=== PATIENT | female | born 1970 | race Caucasian/White ===

== ENCOUNTER 2020-04-04 11:00 | Outpatient (RCR) | payer OTHER, SELFPAY | END 2020-04-14 10:16 | disposition other institution (70) | LOC: HO.PT 11:00 | PROVIDERS: PCP Internal Medicine; Visit Provider Internal Medicine | DX: R26.81 Unsteadiness on feet (principal) | CPT/HCPCS: 97110; 97112; 97163 ==

== ENCOUNTER → 2020-07-21 08:09 | Outpatient (REF) | payer OTHER, SELFPAY ==
--- NOTE | ~2020-07-21 | NM_ITS ---
Exercise Myocardial perfusion study Indication: Chest pain to evaluate for myocardial ischemia Technique: The patient was brought in for an exercise perfusion study on 07/21/2020. Patient performed exercise as per Kishore protocol and was injected 30 mCi of sestamibi was given intravenously one target HR was achieved. Images were obtained using the SPECT gamma camera interlaced with the gating device. Images were obtained in supine position. Resting perfusion study was performed on 07/22/2020. Patient was administered 30 mCi of sestamibi intravenously at rest. Images were then obtained in supine position. Images obtained with and without CT attenuation. Total DLP 82 mGy-cm. Images were processed with the software and compared side to side in short axis, horizontal long axis and vertical long axis views. Findings: The stress perfusion study showed non attenuated images show mildly reduced uptake in the distal anterior and moderately reduced uptake in the apex of the LV myocardium. Remainder of the LV myocardium is normally perfused. Attenuation corrected images show mildly reduced uptake in the apex of the LV myocardium.. The gated study shows normal LV systolic function with calculated LVEF of 72%. LV cavity is normal in size. The gated study shows normal systolic wall thickening and contraction of all segments. There is no transient ischemic dilation. Resting study shows non attenuated images show normal uptake of radiotracer in all segments of LV myocardium is well seen on the attenuated corrected images. Gating at rest reveals normal systolic wall motion with ejection fraction at 70%. The findings are consistent with mild to moderate intensity apical ischemia. NM/NM spencer perf SPECT rest & str Impression: 1. Apical ischemia 2. Gated LVEF is 70% 3. Transient ischemic dilatation not present Stress EKG is positive for ischemia
--- NOTE | 2020-07-21 08:16 | CA_ITS ---
Acquisition Time: 2020-07-21 08:21:42 Total Exercise Time: 00:09:16 Test Indications: CP Medications: SEE CHART Protocol: WILBERT Max HR: 148 BPM 86% of Pred: 172 BPM Max BP: 144/068 mmHG Max Work Load: 10.5 METS Exercise stress test with exercise 9 min 16 sec of Wilbert protocol, without anginal symptoms, without arrythmia, with normotensive response to exercise, with EKG changes meeting criteria for ischemia: hortizontal ST depression inferiorly and V4-V6 with gradual improvement in recovery. Nuclear images pending. Test reviewed with Dr Garcia. Referred By: Stu Vargas Overread By: FELICIA ZALDIVAR
== END ==
LOC: HO.CARD 08:09
PROVIDERS: Visit Provider Internal Medicine Cardiovascular Disease
DX: R07.9 Chest pain, unspecified (principal)
CPT/HCPCS: 78452; 93016; 93017; 93018; A9500

== ENCOUNTER 2020-10-19 14:18 | Outpatient (REF) | payer OTHER, SELFPAY ==
--- NOTE | ~2020-10-19 | XR_ITS ---
EXAMINATION: XR KNEE, RIGHT CLINICAL INFORMATION: Pain right knee COMPARISON: None TECHNIQUE: Four views of the right knee. FINDINGS: The tricompartment joint space is maintained normal. No visible acute fracture, loose bodies or bony erosive changes seen. There is minimal suprapatellar joint effusion. XR/XR knee RT 4V IMPRESSION: Unremarkable right knee exam.
== END 2020-10-19 14:19 | disposition home or self-care (01) ==
LOC: HO.XRAY 14:18
PROVIDERS: Absent Provider Internal Medicine; PCP Internal Medicine; Visit Provider General Practice
DX: M25.561 Pain in right knee (principal)
CPT/HCPCS: 73564

== ENCOUNTER 2020-12-09 12:14 | Outpatient (REF) | payer OTHER, SELFPAY ==
--- NOTE | ~2020-12-09 | XR_ITS ---
EXAMINATION: XR CALCANEUS, LEFT CLINICAL INFORMATION: left heel pain radiating up into calf, no injury. COMPARISON: Left lower leg May 02, 2017 TECHNIQUE: Lateral and axial views of the left calcaneus were obtained. FINDINGS: There is a plantar calcaneal spur measuring about 6 mm. There is a small spur/exostosis of the posterior calcaneus at the insertion of the Achilles tendon. No fracture. No focal bone lesion or bone destruction. Subtalar joint and the calcaneocuboid joint are normal. No change since prior study of May 02, 2017. XR/XR calcaneus LT min 2V IMPRESSION: Plantar calcaneal spur. Spur at the insertion of Achilles tendon. There is been no change since prior study May 02, 2017.
== END 2020-12-09 12:15 | disposition home or self-care (01) ==
LOC: HO.XRAY 12:14
PROVIDERS: PCP Internal Medicine; Referring Provider Internal Medicine; Visit Provider Emergency Medicine
DX: M79.672 Pain in left foot (principal)
CPT/HCPCS: 73650

== ENCOUNTER 2021-01-20 20:36 | Emergency (ER) | payer OTHER, SELFPAY ==
[2021-01-20 20:51] VITALS: BP 129/80; PULSE 77; RESP 18; TEMP 36.1; O2SAT 98; BMI 32.3
== END 2021-01-20 22:09 | disposition left against medical advice (07) ==
PROVIDERS: Emergency Provider Emergency Medicine; PCP Internal Medicine
DX: M79.644 Pain in right finger(s) (principal)
CPT/HCPCS: 99281; 99282

== ENCOUNTER 2021-02-16 14:00 | Outpatient (RCR) | payer OTHER, SELFPAY | END 2021-03-14 13:49 | disposition home or self-care (01) | LOC: HO.PT 14:00 | PROVIDERS: PCP Internal Medicine; Visit Provider General Practice | DX: M72.2 Plantar fascial fibromatosis (principal) | CPT/HCPCS: 97110; 97112; 97140; 97161; 97530 ==

== ENCOUNTER 2021-07-29 02:23 | Emergency (ER) | payer OTHER, SELFPAY ==
[2021-07-29 02:30] VITALS: BP 115/79; BP 128/72; PULSE 105; PULSE 108; RESP 16; TEMP 38.1; O2SAT 96; BMI 30.9
[2021-07-29 02:35] VITALS: RESP 16
--- NOTE | 2021-07-29 02:50 | ED.NAVMDI ---
HPI - Nausea/Vomiting/Diarrhea General Chief complaint: Nausea/Vomiting/Diarrhea Stated complaint: n/v/d since 1999 Time Seen by Provider: 07/29/21 02:44 Source: patient Mode of arrival: ambulatory Limitations: no limitations History of Present Illness HPI Narrative: Patient comes emergency room complaining of nausea vomiting and diarrhea for approximately 6 hours. Patient states she ate a salad and shortly after she started having multiple episodes of vomiting and diarrhea. Related Data Previous Rx's Medication Instructions Recorded tamsulosin 0.4 mg capsule 0.4 mg PO DAILY 90 Days #90 cap 01/16/21 loperamide 2 mg capsule 2 mg PO Q4H PRN #10 cap 07/29/21 ondansetron HCl 4 mg tablet 4 mg PO Q6H PRN #10 tab 07/29/21 Allergies Allergy/AdvReac Type Severity Reaction Status Date / Time influenza virus vaccine, Allergy Severe ANAPHYLAXIS Unverified 01/21/20 15:21 specific [FLU VACCINE] Iodinated Contrast Media Allergy Severe TURNS Unverified 01/21/20 15:21 [Iodinated Contrast Media - BLUE IV Dye] latex [Latex] Allergy Severe ANAPHYLAXIS Unverified 01/21/20 15:21 sulfamethoxazole Allergy Mild RASH Unverified 01/21/20 15:21 [From Bactrim] trimethoprim [From Bactrim] Allergy Mild RASH Unverified 01/21/20 15:21 acetaminophen [Percocet] Allergy Unknown Verified 01/04/20 00:00 amoxicillin [Prevpac] Allergy Unknown nausea, Verified 01/04/20 00:00 vomiting clarithromycin [Prevpac] Allergy Unknown nausea, Verified 01/04/20 00:00 vomiting codeine Allergy Unknown Verified 01/04/20 00:00 doxazosin Allergy Unknown dizziness Verified 01/04/20 00:00 lansoprazole [Prevpac] Allergy Unknown nausea, Verified 01/04/20 00:00 vomiting metronidazole [From FLAGYL] Allergy Unknown UNKNOWN Unverified 01/21/20 15:21 Percodan Allergy Unknown stomach Unverified 01/04/20 00:00 upset rifaximin [Xifaxan] Allergy Unknown Verified 01/04/20 00:00 Sulfa (Sulfonamide Allergy Unknown stomach Unverified 01/04/20 00:00 Antibiotics) upset Opioids - Morphine Analogues AdvReac Intermediate NAUSEA & Unverified 01/21/20 15:21 [OPIOIDS - MORPHINE VOMITING + ANALOGUES] RASH clonazepam [From Klonopin] AdvReac Mild HEADACHE Unverified 01/21/20 15:21 oxycodone [From Percodan] AdvReac Mild HEADACHE/DI Unverified 01/21/20 15:21 ZZY Shellfish Allergy Mild DIFFICULTY Uncoded 01/21/20 15:21 BREATHING/RASH Biaxin Allergy Unknown Uncoded 01/04/20 00:00 LATEX Allergy Unknown anaphylaxis Uncoded 05/21/16 00:00 Latex Gloves Allergy Unknown Uncoded 01/04/20 00:00 OXYCODONE Allergy Unknown nausea and Uncoded 05/21/16 00:00 vomiting SHELLFISH Allergy Unknown anaphylaxis Uncoded 05/21/16 00:00 shellfish Allergy Unknown Uncoded 01/04/20 00:00 x-ray dye Allergy Unknown Uncoded 01/04/20 00:00 Review of Systems Review of Systems: Constitutional : No Weight loss, No Fever, No Chills, No Night Sweats, No Fatigue, No Malaise ENT/Mouth : No Hearing loss, No Ear Pain, No Nasal Congestion, No Sinus Pain, No Hoarseness, No sore throat, No Rhinorrhea, No Swallowing Difficulty Eyes: No Eye Pain, No Swelling, No Redness, No Foreign Body, No Discharge, No Vision Changes Cardiovascular : No Chest Pain, No SOB, No Dyspnea on Exertion, No Orthopnea, No Edema, No Palpitations Respiratory : No Cough, No Sputum, No Wheezing, No Smoke Exposure, No Dyspnea Gastrointestinal : Complaining of nausea, vomiting and diarrhea. No Constipation, denies abdominal Pain, No Hematochezia, No Melena Genitourinary : no irregular bleeding, No Dysuria, No Urinary Frequency, No Hematuria, No Urinary Incontinence, No Urgency, No Flank Pain, No Urinary Flow Changes, No Hesitancy Musculoskeletal : No joint pain, No Myalgias, No Joint Swelling Skin : No Skin Lesions, No rash Neuro : No Weakness, No Numbness, No Paresthesias, No Loss of Consciousness, No Dizziness, No Headache Psych : No Anxiety/Panic, No Depression, No SI/HI/AH/VH, No Social Issues, Heme/Lymph: No Bruising, No Bleeding,No Lymphadenopathy Endocrine : No Polyuria, No Polydipsia, No Temperature Intolerance PMFSH Past Medical History Medical History Anxiety about blushing HTN (hypertension) Restless leg syndrome Seizure Social History Social History Advance Directives: No Advance Directives Information Provided: No Physical Exam Vital Signs: Vital Signs: Last Vital Signs Temp 99.6 F 07/29/21 04:00 Pulse 99 07/29/21 04:14 Resp 22 H 07/29/21 04:14 BP 117/59 L 07/29/21 04:14 Pulse Ox 96 07/29/21 04:14 BMI result Body Mass Index 30.9 Const: Other: Appearance: Alert. Oriented X3. No acute distress. Well-appearing Eyes: Pupils equal, round and reactive to light. ENT: Pharynx normal. Neck: Normal inspection. Neck supple. No lymph nodes noted. No crepitus CVS: Normal heart rate and rhythm. Pulses normal. Normal S1 and S2 Respiratory: No respiratory distress. Breath sounds normal. No Wheezing. No rales Abdomen: Soft and nontender. No rigidity. No distention. Skin: Skin warm and dry. Normal skin color. Normal skin turgor. Extremities: No lower extremity edema. No Lacerations. No Rash Neuro: Oriented X 3. No motor deficit. No sensory deficit. Moving all extremities. No slurred speech. CN 2 through 12 grossly intact Psych: calm, cooperative, normal affect Course Course Course Narrative: Patient likely has a viral process. Patient being given fluids, IV Zofran, loperamide. Labs pending Acute findings. Patient tested negative for COVID. Patient likely having a viral syndrome. Patient has not had any episodes of vomiting or diarrhea in the ED MDM - Nausea/Vomiting/Diarrhea Lab Data Result diagrams: 07/29/21 03:04 07/29/21 03:04 Labs: Lab Results 07/29/21 07/29/21 07/29/21 Range/Units 03:04 03:04 03:39 WBC 5.4 (4.8-10.8) X10*3/uL RBC 4.52 (4.20-5.50) X10*6/uL Hgb 13.2 (12.0-16.0) g/dl Hct 39.4 (37.0-47.0) % MCV 87.2 (80.0-98.0) fL MCH 29.2 (27.0-33.0) pg MCHC 33.5 (31.0-35.0) g/dl RDW 11.7 (11.0-16.0) % Plt Count 233 (160-400) X10*3/uL MPV 8.9 L (9.4-12.3) fL Immature Gran % (Auto) 0.2 (0.0-0.4) % Neut % (Auto) 87.1 H (45-73) % Lymph % (Auto) 4.5 L (20-40) % Travis % (Auto) 5.8 (2-11) % Eos % (Auto) 2.2 (0-4) % Baso % (Auto) 0.2 (0-2) % Lymph # (Auto) 0.2 L (1.2-4.9) X10*3/uL Travis # (Auto) 0.3 (0.1-1.2) X10*3/uL Eos # (Auto) 0.1 (0.0-0.4) X10*3/uL Baso # (Auto) 0.0 (0.0-0.2) X10*3/uL Abs Immat Gran (auto) 0.01 (0.00-0.03) X10*3/uL Absolute Neuts (auto) 4.7 (2.0-8.3) x10*3/uL Absolute Nucleated RBC 0.000 (0.0-0.012) X10*3/uL Nucleated RBC % (auto) 0.0 (0.0-0.2) /100WBC Sodium 138 (135-145) mmol/L Potassium 4.1 (3.3-5.1) mmol/L Chloride 103 (96-108) mmol/L Carbon Dioxide 24 (22-29) mmol/L Anion Gap 15 (12-20) BUN 19 H (9-16) mg/dL Creatinine 0.98 (0.5-1.4) mg/dL Estim Creat Clear Calc 74.5 Estimated GFR > 60 Random Glucose 137 H (60-115) mg/dL Calcium 9.4 (8.4-10.2) mg/dL Total Bilirubin 0.6 (0.0-1.0) mg/dL Direct Bilirubin < 0.2 (0.0-0.5) mg/dL AST 14 (5-31) U/L ALT 15 (0-31) U/L Alkaline Phosphatase 63 (39-117) U/L Total Protein 7.2 (6.5-8.0) g/dL Albumin 4.2 (3.5-5.0) g/dL COVID-19 (JORDANA) (Negative) COVID-19 Clin Com Influenza Type A (FRANCO) Negative (Negative) Influenza Type B (FRANCO) Negative (Negative) Influenza A & B Note See Note 07/29/21 Range/Units 03:39 WBC (4.8-10.8) X10*3/uL RBC (4.20-5.50) X10*6/uL Hgb (12.0-16.0) g/dl Hct (37.0-47.0) % MCV (80.0-98.0) fL MCH (27.0-33.0) pg MCHC (31.0-35.0) g/dl RDW (11.0-16.0) % Plt Count (160-400) X10*3/uL MPV (9.4-12.3) fL Immature Gran % (Auto) (0.0-0.4) % Neut % (Auto) (45-73) % Lymph % (Auto) (20-40) % Travis % (Auto) (2-11) % Eos % (Auto) (0-4) % Baso % (Auto) (0-2) % Lymph # (Auto) (1.2-4.9) X10*3/uL Travis # (Auto) (0.1-1.2) X10*3/uL Eos # (Auto) (0.0-0.4) X10*3/uL Baso # (Auto) (0.0-0.2) X10*3/uL Abs Immat Gran (auto) (0.00-0.03) X10*3/uL Absolute Neuts (auto) (2.0-8.3) x10*3/uL Absolute Nucleated RBC (0.0-0.012) X10*3/uL Nucleated RBC % (auto) (0.0-0.2) /100WBC Sodium (135-145) mmol/L Potassium (3.3-5.1) mmol/L Chloride (96-108) mmol/L Carbon Dioxide (22-29) mmol/L Anion Gap (12-20) BUN (9-16) mg/dL Creatinine (0.5-1.4) mg/dL Estim Creat Clear Calc Estimated GFR Random Glucose (60-115) mg/dL Calcium (8.4-10.2) mg/dL Total Bilirubin (0.0-1.0) mg/dL Direct Bilirubin (0.0-0.5) mg/dL AST (5-31) U/L ALT (0-31) U/L Alkaline Phosphatase (39-117) U/L Total Protein (6.5-8.0) g/dL Albumin (3.5-5.0) g/dL COVID-19 (JORDANA) Negative (Negative) COVID-19 Clin Com See Note Influenza Type A (FRANCO) (Negative) Influenza Type B (FRANCO) (Negative) Influenza A & B Note Discharge Plan Discharge Clinical Impression: Nausea vomiting and diarrhea Patient Disposition: Home, Self-Care Instructions: Acute Nausea and Vomiting (ED) Additional Instructions: Please follow-up with your primary care physician tomorrow. If you have any worsening or new symptoms, please return to the emergency room or call 911 Prescriptions: New ondansetron HCl 4 mg tablet 4 mg PO Q6H PRN (Reason: nausea and vomiting) Qty: 10 0RF loperamide 2 mg capsule 2 mg PO Q4H PRN (Reason: loose stool) Qty: 10 0RF Rx Instructions: administer after each loose stool until symptoms controlled; do not exceed 8 mg per 24 hrs No Action tamsulosin 0.4 mg capsule 0.4 mg PO DAILY 90 Days Qty: 90 1RF
[2021-07-29] MEDS: 0.9 % Sodium Chloride 1,000 ML 999 ML IVCONT (03:04)
[2021-07-29] MEDS: ondansetron HCL 4 MG/2 ML VIAL IVPUSH (03:05)
[2021-07-29] MEDS: Ibuprofen 600 MG TABLET PO (03:08)
[2021-07-29] MEDS: Loperamide HCl 2 MG CAPSULE 4 MG PO (03:08)
[2021-07-29 03:09] LABS: MANUAL DIFF FLAG NO
[2021-07-29 03:14] LABS: Basophils Percent Auto 0.2 % (0-2); Eosinophils Absolute Auto 0.1 X10*3/uL (0.0-0.4); Eosinophils Percent Auto 2.2 % (0-4); Hematocrit 39.4 % (37.0-47.0); Hemoglobin 13.2 g/dl (12.0-16.0); Imm Gran Abs Auto 0.01 X10*3/uL (0.00-0.03); Imm Gran Pct Auto 0.2 % (0.0-0.4); Lymphocytes Absolute Auto 0.2 X10*3/uL (1.2-4.9); Lymphocytes Percent Auto 4.5 % (20-40); Mean Corpuscular HGB Conc 33.5 g/dl (31.0-35.0); Mean Corpuscular Hemoglobin 29.2 pg (27.0-33.0); Mean Corpuscular Volume 87.2 fL (80.0-98.0); Mean Platelet Volume 8.9 fL (9.4-12.3); Monocytes Absolute Auto 0.3 X10*3/uL (0.1-1.2); Monocytes Percent Auto 5.8 % (2-11); Neutrophils Absolute Auto 4.7 x10*3/uL (2.0-8.3); Neutrophils Percent Auto 87.1 % (45-73); Platelet Count 233 X10*3/uL (160-400); Red Blood Count 4.52 X10*6/uL (4.20-5.50); Red Cell Distribution Width 11.7 % (11.0-16.0); White Blood Count 5.4 X10*3/uL (4.8-10.8)
[2021-07-29 03:28] LABS: Alanine Aminotransferase 15 U/L (0-31); Albumin Level 4.2 g/dL (3.5-5.0); Alkaline Phosphatase 63 U/L (39-117); Anion Gap 15 (12-20); Aspartate Amino Transferase 14 U/L (5-31); Bilirubin Direct < 0.2 mg/dL (0.0-0.5); Bilirubin Total 0.6 mg/dL (0.0-1.0); Blood Urea Nitrogen 19 mg/dL (9-16); Calcium 9.4 mg/dL (8.4-10.2); Carbon Dioxide 24 mmol/L (22-29); Chloride 103 mmol/L (96-108); Creatinine Clr Calc Pharmacy 74.5; Estimated Glomerular Filt Rate > 60; Glucose Random 137 mg/dL (60-115); Potassium 4.1 mmol/L (3.3-5.1); Sodium 138 mmol/L (135-145); Total Protein 7.2 g/dL (6.5-8.0)
[2021-07-29 04:00] VITALS: BP 115/68; PULSE 98; RESP 16; TEMP 37.6; O2SAT 97
[2021-07-29 04:04] LABS: COVID-19 Test Negative (Negative); IDNOW Serial# 55D5AD1C; Influenza A Negative (Negative); Influenza B2 Negative (Negative)
[2021-07-29 04:14] VITALS: BP 117/59; PULSE 99; RESP 22; O2SAT 96
== END 2021-07-29 06:38 | disposition home or self-care (01) ==
PROVIDERS: Emergency Provider Emergency Medicine; PCP Internal Medicine
DX: R11.2 Nausea with vomiting, unspecified (principal); R19.7 Diarrhea, unspecified; Z20.822 Contact with and (suspected) exposure to COVID-19
CPT/HCPCS: 36415; 80048; 80076; 85025; 87502; 87635; 96361; 96374; 99284; J2405

== ENCOUNTER 2021-09-21 13:37 | Outpatient (REF) | payer OTHER, SELFPAY ==
--- NOTE | ~2021-09-21 | US_ITS ---
EXAMINATION: US PELVIS CLINICAL INFORMATION: Abnormal vaginal bleeding COMPARISON: 11/16/2007 TECHNIQUE: Ultrasound of the pelvis is performed using both transabdominal and transvaginal transducers along with Doppler. Transvaginal imaging is performed due to inadequate visualization transabdominally. FINDINGS: Uterus: The uterus is anteverted and measures 7.7 x 4.4 x 6.0 cm. The uterus is diffusely heterogeneous. There is a 4.3 x 3.2 x 3.5 cm left uterine body leiomyoma, increased in size from prior. 1.2 cm right uterine body leiomyoma. Similar appearance of 1.6 cm left fundal myoma. The double wall endometrial thickness is 0.4 mm. Nabothian cysts are incidentally noted in the cervix. Adnexa: Both ovaries are visualized. There is normal color flow to the adnexa. There is no ovarian torsion. Trace likely physiologic volume free fluid. Right ovary measures 2.4 x 1.4 x 1.7 cm. No adnexal mass. Left ovary measures 1.5 x 1.2 x 1.2 cm. No adnexal mass. US/US pelvic and transvaginal IMPRESSION: Thin, 4 mm endometrial stripe. Uterine myomas are seen, one increased in size, one new, the other is stable in appearance. No adnexal mass.
== END 2021-09-21 13:38 | disposition home or self-care (01) ==
LOC: HO.US 13:37
PROVIDERS: Visit Provider Internal Medicine
DX: N93.8 Other specified abnormal uterine and vaginal bleeding (principal)
CPT/HCPCS: 76830; 76856

== ENCOUNTER 2022-01-31 10:17 | Outpatient (REF) | payer OTHER, SELFPAY ==
[2022-01-31 11:16] LABS: Alanine Aminotransferase 21 U/L (0-31); Albumin Level 4.8 g/dL (3.5-5.0); Alkaline Phosphatase 71 U/L (39-117); Anion Gap 13 (12-20); Aspartate Amino Transferase 18 U/L (5-31); Bilirubin Total 0.5 mg/dL (0.0-1.0); Blood Urea Nitrogen 16 mg/dL (9-16); Calcium 10.1 mg/dL (8.4-10.2); Carbon Dioxide 30 mmol/L (22-29); Chloride 102 mmol/L (96-108); Estimated Glomerular Filt Rate > 60; Glucose Random 86 mg/dL (60-115); Sodium 141 mmol/L (135-145); Total Protein 7.8 g/dL (6.5-8.0)
[2022-01-31 11:37] LABS: Thyroid Stimulating Hormone 1.01 uIU/mL (0.32-4.0)
[2022-01-31 16:02] LABS: CT PCR NOT DETECTED (Not Detect.); NG PCR NOT DETECTED (Not Detect.)
[2022-02-01 13:09] LABS: BV Int Neg Control Negative (Negative); BV Int Pos Control Positive (Positive)
[2022-02-02 01:07] LABS: Follicle Stimulating Hormone 49.5 mIU/mL
== END 2022-01-31 10:18 | disposition home or self-care (01) ==
LOC: HO.LAB 10:17
PROVIDERS: PCP Internal Medicine; Visit Provider Advanced Practice Midwife
DX: N93.9 Abnormal uterine and vaginal bleeding, unspecified (principal); R23.2 Flushing; N92.1 Excessive and frequent menstruation with irregular cycle; N89.8 Other specified noninflammatory disorders of vagina; Z11.3 Encounter for screening for infections with a predominantly sexual mode of transmission
CPT/HCPCS: 80053; 81025; 83001; 84443; 87480; 87491; 87510; 87591; 87660; 99202

== ENCOUNTER 2022-02-14 22:36 | Emergency (ER) | payer OTHER, SELFPAY ==
[2022-02-14 23:24] VITALS: BP 106/45; PULSE 67; RESP 16; TEMP 36.7; O2SAT 99; BMI 30.7
[2022-02-15 00:12] LABS: MANUAL DIFF FLAG NO
[2022-02-15 00:13] LABS: Basophils Absolute Auto 0.1 X10*3/uL (0.0-0.2); Basophils Percent Auto 0.6 % (0-2); Eosinophils Absolute Auto 0.4 X10*3/uL (0.0-0.4); Eosinophils Percent Auto 4.9 % (0-4); Hematocrit 38.9 % (37.0-47.0); Hemoglobin 12.9 g/dl (12.0-16.0); Imm Gran Abs Auto 0.01 X10*3/uL (0.00-0.03); Imm Gran Pct Auto 0.1 % (0.0-0.4); Lymphocytes Absolute Auto 2.9 X10*3/uL (1.2-4.9); Lymphocytes Percent Auto 38.1 % (20-40); Mean Corpuscular HGB Conc 33.2 g/dl (31.0-35.0); Mean Corpuscular Hemoglobin 28.9 pg (27.0-33.0); Mean Corpuscular Volume 87.2 fL (80.0-98.0); Mean Platelet Volume 8.6 fL (9.4-12.3); Monocytes Absolute Auto 0.8 X10*3/uL (0.1-1.2); Monocytes Percent Auto 10.4 % (2-11); Neutrophils Absolute Auto 3.5 x10*3/uL (2.0-8.3); Neutrophils Percent Auto 45.9 % (45-73); Platelet Count 286 X10*3/uL (160-400); Red Blood Count 4.46 X10*6/uL (4.20-5.50); Red Cell Distribution Width 11.9 % (11.0-16.0); White Blood Count 7.7 X10*3/uL (4.8-10.8)
[2022-02-15 00:38] LABS: Alanine Aminotransferase 19 U/L (0-31); Albumin Level 4.4 g/dL (3.5-5.0); Alkaline Phosphatase 53 U/L (39-117); Anion Gap 16 (12-20); Aspartate Amino Transferase 20 U/L (5-31); Bilirubin Direct < 0.2 mg/dL (0.0-0.5); Bilirubin Total 0.3 mg/dL (0.0-1.0); Blood Urea Nitrogen 12 mg/dL (9-16); Carbon Dioxide 26 mmol/L (22-29); Chloride 103 mmol/L (96-108); Estimated Glomerular Filt Rate > 60; Glucose Random 119 mg/dL (60-115); Potassium 3.7 mmol/L (3.3-5.1); Sodium 141 mmol/L (135-145); Total Protein 7.2 g/dL (6.5-8.0)
[2022-02-15 00:42] LABS: B Type Natriuretic Peptide 56 pg/mL (<100)
--- NOTE | 2022-02-15 01:33 | ED_ITS ---
HPI - General Adult General Chief complaint: Extremity Injury, Lower Stated complaint: pain in both legs, dr told her to come Time Seen by Provider: 02/15/22 01:25 Source: patient Mode of arrival: ambulatory Limitations: no limitations History of Present Illness HPI narrative: Patient comes to the emergency room complaining of cramps in both lower extremities and achiness in her left foot. Patient states this started shortly after starting a cholesterol medication, bempedoic acid. Last dose was yesterday, patient call her primary care physician, patient was instructed to discontinue taking her medication. Patient denies calf pain, no lower extremity swelling. Patient denies any trauma Related Data Home Medications Medication Instructions Recorded Confirmed aspirin 81 mg tablet,delayed 81 mg PO DAILY 01/31/22 release buspirone 10 mg tablet 10 mg PO TID 01/31/22 cholecalciferol (vitamin D3) 50 50 mcg PO DAILY 01/31/22 mcg (2,000 unit) capsule (Vitamin D3) cyanocobalamin (vitamin B-12) 1,000 mcg PO QAM 01/31/22 1,000 mcg tablet cyclosporine 0.05 % eye drops 1 drp ophthalmic (eye) BID 01/31/22 (Restasis MultiDose) diclofenac sodium 1 % topical gel 2 g topical QID 01/31/22 diphenhydramine HCl 25 mg tablet 0 mg PO 01/31/22 docusate sodium 100 mg capsule 100 mg PO 01/31/22 epinephrine 0.3 mg/0.3 mL IM 01/31/22 injection, auto-injector famotidine 20 mg tablet 20 mg PO BID 01/31/22 furosemide 40 mg tablet 40 mg PO QAM 01/31/22 ibuprofen 800 mg tablet 800 mg PO TID 01/31/22 lacosamide 100 mg tablet 100 mg PO 01/31/22 levetiracetam 500 mg tablet 500 mg PO BID 01/31/22 lorazepam 1 mg tablet 0 mg PO 01/31/22 metoprolol tartrate 25 mg tablet 25 mg PO 01/31/22 montelukast 10 mg tablet 10 mg PO BEDTIME 01/31/22 ropinirole 2 mg tablet 0 mg PO 01/31/22 salicylic acid 2 % topical cream appl topical BID PRN 01/31/22 (CeraVe Psoriasis) triamcinolone acetonide 0.1 % appl topical BID 01/31/22 topical cream verapamil 120 mg tablet,extended 120 mg PO DAILY 01/31/22 release white petrolatum 42 % topical topical 01/31/22 ointment Previous Rx's Medication Instructions Recorded ibuprofen 600 mg tablet 600 mg PO TID PRN pain #14 tabs 02/15/22 Allergies Allergy/AdvReac Type Severity Reaction Status Date / Time influenza virus vaccine, Allergy Severe ANAPHYLAXIS Verified 01/31/22 09:45 specific [FLU VACCINE] Iodinated Contrast Media Allergy Severe TURNS Verified 01/31/22 09:45 [Iodinated Contrast Media - BLUE IV Dye] latex [Latex] Allergy Severe ANAPHYLAXIS Verified 01/31/22 09:45 sulfamethoxazole Allergy Mild RASH Verified 01/31/22 09:45 [From Bactrim] trimethoprim [From Bactrim] Allergy Mild RASH Verified 01/31/22 09:45 amoxicillin [Prevpac] Allergy Unknown nausea, Verified 01/31/22 09:45 vomiting clarithromycin [Prevpac] Allergy Unknown nausea, Verified 01/31/22 09:45 vomiting codeine Allergy Unknown Unknown Verified 01/31/22 09:45 doxazosin Allergy Unknown dizziness Verified 01/31/22 09:45 lansoprazole [Prevpac] Allergy Unknown nausea, Verified 01/31/22 09:45 vomiting metronidazole [From FLAGYL] Allergy Unknown UNKNOWN Verified 01/31/22 09:45 Percodan Allergy Unknown stomach Verified 01/31/22 09:45 upset rifaximin [Xifaxan] Allergy Unknown Unknown Verified 01/31/22 09:45 Sulfa (Sulfonamide Allergy Unknown stomach Verified 01/31/22 09:45 Antibiotics) upset Opioids - Morphine Analogues AdvReac Intermediate NAUSEA & Verified 01/31/22 09:45 [OPIOIDS - MORPHINE VOMITING + ANALOGUES] RASH clonazepam [From Klonopin] AdvReac Mild HEADACHE Verified 01/31/22 09:45 oxycodone [From Percodan] AdvReac Mild HEADACHE/DI Verified 01/31/22 09:45 ZZY Shellfish Allergy Mild DIFFICULTY Uncoded 01/21/20 15:21 BREATHING/RASH Biaxin Allergy Unknown Unknown Uncoded 01/31/22 09:45 LATEX Allergy Unknown anaphylaxis Uncoded 05/21/16 00:00 Latex Gloves Allergy Unknown Unknown Uncoded 01/31/22 09:45 OXYCODONE Allergy Unknown nausea and Uncoded 05/21/16 00:00 vomiting SHELLFISH Allergy Unknown anaphylaxis Uncoded 05/21/16 00:00 shellfish Allergy Unknown Unknown Uncoded 01/31/22 09:45 Review of Systems Review of Systems: Constitutional : No Weight loss, No Fever, No Chills, No Night Sweats, No Fatigue, No Malaise ENT/Mouth : No Hearing loss, No Ear Pain, No Nasal Congestion, No Sinus Pain, No Hoarseness, No sore throat, No Rhinorrhea, No Swallowing Difficulty Eyes: No Eye Pain, No Swelling, No Redness, No Foreign Body, No Discharge, No Vision Changes Cardiovascular : No Chest Pain, No SOB, No Dyspnea on Exertion, No Orthopnea, No Edema, No Palpitations Respiratory : No Cough, No Sputum, No Wheezing, No Smoke Exposure, No Dyspnea Gastrointestinal : No Nausea, No Vomiting, No Diarrhea, No Constipation, No abdominal Pain, No Hematochezia, No Melena Genitourinary : no irregular bleeding, No Dysuria, No Urinary Frequency, No Hematuria, No Urinary Incontinence, No Urgency, No Flank Pain, No Urinary Flow Changes, No Hesitancy Musculoskeletal : Complaining of lower extremity cramping and achiness in the left foot, No joint pain, No Myalgias, No Joint Swelling Skin : No Skin Lesions, No rash Neuro : No Weakness, No Numbness, No Paresthesias, No Loss of Consciousness, No Dizziness, No Headache Psych : No Anxiety/Panic, No Depression, No SI/HI/AH/VH, No Social Issues, Heme/Lymph: No Bruising, No Bleeding,No Lymphadenopathy Endocrine : No Polyuria, No Polydipsia, No Temperature Intolerance [facility] Past Medical History Medical History ADD (attention deficit disorder) Anxiety about blushing Cognitive impairment Depression with anxiety Disturbance of salivary secretion GERD (gastroesophageal reflux disease) Hammer toe History of cervical dysplasia HTN (hypertension) Hypercholesteremia IBS (irritable bowel syndrome) Insomnia Keratosis pilaris Plantar fasciitis PTSD (post-traumatic stress disorder) Restless leg syndrome Seizure Sjogrens syndrome Tear film insufficiency Surgical History H/O hand surgery Hx of section Family History Family History Maternal Aunt Colon cancer Maternal Grandmother History of breast cancer Social History Social History Alcohol intake: never Patient Tobacco Use Status: Never used Tobacco Advance Directives: No Physical Exam ED Vital Signs: Vital Signs - 24 hr 02/14/22 23:24 Temperature 98.1 F Pulse Rate 67 Respiratory Rate 16 Blood Pressure 106/45 L Pulse Oximetry 99 Oxygen Delivery Method Room Air BMI result Body Mass Index 30.7 Const Other: Appearance: Alert. Oriented X3. No acute distress. Eyes: Pupils equal, round and reactive to light. ENT: Pharynx normal. Neck: Normal inspection. Neck supple. No lymph nodes noted. No crepitus CVS: Normal heart rate and rhythm. Pulses normal. Normal S1 and S2 Respiratory: No respiratory distress. Breath sounds normal. No Wheezing. No rales Abdomen: Soft and nontender. No rigidity. No distention. Skin: Skin warm and dry. Normal skin color. Normal skin turgor. Extremities: No lower extremity edema. No Lacerations. No Rash, no pain to palpation in the calf this, no swelling in feet or lower extremities. At this time, no pain Neuro: Oriented X 3. No motor deficit. No sensory deficit. Moving all extremities. No slurred speech. CN 2 through 12 grossly intact Psych: calm, cooperative, normal affect Course Course Course Narrative: At this time, patient states that she has no pain in her legs, occasionally has achiness in her left foot but is worse when she bears weight. I discussed the patient that bempedoic acid as well no side effects such as myalgias and cramps. Patient instructed to not take this medication any further. Patient has history of sensitivity to medications. DVTs are not suspected. Patient's Wells criteria for DVT score is -2 Medical Decision Making Lab Data Result diagrams: 02/15/22 00:07 02/15/22 00:07 Labs: Lab Results 02/15/22 02/15/22 02/15/22 Range/Units 00:07 00:07 00:07 WBC 7.7 (4.8-10.8) X10*3/uL RBC 4.46 (4.20-5.50) X10*6/uL Hgb 12.9 (12.0-16.0) g/dl Hct 38.9 (37.0-47.0) % MCV 87.2 (80.0-98.0) fL MCH 28.9 (27.0-33.0) pg MCHC 33.2 (31.0-35.0) g/dl RDW 11.9 (11.0-16.0) % Plt Count 286 (160-400) X10*3/uL MPV 8.6 L (9.4-12.3) fL Immature Gran % (Auto) 0.1 (0.0-0.4) % Neut % (Auto) 45.9 (45-73) % Lymph % (Auto) 38.1 (20-40) % Imperial % (Auto) 10.4 (2-11) % Eos % (Auto) 4.9 H (0-4) % Baso % (Auto) 0.6 (0-2) % Lymph # (Auto) 2.9 (1.2-4.9) X10*3/uL Imperial # (Auto) 0.8 (0.1-1.2) X10*3/uL Eos # (Auto) 0.4 (0.0-0.4) X10*3/uL Baso # (Auto) 0.1 (0.0-0.2) X10*3/uL Abs Immat Gran (auto) 0.01 (0.00-0.03) X10*3/uL Absolute Neuts (auto) 3.5 (2.0-8.3) x10*3/uL Absolute Nucleated RBC 0.000 (0.0-0.012) X10*3/uL Nucleated RBC % (auto) 0.0 (0.0-0.2) /100WBC Sodium 141 (135-145) mmol/L Potassium 3.7 (3.3-5.1) mmol/L Chloride 103 (96-108) mmol/L Carbon Dioxide 26 (22-29) mmol/L Anion Gap 16 (12-20) BUN 12 (9-16) mg/dL Creatinine 0.96 (0.5-1.4) mg/dL Estim Creat Clear Calc 75.0 Estimated GFR > 60 Random Glucose 119 H (60-115) mg/dL Calcium 10.0 (8.4-10.2) mg/dL Total Bilirubin 0.3 (0.0-1.0) mg/dL Direct Bilirubin < 0.2 (0.0-0.5) mg/dL AST 20 (5-31) U/L ALT 19 (0-31) U/L Alkaline Phosphatase 53 D (39-117) U/L Total Creatine Kinase 104 (26-140) U/L B-Natriuretic Peptide 56 (<100) pg/mL Total Protein 7.2 (6.5-8.0) g/dL Albumin 4.4 (3.5-5.0) g/dL Scores Wells DVT Alternative Dx as likely as or more likely than DVT: -2 Score: -2 2-tier Risk: unlikely risk (5%) 3-tier Risk: low risk (3%) Discharge Plan Discharge Clinical Impression: Myalgia, Medication side effect Patient Disposition: Home, Self-Care Instructions: Musculoskeletal Pain (ED) Additional Instructions: Do not use Bempedoic acid anymore. Please follow-up with your primary care physician tomorrow. If you have any worsening or new symptoms, please return to the emergency room or call 911 Prescriptions: New ibuprofen 600 mg tablet 600 mg PO TID PRN (Reason: pain) Qty: 14 0RF No Action diclofenac sodium 1 % gel 2 g topical QID ropinirole 2 mg tablet 0 mg PO CeraVe Psoriasis 2 % cream topical BID PRN white petrolatum 42 % ointment topical Restasis MultiDose 0.05 % drops 1 drp ophthalmic (eye) BID lorazepam 1 mg tablet 0 mg PO lacosamide 100 mg tablet 100 mg PO cholecalciferol (vitamin D3) [Vitamin D3] 50 mcg (2,000 unit) capsule 50 mcg PO DAILY montelukast 10 mg tablet 10 mg PO BEDTIME docusate sodium 100 mg capsule 100 mg PO buspirone 10 mg tablet 10 mg PO TID aspirin 81 mg tablet,delayed release (DR/EC) 81 mg PO DAILY cyanocobalamin (vitamin B-12) 1,000 mcg tablet 1,000 mcg PO QAM levetiracetam 500 mg tablet 500 mg PO BID metoprolol tartrate 25 mg tablet 25 mg PO famotidine 20 mg tablet 20 mg PO BID furosemide 40 mg tablet 40 mg PO QAM ibuprofen 800 mg tablet 800 mg PO TID epinephrine 0.3 mg/0.3 mL auto-injector IM diphenhydramine HCl 25 mg tablet 0 mg PO verapamil 120 mg tablet extended release 120 mg PO DAILY triamcinolone acetonide 0.1 % cream topical BID
== END 2022-02-15 01:57 | disposition home or self-care (01) ==
PROVIDERS: Emergency Provider Emergency Medicine; PCP Internal Medicine
DX: M79.10 Myalgia, unspecified site (principal); T46.6X5A Adverse effect of antihyperlipidemic and antiarteriosclerotic drugs, initial encounter; Y92.039 Unspecified place in apartment as the place of occurrence of the external cause; I10 Essential (primary) hypertension; E78.00 Pure hypercholesterolemia, unspecified; Z79.899 Other long term (current) drug therapy
CPT/HCPCS: 36415; 80048; 80076; 82550; 83880; 85025; 99282; 99283

== ENCOUNTER → 2022-02-20 09:34 | Outpatient (BNVA) | payer OTHER, SELFPAY | PROVIDERS: PCP Internal Medicine; Visit Provider Advanced Practice Midwife | DX: N93.9 Abnormal uterine and vaginal bleeding, unspecified (principal); N76.0 Acute vaginitis; B96.89 Other specified bacterial agents as the cause of diseases classified elsewhere; Z71.2 Person consulting for explanation of examination or test findings | CPT/HCPCS: 81025; 99211 ==

== ENCOUNTER 2022-03-08 10:30 | Outpatient (RCR) | payer OTHER, SELFPAY ==
--- NOTE | 2022-02-07 11:42 | MHC.OT.EP ---
[address] [phone] Occupational Therapy Plan of Care Date of Evaluation: 02/07/22 Diagnosis: Right hand Assessment: Catina was referred to OT with right hand pain and numbness. Pt. reports approximately 3 week history of episodes of nighttime paralysis where she wakes up with dense numbness in the whole hand and inability to actively move wrist or digits. She has presented to the ER without intervention. Pt. reports trialing nighttime wrist cock up splint although states this makes the pain and numbness worse. She was negative for Phalen's test bilaterally with no reports of numbness this date. Pt. presents with decreased coordination in R hand (36 seconds compared to 24 seconds on the Functional Dexterity Test), as well as decreased gross grasp strength on R (40# compared to 65# on the L). A 70.5% limitation was reported per the Quick DASH assessment. Catina would benefit from skilled OT services to address noted barriers and assist in return to PLOF. Frequency and Duration: The patient will be seen 2x/wk for 6 weeks Short Term Goals: Initiate HEP for right hand strength/FMC Trial nighttime orthosis for positioning Improve right gross grasp by 5# Improve right hand fine motor coordination AEB >5 sec improvement on FDT Fci Goals: IND with progressive HEP Increase right gross grasp >50# Improve fine motor skills for IND with buttons/zippers Quick DASH <25% Treatment Plan: Therapeutic Exercise Therapeutic Activity Home Exercise Program Splinting Neuro Re-ed Patient Education Desensitization/Sensory Re-ed ADL Training Fluidotherapy MHP Soft Tissue Mobilization Kinesiotaping Electronically Signed By: Destiny Palacios MS OTR/L Please Sign and return to therapist. Thank you once again for your referral.
== END 2022-05-22 13:26 | disposition home or self-care (01) ==
LOC: HO.OT 10:30
PROVIDERS: Visit Provider Registered Nurse
DX: M79.641 Pain in right hand (principal)
CPT/HCPCS: 97035; 97110; 97165

== ENCOUNTER 2022-05-30 12:29 | Outpatient (REF) | payer OTHER, SELFPAY ==
--- NOTE | 2022-05-30 08:30 | EMG_ITS ---
Please see scanned EMG / Nerve Conduction Report. MTDD
== END 2022-05-30 12:30 | disposition home or self-care (01) ==
LOC: HO.NEURO 12:29
PROVIDERS: PCP Internal Medicine; Visit Provider Internal Medicine
DX: G56.03 Carpal tunnel syndrome, bilateral upper limbs (principal)
CPT/HCPCS: 95885; 95913

== ENCOUNTER 2022-06-17 08:56 | Emergency (ER) | payer OTHER, SELFPAY ==
--- NOTE | ~2022-06-17 | CT_ITS ---
EXAMINATION: CT HEAD WITHOUT CONTRAST CLINICAL INFORMATION: Headache. Evaluate for hemorrhage, mass effect. COMPARISON: MR brain dated 12/29/2019. TECHNIQUE: Contiguous axial imaging was performed from the skull base to vertex without intravenous administration of contrast. This CT examination was performed using dose optimization techniques as appropriate, variously including the following: *Automated exposure control *Adjustment of mA and/or kV according to patient size (this includes techniques or standardized protocols for targeted exams where dose is matched to indication/reason for exam; i.e. extremities or head) *Use of iterative reconstruction technique DLP: 669 mGy-cm FINDINGS: No acute intracranial hemorrhage. No mass effect or midline shift. No parenchymal lesion. The wolfe-white differentiation is maintained. No extra-axial fluid collection. The ventricles and sulci are unremarkable. The basal cisterns are patent. The visualized paranasal sinuses and mastoid air cells are clear. The calvarium is intact. CT/CT head/brain wo IV con IMPRESSION: No acute intracranial hemorrhage or mass effect.
[2022-06-17 09:12] VITALS: BP 147/77; PULSE 76; RESP 16; TEMP 35.9; O2SAT 97; BMI 32.8
--- NOTE | 2022-06-17 09:49 | ED.GENADULT ---
HPI - General Adult General Chief complaint: General Medical Stated complaint: HBP/Headache Time Seen by Provider: 06/17/22 09:49 Source: patient Mode of arrival: ambulatory Limitations: no limitations History of Present Illness HPI narrative: 51-year-old female who presents emergency department for evaluation of right-sided headache x2 days. She states that the pain came on suddenly when she was sleeping 2 days prior. She states the pain is been constant since onset. She states the pain waxes and wanes in intensity. She describes the pain is a dull/stabbing pain which is 10/10 at its worse and is currently 3/10. She also states she has had blurred vision in both eyes. Patient states she has chronic dizziness and she states that her dizziness has been worse since onset of the headache. She denied numbness, weakness loss of bowel or bladder control. She took Tylenol with only minimal improvement of her pain. She states that she took her blood pressure this morning and the systolic was greater than 200, this was prior to taking her medications. Since taking medications at home her blood pressure has improved here in the emergency department Patient patient states she has chronic numbness and pain in her left leg in is being worked up for neuropathy. Related Data Home Medications Medication Instructions Recorded Confirmed aspirin 81 mg tablet,delayed 81 mg PO DAILY 01/31/22 release buspirone 10 mg tablet 10 mg PO TID 01/31/22 cholecalciferol (vitamin D3) 50 50 mcg PO DAILY 01/31/22 mcg (2,000 unit) capsule (Vitamin D3) cyanocobalamin (vitamin B-12) 1,000 mcg PO QAM 01/31/22 1,000 mcg tablet cyclosporine 0.05 % eye drops 1 drp ophthalmic (eye) BID 01/31/22 (Restasis MultiDose) diclofenac sodium 1 % topical gel 2 g topical QID 01/31/22 diphenhydramine HCl 25 mg tablet 0 mg PO 01/31/22 docusate sodium 100 mg capsule 100 mg PO 01/31/22 epinephrine 0.3 mg/0.3 mL IM 01/31/22 injection, auto-injector famotidine 20 mg tablet 20 mg PO BID 01/31/22 furosemide 40 mg tablet 40 mg PO QAM 01/31/22 ibuprofen 800 mg tablet 800 mg PO TID 01/31/22 lacosamide 100 mg tablet 100 mg PO 01/31/22 levetiracetam 500 mg tablet 500 mg PO BID 01/31/22 lorazepam 1 mg tablet 0 mg PO 01/31/22 metoprolol tartrate 25 mg tablet 25 mg PO 01/31/22 montelukast 10 mg tablet 10 mg PO BEDTIME 01/31/22 ropinirole 2 mg tablet 0 mg PO 01/31/22 salicylic acid 2 % topical cream appl topical BID PRN 01/31/22 (CeraVe Psoriasis) triamcinolone acetonide 0.1 % appl topical BID 01/31/22 topical cream verapamil 120 mg tablet,extended 120 mg PO DAILY 01/31/22 release white petrolatum 42 % topical topical 01/31/22 ointment Previous Rx's Medication Instructions Recorded ibuprofen 600 mg tablet 600 mg PO TID PRN pain #14 tabs 02/15/22 metoclopramide HCl 10 mg tablet 10 mg PO Q6H PRN nausea and 06/17/22 (Reglan) vomiting #14 tabs Allergies Allergy/AdvReac Type Severity Reaction Status Date / Time influenza virus vaccine, Allergy Severe Anaphylaxis Verified 06/06/22 07:32 specific [FLU VACCINE] Iodinated Contrast Media Allergy Severe TURNS Verified 02/20/22 09:47 [Iodinated Contrast Media - BLUE IV Dye] latex [Latex] Allergy Severe Anaphylaxis Verified 06/06/22 07:32 sulfamethoxazole Allergy Mild Rash Verified 06/06/22 07:32 [From Bactrim] trimethoprim [From Bactrim] Allergy Mild Rash Verified 06/06/22 07:32 amoxicillin [Prevpac] Allergy Unknown Nausea and Verified 06/06/22 07:32 Vomiting aspirin [From Percodan] Allergy Unknown Stomach Verified 06/06/22 07:32 Upset clarithromycin [Prevpac] Allergy Unknown Nausea and Verified 06/06/22 07:32 Vomiting codeine Allergy Unknown Unknown Verified 02/20/22 09:47 doxazosin Allergy Unknown Dizziness Verified 06/06/22 07:32 gabapentin Allergy Unknown Blurry Verified 02/20/22 10:24 Vision lansoprazole [Prevpac] Allergy Unknown Nausea and Verified 06/06/22 07:32 Vomiting metronidazole [From FLAGYL] Allergy Unknown Unknown Verified 06/06/22 07:32 rifaximin [Xifaxan] Allergy Unknown Unknown Verified 02/20/22 09:47 shellfish derived Allergy Unknown Anaphylaxis, Verified 06/06/22 07:32 difficulty breathing, Rash Sulfa (Sulfonamide Allergy Unknown stomach Verified 02/20/22 09:47 Antibiotics) upset Opioids - Morphine Analogues AdvReac Intermediate NAUSEA & Verified 02/20/22 09:47 [OPIOIDS - MORPHINE VOMITING + ANALOGUES] RASH clonazepam [From Klonopin] AdvReac Mild HEADACHE Verified 02/20/22 09:47 oxycodone [From Percodan] AdvReac Mild Headache, Verified 06/06/22 07:32 Dizziness, Nausea and Vomiting Review of Systems Review of Systems: Yes all other systems are reviewed and are negative PENDING SALE TO [facility] Past Medical History PENDING SALE TO [facility] Narrative: Social history: She denies tobacco, alcohol and drug use. Medical History ADD (attention deficit disorder) Anxiety about blushing Cognitive impairment Depression with anxiety Disturbance of salivary secretion GERD (gastroesophageal reflux disease) Hammer toe History of cervical dysplasia HTN (hypertension) Hypercholesteremia IBS (irritable bowel syndrome) Insomnia Keratosis pilaris Plantar fasciitis PTSD (post-traumatic stress disorder) Restless leg syndrome Seizure Sjogrens syndrome Tear film insufficiency Surgical History H/O hand surgery Hx of section Family History Family History Maternal Aunt Colon cancer Maternal Grandmother History of breast cancer Social History Social History Alcohol intake: never Patient Tobacco Use Status: Never used Tobacco Smoked in Last 30 Days: No Use of substances other than those prescribed or required for medical reasons: No Any prior treatment program specific to substance use: No Advance Directives: No Advance Directives Information Provided: No Patient : No Physical Exam ED Vital Signs: Vital Signs - 24 hr 06/17/22 09:12 06/17/22 11:22 Temperature 96.7 F L Pulse Rate 76 62 Respiratory Rate 16 15 Blood Pressure 147/77 H Pulse Oximetry 97 Oxygen Delivery Method Room Air BMI result Body Mass Index 32.8 Const General: cooperative and no acute distress Orientation/consciousness: oriented to person and oriented to place Limitations: no limitations HENMT Head: Yes normal to inspection, Yes normocephalic and Yes atraumatic Ears: external ears normal General nose exam: Normal external nose present Face and sinus: Yes normal facial exam Mouth: Normal oral and palatal mucosa present Throat: Yes posterior oropharynx normal Eyes General: appearance normal, both eyes and all related structures Pupils: Equal, round and reactive pupils present Neck Neck: Yes normal visual inspection, Yes no lymphadenopathy, Yes trachea midline and Yes supple Chest Chest palpation & inspection: normal inspection of the chest and normal palpation of entire chest wall Resp Effort & Inspection: normal respiratory effort and able to speak in complete sentences Auscultation: clear to auscultation bilaterally Cardio Rate: regular rate Rhythm: regular rhythm Heart sounds: S1 normal heart sound present, S2 normal heart sound present and no murmurs GI Inspection: Yes normal to inspection Palpation (GI): Soft to palpation, nontender and no guarding Auscultation: normal bowel sounds General: Yes no CVA tenderness Back/Spine/Pelvis Back: no CVA tenderness Skin General skin exam: no rashes or lesions noted Neuro General: oriented to person and oriented to place Cranial nerves: Yes CN's II-XII intact bilaterally and Yes Equal, round and reactive pupils present Cognition (Neuro): normal cognition Motor exam (neuro): 5/5 motor strength present throughout Extrem General: Yes normal to inspection Psych Appearance: grossly normal Speech and movement: Normal speech and movement present Affect: normal affect Attitude: cooperative Thought process: Normal thought process present Thought content: Normal thought content present Medications Administered Discontinued Medications Generic Name Dose Route Start Last Admin Trade Name Theodoreq PRN Reason Stop Dose Admin Diphenhydramine HCl 50 mg 06/17/22 10:06 06/17/22 11:17 Diphenhydramine Hcl 50 Mg/Ml Vial IVPUSH 06/17/22 10:07 50 mg ONCE STA Administration Sodium Chloride 1,000 mls @ 999 mls/hr 06/17/22 10:04 06/17/22 11:16 Ns IV 06/17/22 11:04 999 mls/hr .Q1H1M STA Administration Ketorolac Tromethamine 15 mg 06/17/22 10:04 06/17/22 11:16 Ketorolac Tromethamine 15 Mg/Ml Vial IVPUSH 06/17/22 10:05 15 mg ONCE STA Administration Metoclopramide HCl 10 mg 06/17/22 10:04 06/17/22 11:20 Metoclopramide Hcl 10 Mg/2 Ml Vial IVPUSH 06/17/22 10:05 10 mg ONCE STA Administration Medical Decision Making Medical Decision Making [facility] Narrative: 51-year-old female who presents emergency department for evaluation of 2 days of right-sided headache with blurred vision, the patient does not have a history of migraine headaches. The headache did come on suddenly 2 days prior, has been constant waxes and wanes in intensity from 3/10 to 10/10. Currently the pain is 3/10. Exam was unremarkable, she had no tenderness palpation over her temporal artery region of her scalp, neurologic exam was nonfocal. I ordered a CBC, CMP, PT/INR, PTT, CRP, ESR, CT scan of the brain. Patient's headache will be treated with normal saline IV x1 L, Toradol 15 mg IV, Reglan 10 mg IV and Benadryl 50 mg IV. 1333: My independent interpretation of patient's laboratory evaluation as follows: ESR and CRP were normal. WBC was slightly low at 4700. Differential revealed 40% neutrophils, 43% lymphocytes and 4.3 eosinophils, she has had similar differentials in the past, I do not think this is related to her headache. CMP was normal. CT scan of the brain interpreted by the radiologist as no acute disease to explain her headache. This time I believe the patient's headache is consistent with a migraine-like syndrome. The patient's headache completely resolved after the above treatment. Patient will be discharged home and will be treated with a migraine regimen of ibuprofen 400 mg, Reglan 10 mg and Benadryl 50 mg every 6 hours as needed. She was given printed and verbal instructions discharged home. Differential Diagnosis Differential diagnosis includes but is not limited to subarachnoid hemorrhage, mass effect, migraine headache, giant cell arteritis, nonspecific headache Lab Data [facility] Lab Attestation statement: I reviewed the patient's lab results. Please see the [facility] for my discussion of the lab 06/17/22 11:11 06/17/22 11:12 Labs: Lab Results 06/17/22 06/17/22 06/17/22 Range/Units 11:11 11:11 11:11 WBC 4.7 L (4.8-10.8) X10*3/uL RBC 4.90 (4.20-5.50) X10*6/uL Hgb 14.1 (12.0-16.0) g/dl Hct 42.4 (37.0-47.0) % MCV 86.5 (80.0-98.0) fL MCH 28.8 (27.0-33.0) pg MCHC 33.3 (31.0-35.0) g/dl RDW 11.5 (11.0-16.0) % Plt Count 287 (160-400) X10*3/uL MPV 8.5 L (9.4-12.3) fL Immature Gran % (Auto) 0.4 (0.0-0.4) % Neut % (Auto) 40.2 L (45-73) % Lymph % (Auto) 43.3 H (20-40) % [place] % (Auto) 10.9 (2-11) % Eos % (Auto) 4.3 H (0-4) % Baso % (Auto) 0.9 (0-2) % Lymph # (Auto) 2.0 (1.2-4.9) X10*3/uL [place] # (Auto) 0.5 (0.1-1.2) X10*3/uL Eos # (Auto) 0.2 (0.0-0.4) X10*3/uL Baso # (Auto) 0.0 (0.0-0.2) X10*3/uL Abs Immat Gran (auto) 0.02 (0.00-0.03) X10*3/uL Absolute Neuts (auto) 1.9 L (2.0-8.3) x10*3/uL Absolute Nucleated RBC 0.000 (0.0-0.012) X10*3/uL Nucleated RBC % (auto) 0.0 (0.0-0.2) /100WBC ESR 14 (0-20) MM/HR PT 10.5 (10.0-13.1) SEC INR 0.9 (0.9-1.1) APTT 34.3 (26.0-36.4) SEC Sodium (135-145) mmol/L Potassium (3.3-5.1) mmol/L Chloride (96-108) mmol/L Carbon Dioxide (22-29) mmol/L Anion Gap (12-20) BUN (9-16) mg/dL Creatinine (0.5-1.4) mg/dL Estim Creat Clear Calc Estimated GFR Random Glucose (60-115) mg/dL Calcium (8.4-10.2) mg/dL Total Bilirubin (0.0-1.0) mg/dL AST (5-31) U/L ALT (0-31) U/L Alkaline Phosphatase (39-117) U/L C-Reactive Protein (< or = 0.50) mg/dL Total Protein (6.5-8.0) g/dL Albumin (3.5-5.0) g/dL 06/17/22 Range/Units 11:12 WBC (4.8-10.8) X10*3/uL RBC (4.20-5.50) X10*6/uL Hgb (12.0-16.0) g/dl Hct (37.0-47.0) % MCV (80.0-98.0) fL MCH (27.0-33.0) pg MCHC (31.0-35.0) g/dl RDW (11.0-16.0) % Plt Count (160-400) X10*3/uL MPV (9.4-12.3) fL Immature Gran % (Auto) (0.0-0.4) % Neut % (Auto) (45-73) % Lymph % (Auto) (20-40) % [place] % (Auto) (2-11) % Eos % (Auto) (0-4) % Baso % (Auto) (0-2) % Lymph # (Auto) (1.2-4.9) X10*3/uL [place] # (Auto) (0.1-1.2) X10*3/uL Eos # (Auto) (0.0-0.4) X10*3/uL Baso # (Auto) (0.0-0.2) X10*3/uL Abs Immat Gran (auto) (0.00-0.03) X10*3/uL Absolute Neuts (auto) (2.0-8.3) x10*3/uL Absolute Nucleated RBC (0.0-0.012) X10*3/uL Nucleated RBC % (auto) (0.0-0.2) /100WBC ESR (0-20) MM/HR PT (10.0-13.1) SEC INR (0.9-1.1) APTT (26.0-36.4) SEC Sodium 142 (135-145) mmol/L Potassium 4.6 D (3.3-5.1) mmol/L Chloride 104 (96-108) mmol/L Carbon Dioxide 29 (22-29) mmol/L Anion Gap 14 (12-20) BUN 11 (9-16) mg/dL Creatinine 0.82 (0.5-1.4) mg/dL Estim Creat Clear Calc 90.6 Estimated GFR > 60 Random Glucose 94 (60-115) mg/dL Calcium 9.8 (8.4-10.2) mg/dL Total Bilirubin 0.5 (0.0-1.0) mg/dL AST 19 (5-31) U/L ALT 20 (0-31) U/L Alkaline Phosphatase 66 (39-117) U/L C-Reactive Protein 0.15 (< or = 0.50) mg/dL Total Protein 7.4 (6.5-8.0) g/dL Albumin 4.4 (3.5-5.0) g/dL Radiology Impression Discussion of test interpretation with radiology: I have reviewed the radiologist's reading. Radiologist Impression: CT head/brain wo IV con IMPRESSION: No acute intracranial hemorrhage or mass effect. Dictated By: Thom Sanchez MD Signed By: <Electronically signed by Thom Sanchez MD in >06/17/22 1127 Discharge Plan Discharge Clinical Impression: Headache, migraine Patient Disposition: Home, Self-Care Instructions: Migraine Headache (ED) Additional Instructions: The CT scan of your brain was normal. Your blood work was unremarkable. Your symptoms are consistent with a migraine. I want you to take the following 3 medications together every 6 hours as needed for headache, nausea or vomiting. Reglan (metoclopramide) in 10 mg, 1 pill Benadryl 25 mg, 2 pills Ibuprofen 200 mg pills, 2 pills. After you take these medications, lie down in a dark quiet room and try to fall asleep. These medications will make you sleepy, do not drive or work after taking these medications. Follow-up with your doctor in 2 days. Please return to the emergency department if your symptoms get worse or if you develop any symptoms that are concerning to you. Prescriptions: New metoclopramide HCl [Reglan] 10 mg tablet 10 mg PO Q6H PRN (Reason: nausea and vomiting) Qty: 14 0RF No Action ibuprofen 600 mg tablet 600 mg PO TID PRN (Reason: pain) Qty: 14 0RF diclofenac sodium 1 % gel 2 g topical QID ropinirole 2 mg tablet 0 mg PO CeraVe Psoriasis 2 % cream topical BID PRN white petrolatum 42 % ointment topical Restasis MultiDose 0.05 % drops 1 drp ophthalmic (eye) BID lorazepam 1 mg tablet 0 mg PO lacosamide 100 mg tablet 100 mg PO cholecalciferol (vitamin D3) [Vitamin D3] 50 mcg (2,000 unit) capsule 50 mcg PO DAILY montelukast 10 mg tablet 10 mg PO BEDTIME docusate sodium 100 mg capsule 100 mg PO buspirone 10 mg tablet 10 mg PO TID aspirin 81 mg tablet,delayed release (DR/EC) 81 mg PO DAILY cyanocobalamin (vitamin B-12) 1,000 mcg tablet 1,000 mcg PO QAM levetiracetam 500 mg tablet 500 mg PO BID metoprolol tartrate 25 mg tablet 25 mg PO famotidine 20 mg tablet 20 mg PO BID furosemide 40 mg tablet 40 mg PO QAM ibuprofen 800 mg tablet 800 mg PO TID epinephrine 0.3 mg/0.3 mL auto-injector IM diphenhydramine HCl 25 mg tablet 0 mg PO verapamil 120 mg tablet extended release 120 mg PO DAILY triamcinolone acetonide 0.1 % cream topical BID
--- OUTSIDE RECORDS SUMMARY | 2022-06-17 09:49 | XMS_ITS | Continuity of Care Document ---
:1970 Author Organization [facility] Address [address] [place] [id number]- Care Team Providers Name Role Phone Joanne Hensley MD, Sonam Reilly Primary Care Physician [phone] Encounter [facility] [place] Date(s): 01/21/22 - 01/21/[address] [address]- Discharge Disposition: A-D/C Walkout Attending Physician: Not on Staff, Attending MD Admitting Physician: Not on Staff, Admitting MD Referring Physician: Not on Staff, Referring MD Allergies, Adverse Reactions, Alerts Substance Reaction Severity Status codeine Active amoxicillin Active sulfamethoxazole Active doxazosin Active Percodan Active Latex1 Active oxyCODONE Active LaMICtal2 Active trimethoprim Active sulfa drugs Active Flagyl Active clonazepam Active iodinated radiocontrast dyes Act saul shellfish Active Percocet Active Biaxin Active Contrast Dye3 Active flu vaccines Active 1anaphylaxis [id number] symptoms Medications Acetaminophen 0 Refills, Maintenance, 02/05/18 13:09:32 EDT Start Date: 02/05/18 Status: Orderedaspirin 81 mg oral delayed release tablet 81 mg, 1, tablet, By Mouth, Daily, # 30 tablet, Refills 0, Maintenance, 11/25/20 6:13:00 EDT, Partial fill upon patient request if the prescription is for a schedule II opioid drug. Start Date: 11/25/20 Status: OrderedbusPIRone 10 mg oral tablet 10 mg, 1, tablet, By Mouth, 3 times a day, # 90 tablet, Refills 0, Maintenance, 11/25/20 6:16:00 EDT, Partial fill upon patient request if the prescription is for a schedule II opioid drug. Start Date: 11/25/20 Status: Orderedcetirizine 10 mg oral tablet 1 tablet = 10 mg, By Mouth, Daily, 0 Refills, Maintenance, 08/22/15 9:48:37 Start Date: 08/22/15 Status: Ordereddocusate sodium 100 mg oral tablet 1 tablet = 100 mg, By Mouth, 2 times a day, # 60 tablet, 0 Refills, Maintenance, 11/25/20 6:17:00 EDT, Tablet, Partial fill upon patient request if the prescription is for a schedule II opioid drug. Start Date: 11/25/20 Status: OrderedEpiPen 2-Martin = 0.3 mg, Intramuscular, Once, 0 Refills, Maintenance, 02/05/18 13:09:14 EDT Start Date: 02/05/18 Status: OrderedhydroCHLOROthiazide 12.5 mg oral capsule 1 capsule = 12.5 mg, By Mouth, Daily, # 30 capsule, 0 Refills, Maintenance, 11/25/20 6:17:00 EDT, Capsule, Partial fill upon patient request if the prescription is for a schedule II opioid drug. Start Date: 11/25/20 Status: OrderedKeppra 500 mg oral tablet 1 tablet = 500 mg, By Mouth, 2 times a day, # 60 tablet, 6 Refills, Maintenance, 04/19/17 11:18:42, Tablet Start Date: 04/19/17 Stop Date: 11/15/17 Status: OrderedLORazepam 1 mg oral tablet 1 tablet = 1 mg, By Mouth, 3 times a day, 0 Refills, Maintenance, 02/05/18 13:08:02 EDT Start Date: 02/05/18 Status: Orderedmetoprolol 25 mg oral tablet 25 mg, 1, tablet, By Mouth, 2 times a day, # 60 tablet, Refills 0, Maintenance, 11/25/20 6:19:00 EDT, Partial fill upon patient request if the prescription is for a schedule II opioid drug. Start Date: 11/25/20 Status: OrderedPepcid AC Maximum Strength 20 mg oral tablet 20 mg, 1, tablet, By Mouth, 2 times a day, # 60 tablet, Refills 5, Tot. Refills 5, Maintenance, 03/25/18 10:07:42 EST, Route to Pharmacy Electronically, [id number], [facility] Start Date: 03/25/18 Status: OrderedpredniSONE 50 mg oral tablet See Instructions, Take 1 tablet PM 11/24 at 6pm, 1 tablet by mouth at midnight, and 1 tablet 11/25 before procedure, 0 Refills, Maintenance, 11/25/20 6:23:00 EDT, Partial fill upon patient request if theprescription is for a schedule II opioid drug. Start Date: 11/25/20 Status: OrderedrOPINIRole 2 mg oral tablet 1 tablet = 2 mg, By Mouth, 4 times a day, # 90 tablet, 0 Refills, Maintenance, 11/25/20 6:19:00 EDT,Tablet, Partial fill upon patient request if the prescription is for a schedule II opioid drug. Start Date: 11/25/20 Status: Orderedtamsulosin 0.4 mg oral capsule 0.4 mg, 1, capsule, By Mouth, Daily, # 30 capsule, Refills 0, Maintenance, 11/25/20 6:20:00 EDT, Partial fill upon patient request if the prescription is for a schedule II opioid drug. Start Date: 11/25/20 Status: OrderedVimpat 100 mg oral tablet 1 tablet = 100 mg, By Mouth, 2 times a day, # 60 tablet, 5 Refills, Maintenance, 04/19/17 11:19:02, Tablet Start Date: 04/19/17 Stop Date: 10/16/17 Status: OrderedVitamin B-12 1000 mcg oral tablet 1,000 mcg, 1, tablet, By Mouth, Daily, # 30 tablet, Refills 0, Maintenance, 11/25/20 6:20:00 EDT, Partial fill upon patient request if the prescription is for a schedule II opioid drug. Start Date: 11/25/20 Status: OrderedVitamin D3 2000 intl units oral capsule 1 capsule = 2,000 International_Units, By Mouth, Daily, # 60 capsule, 0 Refills, Maintenance, 11/25/20 6:20:00 EDT, Capsule, Partial fill upon patient request if the prescription is for a schedule II opioid drug. Start Date: 11/25/20 Status: Ordered Problem List Condition Effective Dates Status Health Status Informant Anxiety(Confirmed) Active Depression(Confirmed) Active Hypercholesteremia(Confirmed) Active IBS (irritable bowel Active syndrome)(Confirmed) Sicca syndrome(Confirmed) Active Post traumatic stress disorder Active (PTSD)(Confirmed) Restless legs syndrome Active (RLS)(Confirmed) Urinary retention(Confirmed) Active Seizure(Confirmed) Active Fibroid uterus(Confirmed) Active Vital Signs Most recent to oldest 1 2 3 [Reference Range]: Height 163 cm (01/21/22 11:34 AM) Weight 84 kg (01/21/22 11:34 AM) Oxygen Saturation [94-100 %] 99 % 99 % 100 % (01/21/22 4:10 PM) (01/21/22 1:53 PM) (01/21/22 11: 34 AM) Pulse Rate [55-90 bpm] 76 bpm 63 bpm 62 bpm (01/21/22 4:10 PM) (01/21/22 1:53 PM) (01/21/22 11: 34 AM) Blood Pressure [90-138/55-84 124/68 mm Hg 117/66 mm Hg 128 /82 mm Hg mm Hg] (01/21/22 4:10 PM) (01/21/22 1:53 PM) (01/21/22 11: 34 AM) Respiratory Rate [16-30 18 br/min 16 br/min br/min] (01/21/22 4:10 PM) (01/21/22 11:34 AM) Temperature [96.8-100.4 98.6 DegF 97.9 DegF 97.7 Deg F DegF] (01/21/22 4:10 PM) (01/21/22 1:53 PM) (01/21/22 11: 34 AM) Mode of Delivery (Oxygen) Room air Room air Room a ir (01/21/22 4:10 PM) (01/21/22 1:53 PM) (01/21/22 11: 34 AM) Blood pressure sites Arm, right Arm, right Arm, left (01/21/22 4:10 PM) (01/21/22 1:53 PM) (01/21/22 11: 34 AM) Temperature Route Oral Oral Oral (01/21/22 4:10 PM) (01/21/22 1:53 PM) (01/21/22 11: 34 AM) Dry Weight 84 kg (01/21/22 11:34 AM) Social History Social History Type Response Smoking Status Never smoker entered on: 11/15/14 Sex Care Team PersonnelName: Sonam Albarran MD Address: [address] [place] [address] [address] [place] [id number]
--- OUTSIDE RECORDS SUMMARY | 2022-06-17 09:49 | XMS_ITS | Continuity of Care Document ---
:1970 Author Organization [facility] Address [address] [place] [id number]- Care Team Providers Name Role Phone Joanne Hensley MD, Sonam Reilly Primary Care Physician Encounter [facility] [place] Date(s): 11/25/20 - 11/25/[address] [address] Discharge Disposition: A-D/C Home Attending Physician: Ольга Mills MD Admitting Physician: Ольга Mills MD Referring Physician: Ольга Mills MD Allergies, Adverse Reactions, Alerts Substance Reaction Severity Status codeine Active amoxicillin Active sulfamethoxazole Active trimethoprim Active clonazepam Active doxazosin Active sulfa drugs Active iodinated radiocontrast dyes Act saul shellfish Active Flagyl Active Percocet Active Percodan Active Biaxin Active Contrast Dye1 Active Latex2 Active flu vaccines Active oxyCODONE Active LaMICtal3 Active 1anaphylaxis [id number] Medications Acetaminophen 0 Refills, Maintenance, 02/05/18 13:09:32 [...] 03/25/18 10:07:42 EST, Route to Pharmacy Electronically, [id number], [facility] - Start Date: 03/25/18 Status: OrderedpredniSONE 50 mg [...] oldest 1 2 3 [Reference Range]: Height 165.1 cm 165.1 cm (11/25/20 7:19 AM) (11/25/20 7:15 AM) Weight 89.9 kg 89.9 kg (11/25/20 7:19 AM) (11/25/20 7:15 AM) Oxygen Saturation [94-100 %] 97 % 96 % 98 % (11/25/20 11:30 AM) (11/25/20 11:00 AM) (11/25/20 1 0:30 AM) Pulse Rate [55-90 bpm] 74 bpm (11/25/20 7:19 AM) Body Mass Index [18.5-24.99] 32.98 *>HHI* (11/25/20 7:19 AM) Blood Pressure [90-138/55-84 133/77 mm Hg 135/75 mm Hg 131 /84 mm Hg mm Hg] (11/25/20 11:30 AM) (11/25/20 11:00 AM) (11/25/20 1 0:30 AM) Respiratory Rate [16-30 13 br/min 17 br/min 14 br/mi n br/min] *L* (11/25/20 11:00 AM) *L* (11/25/20 11:30 AM) (11/25/20 10:3 0 AM) Temperature [96.8-100.4 97.7 DegF 97.7 DegF DegF] (11/25/20 9:00 AM) (11/25/20 7:19 AM) Mode of Delivery (Oxygen) Room air Room air Room a ir (11/25/20 11:30 AM) (11/25/20 11:00 AM) (11/25/20 1 0:30 AM) Blood pressure sites Arm, left Arm, left (11/25/20 9:00 AM) (11/25/20 7:19 AM) Temperature Route Temporal Temporal (11/25/20 9:00 AM) (11/25/20 7:19 AM) Dry Weight 89.9 kg (11/25/20 7:19 AM) Weight Obtained Via Standing scale Standing scale (11/25/20 7:19 AM) (11/25/20 7:15 AM) Dry Weight Obtained Via Standing scale (11/25/20 7:19 AM) Social History Social History Type Response Smoking Status Never smoker entered on: 11/15/14 Sex
--- OUTSIDE RECORDS SUMMARY | 2022-06-17 09:49 | XMS_ITS | Continuity of Care Document ---
:1970 Author Organization [facility] Address [address] [place] [id number]- Care Team Providers Name Role Phone Leyla RYAN, William Hillman Primary Care Physician Encounter [facility] [place] Date(s): 08/19/20 - 09/28/[address] [id number] Attending Physician: Ольга Mills MD Admitting Physician: Ольга Mills MD Referring Physician: Stu Vargas DO Allergies, Adverse Reactions, Alerts Substance Reaction Severity Status sulfamethoxazole Active clonazepam Active shellfish Active Percodan Active Biaxin Active Contrast Dye Active Latex Active LaMICtal1 Active 1Rash Medications Acetaminophen 0 Refills, Maintenance, 02/05/18 13:09:32 EDT Start Date: 02/05/18 Status: Orderedcetirizine 10 mg oral tablet 1 tablet = 10 mg, By Mouth, Daily, 0 Refills, Maintenance, 08/22/15 9:48:37 Start Date: 08/22/15 Status: OrderedEpiPen 2-Martin = 0.3 mg, Intramuscular, Once, 0 Refills, Maintenance, 02/05/18 13:09:14 EDT Start Date: 02/05/18 Status: OrderedKeppra 500 mg oral tablet 1 tablet = 500 mg, By Mouth, 2 times a day, # 60 tablet, 6 Refills, Maintenance, 04/19/17 11:18:42, Tablet Start Date: 04/19/17 Stop Date: 11/15/17 Status: OrderedLORazepam 1 mg oral tablet 1 tablet = 1 mg, By Mouth, 3 times a day, 0 Refills, Maintenance, 02/05/18 13:08:02 EDT Start Date: 02/05/18 Status: OrderedMaalox Total Stomach Relief 525 mg/15 mL oral suspension 15 mL = 525 mg, By Mouth, 4 times a day, PRN for dyspepsia, # 360 mL, 1 Refills, Maintenance, 02/05/18 13:27:55 EDT, Suspension Start Date: 02/05/18 Status: OrderedPepcid AC Maximum Strength 20 mg oral tablet 20 mg, 1, tablet, By Mouth, 2 times a day, # 60 tablet, Refills 5, Tot. Refills 5, Maintenance, 03/25/18 10:07:42 EST, Route to Pharmacy Electronically, [id number], [facility] - Start Date: 03/25/18 Status: OrderedRequip 2 mg oral tablet 1 tablet = 2 mg, By Mouth, 3 times a day, # 90 tablet, 0 Refills, Maintenance, Tablet Start Date: 05/15/11 Status: OrderedRestasis 0.05% ophthalmic emulsion 1 drops, Eyes, Both, Every 12 hours, 0 Refills, Maintenance, 08/22/15 9:53:33 Start Date: 08/22/15 Status: OrderedVimpat 100 mg oral tablet 1 tablet = 100 mg, By Mouth, 2 times a day, # 60 tablet, 5 Refills, Maintenance, 04/19/17 11:19:02, Tablet Start Date: 04/19/17 Stop Date: 10/16/17 Status: OrderedZantac 0 Refills, Maintenance, 02/05/18 13:08:51 EDT Start Date: 02/05/18 Status: OrderedZantac 75 oral tablet 1 tablet = 75 mg, By Mouth, 2 times a day, # 60 tablet, 11 Refills, Maintenance, 03/31/18 12:12:03 EST, Tablet Start Date: 03/31/18 Stop Date: 03/26/19 Status: Ordered Problem List Condition Effective Dates Status Health Status Informant Anxiety(Confirmed) Active Depression(Confirmed) Active Hypercholesteremia(Confirmed) Active IBS (irritable bowel Active syndrome)(Confirmed) Sicca syndrome(Confirmed) Active Post traumatic stress disorder Active (PTSD)(Confirmed) Restless legs syndrome Active (RLS)(Confirmed) Urinary retention(Confirmed) Active Seizure(Confirmed) Active Fibroid uterus(Confirmed) Active Social History Social History Type Response Smoking Status Never smoker entered on: 11/15/14 Sex
[2022-06-17] MEDS: Ketorolac Tromethamine 15 MG/ML VIAL IVPUSH (11:16)
[2022-06-17] MEDS: 0.9 % Sodium Chloride 1,000 ML 999 ML IV (11:16)
[2022-06-17 11:17] LABS: MANUAL DIFF FLAG NO
[2022-06-17] MEDS: diphenhydrAMINE HCL 50 MG/ML VIAL IVPUSH (11:17)
[2022-06-17 11:18] LABS: Basophils Percent Auto 0.9 % (0-2); Eosinophils Absolute Auto 0.2 X10*3/uL (0.0-0.4); Eosinophils Percent Auto 4.3 % (0-4); Hematocrit 42.4 % (37.0-47.0); Hemoglobin 14.1 g/dl (12.0-16.0); Imm Gran Abs Auto 0.02 X10*3/uL (0.00-0.03); Imm Gran Pct Auto 0.4 % (0.0-0.4); Lymphocytes Percent Auto 43.3 % (20-40); Mean Corpuscular HGB Conc 33.3 g/dl (31.0-35.0); Mean Corpuscular Hemoglobin 28.8 pg (27.0-33.0); Mean Corpuscular Volume 86.5 fL (80.0-98.0); Mean Platelet Volume 8.5 fL (9.4-12.3); Monocytes Absolute Auto 0.5 X10*3/uL (0.1-1.2); Monocytes Percent Auto 10.9 % (2-11); Neutrophils Absolute Auto 1.9 x10*3/uL (2.0-8.3); Neutrophils Percent Auto 40.2 % (45-73); Platelet Count 287 X10*3/uL (160-400); Red Cell Distribution Width 11.5 % (11.0-16.0); White Blood Count 4.7 X10*3/uL (4.8-10.8)
[2022-06-17] MEDS: Metoclopramide HCl 10 MG/2 ML VIAL IVPUSH (11:20)
[2022-06-17 11:22] VITALS: PULSE 62; RESP 15
[2022-06-17 11:24] LABS: INTERNATIONAL NORM RATIO 0.9 (0.9-1.1); Prothrombin Time 10.5 SEC (10.0-13.1)
[2022-06-17 11:26] LABS: Partial Thromboplastin Time 34.3 SEC (26.0-36.4)
[2022-06-17 11:34] LABS: Alanine Aminotransferase 20 U/L (0-31); Albumin Level 4.4 g/dL (3.5-5.0); Alkaline Phosphatase 66 U/L (39-117); Anion Gap 14 (12-20); Aspartate Amino Transferase 19 U/L (5-31); Bilirubin Total 0.5 mg/dL (0.0-1.0); Blood Urea Nitrogen 11 mg/dL (9-16); C Reactive Protein 0.15 mg/dL (< or = 0.50); Calcium 9.8 mg/dL (8.4-10.2); Carbon Dioxide 29 mmol/L (22-29); Chloride 104 mmol/L (96-108); Creatinine Clr Calc Pharmacy 90.6; Estimated Glomerular Filt Rate > 60; Glucose Random 94 mg/dL (60-115); Potassium 4.6 mmol/L (3.3-5.1); Sodium 142 mmol/L (135-145); Total Protein 7.4 g/dL (6.5-8.0)
[2022-06-17 11:57] LABS: Erythrocyte Sedimentation Rate 14 MM/HR (0-20)
--- NOTE | 2022-06-17 12:19 | PC.NURSE ---
pt ambulated to bathroom independently, NS running.
== END 2022-06-17 13:50 | disposition home or self-care (01) ==
PROVIDERS: Emergency Provider Emergency Medicine Emergency Medical Services; PCP Internal Medicine
DX: G43.909 Migraine, unspecified, not intractable, without status migrainosus (principal); I10 Essential (primary) hypertension; Z79.899 Other long term (current) drug therapy
CPT/HCPCS: 36415; 70450; 80053; 85025; 85610; 85652; 85730; 86140; 96361; 96374; 96375; 99284; J1200; J1885; J2765

== ENCOUNTER 2022-09-06 16:45 | Emergency (ER) | payer OTHER, SELFPAY ==
--- NOTE | ~2022-09-06 | CT_ITS ---
EXAMINATION: CT HEAD WITHOUT CONTRAST CT CERVICAL SPINE WITHOUT CONTRAST CLINICAL INFORMATION: Pain after trauma. Fall. COMPARISON: None. TECHNIQUE: Contiguous axial imaging was performed from the skullbase to vertex without intravenous administration of contrast. Multidetector helical imaging was performed through the cervical spine. This CT examination was performed using dose optimization techniques as appropriate, variously including the following: *Automated exposure control *Adjustment of mA and/or kV according to patient size (this includes techniques or standardized protocols for targeted exams where dose is matched to indication/reason for exam; i.e. extremities or head) *Use of iterative reconstruction technique DLP: 1170 mGy-cm. FINDINGS: HEAD: There is no evidence of acute intracranial hemorrhage or territorial infarction. No abnormal mass effect or midline shift is seen. West to white matter differentiation is well preserved. No extra-axial fluid collections are identified. The ventricles are normal in size. Brain parenchymal attenuation is normal. The osseous structures and soft tissues are normal. The mastoid air cells and visualized portions of the paranasal sinuses are well aerated. CERVICAL SPINE: No acute fracture or subluxation is identified in the cervical spine. There is a mild rightward curvature of the cervical spine. Mild endplate spurring and disc bulge evident at the C5-C6 at C6-C7 levels. Left-sided hypertrophic facet arthropathy noted at the C4-C5 level. The atlantoaxial articulation is normally maintained. The paraspinal soft tissues are normal. The lung apices are clear. CT/CT cervical spine wo IV con IMPRESSION: 1. No acute intracranial pathology. 2. No evidence of acute cervical spine traumatic injury.
--- NOTE | ~2022-09-06 | XR_ITS ---
EXAMINATION: XR WRIST AND HAND, RIGHT CLINICAL INFORMATION: Trauma COMPARISON: Hand radiographs 08/04/2010 TECHNIQUE: PA, lateral, and oblique views of the right wrist and hand. FINDINGS: No acute fracture or dislocation. Status post plate and screw fixation of the fourth proximal phalanx. No evidence of hardware fracture or complication. Joint spaces are maintained. Soft tissues are unremarkable. XR/XR hand wrist RT IMPRESSION: No acute osseous abnormality.
--- NOTE | ~2022-09-06 | CT_ITS ---
EXAMINATION: CT HEAD WITHOUT CONTRAST CT CERVICAL SPINE WITHOUT CONTRAST CLINICAL INFORMATION: Pain after trauma. Fall. COMPARISON: None. TECHNIQUE: Contiguous axial imaging was performed from the skullbase to vertex without intravenous administration of contrast. Multidetector helical imaging was performed through the cervical spine. This CT examination was performed using dose optimization techniques as appropriate, variously including the following: *Automated exposure control *Adjustment of mA and/or kV according to patient size (this includes techniques or standardized protocols for targeted exams where dose is matched to indication/reason for exam; i.e. extremities or head) *Use of iterative reconstruction technique DLP: 1170 mGy-cm. FINDINGS: HEAD: There is no evidence of acute intracranial hemorrhage or territorial infarction. No abnormal mass effect or midline shift is seen. West to white matter differentiation is well preserved. No extra-axial fluid collections are identified. The ventricles are normal in size. Brain parenchymal attenuation is normal. The osseous structures and soft tissues are normal. The mastoid air cells and visualized portions of the paranasal sinuses are well aerated. CERVICAL SPINE: No acute fracture or subluxation is identified in the cervical spine. There is a mild rightward curvature of the cervical spine. Mild endplate spurring and disc bulge evident at the C5-C6 at C6-C7 levels. Left-sided hypertrophic facet arthropathy noted at the C4-C5 level. The atlantoaxial articulation is normally maintained. The paraspinal soft tissues are normal. The lung apices are clear. CT/CT head/brain wo IV con IMPRESSION: 1. No acute intracranial pathology. 2. No evidence of acute cervical spine traumatic injury.
--- NOTE | ~2022-09-06 | XR_ITS ---
EXAMINATION: XR FOOT, RIGHT CLINICAL INFORMATION: Trauma COMPARISON: Right foot radiographs 12/24/2015 TECHNIQUE: 3 views of the foot FINDINGS: No fracture or dislocation. Mild degenerative changes of the foot with subchondral cystic change in the first metatarsophalangeal joint, plantar calcaneal spurring and Achilles tendon enthesopathy. No joint effusion. Soft tissues are unremarkable. XR/XR foot RT min 3V IMPRESSION: No acute osseous abnormality. Mild degenerative changes of the foot.
[2022-09-06 17:09] VITALS: BP 133/102; PULSE 84; O2SAT 99
[2022-09-06 17:20] VITALS: BP 134/66; PULSE 74; RESP 14; TEMP 37; O2SAT 97; BMI 35.1
--- NOTE | 2022-09-06 17:29 | ED_ITS ---
HPI - General Adult General Chief complaint: Fall Stated complaint: FALL,-THINNER,-CCOLLAR,-LOC PER EMS Time Seen by Provider: 09/06/22 17:00 Source: patient, RN notes reviewed and old records reviewed Mode of arrival: EMS Limitations: no limitations History of Present Illness HPI narrative: 51-year-old female presents for evaluation of a fall. Patient reports that she has some dizziness at baseline but was actually not dizzy today. She states that she was walking to suppress her friend by dropping off a gift and she was carrying a plant she reports that she tripped over a divot in the sidewalk and fell onto her right side she struck the right side of her forehead she did not lose consciousness denies any blurry vision, dizziness, nausea she also complains of right hand and wrist pain as well as right foot pain she is on a baby aspirin daily but no anticoagulation Related Data Home Medications Medication Instructions Recorded Confirmed aspirin 81 mg tablet,delayed 81 mg PO DAILY 01/31/22 release buspirone 10 mg tablet 10 mg PO TID 01/31/22 cholecalciferol (vitamin D3) 50 50 mcg PO DAILY 01/31/22 mcg (2,000 unit) capsule (Vitamin D3) cyanocobalamin (vitamin B-12) 1,000 mcg PO QAM 01/31/22 1,000 mcg tablet cyclosporine 0.05 % eye drops 1 drp ophthalmic (eye) BID 01/31/22 (Restasis MultiDose) diclofenac sodium 1 % topical gel 2 g topical QID 01/31/22 diphenhydramine HCl 25 mg tablet 0 mg PO 01/31/22 docusate sodium 100 mg capsule 100 mg PO 01/31/22 epinephrine 0.3 mg/0.3 mL IM 01/31/22 injection, auto-injector famotidine 20 mg tablet 20 mg PO BID 01/31/22 furosemide 40 mg tablet 40 mg PO QAM 01/31/22 ibuprofen 800 mg tablet 800 mg PO TID 01/31/22 lacosamide 100 mg tablet 100 mg PO 01/31/22 levetiracetam 500 mg tablet 500 mg PO BID 01/31/22 lorazepam 1 mg tablet 0 mg PO 01/31/22 metoprolol tartrate 25 mg tablet 25 mg PO 01/31/22 montelukast 10 mg tablet 10 mg PO BEDTIME 01/31/22 ropinirole 2 mg tablet 0 mg PO 01/31/22 salicylic acid 2 % topical cream appl topical BID PRN 01/31/22 (CeraVe Psoriasis) triamcinolone acetonide 0.1 % appl topical BID 01/31/22 topical cream verapamil 120 mg tablet,extended 120 mg PO DAILY 01/31/22 release white petrolatum 42 % topical topical 01/31/22 ointment Previous Rx's Medication Instructions Recorded ibuprofen 600 mg tablet 600 mg PO TID PRN pain #14 tabs 02/15/22 metoclopramide HCl 10 mg tablet 10 mg PO Q6H PRN nausea and 06/17/22 (Reglan) vomiting #14 tabs Allergies Allergy/AdvReac Type Severity Reaction Status Date / Time influenza virus vaccine, Allergy Severe Anaphylaxis Verified 06/06/22 07:32 specific [FLU VACCINE] Iodinated Contrast Media Allergy Severe TURNS Verified 02/20/22 09:47 [Iodinated Contrast Media - BLUE IV Dye] latex [Latex] Allergy Severe Anaphylaxis Verified 06/06/22 07:32 sulfamethoxazole Allergy Mild Rash Verified 06/06/22 07:32 [From Bactrim] trimethoprim [From Bactrim] Allergy Mild Rash Verified 06/06/22 07:32 amoxicillin [Prevpac] Allergy Unknown Nausea and Verified 06/06/22 07:32 Vomiting aspirin [From Percodan] Allergy Unknown Stomach Verified 06/06/22 07:32 Upset clarithromycin [Prevpac] Allergy Unknown Nausea and Verified 06/06/22 07:32 Vomiting codeine Allergy Unknown Unknown Verified 02/20/22 09:47 doxazosin Allergy Unknown Dizziness Verified 06/06/22 07:32 gabapentin Allergy Unknown Blurry Verified 02/20/22 10:24 Vision lansoprazole [Prevpac] Allergy Unknown Nausea and Verified 06/06/22 07:32 Vomiting metronidazole [From FLAGYL] Allergy Unknown Unknown Verified 06/06/22 07:32 rifaximin [Xifaxan] Allergy Unknown Unknown Verified 02/20/22 09:47 shellfish derived Allergy Unknown Anaphylaxis, Verified 06/06/22 07:32 difficulty breathing, Rash Sulfa (Sulfonamide Allergy Unknown stomach Verified 02/20/22 09:47 Antibiotics) upset Opioids - Morphine Analogues AdvReac Intermediate NAUSEA & Verified 02/20/22 09:47 [OPIOIDS - MORPHINE VOMITING + ANALOGUES] RASH clonazepam [From Klonopin] AdvReac Mild HEADACHE Verified 02/20/22 09:47 oxycodone [From Percodan] AdvReac Mild Headache, Verified 06/06/22 07:32 Dizziness, Nausea and Vomiting Review of Systems Constitutional: Constitutional: Denies chills, Denies frequent falls, Reports headache(s) and Denies weakness Eyes: Eyes: Denies blurry vision and Denies change in vision ENT: Denies vertigo, Reports headache(s) and Denies disequilibrium Cardiovascular: Cardiovascular: Denies chest pain, Denies syncope, Denies dyspnea and Denies dyspnea on exertion Respiratory: Respiratory: Denies cough, Denies dyspnea and Denies dyspnea on exertion Gastrointestinal: Gastrointestinal: Denies abdominal pain, Denies diarrhea, Denies nausea and Denies vomiting Musculoskeletal: Musculoskeletal: Reports arthralgias and Denies numbness Integumentary/Breasts: Skin/Breast: Denies rash Neurologic: Denies vertigo, Denies syncope, Denies frequent falls, Reports headache(s), Denies numbness, Denies paresthesias, Denies disequilibrium and Denies weakness PMFSH Past Medical History Medical History ADD (attention deficit disorder) Anxiety about blushing Cognitive impairment Depression with anxiety Disturbance of salivary secretion GERD (gastroesophageal reflux disease) Hammer toe History of cervical dysplasia HTN (hypertension) Hypercholesteremia IBS (irritable bowel syndrome) Insomnia Keratosis pilaris Plantar fasciitis PTSD (post-traumatic stress disorder) Restless leg syndrome Seizure Sjogrens syndrome Tear film insufficiency Surgical History H/O hand surgery Hx of section Family History Family History Maternal Aunt Colon cancer Maternal Grandmother History of breast cancer Social History Social History Alcohol intake: never Patient Tobacco Use Status: Never used Tobacco Advance Directives: No Advance Directives Information Provided: Yes Physical Exam ED Vital Signs: Vital Signs - 24 hr 09/06/22 17:20 09/06/22 18:55 Temperature 98.6 F 97.7 F Pulse Rate 74 68 Respiratory Rate 14 Blood Pressure 134/66 127/70 Pulse Oximetry 97 98 Oxygen Delivery Method Room Air Room Air BMI result Body Mass Index 35.1 Const General: healthy appearing, comfortable, no acute distress, alert and awake Nutritional Appearance: well nourished Orientation/consciousness: patient oriented x3 [facility] Head: Yes normocephalic and Yes atraumatic Eyes Eyelids: Yes eyelids normal Conjunctivae: conjunctivae normal Sclerae: sclerae normal Corneas: corneas normal Pupils: Equal, round and reactive pupils present EOM: EOMs intact bilaterally Neck Neck: Yes full ROM Resp Effort & Inspection: normal respiratory effort, able to speak in complete sentences, no audible wheezes and not labored Auscultation: clear to auscultation bilaterally Cardio Rate: regular rate Rhythm: regular rhythm GI Inspection: No distended Palpation (GI): Soft to palpation, not firm, nontender, no guarding and not rigid Auscultation: normoactive bowel sounds Back/Spine/Pelvis Other: mild right-sided cervical paraspinous muscle tenderness. No vertebral tenderness, no step-offs or deformities Skin Other: very small, superficial abrasion to the right forehead. No deep lacerations, no bleeding General skin exam: no rashes or lesions noted and elasticity normal Neuro General: patient oriented x3 Cranial nerves: Yes CN's II-XII intact bilaterally, Yes Equal, round and reactive pupils present and Yes Bilaterally intact EOM present Cognition (Neuro): normal cognition Extrem Other: mild tenderness to palpation of the dorsal surface of the right wrist mostly over the distal radius. Very mild edema, no ecchymosis or overlying open wounds. No deformities noted to the right 3rd and 4th MCP joints, but the patient is tender over this area. No significant deformity to right foot Course Reevaluation(s) Reevaluation #1: reviewed patient's imaging and discuss them with her, there is no acute traumatic injuries noted. The patient will use symptomatic care and she will be discharged to follow-up with the PCP Time: 19:42 Medical Decision Making Medical Decision Making MDM Narrative: patient sustained a nonsyncopal fall, she reports that she tripped over a divot in the sidewalk. There was no loss of consciousness, she is not on blood thinners. However given the head trauma with a CT scan of the brain. She has some neck pain but no vertebral tenderness. Will still get a CT Cervical spine given the head trauma. x-ray of the right hand and wrist as well as the right foot as the patient has pain to these areas after breaking her fall Differential Diagnosis mechanical fall Contusion Abrasion Intracranial hemorrhage Wrist fracture Hand fracture Foot fracture Radiology Impression Discussion of test interpretation with radiology: I have reviewed the radiologist's reading. ( no acute traumatic injuries to the brain or cervical spine. ) Radiologist Impression: no acute fracture of the right hand, wrist or right Discharge Plan Discharge Clinical Impression: Contusion Patient Disposition: Home, Self-Care Instructions: Contusion in Adults (ED) Additional Instructions: all other imaging was reassuring. there are no fractures of your right hand or wrist, or foot CT scan of your brain and cervical spine also did not show any evidence of injury Prescriptions: No Action ibuprofen 600 mg tablet 600 mg PO TID PRN (Reason: pain) Qty: 14 0RF metoclopramide HCl [Reglan] 10 mg tablet 10 mg PO Q6H PRN (Reason: nausea and vomiting) Qty: 14 0RF diclofenac sodium 1 % gel 2 g topical QID ropinirole 2 mg tablet 0 mg PO CeraVe Psoriasis 2 % cream topical BID PRN white petrolatum 42 % ointment topical Restasis MultiDose 0.05 % drops 1 drp ophthalmic (eye) BID lorazepam 1 mg tablet 0 mg PO lacosamide 100 mg tablet 100 mg PO cholecalciferol (vitamin D3) [Vitamin D3] 50 mcg (2,000 unit) capsule 50 mcg PO DAILY montelukast 10 mg tablet 10 mg PO BEDTIME docusate sodium 100 mg capsule 100 mg PO buspirone 10 mg tablet 10 mg PO TID aspirin 81 mg tablet,delayed release (DR/EC) 81 mg PO DAILY cyanocobalamin (vitamin B-12) 1,000 mcg tablet 1,000 mcg PO QAM levetiracetam 500 mg tablet 500 mg PO BID metoprolol tartrate 25 mg tablet 25 mg PO famotidine 20 mg tablet 20 mg PO BID furosemide 40 mg tablet 40 mg PO QAM ibuprofen 800 mg tablet 800 mg PO TID epinephrine 0.3 mg/0.3 mL auto-injector IM diphenhydramine HCl 25 mg tablet 0 mg PO verapamil 120 mg tablet extended release 120 mg PO DAILY triamcinolone acetonide 0.1 % cream topical BID
[2022-09-06 18:55] VITALS: BP 127/70; PULSE 68; TEMP 36.5; O2SAT 98
[2022-09-06 20:08] VITALS: BP 127/70; PULSE 698; RESP 20; TEMP 36.7; O2SAT 98
== END 2022-09-06 20:34 | disposition home or self-care (01) ==
PROVIDERS: Emergency Provider Student in an Organized Health Care Education/Training Program; PCP Internal Medicine
DX: S00.83XA Contusion of other part of head, initial encounter (principal); W01.0XXA Fall on same level from slipping, tripping and stumbling without subsequent striking against object, initial encounter; M25.531 Pain in right wrist; M79.671 Pain in right foot; M79.641 Pain in right hand; Y93.01 Activity, walking, marching and hiking; Y92.480 Sidewalk as the place of occurrence of the external cause; Y99.9 Unspecified external cause status; Z79.82 Long term (current) use of aspirin; Z79.899 Other long term (current) drug therapy
CPT/HCPCS: 70450; 72125; 73110; 73130; 73630; 99282; 99284

== ENCOUNTER 2022-10-01 20:56 | Emergency (ER) | payer OTHER, SELFPAY ==
--- NOTE | ~2022-10-01 | XR_ITS ---
EXAMINATION: XR CHEST CLINICAL INFORMATION: Chest pain and palpitations. COMPARISON: 01/27/2014 chest radiographs. TECHNIQUE: Frontal view of the chest was obtained. FINDINGS: No significant abnormality is noted involving the heart, lungs, mediastinum, bony thorax or soft tissues. XR/XR chest 1V IMPRESSION: No acute cardiopulmonary process.
--- NOTE | 2022-10-01 21:00 | ECG_ITS ---
Test Reason : CHEST PAIN Blood Pressure : / mmHG Vent. Rate : 087 BPM Atrial Rate : 087 BPM P-R Int : 180 ms QRS Dur : 090 ms QT Int : 370 ms P-R-T Axes : 072 040 048 degrees QTc Int : 445 ms Normal sinus rhythm Cannot rule out Anterior infarct (cited on or before 01-OCT-2022) Abnormal ECG When compared with ECG of 07-MAR-2018 22:28, Nonspecific T wave abnormality now evident in Anterior leads Referred By: Generic ED Physician Electronically Signed By:KATRINA FABIAN MD
[2022-10-01 21:03] VITALS: BP 105/78; BP 135/78; PULSE 86; RESP 16; TEMP 36.9; O2SAT 95; O2SAT 98; BMI 35.0
--- NOTE | 2022-10-01 21:07 | ED.ARRPALP ---
HPI - Arrhythmia/Palpitations General Chief Complaint: Chest Pain Stated Complaint: palpitations with dizziness now resolved Time Seen by Provider: 10/01/22 21:04 Source: patient and EMS Mode of arrival: EMS Limitations: no limitations History of Present Illness HPI narrative: 52-year-old female came in by ambulance for evaluation of left arm pain and palpitation. 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 Related Data Home Medications Medication Instructions Recorded Confirmed aspirin 81 mg tablet,delayed 81 mg PO DAILY 01/31/22 release buspirone 10 mg tablet 10 mg PO TID 01/31/22 cholecalciferol (vitamin D3) 50 50 mcg PO DAILY 01/31/22 mcg (2,000 unit) capsule (Vitamin D3) cyanocobalamin (vitamin B-12) 1,000 mcg PO QAM 01/31/22 1,000 mcg tablet cyclosporine 0.05 % eye drops 1 drp ophthalmic (eye) BID 01/31/22 (Restasis MultiDose) diclofenac sodium 1 % topical gel 2 g topical QID 01/31/22 diphenhydramine HCl 25 mg tablet 0 mg PO 01/31/22 docusate sodium 100 mg capsule 100 mg PO 01/31/22 epinephrine 0.3 mg/0.3 mL IM 01/31/22 injection, auto-injector famotidine 20 mg tablet 20 mg PO BID 01/31/22 furosemide 40 mg tablet 40 mg PO QAM 01/31/22 ibuprofen 800 mg tablet 800 mg PO TID 01/31/22 lacosamide 100 mg tablet 100 mg PO 01/31/22 levetiracetam 500 mg tablet 500 mg PO BID 01/31/22 lorazepam 1 mg tablet 0 mg PO 01/31/22 metoprolol tartrate 25 mg tablet 25 mg PO 01/31/22 montelukast 10 mg tablet 10 mg PO BEDTIME 01/31/22 ropinirole 2 mg tablet 0 mg PO 01/31/22 salicylic acid 2 % topical cream appl topical BID PRN 01/31/22 (CeraVe Psoriasis) triamcinolone acetonide 0.1 % appl topical BID 01/31/22 topical cream verapamil 120 mg tablet,extended 120 mg PO DAILY 01/31/22 release white petrolatum 42 % topical topical 01/31/22 ointment Previous Rx's Medication Instructions Recorded ibuprofen 600 mg tablet 600 mg PO TID PRN pain #14 tabs 02/15/22 metoclopramide HCl 10 mg tablet 10 mg PO Q6H PRN nausea and 06/17/22 (Reglan) vomiting #14 tabs Allergies Allergy/AdvReac Type Severity Reaction Status Date / Time influenza virus vaccine, Allergy Severe Anaphylaxis Verified 06/06/22 07:32 specific [FLU VACCINE] Iodinated Contrast Media Allergy Severe TURNS Verified 02/20/22 09:47 [Iodinated Contrast Media - BLUE IV Dye] latex [Latex] Allergy Severe Anaphylaxis Verified 06/06/22 07:32 sulfamethoxazole Allergy Mild Rash Verified 06/06/22 07:32 [From Bactrim] trimethoprim [From Bactrim] Allergy Mild Rash Verified 06/06/22 07:32 amoxicillin [Prevpac] Allergy Unknown Nausea and Verified 06/06/22 07:32 Vomiting aspirin [From Percodan] Allergy Unknown Stomach Verified 06/06/22 07:32 Upset clarithromycin [Prevpac] Allergy Unknown Nausea and Verified 06/06/22 07:32 Vomiting codeine Allergy Unknown Unknown Verified 02/20/22 09:47 doxazosin Allergy Unknown Dizziness Verified 06/06/22 07:32 gabapentin Allergy Unknown Blurry Verified 02/20/22 10:24 Vision lansoprazole [Prevpac] Allergy Unknown Nausea and Verified 06/06/22 07:32 Vomiting metronidazole [From FLAGYL] Allergy Unknown Unknown Verified 06/06/22 07:32 rifaximin [Xifaxan] Allergy Unknown Unknown Verified 02/20/22 09:47 shellfish derived Allergy Unknown Anaphylaxis, Verified 06/06/22 07:32 difficulty breathing, Rash Sulfa (Sulfonamide Allergy Unknown stomach Verified 02/20/22 09:47 Antibiotics) upset Opioids - Morphine Analogues AdvReac Intermediate NAUSEA & Verified 02/20/22 09:47 [OPIOIDS - MORPHINE VOMITING + ANALOGUES] RASH clonazepam [From Klonopin] AdvReac Mild HEADACHE Verified 02/20/22 09:47 oxycodone [From Percodan] AdvReac Mild Headache, Verified 06/06/22 07:32 Dizziness, Nausea and Vomiting Review of Systems Review of Systems: All other systems are reviewed and are negative Constitutional: Reports as per HPI and Reports no additional constitutional complaints Eyes: Reports as per HPI and Reports no additional eye complaints Reports system reviewed and no additional complaints, except as documented Cardiovascular: Reports as per HPI and Reports no additional cardiovascular complaints Respiratory: Reports as per HPI and Reports no additional respiratory complaints Gastrointestinal: Reports as per HPI and Reports no additional gastrointestinal complaints Genitourinary: Reports no additional female genitourinary complaints Musculoskeletal: Reports no additional musculoskeletal complaints Skin/Breast: Reports system reviewed and no additional complaints, except as docu Psychiatric: Reports no additional psychiatric complaints Endocrine: Reports no additional endocrine complaints Hematologic/Lymphatic: Reports no additional hematologic/lymphatic complaints Allergic/Immunologic: Reports no additional allergic/immunologic complaints Reports system reviewed and no additional complaints, except as documented and Reports Abnormal speech present PMFSH Past Medical History Medical History ADD (attention deficit disorder) Anxiety about blushing Cognitive impairment Depression with anxiety Disturbance of salivary secretion GERD (gastroesophageal reflux disease) Hammer toe History of cervical dysplasia HTN (hypertension) Hypercholesteremia IBS (irritable bowel syndrome) Insomnia Keratosis pilaris Plantar fasciitis PTSD (post-traumatic stress disorder) Restless leg syndrome Seizure Sjogrens syndrome Tear film insufficiency Surgical History H/O hand surgery Hx of section Family History Family History Maternal Aunt Colon cancer Maternal Grandmother History of breast cancer Social History Social History Alcohol intake: former Patient Tobacco Use Status: Never used Tobacco Smoked in Last 30 Days: No Use of substances other than those prescribed or required for medical reasons: No Advance Directives: No Advance Directives Information Provided: No Patient : No Physical Exam Vital Signs: Vital Signs: Last Vital Signs Temp 98.5 F 10/01/22 21:54 Pulse 79 10/01/22 21:54 Resp 20 10/01/22 21:54 BP 107/66 10/01/22 21:54 Pulse Ox 95 10/01/22 21:54 O2 Del Method Room Air 10/01/22 21:54 BMI result Body Mass Index 35.0 Vital signs have been reviewed as appeared to be correct. Blood pressure normal. Heart rate normal. Respiration rate normal. Temperature normal. Oxygen saturation normal. Appearance: Anxious, Alert. Oriented X3. No acute distress. Head: Normal external exam. Normocephalic. Atraumatic. No Mccord signs noted. No raccoon eyes noted Eyes: PERRLA. EOMI. Conjunctiva and sclera normal. Eyelids normal. ENT: TM's Normal. Pharynx normal. Uvula midline. Moist mucous membranes. No trismus noted. No drooling noted. No muffled voice noted. Neck: Normal inspection. Neck supple. FROM. No adenopathy. Thyroid Normal. No meningeal signs. No neck mass noted. CVS: Normal heart rate and rhythm. Heart sound normal. No murmurs noted. Pulses normal throughout. Respiratory: No respiratory distress. Painless inspiration. Breath sounds normal. No wheezes/rales/rhonchi noted. Chest nontender. No accessory muscle usage noted or decreased air movement noted. Abdomen: Soft and nontender. Bowel sounds normal in all 4 quadrants. No distention noted. No organomegaly noted. No visible injury noted. Back: No CVA tenderness. Full range of motion noted. Skin: Skin warm and dry. Normal skin color. Normal skin turgor. No rashes/lesions/lacerations noted. Extremities: No lower extremity edema. Extremities exhibit normal range of motion. Extremities nontender. Neuro: Oriented X 3. Cranial nerve exam: II-XII are grossly intact No motor deficit. No sensory deficit. Reflexes normal. 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 Medical Decision Making Differential Diagnosis Differential Diagnoses: The differential diagnosis associated with the presentation includes (ACS, dysrhythmia, electrolyte abnormalities, severe anemia.) Admission/Observation Consideration of admission/observation: Escalation of care including admission/observation considered Lab Data MDM Lab Attestation statement: I reviewed the patient's lab results. 10/01/22 21:19 10/01/22 21:19 Labs: Lab Results 10/01/22 10/01/22 10/01/22 Range/Units 21:19 21:19 21:19 WBC 6.7 (4.8-10.8) X10*3/uL RBC 4.40 (4.20-5.50) X10*6/uL Hgb 12.8 (12.0-16.0) g/dl Hct 38.6 (37.0-47.0) % MCV 87.7 (80.0-98.0) fL MCH 29.1 (27.0-33.0) pg MCHC 33.2 (31.0-35.0) g/dl RDW 11.6 (11.0-16.0) % Plt Count 301 (160-400) X10*3/uL MPV 8.9 L (9.4-12.3) fL Immature Gran % (Auto) 0.3 (0.0-0.4) % Neut % (Auto) 51.2 (45-73) % Lymph % (Auto) 36.8 (20-40) % Duval % (Auto) 8.5 (2-11) % Eos % (Auto) 2.8 (0-4) % Baso % (Auto) 0.4 (0-2) % Lymph # (Auto) 2.5 (1.2-4.9) X10*3/uL Duval # (Auto) 0.6 (0.1-1.2) X10*3/uL Eos # (Auto) 0.2 (0.0-0.4) X10*3/uL Baso # (Auto) 0.0 (0.0-0.2) X10*3/uL Abs Immat Gran (auto) 0.02 (0.00-0.03) X10*3/uL Absolute Neuts (auto) 3.4 (2.0-8.3) x10*3/uL Absolute Nucleated RBC 0.000 (0.0-0.012) X10*3/uL Nucleated RBC % (auto) 0.0 (0.0-0.2) /100WBC Sodium 138 (135-145) mmol/L Potassium 3.5 D (3.3-5.1) mmol/L Chloride 102 (96-108) mmol/L Carbon Dioxide 25 (22-29) mmol/L Anion Gap 15 (12-20) BUN 18 H (9-16) mg/dL Creatinine 1.23 (0.5-1.4) mg/dL Estim Creat Clear Calc 61.7 Estimated GFR 46 Random Glucose 178 H (60-115) mg/dL Calcium 9.9 (8.4-10.2) mg/dL Total Bilirubin 0.4 (0.0-1.0) mg/dL Direct Bilirubin 0.1 (0.0-0.5) mg/dL AST 18 (5-31) U/L ALT 29 (0-31) U/L Alkaline Phosphatase 73 (39-117) U/L Troponin I High Sens < 2.7 (<3.5-17.0) ng/L B-Natriuretic Peptide (<100) pg/mL Total Protein 7.2 (6.5-8.0) g/dL Albumin 4.3 (3.5-5.0) g/dL Lipase 28 (8-78) U/L // Range/Units 21:19 WBC (4.8-10.8) X10*3/uL RBC (4.20-5.50) X10*6/uL Hgb (12.0-16.0) g/dl Hct (37.0-47.0) % MCV (80.0-98.0) fL MCH (27.0-33.0) pg MCHC (31.0-35.0) g/dl RDW (11.0-16.0) % Plt Count (160-400) X10*3/uL MPV (9.4-12.3) fL Immature Gran % (Auto) (0.0-0.4) % Neut % (Auto) (45-73) % Lymph % (Auto) (20-40) % Duval % (Auto) (2-11) % Eos % (Auto) (0-4) % Baso % (Auto) (0-2) % Lymph # (Auto) (1.2-4.9) X10*3/uL Duval # (Auto) (0.1-1.2) X10*3/uL Eos # (Auto) (0.0-0.4) X10*3/uL Baso # (Auto) (0.0-0.2) X10*3/uL Abs Immat Gran (auto) (0.00-0.03) X10*3/uL Absolute Neuts (auto) (2.0-8.3) x10*3/uL Absolute Nucleated RBC (0.0-0.012) X10*3/uL Nucleated RBC % (auto) (0.0-0.2) /100WBC Sodium (135-145) mmol/L Potassium (3.3-5.1) mmol/L Chloride (96-108) mmol/L Carbon Dioxide (22-29) mmol/L Anion Gap (12-20) BUN (9-16) mg/dL Creatinine (0.5-1.4) mg/dL Estim Creat Clear Calc Estimated GFR Random Glucose (60-115) mg/dL Calcium (8.4-10.2) mg/dL Total Bilirubin (0.0-1.0) mg/dL Direct Bilirubin (0.0-0.5) mg/dL AST (5-31) U/L ALT (0-31) U/L Alkaline Phosphatase (39-117) U/L Troponin I High Sens (<3.5-17.0) ng/L B-Natriuretic Peptide 24 (<100) pg/mL Total Protein (6.5-8.0) g/dL Albumin (3.5-5.0) g/dL Lipase (8-78) U/L Independent Interpretation I performed an independent interpretation of an: EKG (Normal sinus rhythm at 87 beats per minutes, normal axis deviation, normal intervals.) and Plain X-Ray (No acute intrathoracic pathology.) Radiology Impression Discussion of test interpretation with radiology: I have reviewed the radiologist's reading. Discharge Plan Discharge Clinical Impression: Atypical chest pain, Palpitation Patient Disposition: Home, Self-Care Instructions: Heart Palpitations (ED) Prescriptions: No Action ibuprofen 600 mg tablet 600 mg PO TID PRN (Reason: pain) Qty: 14 0RF metoclopramide HCl [Reglan] 10 mg tablet 10 mg PO Q6H PRN (Reason: nausea and vomiting) Qty: 14 0RF diclofenac sodium 1 % gel 2 g topical QID ropinirole 2 mg tablet 0 mg PO CeraVe Psoriasis 2 % cream topical BID PRN white petrolatum 42 % ointment topical Restasis MultiDose 0.05 % drops 1 drp ophthalmic (eye) BID lorazepam 1 mg tablet 0 mg PO lacosamide 100 mg tablet 100 mg PO cholecalciferol (vitamin D3) [Vitamin D3] 50 mcg (2,000 unit) capsule 50 mcg PO DAILY montelukast 10 mg tablet 10 mg PO BEDTIME docusate sodium 100 mg capsule 100 mg PO buspirone 10 mg tablet 10 mg PO TID aspirin 81 mg tablet,delayed release (DR/EC) 81 mg PO DAILY cyanocobalamin (vitamin B-12) 1,000 mcg tablet 1,000 mcg PO QAM levetiracetam 500 mg tablet 500 mg PO BID metoprolol tartrate 25 mg tablet 25 mg PO famotidine 20 mg tablet 20 mg PO BID furosemide 40 mg tablet 40 mg PO QAM ibuprofen 800 mg tablet 800 mg PO TID epinephrine 0.3 mg/0.3 mL auto-injector IM diphenhydramine HCl 25 mg tablet 0 mg PO verapamil 120 mg tablet extended release 120 mg PO DAILY triamcinolone acetonide 0.1 % cream topical BID Referrals: Sonam Albarran MD [Primary Care Provider] -
[2022-10-01 21:11] VITALS: PULSE 85
[2022-10-01 21:24] LABS: MANUAL DIFF FLAG NO
[2022-10-01 21:38] LABS: Basophils Percent Auto 0.4 % (0-2); Eosinophils Absolute Auto 0.2 X10*3/uL (0.0-0.4); Eosinophils Percent Auto 2.8 % (0-4); Hematocrit 38.6 % (37.0-47.0); Hemoglobin 12.8 g/dl (12.0-16.0); Imm Gran Abs Auto 0.02 X10*3/uL (0.00-0.03); Imm Gran Pct Auto 0.3 % (0.0-0.4); Lymphocytes Absolute Auto 2.5 X10*3/uL (1.2-4.9); Lymphocytes Percent Auto 36.8 % (20-40); Mean Corpuscular HGB Conc 33.2 g/dl (31.0-35.0); Mean Corpuscular Hemoglobin 29.1 pg (27.0-33.0); Mean Corpuscular Volume 87.7 fL (80.0-98.0); Mean Platelet Volume 8.9 fL (9.4-12.3); Monocytes Absolute Auto 0.6 X10*3/uL (0.1-1.2); Monocytes Percent Auto 8.5 % (2-11); Neutrophils Absolute Auto 3.4 x10*3/uL (2.0-8.3); Neutrophils Percent Auto 51.2 % (45-73); Platelet Count 301 X10*3/uL (160-400); Red Cell Distribution Width 11.6 % (11.0-16.0); White Blood Count 6.7 X10*3/uL (4.8-10.8)
[2022-10-01 21:44] LABS: Alanine Aminotransferase 29 U/L (0-31); Albumin Level 4.3 g/dL (3.5-5.0); Alkaline Phosphatase 73 U/L (39-117); Anion Gap 15 (12-20); Aspartate Amino Transferase 18 U/L (5-31); Bilirubin Direct 0.1 mg/dL (0.0-0.5); Bilirubin Total 0.4 mg/dL (0.0-1.0); Blood Urea Nitrogen 18 mg/dL (9-16); Calcium 9.9 mg/dL (8.4-10.2); Carbon Dioxide 25 mmol/L (22-29); Chloride 102 mmol/L (96-108); Creatinine Clr Calc Pharmacy 61.7; Estimated Glomerular Filt Rate 46; Glucose Random 178 mg/dL (60-115); Lipase 28 U/L (8-78); Potassium 3.5 mmol/L (3.3-5.1); Sodium 138 mmol/L (135-145); Total Protein 7.2 g/dL (6.5-8.0)
[2022-10-01 21:47] LABS: B Type Natriuretic Peptide 24 pg/mL (<100)
[2022-10-01 21:52] LABS: Troponin-I High Sensitivity < 2.7 ng/L (<3.5-17.0)
[2022-10-01 21:54] VITALS: BP 107/66; PULSE 79; RESP 20; TEMP 36.9; O2SAT 95
[2022-10-01 22:57] LABS: Appearance Urine Clear; Color Urine Yellow; Glucose Urine UA Negative (Negative); Leukocyte Esterase Urine Negative (Negative); Nitrite Urine Negative (Negative); Specific Gravity - Urine <= 1.005 (1.005-1.025); Urine Blood Negative (Negative); Urine Ketones Negative (Negative); Urine Protein Negative (Neg-Trace)
[2022-10-02] VITALS: BP 105/61; PULSE 68; RESP 16; TEMP 36.5; O2SAT 96
[2022-10-02 00:14] LABS: Troponin-I High Sensitivity < 2.7 ng/L (<3.5-17.0)
== END 2022-10-02 04:33 | disposition home or self-care (01) ==
PROVIDERS: Emergency Provider Emergency Medicine; PCP Internal Medicine
DX: R07.89 Other chest pain (principal); R00.2 Palpitations; R42 Dizziness and giddiness; R06.02 Shortness of breath; Z79.899 Other long term (current) drug therapy
CPT/HCPCS: 36415; 71045; 80048; 80076; 81003; 83690; 83880; 84484; 85025; 93005; 99283; 99285

== ENCOUNTER 2022-10-15 11:45 | Outpatient (REF) | payer OTHER, SELFPAY ==
--- NOTE | ~2022-10-15 | US_ITS ---
EXAMINATION: US PELVIS CLINICAL INFORMATION: Leiomyoma of uterus with abnormal uterine bleeding. COMPARISON: Pelvic ultrasound 09/21/2021. TECHNIQUE: Ultrasound of the pelvis is performed using both transabdominal and transvaginal transducers along with Doppler. Transvaginal imaging is performed due to inadequate visualization transabdominally. FINDINGS: UTERUS: The uterus is anteverted anteflexed uterus is mildly enlarged with fibroids measuring 10.9 x 5.4 x 6.6 cm for a volume of 203 mL, increased in volume from 115 mL previously. The double wall endometrial thickness is 8 mm. Three uterine fibroids are present with the largest near the fundus on the left measuring 4.0 x 3.1 x 3.0 cm. An additional fibroid noted near the fundus on the right measuring 2.0 x 2.1 x 2.5 cm not seen previously. A uterine body fibroid is again noted measuring 1.0 x 1.1 x 1.2 cm. There is a cyst in the lower endometrial segment measuring 6 mm in diameter. Nabothian cysts are present in the cervix. ADNEXA: Both ovaries are visualized. There is normal color flow to the adnexa. There is no ovarian torsion. There is no pelvic ascites or fluid collection. Right ovary measures 2.0 x 1.5 x 1.9 cm for a volume of 3.0 mL. Prominent veins are seen in the right adnexa with one vein which does not demonstrate flow of questionable significance. Left ovary measures 2.3 x 1.7 x 2.1 cm for a volume of 4.3 mL. US/US pelvic and transvaginal IMPRESSION: 1. Enlarged fibroid uterus. 2. 6 mm endometrial cyst. 3. Right-sided prominent adnexal veins with one vein which does not appear to have flow, of questionable significance.
== END 2022-10-15 11:46 | disposition home or self-care (01) ==
LOC: HO.US 11:45
PROVIDERS: PCP Internal Medicine; Visit Provider Emergency Medicine
DX: N93.9 Abnormal uterine and vaginal bleeding, unspecified (principal); D25.9 Leiomyoma of uterus, unspecified
CPT/HCPCS: 76830; 76856

== ENCOUNTER 2022-12-25 16:47 | Outpatient (REF) | payer OTHER, SELFPAY ==
--- NOTE | ~2022-12-25 | XR_ITS ---
EXAMINATION: XR FOOT, LEFT CLINICAL INFORMATION: Pain in left foot COMPARISON: None available. TECHNIQUE: AP, lateral, and oblique views of the left foot. FINDINGS: The bones and soft tissues are normal. No fracture. Alignment is anatomic. Joint spaces are maintained. There is plantar and superior calcaneal spurs XR/XR foot LT min 3V IMPRESSION: Plantar and superior calcaneal spurs
== END 2022-12-25 16:48 | disposition home or self-care (01) ==
LOC: HO.XRAY 16:47
PROVIDERS: Absent Provider Internal Medicine; PCP Internal Medicine; Visit Provider Internal Medicine
DX: M79.672 Pain in left foot (principal)
CPT/HCPCS: 73630

== ENCOUNTER 2022-12-27 14:42 | Outpatient (REF) | payer OTHER, SELFPAY ==
[2022-12-27 16:25] LABS: Uric Acid 7.6 mg/dL (2.4-5.7)
[2022-12-28 21:13] LABS: Lyme Abs Screen <0.90 index
== END 2022-12-27 14:43 | disposition home or self-care (01) ==
LOC: HO.HHCL 14:42
PROVIDERS: Visit Provider Emergency Medicine
DX: M79.672 Pain in left foot (principal)
CPT/HCPCS: 36415; 84550; 86617; 86618

== ENCOUNTER 2022-12-31 12:59 | Outpatient (AMB) | payer OTHER, SELFPAY ==
[2022-12-31 13:10] VITALS: BMI 34.7
--- NOTE | 2022-12-31 13:10 | A.OFFVIS_ITS ---
Intake VS Expanded 12/31/22 13:10 01/10/23 20:38 Height 5 ft 5 in 5 ft 5 in Weight 208 lb 12.444 oz 209 lb BMI 34.7 34.8 Intake Visit Reasons: obesity Allergies influenza virus vaccine, specific [FLU VACCINE] Allergy (Severe, Verified 06/06/22 07:32) Anaphylaxis Iodinated Contrast Media [Iodinated Contrast Media - IV Dye] Allergy (Severe, Verified 02/20/22 09:47) TURNS BLUE latex [Latex] Allergy (Severe, Verified 06/06/22 07:32) Anaphylaxis sulfamethoxazole [From Bactrim] Allergy (Mild, Verified 06/06/22 07:32) Rash trimethoprim [From Bactrim] Allergy (Mild, Verified 06/06/22 07:32) Rash amoxicillin [Prevpac] Allergy (Unknown, Verified 06/06/22 07:32) Nausea and Vomiting aspirin [From Percodan] Allergy (Unknown, Verified 06/06/22 07:32) Stomach Upset clarithromycin [Prevpac] Allergy (Unknown, Verified 06/06/22 07:32) Nausea and Vomiting codeine Allergy (Unknown, Verified 02/20/22 09:47) Unknown doxazosin Allergy (Unknown, Verified 06/06/22 07:32) Dizziness gabapentin Allergy (Unknown, Verified 02/20/22 10:24) Blurry Vision lansoprazole [Prevpac] Allergy (Unknown, Verified 06/06/22 07:32) Nausea and Vomiting metronidazole [From FLAGYL] Allergy (Unknown, Verified 06/06/22 07:32) Unknown rifaximin [Xifaxan] Allergy (Unknown, Verified 02/20/22 09:47) Unknown shellfish derived Allergy (Unknown, Verified 06/06/22 07:32) Anaphylaxis, difficulty breathing, Rash Sulfa (Sulfonamide Antibiotics) Allergy (Unknown, Verified 02/20/22 09:47) stomach upset Opioids - Morphine Analogues [OPIOIDS - MORPHINE ANALOGUES] Adverse Reaction (Intermediate, Verified 02/20/22 09:47) NAUSEA & VOMITING + RASH clonazepam [From Klonopin] Adverse Reaction (Mild, Verified 02/20/22 09:47) HEADACHE oxycodone [From Percodan] Adverse Reaction (Mild, Verified 06/06/22 07:32) Headache, Dizziness, Nausea and Vomiting HPI Nutrition Presentation Details Pt presents for MNT for Obesity. Pt reports DEBBIE Mcbride from [facility] Pt reports following GF/Vegan diet for the most part when eating at home related to living with granddaughter who has multiple food allergies. Pt reports typically 1/2 cup of coffee , plant based creamer B: banana or German toast (gluten free bread) and almond milk L: hot dogs with bun, water D: chicken with chickpea noodle and non dairy yogurt fruits water melon physical activity:daily life activities ETOH/SMoking: denies GI side effects denies foods allergies denies CPH-Xincixc-Ob.Jeor Equation Height 5 ft 5 in Weight 209 lb Resting Metabolic Rate 1567.02 Calculated Activity Level Sedentary Calories Needed to Maintain Weight 1880.42 Diagnosis Nutrition problem #1 excessive energy intake As related to (etiology) #1 diagnosis As evidenced by (sign/symptom) #1 high BMI (34.8 on 12/2022) Monitoring/Goals Nutrition problem monitoring weight Nutrition goal/outcome wt loss 5lbs in 2 months Learning/Education Readiness to learn good Stages of change preparation Educational materials provided Yes (meal planning, reducing carbs/high fat protein foods ) Most Recent Diabetes Results: Creatinine 1.23 mg/dL (0.5-1.4) 10/01/22 Blood Urea Nitrogen 18 mg/dL (9-16) H 10/01/22 Sodium 138 mmol/L (135-145) 10/01/22 Potassium 3.5 mmol/L (3.3-5.1) 10/01/22 Chloride 102 mmol/L (96-108) 10/01/22 Carbon Dioxide 25 mmol/L (22-29) 10/01/22 Calcium 9.9 mg/dL (8.4-10.2) 10/01/22 AST 18 U/L (5-31) 10/01/22 ALT 29 U/L (0-31) 10/01/22 Total Protein 7.2 g/dL (6.5-8.0) 10/01/22 Albumin 4.3 g/dL (3.5-5.0) 10/01/22 [facility] Medical History ADD (attention deficit disorder) Anxiety about blushing Cognitive impairment Depression with anxiety Disturbance of salivary secretion GERD (gastroesophageal reflux disease) Hammer toe History of cervical dysplasia HTN (hypertension) Hypercholesteremia IBS (irritable bowel syndrome) Insomnia Keratosis pilaris Plantar fasciitis PTSD (post-traumatic stress disorder) Restless leg syndrome Seizure Sjogrens syndrome Tear film insufficiency Surgical History H/O hand surgery Hx of section Family History Maternal Aunt Colon cancer Maternal Grandmother History of breast cancer Social History Alcohol intake: former Patient Tobacco Use Status: Never used Tobacco Assessment & Plan Assessment & Plan (1) Obesity (BMI 30-39.9): Code(s): E66.9 - Obesity, unspecified Plan: wt: 95 kg Est kcal needs as per MSJ: 1800 (40% carb, 30% protein/fat) Est fluid needs as per 25-30 ml/d: 2400 Est prot per day as per 1 g/kg bw: 95 Recommend fiber intake : 8-10 g per day and gradually increase to 25-28 g per day for women and 35-38 g for men or as tolerated Recommend sodium intake per day less than 2000 mg Educated patient on: ( R = reviewed V = verbalizes understanding N/R = needs review N/A = not applicable * Food sources of carbohydrate, adequate serving sizes and its role in various health conditions: R * Differences between complex carbohydrates a simple carbohydrates, role of fiber in diet: R V * Differences between types of fats and role in diet (mono on saturated fat fatty acids, saturated fatty acids, trans fats): R * Food sources of sodium in salt and healthy modifications for heart health in kidney health: NR * Vitamins and minerals: R * Healthy plate method concept: R V * Physical activity: Benefits a precaution: R Patient Instructions: Work on gradually reducing portion sizes, reducing total carbohydrates at dinner to 60 g Have water with meals keep a food record and bring to next follow up for review Coding Level of Care Code Nutr Indiv Intake (54835) Diagnoses Obesity (BMI 30-39.9) E66.9 Time Spent (min) 40
[2023-01-10 20:38] VITALS: BMI 34.8
== END 2022-12-31 13:55 | disposition home or self-care (01) ==
PROVIDERS: PCP Internal Medicine; Visit Provider Dietitian, Registered
DX: E66.9 Obesity, unspecified (principal)

== ENCOUNTER → 2022-12-31 12:59 | Outpatient (BNVA) | payer OTHER, SELFPAY | PROVIDERS: PCP Internal Medicine; Visit Provider Dietitian, Registered | DX: E66.9 Obesity, unspecified (principal); Z68.34 Body mass index [BMI] 34.0-34.9, adult; Z71.3 Dietary counseling and surveillance | CPT/HCPCS: 97802 ==

== ENCOUNTER 2023-03-01 09:29 | Outpatient (REF) | payer OTHER, SELFPAY ==
[2023-03-01 09:51] LABS: MANUAL DIFF FLAG NO
[2023-03-01 10:55] LABS: Basophils Percent Auto 0.5 % (0-2); Eosinophils Absolute Auto 0.3 X10*3/uL (0.0-0.4); Eosinophils Percent Auto 4.5 % (0-4); Hematocrit 39.8 % (37.0-47.0); Hemoglobin 13.3 g/dl (12.0-16.0); Imm Gran Abs Auto 0.02 X10*3/uL (0.00-0.03); Imm Gran Pct Auto 0.4 % (0.0-0.4); Lymphocytes Absolute Auto 1.7 X10*3/uL (1.2-4.9); Lymphocytes Percent Auto 31.6 % (20-40); Mean Corpuscular HGB Conc 33.4 g/dl (31.0-35.0); Mean Corpuscular Hemoglobin 29.2 pg (27.0-33.0); Mean Corpuscular Volume 87.3 fL (80.0-98.0); Monocytes Absolute Auto 0.7 X10*3/uL (0.1-1.2); Monocytes Percent Auto 12.2 % (2-11); Neutrophils Absolute Auto 2.8 x10*3/uL (2.0-8.3); Neutrophils Percent Auto 50.8 % (45-73); Platelet Count 306 X10*3/uL (160-400); Red Blood Count 4.56 X10*6/uL (4.20-5.50); Red Cell Distribution Width 11.8 % (11.0-16.0); White Blood Count 5.5 X10*3/uL (4.8-10.8)
[2023-03-01 11:08] LABS: INTERNATIONAL NORM RATIO 0.9 (0.9-1.1); Prothrombin Time 10.8 SEC (11.1-13.3)
[2023-03-01 11:12] LABS: Estimated Average Glucose 117 mg/dL; Hemoglobin A1c % 5.7 % (<6.0)
[2023-03-01 11:34] LABS: B Type Natriuretic Peptide 32 pg/mL (<100)
[2023-03-01 11:49] LABS: Alanine Aminotransferase 18 U/L (0-31); Albumin Level 4.4 g/dL (3.5-5.0); Alkaline Phosphatase 80 U/L (39-117); Anion Gap 14 (12-20); Aspartate Amino Transferase 15 U/L (5-31); Bilirubin Direct 0.2 mg/dL (0.0-0.5); Bilirubin Total 0.6 mg/dL (0.0-1.0); Blood Urea Nitrogen 14 mg/dL (9-16); Calcium 10.2 mg/dL (8.4-10.2); Carbon Dioxide 27 mmol/L (22-29); Chloride 103 mmol/L (96-108); Cholesterol 239 mg/dL (<200); Estimated Glomerular Filt Rate > 60; Glucose Random 105 mg/dL (60-115); HDL Cholesterol 40 mg/dL (>40); LDL Cholesterol Calculated 165 mg/dL (<100); Potassium 4.1 mmol/L (3.3-5.1); Sodium 140 mmol/L (135-145); Total Protein 7.8 g/dL (6.5-8.0); Triglycerides 173 mg/dL (<150)
[2023-03-01 11:57] LABS: Free T4 (Free Thyroxine) 0.77 ng/dL (0.71-1.85); Thyroid Stimulating Hormone 0.63 uIU/mL (0.32-4.0); Vitamin D 25-OH Total 45.9 ng/mL (>30)
== END 2023-03-01 09:30 | disposition home or self-care (01) ==
LOC: HO.LAB 09:29
PROVIDERS: PCP Internal Medicine; Visit Provider Family Medicine
DX: R63.5 Abnormal weight gain (principal); R23.3 Spontaneous ecchymoses; I10 Essential (primary) hypertension
CPT/HCPCS: 36415; 80048; 80061; 80076; 82306; 83036; 83880; 84439; 84443; 85025; 85610; 85730

== ENCOUNTER 2023-05-15 10:07 | Outpatient (REF) | payer OTHER, SELFPAY ==
[2023-05-15 11:24] LABS: MANUAL DIFF FLAG NO
[2023-05-15 11:47] LABS: Basophils Absolute Auto 0.1 X10*3/uL (0.0-0.2); Basophils Percent Auto 1.1 % (0-2); Eosinophils Absolute Auto 0.3 X10*3/uL (0.0-0.4); Eosinophils Percent Auto 6.4 % (0-4); Hematocrit 40.9 % (37.0-47.0); Hemoglobin 13.5 g/dl (12.0-16.0); Lymphocytes Absolute Auto 1.9 X10*3/uL (1.2-4.9); Lymphocytes Percent Auto 41.1 % (20-40); Mean Corpuscular Hemoglobin 29.3 pg (27.0-33.0); Mean Corpuscular Volume 88.7 fL (80.0-98.0); Mean Platelet Volume 9.5 fL (9.4-12.3); Monocytes Absolute Auto 0.5 X10*3/uL (0.1-1.2); Monocytes Percent Auto 11.9 % (2-11); Neutrophils Absolute Auto 1.8 x10*3/uL (2.0-8.3); Neutrophils Percent Auto 39.5 % (45-73); Platelet Count 300 X10*3/uL (160-400); Red Blood Count 4.61 X10*6/uL (4.20-5.50); Red Cell Distribution Width 11.7 % (11.0-16.0); White Blood Count 4.6 X10*3/uL (4.8-10.8)
[2023-05-15 11:57] LABS: Estimated Average Glucose 120 mg/dL; Hemoglobin A1c % 5.8 % (<6.0)
[2023-05-15 12:16] LABS: TSH reflex Free T4 1.04 uIU/mL (0.32-4.0)
== END 2023-05-15 10:08 | disposition home or self-care (01) ==
LOC: HO.HHCL 10:07
PROVIDERS: Visit Provider Internal Medicine
DX: R42 Dizziness and giddiness (principal)
CPT/HCPCS: 36415; 83036; 84443; 85025

== ENCOUNTER 2023-09-04 13:21 | Outpatient (REF) | payer OTHER, SELFPAY ==
--- NOTE | ~2023-09-04 | XR_ITS ---
EXAMINATION: CR LUMBAR SPINE. CR RIGHT KNEE. CLINICAL INFORMATION: Low back pain radiating to the right knee. Primary osteoarthritis of right knee. Patient states pain and stiffness in back and knee since . Denies injury. Patient states she has restless leg syndrome. COMPARISON: Lumbar spine films dated 07/07/2018. Right knee MRI scan dated 01/15/2018 contralateral left knee films dated 06/17/2015. TECHNIQUE: 5 views of the lumbar spine, including bilateral oblique views. 4 views of the right knee including AP upright view and sunrise view. FINDINGS: Lumbar spine: Normal alignment. No acute fracture or abnormal paraspinal soft tissue changes. Disc space height relatively well-maintained at all levels. Mild to moderate bridging vertebral spondylosis seen along the left lateral margin of L2-3 and L4-5, similar to the previous exam. Mild facet arthropathy seen in the mid and lower lumbar spine. Sacroiliac joints bilaterally intact. Visualized hip joints unremarkable. Moderate volume stool seen scattered in the rectum and colon. Right knee: No acute fracture or dislocation. Joint space height well maintained at all levels. Minimal spurring along the tibial spines and intercondylar notch and at the lateral patellar facet. No joint or soft tissue calcifications. XR/XR lumbar spine 4V min IMPRESSION: * No acute fracture of the lumbar spine or right knee. * Mild facet arthropathy in the mid and lower lumbar spine. * Mild vertebral spondylosis in the mid and lower lumbar spine.
--- NOTE | ~2023-09-04 | XR_ITS ---
EXAMINATION: CR LUMBAR SPINE. CR RIGHT KNEE. CLINICAL INFORMATION: Low back pain radiating to the right knee. Primary osteoarthritis of right knee. Patient states pain and stiffness in back and knee since . Denies injury. Patient states she has restless leg syndrome. COMPARISON: Lumbar spine films dated 07/07/2018. Right knee MRI scan dated 01/15/2018 contralateral left knee films dated 06/17/2015. TECHNIQUE: 5 views of the lumbar spine, including bilateral oblique views. 4 views of the right knee including AP upright view and sunrise view. FINDINGS: Lumbar spine: Normal alignment. No acute fracture or abnormal paraspinal soft tissue changes. Disc space height relatively well-maintained at all levels. Mild to moderate bridging vertebral spondylosis seen along the left lateral margin of L2-3 and L4-5, similar to the previous exam. Mild facet arthropathy seen in the mid and lower lumbar spine. Sacroiliac joints bilaterally intact. Visualized hip joints unremarkable. Moderate volume stool seen scattered in the rectum and colon. Right knee: No acute fracture or dislocation. Joint space height well maintained at all levels. Minimal spurring along the tibial spines and intercondylar notch and at the lateral patellar facet. No joint or soft tissue calcifications. XR/XR knee RT 3V IMPRESSION: * No acute fracture of the lumbar spine or right knee. * Mild facet arthropathy in the mid and lower lumbar spine. * Mild vertebral spondylosis in the mid and lower lumbar spine.
== END 2023-09-04 13:22 | disposition home or self-care (01) ==
LOC: HO.HHCX 13:21
PROVIDERS: Visit Provider Internal Medicine
DX: M17.11 Unilateral primary osteoarthritis, right knee (principal); M54.41 Lumbago with sciatica, right side
CPT/HCPCS: 72110; 73562

== ENCOUNTER 2024-09-10 22:33 | Emergency (ER) | payer OTHER, SELFPAY ==
[2024-09-10 22:38] VITALS: BP 154/92; PULSE 78; O2SAT 97
[2024-09-10 22:42] VITALS: BP 127/73; PULSE 78; RESP 20; TEMP 36.8; O2SAT 97; BMI 33.9
--- NOTE | 2024-09-10 22:46 | ED.GENADULT ---
HPI - General Adult General Chief complaint: General Medical Stated complaint: burning/blurry vision, got hair dye in eye Time Seen by Provider: 09/10/24 22:45 Source: patient Limitations: no limitations History of Present Illness ED Provider: Minda Joe PA-C HPI narrative: 53-year-old female presents with right eye pain. Patient states she was dying her hair, some of the hair dye gotten her right eye. She states she flushed it immediately. She initially had blurred vision, it has since cleared. The patient does not use contact lenses, she is not diabetic. Related Data Home Medications ?Medication ?Instructions ?Recorded ?Confirmed aspirin 81 mg tablet,delayed 81 mg PO DAILY 01/31/22 release buspirone 10 mg tablet 10 mg PO TID 01/31/22 cholecalciferol (vitamin D3) 50 50 mcg PO DAILY 01/31/22 mcg (2,000 unit) capsule (Vitamin D3) cyanocobalamin (vitamin B-12) 1,000 mcg PO QAM 01/31/22 1,000 mcg tablet cyclosporine 0.05 % eye drops 1 drp ophthalmic (eye) BID 01/31/22 (Restasis MultiDose) diclofenac sodium 1 % topical gel 2 g topical QID 01/31/22 diphenhydramine HCl 25 mg tablet 0 mg PO 01/31/22 docusate sodium 100 mg capsule 100 mg PO 01/31/22 epinephrine 0.3 mg/0.3 mL IM 01/31/22 injection, auto-injector famotidine 20 mg tablet 20 mg PO BID 01/31/22 furosemide 40 mg tablet 40 mg PO QAM 01/31/22 ibuprofen 800 mg tablet 800 mg PO TID 01/31/22 lacosamide 100 mg tablet 100 mg PO 01/31/22 levetiracetam 500 mg tablet 500 mg PO BID 01/31/22 lorazepam 1 mg tablet 0 mg PO 01/31/22 metoprolol tartrate 25 mg tablet 25 mg PO 01/31/22 montelukast 10 mg tablet 10 mg PO BEDTIME 01/31/22 ropinirole 2 mg tablet 0 mg PO 01/31/22 salicylic acid 2 % topical cream appl topical BID PRN 01/31/22 (CeraVe Psoriasis) triamcinolone acetonide 0.1 % appl topical BID 09/28/22 topical cream verapamil 120 mg tablet,extended 120 mg PO DAILY 01/31/22 release white petrolatum 42 % topical topical 01/31/22 ointment Previous Rx's ?Medication ?Instructions ?Recorded ibuprofen 600 mg tablet 600 mg PO TID PRN pain #14 tabs 02/15/22 metoclopramide HCl 10 mg tablet 10 mg PO Q6H PRN nausea and 06/17/22 (Reglan) vomiting #14 tabs erythromycin 5 mg/gram (0.5 %) eye 0.5 inch ophthalmic (eye) QID 3 09/11/24 ointment days #3.5 grams Allergies Allergy/AdvReac Type Severity Reaction Status Date / Time influenza virus vaccine, Allergy Severe Anaphylaxis Verified 09/10/24 22:49 specific [FLU VACCINE] Iodinated Contrast Media Allergy Severe TURNS Verified 09/10/24 22:49 [Iodinated Contrast Media - BLUE IV Dye] latex [Latex] Allergy Severe Anaphylaxis Verified 09/10/24 22:49 sulfamethoxazole Allergy Mild Rash Verified 09/10/24 22:49 [From Bactrim] trimethoprim [From Bactrim] Allergy Mild Rash Verified 09/10/24 22:49 amoxicillin [Prevpac] Allergy Unknown Nausea and Verified 09/10/24 22:49 Vomiting aspirin [From Percodan] Allergy Unknown Stomach Verified 09/10/24 22:49 Upset clarithromycin [Prevpac] Allergy Unknown Nausea and Verified 09/10/24 22:49 Vomiting codeine Allergy Unknown Unknown Verified 09/10/24 22:49 doxazosin Allergy Unknown Dizziness Verified 09/10/24 22:49 gabapentin Allergy Unknown Blurry Verified 09/10/24 22:49 Vision lansoprazole [Prevpac] Allergy Unknown Nausea and Verified 09/10/24 22:49 Vomiting metronidazole [From FLAGYL] Allergy Unknown Unknown Verified 09/10/24 22:49 rifaximin [Xifaxan] Allergy Unknown Unknown Verified 09/10/24 22:49 shellfish derived Allergy Unknown Anaphylaxis, Verified 09/10/24 22:49 difficulty breathing, Rash Sulfa (Sulfonamide Allergy Unknown stomach Verified 09/10/24 22:49 Antibiotics) upset Opioids - Morphine Analogues AdvReac Intermediate NAUSEA & Verified 09/10/24 22:49 [OPIOIDS - MORPHINE VOMITING + ANALOGUES] RASH clonazepam [From Klonopin] AdvReac Mild HEADACHE Verified 09/10/24 22:49 oxycodone [From Percodan] AdvReac Mild Headache, Verified 09/10/24 22:49 Dizziness, Nausea and Vomiting Review of Systems Review of Systems: Yes all other systems are reviewed and are negative Constitutional: Constitutional: Denies fatigue and Denies fever(s) Eyes: Eyes: Reports blurry vision and Reports irritation Endocrine: Endocrine: Denies fatigue PMFSH Past Medical History Attestation statement: The following information was validated with the patient. Medical History ADD (attention deficit disorder) Anxiety about blushing Cognitive impairment Depression with anxiety Disturbance of salivary secretion GERD (gastroesophageal reflux disease) Hammer toe History of cervical dysplasia HTN (hypertension) Hypercholesteremia IBS (irritable bowel syndrome) Insomnia Keratosis pilaris Plantar fasciitis PTSD (post-traumatic stress disorder) Restless leg syndrome Seizure Sjogrens syndrome Tear film insufficiency Surgical History H/O hand surgery Hx of section Family History Family History Maternal Aunt Colon cancer Maternal Grandmother History of breast cancer Social History Social History Alcohol intake: former Patient Tobacco Use Status: Never used Tobacco Smoked in Last 30 Days: No Use of substances other than those prescribed or required for medical reasons: No Advance Directives: No Advance Directives Information Provided: Yes Patient : No Physical Exam ED Vital Signs: Vital Signs - 24 hr 09/10/24 22:42 09/10/24 22:49 Temperature 98.3 F 98.3 F Pulse Rate 78 78 Respiratory Rate 20 20 Blood Pressure 127/73 127/73 Pulse Oximetry 97 97 Oxygen Delivery Method Room Air Room Air BMI result Body Mass Index 33.9 Const Other: Alert well-appearing Orientation/consciousness: patient oriented x3 Eyes Other: Visual acuity 20/40 right, 20/30 left. PH between 6 and 7, no corneal abrasion noted with fluorescein stain, bulbar conjunctiva minimally injected Resp Effort & Inspection: normal respiratory effort Cardio Other: Normal peripheral perfusion Skin Other: Warm dry no rash Neuro General: patient oriented x3, gait normal, no focal motor deficits and CN's II-XI intact bilaterally Psych Other: Cooperative Medications Administered Discontinued Medications Generic Name Dose Route Start Last Admin Trade Name Freq PRN Reason Stop Dose Admin Erythromycin 1 cm 09/10/24 23:45 09/11/24 00:32 Erythromycin Base 0.5% Oph Oin 1 Gm Tube EYE-RIGHT 09/10/24 23:46 1 cm ONCE ONE Administration Fluorescein Sodium 1 strip 09/10/24 23:02 09/11/24 00:31 Fluorescein Sodium Strip EYE-RIGHT 09/10/24 23:03 1 strip ONCE ONE Administration Tetracaine HCl 3 drop 09/10/24 23:02 09/11/24 00:31 Tetracaine Hcl 0.5% Oph [place] 5 Ml Drops EYE-RIGHT 09/10/24 23:03 Not Given ONCE ONE Medical Decision Making Medical Decision Making MDM Narrative: 53-year-old female presents with right eye pain. Patient states she was dying her hair, some of the hair dye gotten her right eye. She states she flushed it immediately. She initially had blurred vision, it has since cleared. The patient does not use contact lenses, she is not diabetic. No chronic issues History: Per patient I have considered the following differential diagnoses: Chemical burn, corneal abrasion, ulceration, Plan: There was no evidence of chemical burn in the pH is appropriate. No evidence of corneal abrasion, we will treat with erythromycin for the irritation, to note she has no risk factors for Pseudomonas. Discharge Plan Discharge Clinical Impression: Irritation of right eye Patient Disposition: Home, Self-Care Additional Instructions: You were treated for mild eye irritation. Use the erythromycin ointment as directed. Follow up with your primary care provider as needed. Prescriptions: New erythromycin 5 mg/gram (0.5 %) ointment 0.5 inch ophthalmic (eye) QID 3 Days Qty: 3.5 0RF No Action ibuprofen 600 mg tablet 600 mg PO TID PRN (Reason: pain) Qty: 14 0RF metoclopramide HCl [Reglan] 10 mg tablet 10 mg PO Q6H PRN (Reason: nausea and vomiting) Qty: 14 0RF diclofenac sodium 1 % gel 2 g topical QID ropinirole 2 mg tablet 0 mg PO CeraVe Psoriasis 2 % cream topical BID PRN white petrolatum 42 % ointment topical Restasis MultiDose 0.05 % drops 1 drp ophthalmic (eye) BID lorazepam 1 mg tablet 0 mg PO lacosamide 100 mg tablet 100 mg PO cholecalciferol (vitamin D3) [Vitamin D3] 50 mcg (2,000 unit) capsule 50 mcg PO DAILY montelukast 10 mg tablet 10 mg PO BEDTIME docusate sodium 100 mg capsule 100 mg PO buspirone 10 mg tablet 10 mg PO TID aspirin 81 mg tablet,delayed release (DR/EC) 81 mg PO DAILY cyanocobalamin (vitamin B-12) 1,000 mcg tablet 1,000 mcg PO QAM levetiracetam 500 mg tablet 500 mg PO BID metoprolol tartrate 25 mg tablet 25 mg PO famotidine 20 mg tablet 20 mg PO BID furosemide 40 mg tablet 40 mg PO QAM ibuprofen 800 mg tablet 800 mg PO TID epinephrine 0.3 mg/0.3 mL auto-injector IM diphenhydramine HCl 25 mg tablet 0 mg PO verapamil 120 mg tablet extended release 120 mg PO DAILY triamcinolone acetonide 0.1 % cream topical BID Interventions: ED Discharge Assessment Last Done: 09/11/24 01:09 Print Language: Occitan
[2024-09-10 22:49] VITALS: BP 127/73; PULSE 78; RESP 20; TEMP 36.8; O2SAT 97
[2024-09-11] MEDS: Fluorescein Sodium STRIP 1 STRIP EYE-RIGHT (00:31)
[2024-09-11] MEDS: Erythromycin Base 0.5% Oph Oin 1 GM TUBE 1 CM EYE-RIGHT (00:32)
[2024-09-11 01:09] VITALS: BP 127/73; PULSE 78; RESP 20; TEMP 36.8; O2SAT 97
== END 2024-09-11 01:10 | disposition home or self-care (01) ==
PROVIDERS: Emergency Provider Emergency Medicine; PCP Internal Medicine
DX: H57.11 Ocular pain, right eye (principal)
CPT/HCPCS: 99283; 99284

== ENCOUNTER 2024-10-29 20:52 | Emergency (ER) | payer OTHER, SELFPAY ==
--- NOTE | ~2024-10-29 | XR_ITS ---
CLINICAL HISTORY: CP 2 view chest x-ray Comparison: 10/01/2022 Findings: Lungs are clear without acute infiltrates. No pneumothorax. Heart size normal. No acute bony abnormalities. Impression: No acute processes This document has been electronically signed by: Juan Palomino MD on 10/29/2024 22:18:16
--- NOTE | 2024-10-29 20:54 | ECG_ITS ---
Test Reason : CHEST PAIN Blood Pressure : */* mmHG Vent. Rate : 65 BPM Atrial Rate : 65 BPM P-R Int : 184 ms QRS Dur : 90 ms QT Int : 412 ms P-R-T Axes : 44 13 18 degrees QTcB Int : 428 ms Normal sinus rhythm Cannot rule out Anterior infarct (cited on or before 07-Mar-2018) Abnormal ECG When compared with ECG of 01-Oct-2022 21:00, No significant change was found Referred By: Jodie Connor Electronically Signed By: ROSARIO LOCO
[2024-10-29 21:00] VITALS: BP 146/68; PULSE 68; RESP 16; TEMP 36.3; O2SAT 97; BMI 35.0
[2024-10-29 21:25] VITALS: BP 126/67; PULSE 66; RESP 14; TEMP 36.5; O2SAT 96
[2024-10-29 21:38] LABS: MANUAL DIFF FLAG NO
[2024-10-29 21:39] LABS: Basophils Percent Auto 0.5 % (0-2); Eosinophils Absolute Auto 0.2 X10*3/uL (0.0-0.4); Eosinophils Percent Auto 3.4 % (0-4); Hematocrit 36.9 % (37.0-47.0); Hemoglobin 12.6 g/dl (12.0-16.0); Lymphocytes Absolute Auto 2.4 X10*3/uL (1.2-4.9); Lymphocytes Percent Auto 43.3 % (20-40); Mean Corpuscular HGB Conc 34.1 g/dl (31.0-35.0); Mean Corpuscular Hemoglobin 29.9 pg (27.0-33.0); Mean Corpuscular Volume 87.6 fL (80.0-98.0); Mean Platelet Volume 8.7 fL (9.4-12.3); Monocytes Absolute Auto 0.6 X10*3/uL (0.1-1.2); Monocytes Percent Auto 10.8 % (2-11); Neutrophils Absolute Auto 2.3 x10*3/uL (2.0-8.3); Platelet Count 265 X10*3/uL (160-400); Red Blood Count 4.21 X10*6/uL (4.20-5.50); Red Cell Distribution Width 11.6 % (11.0-16.0); White Blood Count 5.6 X10*3/uL (4.8-10.8)
[2024-10-29 21:52] LABS: Alanine Aminotransferase 23 U/L (0-31); Albumin Level 4.5 g/dL (3.5-5.0); Alkaline Phosphatase 74 U/L (39-117); Anion Gap 13 (12-20); Aspartate Amino Transferase 26 U/L (5-31); Bilirubin Direct 0.1 mg/dL (0.0-0.5); Bilirubin Total 0.3 mg/dL (0.0-1.0); Blood Urea Nitrogen 11 mg/dL (9-16); Calcium 9.6 mg/dL (8.4-10.2); Carbon Dioxide 27 mmol/L (22-29); Chloride 103 mmol/L (96-108); Creatinine Clr Calc Pharmacy 71.7; Estimated Glomerular Filt Rate 58; Glucose Random 117 mg/dL (60-115); Magnesium 2.2 mg/dL (1.6-2.6); Potassium 3.4 mmol/L (3.3-5.1); Sodium 140 mmol/L (135-145); Total Protein 7.5 g/dL (6.5-8.0)
[2024-10-29 22:01] LABS: Troponin-I High Sensitivity < 2.7 ng/L (<3.5-17.0)
--- OUTSIDE RECORDS SUMMARY | 2024-10-29 22:11 | XMS_ITS | Encounter Summary ---
Author Organization [facility] Address [address] [place] [id number] Care Team Providers Care Group Teacher Name Role Phone Sonam Albarran MD Primary Care Provide r Reason for Visit * Reason Comments Med Refill Encounter Details Date Type Department Care Team ([facility] st Contact Info) Description 04/16/2023 Refill [facility] [address] [place], [place] [phone] Nevaeh Pope MD [address] [place] [address] Allergy, initial encounter Social History Tobacco Use Types Packs/Day Years Used Date Smoking Tobacco: Never Passive Smoke Exposure: Never Smokeless Tobacco: Never Alcohol Use Standard Drinks/Week Comments Never 0 (1 standard drink = 0.6 oz pur e alcohol) Housing Stability Answer Date Recorded What is your housing situation today? I have dreaurora smith 02/21/[address] you li ve. Do you have problems with any of the following? None of the above 02/21/2023 Food Insecurity Answer Date Recorded Within the past 12 months, y ou worried that your food would run out before you got money to buy more: Never True 02/21/2023 Within the past 12 months,th e food you bought just didn't last and you didn't have enough money to get more: Never True Transportation Answer Date Recorded In the past 12 months, has l ack of transportation kept you from medical appts, meetings, work or from getting things needed for daily living? No 02/21/2023 Utilities Answer Date Recorded In the past 12 months, has t he electric, gas, oil or water company threatened to shut off services in your home? No 02/21/2023 Depression Answer Date Recorded Patient Health Questionnaire-2 Score 0 05/22/2022 Comments Unknown Sex and Gender Information Value Date Recorded Sex Assigned at Female 03/05/2022 10:17 AM EDT Legal Sex Female 10:17 AM EDT Gender Identity Female 03/05/2022 10:17 AM EDT Sexual Orientation Choose not to disclose 2021 10:17 AM EDT documented as of this encounter Plan of Treatment Upcoming Encounters Date Type Department Care Team (Late st Contact Info) Description 11/09/2024 1:30 PM EDT Office Visit [facility] [address] [place], [place] [phone] Sonam Albarran MD [address] [place] [phone] documented as of this encounter Visit Diagnoses Diagnosis Allergy, initial encounter documented in this encounter Care Teams Group Teacher Relationship Specialty Start Date End Date Sonam Albarran MD [address] [place] [id number] PCP - General Family Medicine 04/06/19 documented as of this encounter
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
[2024-10-29] MEDS: Lidocaine 4 % Patch ADH..PATCH 1 PATCH TRANSDERMA (23:49)
[2024-10-29] MEDS: Acetaminophen 325 MG TABLET 975 MG PO (23:49)
[2024-10-29] MEDS: Ketorolac Tromethamine 30 MG/ML VIAL IM (23:49)
[2024-10-30] VITALS: BP 102/45; PULSE 63; RESP 19; TEMP 36.4; O2SAT 95
[2024-10-30 01:33] LABS: Troponin-I High Sensitivity < 2.7 ng/L (<3.5-17.0)
[2024-10-30 03:01] VITALS: BP 128/69; PULSE 64; RESP 15; TEMP 36.6; O2SAT 97
== END 2024-10-30 03:02 | disposition home or self-care (01) ==
PROVIDERS: Physician Assistant; Physician Assistant Medical; Emergency Provider Emergency Medicine; PCP Internal Medicine
DX: M94.0 Chondrocostal junction syndrome [Tietze] (principal); R07.89 Other chest pain; Z79.899 Other long term (current) drug therapy
CPT/HCPCS: 36415; 71046; 80048; 80076; 83735; 84484; 85025; 93005; 96372; 99284; 99285; J1885

== ENCOUNTER → 2024-10-29 20:54 | Outpatient (BNV) | payer OTHER, SELFPAY | PROVIDERS: Emergency Provider Emergency Medicine; PCP Internal Medicine; Visit Provider Internal Medicine | DX: R94.31 Abnormal electrocardiogram [ECG] [EKG] (principal); R07.9 Chest pain, unspecified | CPT/HCPCS: 93010 ==

== ENCOUNTER → 2024-10-29 21:07 | Outpatient (BNV) | payer OTHER, SELFPAY | PROVIDERS: Emergency Provider Emergency Medicine; PCP Internal Medicine; Visit Provider Radiology Diagnostic Radiology | DX: R07.9 Chest pain, unspecified (principal) | CPT/HCPCS: 71046 ==

== ENCOUNTER 2024-11-05 11:41 | Outpatient (REF) | payer OTHER, SELFPAY ==
--- OUTSIDE RECORDS SUMMARY | 2024-11-05 12:25 | XMS_ITS | Clinical Summary ---
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 Name Role Phone Stu Vargas DO Primary Care Provider [phone] Social History Tobacco Use Types Packs/Day Years Used Date Smoking Tobacco: Never Assessed Comments Unknown Sex and Gender Information Value Date Recorded Sex Assigned at Not on file Legal Sex Female 9:28 AM EDT Gender Identity Not on file Sexual Orientation Not on file Plan of Treatment Health Maintenance Due Date Last Done Comments Breast Cancer Screening 1970 Hepatitis B Vaccine (1 of 3 - 19+ 3-dose series) 09/13 Colorectal Cancer Screening: Annual FOBT 09/13/2020 Colorectal Cancer Screening: Colonoscopy 09/13/2020 Colorectal Cancer Screening: Sigmoidoscopy 09/13/2020 Pneumococcal Vaccine: 50+ Years (1 of 1 - PCV) 022 Influenza Vaccine (Season Ended) 2025 Care Teams Offset [employer] Operator Relationship Specialty Start Date End Date Stu Vargas DO [address] [place] [id number] PCP - General Cardiology 08/21/21
--- OUTSIDE RECORDS SUMMARY | 2024-11-05 12:25 | XMS_ITS | Patient Health Record ---
Author Organization [facility] Address [address] [place] [phone] Care Team Providers Care Hot End Operator Name Role Phone JADEN HAGER Unavailable [phone] Allergies Allergen (clinical drug ingredient) Drug/Non Drug Allergy documented on EMR Reaction Allergy Type Onset Date Status sulfamethoxazole / trimethoprim Bactrim (uncoded) Unknown Allergy Active biaxin (uncoded) rash Allergy Act saul egg shell (uncoded) Unknown Allergy Active clonazepam klonopin (uncoded) rash Allergy Active lamotrigine lamictal (uncoded) GI side effets Allergy Active Latex latex (uncoded) anaphylaxis Allergy Ac tive oxy (uncoded) Unknown Allergy Active percodan (uncoded) GI side effects Allergy Active capsaicin Capsaicin Unknown Drug Allergy Active Lipomul Unknown Drug Allergy Active amlodipine Amlodipine Unknown Drug Allergy Active amoxicillin Amoxicillin Unknown Drug Allergy Active clarithromycin Clarithromycin Unknown Drug Allergy Active clonazepam Clonazepam Unknown Drug Allergy Active codeine Codeine Unknown Drug Allergy Active Iodinated contrast media (substance) Iodinated Diagnostic Agents Unknown Drug Allergy Active lamotrigine Lamotrigine Unknown Drug Allergy Active morphine Morphine Unknown Drug Allergy Active rifaximin Rifaximin Unknown Drug Allergy Active sertraline Sertraline Unknown Drug Allergy Active Shellfish (FN) Shellfish-derived Products Unknown Drug Allergy Active Substance with sulfonamide structure and antibacterial mechanism of action (substance) Sulfa Antibiotics Unknown Drug Allergy Active sulfamethoxazole Sulfamethoxazole Unknown Drug Allergy Active trimethoprim Trimethoprim Unknown Drug Allergy Active Paxlovid Unknown Drug Allergy Active Results Component Value Reference Range Notes HBsAg Screen-[id number] Reviewed date:09/18/2024 02:32:44 PM Interpretation:Negative Performing Lab:[facility], [address], [place], Phone - [phone], [facility] Notes/Report: HBsAg Screen Negative Negative Hepatitis B Surf Ab Quant-[id number] Reviewed date:09/18/2024 02:33:05 PM Interpretation:Immune Performing Lab:[facility], [address], [address], [place], Phone - [phone], [facility] Notes/Report: Hepatitis B Surf Ab Quant 528.0 Immunity>10 mIU/mL Status of Immunity Anti-HBs Level Inconsistent with Immunity 0.0 - 10.0 Consistent with Immunity >10.0 T pallidum Screening [place] -[id number] Reviewed date:09/18/2024 02:33:22 PM Interpretation:Negative Performing Lab:[facility] [place], [address], [address], [place], Phone - [phone], [facility] Notes/Report: T pallidum Antibodies Non Reactive Non Reactive HIV Ab/p24 Ag with Reflex-08 [id number] Reviewed date:09/18/2024 02:33:14 PM Interpretation:Negative Performing Lab:[facility] [place], [address], [address], [place], Phone - [phone], [facility] Notes/Report: HIV Ab/p24 Ag Screen Non Reactive Non Reactive HIV-1/HIV-2 antibodies and HIV-1 p24 antigen were NOT detected. There is no laboratory evidence of HIV infection. HIV Negative HCV Antibody RFX to Quant PC [id number] Reviewed date:09/18/2024 02:32:35 PM Interpretation:Negative Performing Lab:[facility] [place], [address], [address], [place], Phone - [phone], [facility] Notes/Report: HCV Ab Non Reactive Non Reactive Interpretation: Not infected with HCV unless early or acute infection is suspected (which may be delayed in an immunocompromised individual), or other evidence exists to indicate HCV infection. Ct, Ng, Trich vag by JORDANA-[id number] Reviewed date:09/18/2024 02:33:32 PM Interpretation:Negative Performing Lab:[facility] [place], [address], [address], [place], Phone - [phone], [facility] Notes/Report: Chlamydia by JORDANA Negative Negative Gonococcus by JORDANA Negative Negative Trich vag by JORDANA Negative Negative IGP, Apt HPV,rfx 16/18,45-19 9344 Reviewed date:09/18/2024 02:37:27 PM Interpretation:Normal, HPV negative Performing Lab:[facility] [place], [address], [address], [place], Phone - [phone], Director - [facility] Notes/Report: Clinical Information:[id number] LMP / Prev Treat...[id number] No. of containers..01 ThinPrep Vial DIAGNOSIS: NEGATIVE FOR IN TRAEPITHELIAL LESION OR MALIGNANCY. Specimen adequacy: Satisfactory for evaluation. Endocervical and/or squamous metaplastic cells (endocervical component) are present. Clinician provided ICD10: Z01.419 Z11.51 Performed by: Blanco madrigal, Corrosion Control Specialist (ASCP) . . Note: The Pap smear is a screening test designed to aid in the detection of premalignant and malignant conditions of the uterine cervix. It is not a diagnostic procedure and should not be used as the sole means of detecting cervical cancer. Both false-positive and false-negative reports do occur. . Test Methodology: This liquid based ThinPrep(R) pap test was screened with the use of an image guided system. HPV Aptima Negative Negative This nucleic acid amplification test detects fourteen high-risk HPV types (16,18,31,33,35,39,45,51,52,5 6,58,59,66,68) without differentiation. PDF Report Reviewed date:09/18/2024 02:37:45 PM Interpretation: Performing Lab:[facility] [place], [address], [address], [place], Phone - [phone], Director - [facility] Notes/Report: Clinical Information:[id number] LMP / Prev Treat...[id number] No. of containers..01 ThinPrep Vial Reason For Referral Reason 53 yr old with bruna rns for incontinence. Clt reports prior urology workup and dx of hypertonic bladder syndrome. Please further evaluate and manage. Referral for pelvic floor PT sent. Diagnosis 1 Stress incontinence (female) (male) (N39.3) Referral Organization [place] [facility] Referring Provider First Name JADEN Referring Provider Last Name ALLEY Referring Provider Speciality Certified Nurse Supervisor Histology Referred Provider Sandra Vasques Referred Provider Specialty Urology Clinical Notes Gem Anderson 2024 12:25:37 PM > printed and will be faxed and followed Referral Priority Routine Medications Medication SIG (Take, Route, Frequency, Duration) Notes Start Date End Date Status Fish Oil Active Ferrous Sulfate Acti ve Lacosamide Active ZyrTEC Active Aspirin Active Zetia Active Cymbalta Active Ativan Active Keppra Active Vitamin D3 Active rOPINIRole HCl Not-T aking Lopressor Active Zantac Not-Taking Doxycycline Not-Taki ng Mandelay Active levETIRAcetam Not-Ta jassi Cetirizine HCl Not-T aking Omeprazole Not-Takin g BuSpar Active Lorazepam Not-Taking Vitamin B12 Active Bethanechol Chloride Not-Taking Ambien Active Sertraline HCl Not-T aking Demadex Active Vimpat Not-Taking Requip Not-Taking Restasis Not-Taking Ortho Micronor 0.35 MG 1 tablet Orally O nce a day for 28 days Not-Taking Colace Active Prazosin HCl Active Immunizations Vaccine Route Administration Date Status Comme nts Hep A, adult IM Intramuscular 12/03/2019 Administered Hep B, adult dosage, for intramuscular use IM Intramuscular 12/03/2019 Administered Social History Sex Assigned At : Social History Observation Description Sex Assigned At Female Section Notes: Aptima./ bw Problems Problem Type SNOMED Code ICD Code Onset Dates Problem Status W/U Status Risk Notes Problem Stress incontinence (female) (male) (N39.3) Active confirmed Problem Dysfunctional uterine bleeding ([id number]) Dysfunctional uterine bleeding (N93.8) Active confirmed Vital Signs Blood pressure diastolic 68 mm Hg 09/09/2024 BP controlled client states she has been consistently taking BP medication Height 5'5 in 09/09/2024 BP controlled c lient states she has been consistently taking BP medication Blood pressure systolic 144 mm Hg 09/09/2024 BP c ontrolled client states she has been consistently taking BP medication Weight 208.0 lbs 09/09/2024 BP controlled c lient states she has been consistently taking BP medication BMI 34.61 kg/m2 09/09/2024 BP controlled c lient states she has been consistently taking BP medication Encounters Encounter Location Date Provider Diagnosis [place] [facility] [address], [place] [phone] 09/09/2024 JADEN HAGER Encounter for gynecological examination (general) (routine) without abnormal findings Z01.419 ; HPV Pap Screening Z11.51 ; Encounter for screening for infections with a predominantly sexual mode of transmission Z11.3 ; HIV Screening Z11.4 ; Encounter for screening for other viral diseases Z11.59 and Stress incontinence (female) (male) N39.[address] [place], [place] [phone] 09/11/2024 JADEN HAGER Assessments Encounter Date Diagnosis (ICD Code) Assessment Notes Treatment Notes Treatment Clinical Notes Section Notes 09/09/2024 Encounter for gynecological examination (general) (routine) without abnormal findings (ICD-10 - Z01.419) Discussed routine screenings and self breast/chest awareness. Mammogram screening recommendations reviewed. Routine mammogram referral given- clt to self schedule. Pap guidelines reviewed and pap collected. Routine screening in 3 years if NIL. Clt without menses > 12 months, advised clt is postmenopausal. 09/09/2024 HPV Pap Screening (ICD-10 - Z11.51) 09/09/2024 Encounter for screening for infections with a predominantly sexual mode of transmission (ICD-10 - Z11.3) Discussed STI risks, screenings that are available through [facility] and safe sex. Clt aware of lab processing times and how to view results on portal and how positive results will be communicated 09/09/2024 HIV Screening (ICD-10 - Z11.4) 09/09/2024 Encounter for screening for other viral diseases (ICD-10 - Z11.59) 09/09/2024 Stress incontinence (female) (male) (ICD-10 - N39.3) Clt has had eval for urinary concerns in the past per clt- clt feels she doesn't know what she is supposed to do regarding symptoms. Advised referral to try pelvic floor PT and can send back to urologist to fu. Will place referrals Plan Of Treatment No Information Insurance Providers Payer Name Payer Address Payer Phone Subscriber Number Group Number Insured Name Patient Relationship to Insured Coverage Start Date Coverage End Date MEDICARE PART B [address] [place] [phone] [id number] Catina Becerra Self - patient is the insured [place] ATT CLAIMS [address] [place] [address] [id number] Catina Becerra Self - patient is the insured Medical (General) History Medical History History ICD Code seizure disorder anxiety history abnormal pap test overactive bladder heart disease high blood pressure seizure Hospitalization History Reason Date(Month/Year) Vaginal bleeding 2021
--- OUTSIDE RECORDS SUMMARY | 2024-11-05 12:25 | XMS_ITS | Encounter Summary ---
Author Organization [facility] Address [address] [place] [address] Care Team Providers Care Rn Recruitment Name Role Phone Sonam Albarran MD Primary Care Provide r Reason for Visit * Reason Comments Med Refill Encounter Details Date Type Department Care Team ([facility] st Contact Info) Description 04/16/2023 Refill [facility] MEDICINE [address], [place] [phone] Nevaeh Pope MD [address] [place] [address] Allergy, initial encounter Social History Tobacco Use [...] Care Team (Late st Contact Info) Description 01/13/2025 10:15 AM EDT Office Visit [facility] MEDICINE [address], [place] [phone] Sonam Albarran MD [address] [place] [phone] documented as of this encounter Visit Diagnoses Diagnosis Allergy, initial encounter documented in this encounter Care Teams Rn Recruitment Relationship Specialty Start Date End Date Sonam Albarran MD [address] [place] [id number] PCP - General Family Medicine 04/06/19 documented as of this encounter
--- OUTSIDE RECORDS SUMMARY | 2024-11-05 12:25 | XMS_ITS | Data Portability ---
Author Organization [employer] [facility], [place] [facility] Address [address] [place] [id number] Care Team Providers Care Literacy Consultant Name Role Phone [facility] Referring Provider Assessment Encounter Date Assessment Date Assessment LastModified by Organization Details LastModified Time 08/17/2022 08/17/2022 service called for anxiety, chest discomfort found 51 franny long history anxiety-depressi on maintained on PO meds recently abrupt d/c anxiolytic meds t oreduce side effets of paxlovid for treatment COVID singe that time noted increase resting heart rate, intermittedn chat discomfort, chest pressure minimal hisgh risk features at start of covid infection VSS: EKG: sinus #Chest discomfort unlikely new ischemic origin most likely related to acute withdrawl of penitentiary antiolytics low risk for respiratory complications return to primary team vkudesia Not available 08/18/2022 00:17:27 Plan of Treatment Reminders Order Date Submit Date Provider Last Modified By Organization Details Last Modified Time Details Appointments None recorded. Lab None recorded. Referral None recorded. Procedures None recorded. Surgeries None recorded. Imaging None recorded. Medication Orders Paxlovid 300 mg (150 mg x 2)-100 mg tablets in a dose pack 2022 023 [facility], [address] [place] [address], [id number], 12:41:14 Patient TargetsNo targets recorded. Patient InstructionsNo instructions recorded. Reason for Referral None Reported. Medical Equipment None Reported. Medications Name Sig Start Date Stop Date Status Note LastModified by Organization Details LastModified Time medbox status USE DIRECTED active Not Available Not Available No t Available furosemide 40 mg tablet TAKE 1 TABLET BY MOUTH EVERY MORNING active Not Available Not Available No t Available atorvastatin 20 mg tablet TAKE 1 TABLET BY MOUTH AT BEDTIME active Not Available Not Available No t Available torsemide 20 mg tablet TAKE 1 TABLET BY MOUTH EVERY MORNING (MAY INCREASE TO 2 TABLETS IF BLOOD PRESSURE GREATER THAN 140/90) active Not Available Not Available No t Available cetirizine 10 mg tablet TAKE 1 TABLET BY MOUTH EVERY MORNING active Not Available Not Available No t Available ibuprofen 800 mg tablet TAKE 1 TABLET BY MOUTH THREE TIMES DAILY active Not Available Not Available Not Available levetiraceta m 500 mg tablet TAKE 1 TABLET BY MOUTH TWICE DAILY IN THE MORNING AND AT BEDTIME active Not Available Not Available No t Available cyanocobalam in (vit B-12) 1,000 mcg tablet TAKE 1 TABLET BY MOUTH EVERY MORNING active Not Available Not Available No t Available fexofenadine 180 mg tablet TAKE 1 TABLET BY MOUTH EVERY MORNING active Not Available Not Available No t Available aspirin 81 mg tablet,delay ed release TAKE 1 TABLET BY MOUTH EVERY MORNING active Not Available Not Available No t Available famotidine 20 mg tablet TAKE 1 TABLET BY MOUTH TWICE DAILY IN THE MORNING AND IN THE EVENING active Not Available Not Available No t Available amitriptylin e 10 mg tablet TAKE 1 TABLET BY MOUTH AT BEDTIME active Not Available Not Available No t Available ropinirole 2 mg tablet TAKE 1 TABLET BY MOUTH TWICE DAILY AT NOON AND IN THE EVENING and TAKE 2 TABLETS BY MOUTH EVERY DAY AT BEDTIME active Not Available Not Available No t Available buspirone 10 mg tablet TAKE 1 TABLET BY MOUTH THREE TIMES DAILY IN THE MORNING, EVENING, AND BEDTIME active Not Available Not Available Not Available ibuprofen 400 mg tablet TAKE 1 TABLET BY MOUTH EVERY 6 HOURS NEEDED FOR PAIN active Not Available Not Available No t Available metoprolol tartrate 50 mg tablet TAKE 1 TABLET BY MOUTH TWICE DAILY IN THE MORNING AND AT BEDTIME WITH FOOD active Not Available Not Available No t Available docusate sodium 100 mg capsule TAKE 1 CAPSULE BY MOUTH TWICE DAILY IN THE MORNING AND IN THE EVENING active Not Available Not Available No t Available montelukast 10 mg tablet TAKE 1 TABLET BY MOUTH AT BEDTIME active Not Available Not Available No t Available capsaicin 0.025 % topical cream APPLY TO THE AFFECTED AREA(S) TWICE DAILY IN THE MORNING AND AT BEDTIME active Not Available Not Available N ot Available zolpidem 5 mg tablet TAKE 1 TABLET BY MOUTH AT BEDTIME active Not Available Not Available No t Available gabapentin 100 mg capsule TAKE 1 CAPSULE BY MOUTH THREE TIMES DAILY IN THE MORNING, EVENING, AND BEDTIME active Not Available Not Available Not Available lorazepam 1 mg tablet TAKE 1 TABLET BY MOUTH THREE TIMES DAILY IN THE MORNING, EVENING, AND BEDTIME AND TAKE 1/2 TO 1 ADDITIONAL TABLET DAILY NEEDED active Not Available Not Available No t Available piroxicam 20 mg capsule TAKE 1 CAPSULE BY MOUTH EVERY DAY AFTER MEALS active Not Available Not Available No t Available metocloprami de 10 mg tablet TAKE 1 TABLET BY MOUTH EVERY 6 HOURS NEEDED FOR NAUSEA AND VOMITING active Not Available Not Available No t Available ropinirole 4 mg tablet TAKE 1 TABLET BY MOUTH TWICE DAILY AT NOON AND IN THE EVENING and TAKE 2 TABLETS EVERY DAY AT BEDTIME active Not Available Not Available N ot Available ezetimibe 10 mg tablet TAKE 1 TABLET BY MOUTH EVERY MORNING active Not Available Not Available No t Available metoprolol tartrate 25 mg tablet TAKE 1 TABLET BY MOUTH TWICE DAILY IN THE MORNING AND AT BEDTIME active Not Available Not Available No t Available duloxetine 20 mg capsule,bailee yed release TAKE 1 CAPSULE BY MOUTH EVERY MORNING active Not Available Not Available No t Available pregabalin 25 mg capsule TAKE 1 CAPSULE BY MOUTH ONCE DAILY AT BEDTIME FOR 1 WEEK. MAY INCREASE TO 1 CAP TWICE DAILY IF PATIENT TOLERATES active Not Available Not Available No t Available pregabalin 75 mg capsule TAKE 1 CAPSULE BY MOUTH TWICE DAILY FOR 7 DAYS, MAY INCREASE TO 2 CAPSULES TWICE DAILY IF NO IMPROVEMENT . active Not Available Not Available No t Available diclofenac 1 % topical gel APPLY 2 GRAMS TOPICALLY TO AFFECTED AREA(S) ONE OR TWO TIMES DAILY NEEDED active Not Available Not Available No t Available melatonin 5 mg tablet TAKE 1 TABLET BY MOUTH AT BEDTIME active Not Available Not Available No t Available lacosamide 100 mg tablet TAKE 1 TABLET BY MOUTH TWICE DAILY IN THE MORNING AND AT BEDTIME active Not Available Not Available No t Available blood pressure test kit-large cuff USE DIRECTED active Not Available Not Available No t Available Vitamin D3 50 mcg (2,000 unit) capsule TAKE 1 CAPSULE BY MOUTH EVERY MORNING active Not Available Not Available No t Available white petrolatum 42 % topical ointment APPLY TOPICALLY TO AFFECTED AREA(S) OF SKIN ONCE DAILY active Not Available Not Available No t Available Restasis MultiDose 0.05 % eye drops INSTILL 1 DROP IN EACH EYE TWICE DAILY active Not Available Not Available Not Available CeraVe Psoriasis 2 % topical cream APPLY TOPICALLY TO AFFECTED AREA(S) (RED RAISED AREAS ON ARMS AND LEGS) TWICE DAILY NEEDED active Not Available Not Available No t Available Paxlovid 300 mg (150 mg x 2)-100 mg tablets in a dose pack TAKE 2 TABLETS (300 MG) OF NIRMATRELVI R & 1 TABLET (100 MG) OF RITONAVIR BY MOUTH TWICE DAILY FOR 5 DAYS active Not Available Not Available N ot Available Vitals Date Recorded Body weight Oxygen saturation Oxygen saturation in Arterial blood by Pulse oximetry Respiratory rate Heart rate Body temperature Systolic And Diastolic Provider Name and Address Organization Details Last Updated DateTime 3 88888.6 24 g 95 % 95 % 14 /min 64 /min 97.3 [degF] 122/76 mm[Hg] Not Available [employer] 3 12:22:07 Date Recorded Heart rate Oxygen saturation Oxygen saturation in Arterial blood by Pulse oximetry Respiratory rate Heart rate Oxygen saturation Oxygen saturation in Arterial blood by Pulse oximetry Respiratory rate Systolic And Diastolic Systolic And Diastolic Provider Name and Address Organization Details Last Updated DateTime 3 69 /min 98 % 98 % 18 /min 69 /min 98 % 98 % 18 /min 125/75 mm[Hg] 125/75 mm[Hg] Not Available [employer] 3 20:28:24 Social History None recorded. Functional Status None recorded. Mental Status None recorded. Family History Nothing Reported. Medical History No medical history recorded. Gynecological HistoryNo gynecological history recorded. Obstetrics History GPAL:G 0 P 0 0 0 0 Past Encounters Encounter ID Performer Location Encounter Start Date Encounter Closed Date Diagnosis/Indication Diagnosis SNOMED-CT Code Diagnosis ICD10 Code Diagnosis Note [id number] Yahir Villeda MD Main - [address] [address] 08/13/2022 12:21:55 08/15/2022 10:03:01 COVID-19 [id number] U07.1 This 51-year-ol d female was exposed to COVID-19 through her daughter. She has had URI symptoms since yesterday and her COVID-19 test X2 was positive. I called in a prescripti on for Paxlovid. She will follow-up with her PCP. The patient agreed with this plan. [id number] Nancy Foley MD Main - [address] [phone] 08/17/2022 19:43:23 08/18/2022 00:17:45 Health Concerns Section Related Observation LastModified by Organization Detai ls LastModified Time None Recorded Concern Status LastModified by Organization Details LastModified Time None Recorded Advance Directives Directive None Recorded Payers Insurance Date Sequence Insurance Name Policy Number Policy Powell Covered Member ID Powell Member ID Guarantor Name 09/04/2024 1 [facility] - DOS PRIOR TO 2022 - DUAL ELIGIBLE (MEDICARE REPLACEMENT/ADV ANTAGE - HMO) Catina Mariam [id number] Catina Valencia Mariam 09/04/2024 1 [facility] - DOS ON OR AFTER 2022 - DUAL ELIGIBLE - FPC OPTIONS AND ONE CARE (MEDICARE REPLACEMENT/ADV ANTAGE - HMO) Catina Huberlian [id number] Catina Valencia Danielraul Notes Date Note Type Note Provider Name and Address Organization Details Recorded Time 08/13/2022 text/html HPI: Member called in reporting + Covid-19 test this morning at home. She states her daughter was just sick with Covid-19 and lives with her. Catina states she has a cough, clear sputum and possible wheeze she is hearing. She states she is fatigued and her neck was sore last night. Catina states she has underlying health conditions such as heart disease, HTN, and borderline diabetes. She is worried she may worsen. .................. .................. .................. .................. .................. .................. .................. ............... CRC Nursing Assessment: Comments: CRC RN DID NOT NEED FURTHER INFO Yahir Villeda MD [address] [facility],[address], [place], [address], [employer] 08/13/2022 12:34:54 08/17/2022 text/html CRC Nursing Assessment: Reason For Request: Anxiety vs Paxlovid SE Chief Complaints: Chest Pain PMH: Hypertension Comments: Member calling to place a referral, identified via /name. Member was seen 08/04o, tested +covid and was given Paxlovid. She has also not been taking her anxiety or sleeping medications. Blood pressure is normal 125/72. Member has been experiencing chest discomfort since taking paxlovid, unsure if it is a side effect or coincidence of not taking other prescribed medications. She denies sob, palpitations or n/v. She is chest pain free at present. Memebr would like to be evaluated. .................. .................. .................. .................. .................. .................. .................. ............... Sterilization Specialist Note From Roseann Selby: Sent to evaluate pt with chest discomfort since starting Paxlovid after covid diagnosis 08/13. Upon arrival, pt is awake and alert, airway open and patent, breathing regular. Pt states that she was diagnosed with covid 08/13 and started on paxlovid, and taken off her buspar, zetia, and ambien immediately due to medication interactions. Pt states that since being off these medications, she has had 2-3 episodes of substernal chest pressure like someone is sitting on my chest that last <1 minute. Pt does report feeling especially anxious when these episodes occur. Pt denies any diaphoresis, radiation, near syncope, sob, palpitations, or other anginal equivalents during these episodes, last one 3-4 hours ago. Pt reports she was placed on paxlovid as a precaution but reports her symptoms have been very mild and she otherwise feels well. Pt reports not sleeping since being taken off of meds and has general fatigue. Pt's skin is pink, warm and dry. Pt speaking in full sentences with no resp distress. Pt reports being pain/discomfort free at this time. No pedal edema. 12 lead EKG performed and image uploaded to [employer]. Consulted [facility] who ordered pt to cease paxlovid and resume taking her normal medications. Pt is to call back or call PCP if symptoms persist <36 hours. Stressed importance of red flags to patient and she verbalized understanding. No further questions or concerns at this time. .................. .................. .................. .................. .................. .................. .................. ............... Disposition: Fulfilled Nancy Foley MD [address] [place] [address],[address], [place], [address], [employer] 08/18/2022 00:17:43 OBGyn Episode No OBEpisode recorded.
--- OUTSIDE RECORDS SUMMARY | 2024-11-05 12:25 | XMS_ITS | Patient Health Record ---
Author Organization [facility] Address [address] [place] [address] Care Team Providers Care Weft Straightener Name Role Phone Rodrigo Pedersen Primary Care Provider Froylan Gonzáles [phone] Reason For Referral No Information Plan Of Treatment No Information Insurance Providers Payer Name Payer Address Payer Phone Subscriber Number Group Number Insured Name Patient Relationship to Insured Coverage Start Date Coverage End Date [facility] [address] [place] [address] [id number] DUTCH MALONE Self - patient is the insured
[2024-11-05 13:14] LABS: MANUAL DIFF FLAG NO
[2024-11-05 13:27] LABS: Hematocrit 39.5 % (37.0-47.0); Hemoglobin 13.3 g/dl (12.0-16.0); Imm Gran Abs Auto 0.01 X10*3/uL (0.00-0.03); Imm Gran Pct Auto 0.2 % (0.0-0.4); Lymphocytes Absolute Auto 1.9 X10*3/uL (1.2-4.9); Mean Corpuscular HGB Conc 33.7 g/dl (31.0-35.0); Mean Corpuscular Hemoglobin 29.8 pg (27.0-33.0); Mean Corpuscular Volume 88.6 fL (80.0-98.0); NRBC Abs Auto 0.000 X10*3/uL (0.0-0.012); NRBC Pct Auto 0.0 /100WBC (0.0-0.2); Platelet Count 296 X10*3/uL (160-400); Red Blood Count 4.46 X10*6/uL (4.20-5.50); White Blood Count 4.5 X10*3/uL (4.8-10.8)
[2024-11-05 14:01] LABS: Alanine Aminotransferase 41 U/L (0-31); Albumin Level 4.7 g/dL (3.5-5.0); Alkaline Phosphatase 74 U/L (39-117); Anion Gap 12 (12-20); Aspartate Amino Transferase 32 U/L (5-31); Blood Urea Nitrogen 12 mg/dL (9-16); Calcium 9.2 mg/dL (8.4-10.2); Carbon Dioxide 29 mmol/L (22-29); Chloride 103 mmol/L (96-108); Cholesterol 288 mg/dL (<200); Estimated Glomerular Filt Rate > 60; Free T4 (Free Thyroxine) 0.80 ng/dL (0.71-1.85); HDL Cholesterol 38 mg/dL (>40); Potassium 4.0 mmol/L (3.3-5.1); Sodium 140 mmol/L (135-145); Thyroid Stimulating Hormone 1.66 uIU/mL (0.32-4.0); Total Protein 7.6 g/dL (6.5-8.0); Triglycerides 205 mg/dL (<150)
== END 2024-11-05 11:42 | disposition home or self-care (01) ==
LOC: HO.HHCL 11:41
PROVIDERS: PCP Internal Medicine
DX: Z79.899 Other long term (current) drug therapy (principal)
CPT/HCPCS: 36415; 80053; 80061; 82248; 84439; 84443; 85025

== ENCOUNTER 2024-12-16 10:10 | Outpatient (REF) | payer OTHER, SELFPAY ==
--- OUTSIDE RECORDS SUMMARY | 2024-12-16 10:53 | XMS_ITS | Patient Health Record ---
Author Organization [facility] Address [address] [place] [address] Care Team Providers Care Research Quality Assurance Analyst Name Role Phone Rodrigo Pedersen Primary Care Provider Froylan Gonzáles [phone] Reason For Referral No Information Plan Of Treatment No Information Insurance Providers Payer Name Payer Address Payer Phone Subscriber Number Group Number Insured Name Patient Relationship to Insured Coverage Start Date Coverage End Date [facility] [address] [place] [address] [id number] DUTCH MALONE Self - patient is the insured
--- OUTSIDE RECORDS SUMMARY | 2024-12-16 10:53 | XMS_ITS | Clinical Summary ---
Author Organization [facility] Address [address] [place] [id number] Care Team Providers Care Circuit Board Inspector Name Role Phone Stu Vargas DO Primary Care Provider [phone] Social History Tobacco Use Types Packs/Day Years [...] of 1 - PCV) 022 Influenza Vaccine (#1) 2025 Care Teams Circuit Board Inspector Relationship Specialty Start Date End Date Stu Vargas DO [address] [place] [id number] PCP - General Cardiology 08/21/21
--- OUTSIDE RECORDS SUMMARY | 2024-12-16 10:53 | XMS_ITS | Encounter Summary ---
Author Organization [employer] Address [address] [facility] [place] [id number] Care Team Providers Care Rail Car Repair Carman Name Role Phone Sonam Albarran MD Primary Care Provide r Reason for Visit * Reason Comments Med Refill Encounter Details Date Type Department Care Team ([facility] st Contact Info) Description 04/16/[address] [facility] [address] [place], [place] [phone] Nevaeh Pope MD [address] [place] [address] Allergy, initial encounter Social History Tobacco Use [...] Description 01/13/2025 10:15 AM EDT Office Visit [facility] [address], [place] [phone] Sonam Albarran MD [address] [place] [phone] documented as of this encounter Visit Diagnoses Diagnosis Allergy, initial encounter documented in this encounter Care Teams Rail Car Repair Carman Relationship Specialty Start Date End Date Sonam Albarran MD [address] [place] [id number] PCP - General Family Medicine 04/06/19 documented as of this encounter
--- OUTSIDE RECORDS SUMMARY | 2024-12-16 10:53 | XMS_ITS | Encounter Summary ---
Author Organization [facility]ly [facility] Address [address] [place] [address] Encounters * CPT with Medical instED at [employer] on 2024-12-12 Seen in clinic 12/08 for cough and pink eye. Tested positive for covid. Since I had cough for 5 days wasnt given covid med. I never had a covid vaccine. Given benzonatate 100. Mg and eye ointment.. taken the medicine but the cough is getting worse. { reasonForRequest : Patient has a cough that won't go away. , patientRepor ts : COVID Exposure; Cough; Shortness of breath with exertion , denies :[&q uot;Increased work of breathing/labored with or without fever , Unable to speak in full sentences without distress , Discoloration of skin -cyanosis , Needs to sleepsitting up, can t catch breath , Shortness of breath in setting of confusion ,"Cough, fever greater than 2 days , Lower extremity swelling , History of asthma, increased use of inhaler , COPD , Sputum increase , Pain with insp iration ], chiefComplaints : Cough, Sore Throat , pmh : Hypertension, Coronary Artery Disease, Anxiety Disorder, Gastroesophageal Reflux Disease (GERD), Epilepsy/Seizure Disorder, Incontinence , allergies : Oxycodone, Azithromycin, Sulfa (Sulfonamide Antibiotics), Latex, Xjwvnez-FXB-OrA Reductase Inhibitors , otherAllergies&quot ;:null, painAssessment : , visitOutcome : , additionalComments : 54 y.o female complains of Cough\non 12/08 tested positive for covid\ncoughing started over a week She states \ I sound like a barking dog\ \nproductive cough and has to cough really hard to get anything up sputum green and yellow color and some shortness of breath.\nUsing been Tessalon pearls was relieving it at first but not now and has used hot tea, hot shower, and mucinex with little relief.\nendorses sore throat from coughing. \ndenies fever, chills , no body aches\nhoarse started to lose voice 4-5 days ago. \ndenies any chest pain\ndenies nausea, vomiting,able to tolerate PO \ndenies any kidney disease \nrequesting insted visit. \n\n\n\nI provided information on the mobile health provider response time and advised the patient and/or caregiver to monitor reported signs and symptoms. I discussed the warning signs of when to seek emergency care. } SC12 dispatched to the address listed above for the report of a female alliance party with cough. Patient found opening door for K[facility] ambulating without assistance to a seated position, alert and oriented x4, patent airway, breathing non labored speaking in complete sentences, skin WPD in no obvious distress. +/= Chest rise. -SOB, -CP, -NVD, -Trauma, -Fever. GCS 15. Lung sounds clear in all sow. Patientreports that she tested positive for COVID a couple days ago but has been symptomatic for about 8 days with only a productive cough with yellow sputum and sore throat. Patient reports that she was not prescribed Paxlovid due to when she tested positive. Patient reports she was prescribed Benzonatate for cough, reports that it helped the first day but reports no improvement the last 2 days. Patient reports she feels the urge the cough at the base of her throat but is unable to cough up any sputum. Patient reports shortness of breath upon exertion but subsides with rest, patient denies history of asthma or COPD. Patient vital signs obtained as noted. [facility] consulted, provided orders for 1 DuoNeb treatment. 1 DuoNeb treatment with 3mg Albuterol and 0.5mg Atrovent administered via nebulizer mask at 8 Liter per minute, six patient rights verified prior. Patient reports improvement in breathingpost treatment, patient reports that she was unable to take a deep breath without coughing before but can after nebulizer treatment. [facility] consulted again, advised he would sent prescription for Albuterol inhaler to patient preferred pharmacy. Red flags discussed with patient, advised to call 911 if her condition worsens. SC12 Clear. ORAL_MEDICATION, EKG, POC_FLU_STREP, COVID_TEST Written by [facility] 2024-12-12
--- OUTSIDE RECORDS SUMMARY | 2024-12-16 10:53 | XMS_ITS | Clinical Summary ---
Author Organization [facility] Address [address] [place] [address] Care Team Providers Care Surgery Consultant Name Role Phone Sonam Albarran MD Primary Care Provide r Allergies Active Allergy Reactions Criticality Noted Date Comments Amlodipine 06/25/2022 Amoxicillin Nausea And Vomiting 04/18/2022 Atorvastatin 12/15/2024 Capsaicin Dermatitis,Rash 05/01/2022 Outside Source Comment: Reaction to capsaicin cream Clarithromycin Nausea And Vomiting 04/18/2022 Clonazepam Headache Low 07/09/2016 Codeine 02/20/2022 Other reaction(s): Unknown Doxazosin Dizziness 12/04/2013 Other reaction(s): Dizziness Egg 03/01/2020 Gabapentin 02/20/2022 Other reaction(s): Blurred VIsion Other reaction(s): Blurry Vision Haemophilus Influenzae Type B Anaphylaxis High 03/19/2018 Other reaction(s): Trouble Breathing Influenza Virus Vaccines 03/17/2024 Iodinated Contrast Media High 02/20/2022 Other reaction(s): TURNS BLUE anaphylaxis symptoms Lamotrigine 04/18/2022 Rash Rash Rash Lansoprazole Nausea And Vomiting 06/06/2022 Latex Anaphylaxis High 02/20/2012 anaphylaxis symptoms anaphylaxis symptoms Metronidazole 02/07/2017 Other reaction(s): Unknown Nirmatrelvir-Ritonavir Other High 08/22/2022 Nausea, vomiting, chest pain Oxycodone Low 07/09/2016 Other reaction(s): Headache, Dizziness, Nausea and Vomiting Oxycodone-Acetaminophen 04/18/2022 Oxycodone-Aspirin 03/17/2024 Rifaximin Unknown 02/20/2022 Sertraline 12/05/2011 Other reaction(s): Hives / Skin Rash Shellfish Containing Products 12/15/2024 Drzvtlr-Pqf-Jtz Reductase Inhibitors 12/15/2024 Sulfamethoxazole 12/16/2019 Other reaction(s): Unknown Tamsulosin 12/04/2013 Terazosin 12/04/2013 Trimethoprim Rash Low 12/16/2019 Other reaction(s): Unknown Ezetimibe 12/15/2024 Medications albuterol HFA (PROAIR HFA ; PROVENTIL HFA ; VENTOLIN HFA) 90 mcg/actuation inhaler Inhale 2 puffs by mouth every 6 hours as needed. 4 03/05/20 25 Active aspirin 81 mg EC tablet Take 1 tablet (81 mg total) by mouth 1 (one) time each day in the morning. Active atorvastatin (LIPITOR) 40 mg tablet Take 1 tablet (40 mg total) by mouth. at bedtime. 4 Active busPIRone (BUSPAR) 10 mg tablet TAKE 1 TABLET BY MOUTH THREE TIMES DAILY IN THE MORNING, EVENING, AND BEDTIME Active cetirizine (ZyrTEC) 10 mg tablet Take 1 tablet (10 mg total) by mouth 1 (one) time each day in the morning. Active Vitamin D3 50 mcg (2,000 unit) capsule Take 1 capsule (2,000 Units total) by mouth 1 (one) time each day in the morning. Active cyanocobalamin (VITAMIN B-12) 1,000 mcg tablet Active cycloSPORINE (RESTASIS) 0.05 % ophthalmic emulsion Use 1 drop in each eye every 12 hours Active diclofenac (VOLTAREN) 1 % topical gel Apply to affected area once or twice daily as needed 4 Active docusate sodium (COLACE) 100 mg capsule TAKE 1 CAPSULE BY MOUTH TWICE DAILY IN THE MORNING AND IN THE EVENING Active DULoxetine (CYMBALTA) [address] capsule Take 1 capsule (30 mg total) by mouth. at bedtime Active EPINEPHrine (EPIPEN) 0.3 mg/0.3 mL injection Inject 0.3 mL (0.3 mg total) into the thigh. 2 Active famotidine (PEPCID) 20 mg tablet TAKE 1 TABLET BY MOUTH TWICE DAILY IN THE MORNING AND AT BEDTIME Active ferrous sulfate 325 mg (65 mg iron) EC tablet TAKE 1 TABLET BY MOUTH EVERY MORNING WITH BREAKFAST DO NOT BREAK, CRUSH, DISSOLVE OR CHEW Active LORazepam (ATIVAN) 1 mg tablet TAKE 1 TABLET BY MOUTH TWICE DAILY IN THE MORNING AND AT BEDTIME Active Mag-Delay 64 mg CR tablet Take 1 tablet (64 mg total) by mouth. Active metoprolol tartrate (LOPRESSOR) 50 mg tablet TAKE 1 TABLET BY MOUTH TWICE DAILY IN THE MORNING AND AT BEDTIME WITH FOOD Active omega-3 (FISH OIL) 60-90-500 mg capsule Take 1 capsule (500 mg total) by mouth 1 (one) time each day in the morning. 4 Active torsemide (DEMADEX) 20 mg tablet TAKE 1 TABLET BY MOUTH EVERY MORNING (MAY INCREASE TO 2 TABLETS IF BLOOD PRESSURE >140/90) Active zolpidem (AMBIEN) 5 mg tablet Take 1 tablet (5 mg total) by mouth. at bedtime. Active levETIRAcetam (KEPPRA) 500 mg tablet Take 1 tablet (500 mg total) by mouth 2 (two) times a day. 60 each 3 5 Active lacosamide (VIMPAT) 100 mg tablet Take 1 tablet (100 mg total) by mouth 2 (two) times a day. Max Daily Amount: 200 mg 60 tablet 3 5 Active ezetimibe (ZETIA) 10 mg tablet Take 1 tablet (10 mg total) by mouth 1 (one) time each day in the morning. 12/16/19 25 Discontinu ed(Therapy completed) pravastatin (PRAVACHOL) 10 mg tablet Take 1 tablet (10 mg total) by mouth. 4 12/16/19 25 Discontinu ed(Therapy completed) Encounters Date Type Department Care Team Description 12/15/2024 9:00 AM EDT Telemedicine [address] [place] [address] Casi Sánchez PA Seizure (CMS/HCC V24, CMS/HCC V28) (Primary Dx) 10/06/2024 Lab Requisition [facility] - Main Lab [address] [facility] [place] [address] Leonardo Turner PA Pyuria from Last 3 Months Medical History Medical History Date Comments Hyperlipidemia Hypertension Seizures ([facility] V24, [facility] V28) Arthritis 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 ([facility] V24, [facility] V28) Heart disease Social History Tobacco Use Types Packs/Day Years Used Date Smoking Tobacco: Never Assessed Comments Unknown Sex and Gender Information Value Date Recorded Sex Assigned at Not on file Legal Sex Female 12:54 AM EST Gender Identity Not on file Sexual Orientation Not on file Obstetrics History Last Filed Vital Signs Vital Sign Reading Time Taken Comments Blood Pressure 115/79 06/17/2024 10:40 AM EST Pulse 60 06/17/2024 10:40 AM EST Temperature 35.7 C (96.2 F) 06/17/2024 10:40 AM EST Respiratory Rate - - Oxygen Saturation 95% 03/17/2024 9:27 AM EST Inhaled Oxygen Concentration - - Weight 90.3 kg (199 lb) 06/17/2024 10:40 AM EST Height 162.6 cm (5' 4 ) 06/17/2024 10:40 AM EST Body Mass Index 34.16 06/17/2024 10:40 AM EST Plan of Treatment Upcoming Encounters Date Type Department Care Team (Late st Contact Info) Description 06/17/2025 8:30 AM EST Office Visit [facility] [address] [place] [address] Joseph Fuller MD [address] [place] [address] Health Maintenance Due Date Last Done Comments Cervical Cancer Screening: Pap Smear 09/13/1992 Breast Cancer Screening 12/24/2019 12/23/2017 Pneumococcal Vaccine: 50+ Years (1 of 1 - PCV) 09/13/2021 Zoster Vaccines (1 of 2) 09/13/2021 Colorectal Cancer Screening: Colonoscopy 04/08/2022 HIV Screening 04/08/2022 Hepatitis C Screening 04/08/2022 Medicare Annual Wellness Visit 04/08/2022 Social Influencers of Health Screening 04/08/2022 COVID-19 Vaccine ( season) 2024 Depression Screening 05/06/2024 Influenza Vaccine (#1) 2025 , 12/23/2021, 01/07/2018, Additional history exists Hypertension/CHF/CAD Annual BMP Blood Test 10/29/2025 10/29/2024, 03/17/2024 DTaP,Tdap,and Td Vaccines (3 - Td or Tdap) 01/15/2027 01/15/2017, 08/09/2006 Cholesterol Screening (Lipid Panel) 03/01/2028 03/01/2023 Hepatitis A Vaccines Aged Out 12/03/2019, 07/03/19 07 No longer eligible based on patient's age to complete this topic Hepatitis B Vaccines Completed 12/03/2019, 12/17/2006, 08/09/2006, Additional history exists HIB Vaccines Aged Out No longer eligi ble based on patient's age to complete this topic HPV Vaccines Aged Out No longer eligi ble based on patient's age to complete this topic IPV Vaccines Aged Out No longer eligi ble based on patient's age to complete this topic MMR Vaccines Aged Out No longer eligi ble based on patient's age to complete this topic Meningococcal ACWY Vaccine Aged Out N o longer eligible based on patient's age to complete this topic Meningococcal B Vaccine Aged Out No l onger eligible based on patient's age to complete this topic RSV Immunization Patients Under 20 months Aged Out No longer eligible based on patient's age to complete this topic Varicella Vaccines Aged Out No longer eligible based on patient's age to complete this topic Procedures Procedure Name Priority Date/Time Associated Diagnosis Comments BACTERIAL IDENTIFICATION AND SUSCEPTIBILITY, AEROBIC Routine 10/05/2024 3:06 PM EDT Pyuria CREATININE, SERUM Routine 03/17/2024 10: 41 AM EST Seizure ([facility]/HCC V24, CMS/[facility] V28) from Last 3 Months or Most Recently Relevant to Health Maintenance Results * Bacterial identification and susceptibility, aerobic (10/05/2024 3:06 PM EDT) Culture, Bacterial ID and Sensitivity Multiple bacterial morphotypes present consistent with either contamination or urogenital lakeshia. Suggest repeat specimen, if clinically indicated. 10/07/2024 8:20 AM EDT [facility] Other Topography unknown / Unknown 10/05/2024 3:06 PM EDT 10/06/2024 7:10 PM EDT Leonardo ELLIOTT LAB MICROBIOLOGY - GENERAL ORDER TUCKER Final Result Performing Organization Address [facility] Co de Phone Number [facility] [address] [place] [address], * Creatinine (03/17/2024 10:41 AM EST) Creatinine 0.90 0.50 - 1.10 mg/dL LAB CHEMISTRY METHOD 03/17/2024 3:48 PM EST [facility] eGFR 77 >=60 mL/min/1. 73m2 LAB CHEMISTRY METHOD 03/17/2024 3:48 PM EST [facility] Comment:Calculation based on the Chronic Kidney Disease Epidemiology Collaboration (CKD-EPI) equation refit without adjustment for race. Blood Venous blood specimen / Unknown Venipuncture / Unknown 03/17/2024 10:41 AM EST 03/17/2024 10:42 AM EST Joseph Fuller MD LAB BLOOD ORDERABLES Fin al Result Performing Organization Address City/[facility]/ZIP Co de Phone Number [facility] [address] [place] [address], from Last 3 Months or Most Recently Relevant to Health Maintenance Insurance [facility] MEDICARE Member Subscriber Plan / Payer (Ef fective 2013-Present) Name:CATINA BECERRA Relation to Subscriber:Self Name:Catina Becerra Payer ID:[id number] Group ID:[id number] Type:Not on file Address: [place] [address] [address] Care Teams Surgery Consultant Relationship Specialty Start Date End Date Sonam Albarran MD [address] [address] PCP - General Internal Medicine 02/21/22
--- OUTSIDE RECORDS SUMMARY | 2024-12-16 10:53 | XMS_ITS | Patient Health Record ---
Author Organization [facility] Address [address] [place] [phone] Care Team Providers Care Ux Designer Name Role Phone JADEN HAGER Unavailable [phone] Allergies Allergen (clinical drug ingredient) Drug/Non Drug [...] Results Component Value Reference Range Notes HBsAg Screen-[id number] Reviewed date:09/18/2024 02:32:44 PM Interpretation:Negative Performing Lab:[facility], [address], [place], Phone - [phone], [facility] Notes/Report: HBsAg Screen Negative Negative Hepatitis B Surf Ab Quant-[id number] Reviewed date:09/18/2024 02:33:05 PM Interpretation:Immune Performing Lab:[facility], [address], [address], [place], Phone - [phone], [facility] Notes/Report: Hepatitis B Surf Ab Quant 528.0 Immunity>10 mIU/mL Status of Immunity Anti-HBs Level Inconsistent with Immunity 0.0 - 10.0 Consistent with Immunity >10.0 T pallidum Screening [place] -[id number] Reviewed date:09/18/2024 02:33:22 PM Interpretation:Negative Performing Lab:[facility] [place], [address], [address], [place], Phone - [phone], [facility] Notes/Report: T pallidum Antibodies Non Reactive Non Reactive HIV Ab/p24 Ag with Reflex-[id number] Reviewed date:09/18/2024 02:33:14 PM Interpretation:Negative Performing Lab:[facility] [place], [address], [address], [place], Phone - [phone], [facility] Notes/Report: HIV Ab/p24 Ag Screen Non Reactive Non Reactive HIV-1/HIV-2 antibodies and HIV-1 p24 antigen were NOT detected. There is no laboratory evidence of HIV infection. HIV Negative HCV Antibody RFX to Quant PC [id number] Reviewed date:09/18/2024 02:32:35 PM Interpretation:Negative Performing Lab:[facility] [place], [address], [address], [place], Phone - [phone], [facility] Notes/Report: HCV Ab Non Reactive Non Reactive Interpretation: Not infected with HCV unless early or acute infection is suspected (which may be delayed in an immunocompromised individual), or other evidence exists to indicate HCV infection. Ct, Ng, Trich vag by [id number] Reviewed date:09/18/2024 02:33:32 PM Interpretation:Negative Performing Lab:[facility] [place], [address], [address], [place], Phone - [phone], [facility] Notes/Report: Chlamydia by JORDANA Negative Negative Gonococcus by JORDANA Negative Negative Trich vag by JORDANA Negative Negative IGP, Apt HPV,rfx 16/18,45-19 9344 Reviewed date:09/18/2024 02:37:27 PM Interpretation:Normal, HPV negative Performing Lab:[facility] [place], [address], [address], [place], Phone - [phone], Director - [facility] Notes/Report: Clinical Information:[id number] LMP / Prev Treat...[id number]=[id number] No. of containers..01 ThinPrep Vial DIAGNOSIS: NEGATIVE FOR IN TRAEPITHELIAL LESION OR MALIGNANCY. Specimen adequacy: Satisfactory for evaluation. Endocervical and/or squamous metaplastic cells (endocervical component) are present. Clinician provided ICD10: Z01.419 Z11.51 Performed by: Blanco madrigal, It Teacher (ASCP) . . Note: The Pap smear [...] 02:37:45 PM Interpretation: Performing Lab:[facility] [place], [address], [address], [place], Phone - [phone], Director - [facility] Notes/Report: Clinical Information:[id number] LMP / Prev Treat...[id number] No. of containers..01 ThinPrep Vial Reason For Referral Reason 53 yr old with bruna rns for incontinence. Clt reports prior urology workup and dx of hypertonic bladder syndrome. Please further evaluate and manage. Referral for pelvic floor PT sent. Diagnosis 1 Stress incontinence (female) (male) (N39.3) Referral Organization [facility] Referring Provider First Name JADEN Referring Provider Last Name ALLEY Referring Provider Speciality Certified Nurse Senior It Assistant Referred Provider Sandra Vasques Referred Provider Specialty [...] MG 1 tablet Orally O nce a day; Duration: 28 days Not-Takin g Colace Active Prazosin HCl Active Immunizations Vaccine [...] (N39.3) Active confirmed Problem Dysfunctional uterine bleeding ([id number]) Dysfunctional uterine bleeding (N93.8) Active confirmed Vital [...] medication Encounters Encounter Location Date Provider Diagnosis [facility] [address] [place], [place] [id number] 09/09/2024 JADEN HAGER Encounter for gynecological examination (general) (routine) without abnormal findings Z01.419 ; HPV Pap Screening Z11.51 ; Encounter for screening for infections with a predominantly sexual mode of transmission Z11.3 ; HIV Screening Z11.4 ; Encounter for screening for other viral diseases Z11.59 and Stress incontinence (female) (male) N39.[address] [place], [place] [id number] 09/11/2024 JADEN HAGER Assessments Encounter Date Diagnosis [...] End Date MEDICARE PART B [address] [place] [phone] [id number] Catina Becerra Self - patient is the insured [place] ATT CLAIMS [address] [place] [address] [id number] Catina Becerra Self - patient is the insured Medical (General) History Medical History History ICD Code seizure disorder anxiety history abnormal pap test overactive bladder heart disease high blood pressure seizure Hospitalization History Reason Date(Month/Year) Vaginal bleeding 2021
[2024-12-19 13:18] LABS: Levetiracetam Keppra 29.9 mcg/mL (6.0-46.0)
== END 2024-12-16 10:11 | disposition home or self-care (01) ==
LOC: HO.LAB 10:10
PROVIDERS: PCP Internal Medicine; Visit Provider Physician Assistant
DX: R56.9 Unspecified convulsions (principal)
CPT/HCPCS: 36415; 80177; 80235

== ENCOUNTER 2024-12-24 10:30 | Emergency (ER) | payer OTHER, SELFPAY ==
--- NOTE | 2024-12-24 | ECG_ITS ---
Test Reason : CP Blood Pressure : */* mmHG Vent. Rate : 59 BPM Atrial Rate : 59 BPM P-R Int : 200 ms QRS Dur : 84 ms QT Int : 424 ms P-R-T Axes : 26 21 13 degrees QTcB Int : 419 ms Sinus bradycardia Possible Anterior infarct (cited on or before 07-Mar-2018) Abnormal ECG When compared with ECG of 29-Oct-2024 20:55, No significant change was found Referred By: Generic ED Physician Electronically Signed By: KATRINA FABIAN MD
--- NOTE | ~2024-12-24 | XR_ITS ---
EXAMINATION: XR CHEST CLINICAL INFORMATION: chest pain COMPARISON: October 29, 2024 TECHNIQUE: 2 views of the chest were obtained. FINDINGS: No consolidation, pleural fissure pneumothorax. No gross hyperinflation. Cardiomediastinal silhouette size is normal. Multilevel thoracic spondylosis, moderate. Patient's large body habitus/obesity. XR/XR chest 2V IMPRESSION: No acute airspace disease. Spondylosis, thoracic spine. Stable chest. Electronically signed by: Venkata Stiles MD 12/24/2024 11:22 AM EDT
[2024-12-24 10:39] VITALS: BP 131/67; PULSE 59; RESP 17; TEMP 36.9; O2SAT 95; BMI 36.3
--- NOTE | 2024-12-24 10:45 | PC.NURSE ---
Pt roomed and placedon full monitor- VSS CP present but has beenfor 1 week. Pt states Naproxennot effective. EKG done. NSR on monitor no ectopy. No other complaints.
--- NOTE | 2024-12-24 10:54 | ED.CHESTPAIN ---
HPI - Chest Pain General Chief Complaint: Chest Pain Stated Complaint: chest pain into back Time Seen by Provider: 12/24/24 10:54 Source: patient Mode of arrival: ambulatory Limitations: no limitations History of Present Illness ED Provider: Dr. Walter HPI narrative: This is a 54-year-old female presented hospital today for evaluation of right-sided chest pain. Patient stated this anterior in nature. Is worsened when she moves. It is reproducible on exam. Patient stated that she was recently diagnosed with COVID approximately 6 days ago. She states her symptoms of coughing has improved however she had right-sided chest pain after her coughing spells from COVID. She taking naproxen and was evaluated by her primary care doctor. However her pain is not improving therefore she presents to the ER for further evaluation. Denies any shortness of breath currently. However she does complain of worsening chest pain when she moves. Her coughing has improved. Related Data Home Medications ?Medication ?Instructions ?Recorded ?Confirmed aspirin 81 mg tablet,delayed 81 mg PO DAILY 01/31/22 release buspirone 10 mg tablet 10 mg PO TID 01/31/22 cholecalciferol (vitamin D3) 50 50 mcg PO DAILY 01/31/22 mcg (2,000 unit) capsule (Vitamin D3) cyanocobalamin (vitamin B-12) 1,000 mcg PO QAM 01/31/22 1,000 mcg tablet cyclosporine 0.05 % eye drops 1 drp ophthalmic (eye) BID 01/31/22 (Restasis MultiDose) diclofenac sodium 1 % topical gel 2 g topical QID 01/31/22 diphenhydramine HCl 25 mg tablet 0 mg PO 01/31/22 docusate sodium 100 mg capsule 100 mg PO 01/31/22 epinephrine 0.3 mg/0.3 mL IM 01/31/22 injection, auto-injector famotidine 20 mg tablet 20 mg PO BID 01/31/22 furosemide 40 mg tablet 40 mg PO QAM 01/31/22 lacosamide 100 mg tablet 100 mg PO 01/31/22 levetiracetam 500 mg tablet 500 mg PO BID 01/31/22 lorazepam 1 mg tablet 0 mg PO 01/31/22 metoprolol tartrate 25 mg tablet 25 mg PO 01/31/22 montelukast 10 mg tablet 10 mg PO BEDTIME 01/31/22 ropinirole 2 mg tablet 0 mg PO 01/31/22 salicylic acid 2 % topical cream appl topical BID PRN 01/31/22 (CeraVe Psoriasis) triamcinolone acetonide 0.1 % appl topical BID 01/31/22 topical cream verapamil 120 mg tablet,extended 120 mg PO DAILY 01/31/22 release white petrolatum 42 % topical topical 01/31/22 ointment Previous Rx's ?Medication ?Instructions ?Recorded metoclopramide HCl 10 mg tablet 10 mg PO Q6H PRN nausea and 06/17/22 (Reglan) vomiting #14 tabs erythromycin 5 mg/gram (0.5 %) eye 0.5 inch ophthalmic (eye) QID 3 09/11/24 ointment days #3.5 grams ketorolac 10 mg tablet 10 mg PO Q8H #15 tabs 12/24/24 lidocaine 4 % topical patch 1 patch topical DAILY PRN pain #5 12/24/24 (Aspercreme (lidocaine)) ea prednisone 20 mg tablet 20 mg PO DAILY 4 days #4 tabs 12/24/24 Allergies Allergy/AdvReac Type Severity Reaction Status Date / Time influenza virus vaccine, Allergy Severe Anaphylaxis Verified 12/24/24 10:43 specific (FLU VACCINE) Iodinated Contrast Media Allergy Severe TURNS Verified 12/24/24 10:43 (Iodinated Contrast Media - BLUE IV Dye) latex (Latex) Allergy Severe Anaphylaxis Verified 12/24/24 10:43 sulfamethoxazole (From Allergy Mild Rash Verified 12/24/24 10:43 Bactrim) trimethoprim (From Bactrim) Allergy Mild Rash Verified 12/24/24 10:43 amoxicillin (Prevpac) Allergy Unknown Nausea and Verified 12/24/24 10:43 Vomiting aspirin (From Percodan) Allergy Unknown Stomach Verified 12/24/24 10:43 Upset clarithromycin (Prevpac) Allergy Unknown Nausea and Verified 12/24/24 10:43 Vomiting codeine Allergy Unknown Unknown Verified 12/24/24 10:43 doxazosin Allergy Unknown Dizziness Verified 12/24/24 10:43 gabapentin Allergy Unknown Blurry Verified 12/24/24 10:43 Vision lansoprazole (Prevpac) Allergy Unknown Nausea and Verified 12/24/24 10:43 Vomiting metronidazole (From FLAGYL) Allergy Unknown Unknown Verified 12/24/24 10:43 rifaximin (Xifaxan) Allergy Unknown Unknown Verified 12/24/24 10:43 shellfish derived Allergy Unknown Anaphylaxis, Verified 12/24/24 10:43 difficulty breathing, Rash Sulfa (Sulfonamide Allergy Unknown stomach Verified 12/24/24 10:43 Antibiotics) upset Opioids - Morphine Analogues AdvReac Intermediate NAUSEA & Verified 12/24/24 10:43 (OPIOIDS - MORPHINE VOMITING + ANALOGUES) RASH clonazepam (From Klonopin) AdvReac Mild HEADACHE Verified 12/24/24 10:43 oxycodone (From Percodan) AdvReac Mild Headache, Verified 12/24/24 10:43 Dizziness, Nausea and Vomiting ezetimibe (From Zetia) AdvReac Unknown Verified 12/24/24 10:43 Review of Systems Review of Systems: Pertinent review of systems as mentioned in HPI. All other system otherwise negative. [facility] Past Medical History [facility] Narrative: Medical history as mentioned in HPI Medical History ADD (attention deficit disorder) Anxiety about blushing Cognitive impairment Depression with anxiety Disturbance of salivary secretion GERD (gastroesophageal reflux disease) Hammer toe History of cervical dysplasia HTN (hypertension) Hypercholesteremia IBS (irritable bowel syndrome) Insomnia Keratosis pilaris Plantar fasciitis PTSD (post-traumatic stress disorder) Restless leg syndrome Seizure Sjogrens syndrome Tear film insufficiency Surgical History H/O hand surgery Hx of section Family History Family History Maternal Aunt Colon cancer Maternal Grandmother History of breast cancer Social History Social History Alcohol intake: former Patient Tobacco Use Status: Never used Tobacco Advance Directives: No Advance Directives Information Provided: Yes Physical Exam Exam: Exam: General: Pleasant, no distress, interacting appropriately Head: Normacephalic, atraumatic ENT: oral mucosa moist, neck supple, no tracheal deviation Cardiovascular: regular rate, regular rhythm, no murmurs, rubbing, gallops Respiratory: CTAB, no wheeze, rales, rhonchi Extremities: No limb pain or swelling, no calf tenderness Neurological: Awake and alert, no facial droop noted Skin: Warm and dry Psychiatric: Appropriate mood and thoughts Vital Signs: Vital Signs: Last Vital Signs Temp 98.4 F 12/24/24 10:39 Pulse 56 12/24/24 11:29 Resp 23 H 12/24/24 11:29 BP 131/67 12/24/24 10:39 Pulse Ox 95 12/24/24 10:39 O2 Del Method Room Air 12/24/24 10:39 BMI result Body Mass Index 36.3 Medications Administered Discontinued Medications Generic Name Dose Route Start Last Admin Trade Name Kaur PRN Reason Stop Dose Admin Albuterol/Ipratropium 3 ml 12/24/24 11:04 12/24/24 11:23 Albuterol/Iprat 2.5/0.5mg 3 Ml Ampul.Neb INHALE 12/24/24 11:05 3 ml ONCE ONE Administration Lactated Ringer's 1,000 mls @ 999 mls/hr 12/24/24 11:15 12/24/24 11:24 Lr IV 12/24/24 12:15 999 mls/hr .Q1H1M SAFIA Administration Ketorolac Tromethamine 15 mg 12/24/24 11:04 12/24/24 11:28 Ketorolac Tromethamine 15 Mg/Ml Vial IVPUSH 12/24/24 11:05 15 mg ONCE ONE Administration Lidocaine 1 patch 12/24/24 11:25 12/24/24 11:54 Lidocaine 4 % Patch Adh..Patch TRANSDERMA 12/24/24 11:26 1 patch ONCE ONE Administration Protocol Prednisone 40 mg 12/24/24 11:04 12/24/24 11:24 Prednisone 20 Mg Tablet PO 12/24/24 11:05 40 mg ONCE ONE Administration Medical Decision Making Medical Decision Making [facility] Narrative: This is a 54-year-old female who presented hospital today for right-sided chest pain after recent viral infection and coughing. I suspect this is musculoskeletal in nature. I have low suspicion of PE. Patient is not tachycardic not hypoxic. She appears to be well on my exam. She does not appear to be acutely ill. For pain we will plan to give patient some IV Toradol losartan and some prednisone. We will plan to give patient a DuoNeb treatment to see if this will help alleviate her pain. We will pursue ACS workup. We will obtain EKG chest x-ray CBC BMP troponin. No sign of unilateral leg swelling on exam. Low suspicion of DVT. EKG did not show any sign of STEMI chest x-ray is clear. Patient troponin is not elevated. Patient states she is feeling much better at this time. Her pain has improved. She no longer has pain when she moves around. We will plan to discharge patient with prednisone, also plan to prescribe some ketorolac for patient instruct her to stop taking naproxen. Encouraged the patient consider treatment at this time. She likely has a strain intercostal muscle. Patient agrees and understands This plan all questions were addressed. Differential Diagnosis Differential Diagnoses: The differential diagnosis associated with the presentation includes ACS, pulmonary embolism, pneumonia, viral pneumonia, intercostal muscular strain Lab Data MDM Lab Attestation statement: I reviewed the patient's lab results. 12/24/24 11:34 12/24/24 11:34 Labs: Lab Results 12/24/24 Range/Units 11:34 WBC 4.7 L (4.8-10.8) X10*3/uL RBC 4.21 (4.20-5.50) X10*6/uL Hgb 12.8 (12.0-16.0) g/dl Hct 37.0 (37.0-47.0) % MCV 87.9 (80.0-98.0) fL MCH 30.4 (27.0-33.0) pg MCHC 34.6 (31.0-35.0) g/dl RDW 11.9 (11.0-16.0) % Plt Count 318 (160-400) X10*3/uL MPV 8.5 L (9.4-12.3) fL Immature Gran % (Auto) 0.2 (0.0-0.4) % Neut % (Auto) 49.9 (45-73) % Lymph % (Auto) 33.7 (20-40) % [place] % (Auto) 10.9 (2-11) % Eos % (Auto) 4.7 H (0-4) % Baso % (Auto) 0.6 (0-2) % Lymph # (Auto) 1.6 (1.2-4.9) X10*3/uL [place] # (Auto) 0.5 (0.1-1.2) X10*3/uL Eos # (Auto) 0.2 (0.0-0.4) X10*3/uL Baso # (Auto) 0.0 (0.0-0.2) X10*3/uL Abs Immat Gran (auto) 0.01 (0.00-0.03) X10*3/uL Absolute Neuts (auto) 2.3 (2.0-8.3) x10*3/uL Absolute Nucleated RBC 0.000 (0.0-0.012) X10*3/uL Nucleated RBC % (auto) 0.0 (0.0-0.2) /100WBC Sodium 142 (135-145) mmol/L Potassium 3.9 (3.3-5.1) mmol/L Chloride 107 (96-108) mmol/L Carbon Dioxide 27 (22-29) mmol/L Anion Gap 12 (12-20) BUN 10 (9-16) mg/dL Creatinine 0.93 (0.5-1.4) mg/dL Estim Creat Clear Calc 78.5 Estimated GFR > 60 Random Glucose 118 H (60-115) mg/dL Calcium 9.1 (8.4-10.2) mg/dL Troponin I High Sens < 2.7 (<3.5-17.0) ng/L Independent Interpretation I performed an independent interpretation of an: EKG and Plain X-Ray Radiology Impression Discussion of test interpretation with radiology: I have reviewed the radiologist's reading. Discharge Plan Discharge Clinical Impression: Intercostal muscle strain Qualifiers: Encounter type: initial encounter Qualified Code(s): S29.011A - Strain of muscle and tendon of front wall of thorax, initial encounter Patient Disposition: Home, Self-Care Additional Instructions: Continue conservative treatment and stay well hydrated. You may take the medication as instructed. If you have acute shortness of breath please return to the ER. Prescriptions: New ketorolac 10 mg tablet 10 mg PO Q8H Qty: 15 0RF Rx Instructions: maximum total duration of 5 days from all oral, intranasal, or parenteral formulations lidocaine [Aspercreme (lidocaine)] 4 % adhesive patch,medicated 1 patch topical DAILY PRN (Reason: pain) Qty: 5 0RF prednisone 20 mg tablet 20 mg PO DAILY 4 Days Qty: 4 0RF Discontinued ibuprofen 600 mg tablet 600 mg PO TID PRN (Reason: pain) Qty: 14 0RF ibuprofen 800 mg tablet 800 mg PO TID No Action metoclopramide HCl [Reglan] 10 mg tablet 10 mg PO Q6H PRN (Reason: nausea and vomiting) Qty: 14 0RF erythromycin 5 mg/gram (0.5 %) ointment 0.5 inch ophthalmic (eye) QID 3 Days Qty: 3.5 0RF diclofenac sodium 1 % gel 2 g topical QID ropinirole 2 mg tablet 0 mg PO CeraVe Psoriasis 2 % cream topical BID PRN white petrolatum 42 % ointment topical Restasis MultiDose 0.05 % drops 1 drp ophthalmic (eye) BID lorazepam 1 mg tablet 0 mg PO lacosamide 100 mg tablet 100 mg PO cholecalciferol (vitamin D3) [Vitamin D3] 50 mcg (2,000 unit) capsule 50 mcg PO DAILY montelukast 10 mg tablet 10 mg PO BEDTIME docusate sodium 100 mg capsule 100 mg PO buspirone 10 mg tablet 10 mg PO TID aspirin 81 mg tablet,delayed release (DR/EC) 81 mg PO DAILY cyanocobalamin (vitamin B-12) 1,000 mcg tablet 1,000 mcg PO QAM levetiracetam 500 mg tablet 500 mg PO BID metoprolol tartrate 25 mg tablet 25 mg PO famotidine 20 mg tablet 20 mg PO BID furosemide 40 mg tablet 40 mg PO QAM epinephrine 0.3 mg/0.3 mL auto-injector IM diphenhydramine HCl 25 mg tablet 0 mg PO verapamil 120 mg tablet extended release 120 mg PO DAILY triamcinolone acetonide 0.1 % cream topical BID Print Language: Portuguese
[2024-12-24] MEDS: Albuterol/Iprat 2.5/0.5MG 3 ML AMPUL.NEB INHALE (11:23)
[2024-12-24] MEDS: Lactated Ringers 1,000 ML 999 ML IV (11:24)
[2024-12-24 11:29] VITALS: PULSE 56; RESP 23; O2SAT 95
[2024-12-24 11:39] LABS: MANUAL DIFF FLAG NO
[2024-12-24 11:43] LABS: Hematocrit 37.0 % (37.0-47.0); Hemoglobin 12.8 g/dl (12.0-16.0); Imm Gran Abs Auto 0.01 X10*3/uL (0.00-0.03); Imm Gran Pct Auto 0.2 % (0.0-0.4); Lymphocytes Absolute Auto 1.6 X10*3/uL (1.2-4.9); Mean Corpuscular HGB Conc 34.6 g/dl (31.0-35.0); Mean Corpuscular Hemoglobin 30.4 pg (27.0-33.0); Mean Corpuscular Volume 87.9 fL (80.0-98.0); NRBC Abs Auto 0.000 X10*3/uL (0.0-0.012); NRBC Pct Auto 0.0 /100WBC (0.0-0.2); Platelet Count 318 X10*3/uL (160-400); Red Blood Count 4.21 X10*6/uL (4.20-5.50); White Blood Count 4.7 X10*3/uL (4.8-10.8)
[2024-12-24 11:54] LABS: Anion Gap 12 (12-20); Blood Urea Nitrogen 10 mg/dL (9-16); Calcium 9.1 mg/dL (8.4-10.2); Carbon Dioxide 27 mmol/L (22-29); Chloride 107 mmol/L (96-108); Creatinine Clr Calc Pharmacy 78.5; Estimated Glomerular Filt Rate > 60; Potassium 3.9 mmol/L (3.3-5.1); Sodium 142 mmol/L (135-145)
[2024-12-24] MEDS: Lidocaine 4 % Patch ADH..PATCH 1 PATCH TRANSDERMA (11:54)
[2024-12-24 12:03] LABS: Troponin-I High Sensitivity < 2.7 ng/L (<3.5-17.0)
[2024-12-24 13:11] VITALS: BP 111/50; PULSE 59; RESP 17; O2SAT 97
[2024-12-24 13:16] VITALS: BP 111/50; PULSE 59; RESP 17; TEMP 36.9; O2SAT 97
== END 2024-12-24 13:18 | disposition home or self-care (01) ==
PROVIDERS: Emergency Provider Student in an Organized Health Care Education/Training Program; PCP Internal Medicine
DX: S29.011A Strain of muscle and tendon of front wall of thorax, initial encounter (principal); R07.89 Other chest pain; M54.50 Low back pain, unspecified; X58.XXXA Exposure to other specified factors, initial encounter; Y93.9 Activity, unspecified; Y92.9 Unspecified place or not applicable; Y99.8 Other external cause status
CPT/HCPCS: 36415; 71046; 80048; 84484; 85025; 93005; 94640; 96374; 99284; 99285; J1885; J7120

== ENCOUNTER → 2024-12-24 10:45 | Outpatient (BNV) | payer OTHER, SELFPAY | PROVIDERS: Emergency Provider Student in an Organized Health Care Education/Training Program; PCP Internal Medicine; Visit Provider Internal Medicine Cardiovascular Disease | DX: R00.1 Bradycardia, unspecified (principal) | CPT/HCPCS: 93010 ==

== ENCOUNTER → 2024-12-24 11:04 | Outpatient (BNV) | payer OTHER, SELFPAY | PROVIDERS: Emergency Provider Student in an Organized Health Care Education/Training Program; PCP Internal Medicine; Visit Provider Radiology Diagnostic Radiology | DX: R07.9 Chest pain, unspecified (principal) | CPT/HCPCS: 71046 ==

== ENCOUNTER 2025-01-18 10:50 | Outpatient (AMB) | payer OTHER, SELFPAY ==
--- OUTSIDE RECORDS SUMMARY | 2025-01-13 10:15 | XMS_ITS | Encounter Summary ---
Author Organization [employer] Address [address] [place] [address] [address] [place] [address] Care Team Providers Care Talent Consultant Name Role Phone Sonam Ablarran MD Primary Care Provide r Reason for Referral * Imaging (Routine) - Authorized Specialty Diagnoses / Procedures Referred By Marcelle wolfe Referred To Contact Radiology Diagnoses Encounter for screening mammogram for malignant neoplasm of breast Procedures BI Mammogram Screening Tomosynthesis Bilateral Sonam Albarran MD [address] [place] [id number] Phone: tel: fax: [address] Phone: tel: fax: Referral ID Status Reason Start Date Expiration Date V isits Requested Visits Authorized [id number] Authorized 01/13/2025 01/13/2026 1 1 * Consultation (Routine) - Authorized Specialty Diagnoses / Procedures Referred By Marcelle t Referred To Contact Nutrition Diagnoses Class 2 severe obesity due to excess calories with serious comorbidity and body mass index (BMI) of 35.0 to 35.9 in adult (CMS/HCC) Sonam Albarran MD [address] [place] [id number] Phone: tel: fax: Referral ID Status Reason Start Date Expiration Date Visits Requested Visits Authorized [id number] Authorized Specialty Services Required 01/13/2025 01/13/2026 1 1 Encounter Details Date Type Department Care Team (Late st Contact Info) Description 01/13/2025 10:15 AM EDT Office Visit [facility] [address] [place] [address] Sonam Albarran MD [address] [place] [address] Essential hypertension (Primary Dx); Tachycardia-bradycard ia (CMS/HCC); Moderate major depression (CMS/HCC); Class 2 severe obesity due to excess calories with serious comorbidity and body mass index (BMI) of 35.0 to 35.9 in adult (CMS/HCC); Dietary counseling; Exercise counseling; Encounter for screening mammogram for malignant neoplasm of breast; Severe obesity (BMI 35.0-39.9) with comorbidity (CMS/HCC) Social History Tobacco Use Types Packs/Day Years Used Date Smoking Tobacco: Never Passive Smoke Exposure: Never Smokeless Tobacco: Never Alcohol Use Standard Drinks/Week Comments Never 0 (1 standard drink = 0.6 oz pur e alcohol) Depression Answer Date Recorded Patient Health Questionnaire-9 Score 19 02/03/2024 Patient Health Questionnaire-9 Score 19 02/03/2024 Last PHQ-9: Questionnaire Data Not on file 0 02/03/2024 Housing Stability Answer Date Recorded What is your housing situation today? I have dreaurora smith 02/03/[address] you li ve. Do you have problems with any of the following? None of the above 02/03/2024 Food Insecurity Answer Date Recorded Within the past 12 months, y ou worried that your food would run out before you got money to buy more: Never True 02/03/2024 Within the past 12 months,th e food you bought just didn't last and you didn't have enough money to get more: Never True Transportation Answer Date Recorded In the past 12 months, has l ack of transportation kept you from medical appts, meetings, work or from getting things needed for daily living? No 02/03/2024 Utilities Answer Date Recorded In the past 12 months, has t he electric, gas, oil or water [email or web address] threatened to shut off services in your home? No 02/03/2024 Depression Answer Date Recorded Patient Health Questionnaire-2 Score 4 02/03/2024 Internet Access Answer Date Recorded Internet Access Q1 No 02/03/2024 Internet Access Q2 I do not want or need it 01/06 Comments No Sex and Gender Information Value Date Recorded Sex Assigned at Female 03/05/2022 10:17 AM EDT Legal Sex Female 10:17 AM EDT Gender Identity Female 03/05/2022 10:17 AM EDT Sexual Orientation Choose not to disclose 2021 10:17 AM EDT documented as of this encounter Last Filed Vital Signs Vital Sign Reading Time Taken Comments Blood Pressure 130/82 01/13/2025 10:04 AM EDT Pulse 58 01/13/2025 10:04 AM EDT Temperature 35.9 C (96.6 F) 01/13/2025 10:04 AM EDT Respiratory Rate 24 01/13/2025 10:0 4 AM EDT Oxygen Saturation 97% 01/13/2025 10: 04 AM EDT Inhaled Oxygen Concentration - - Weight 94.3 kg (207 lb 12.8 oz) 025 10:04 AM EDT Height 162.6 cm (5' 4 ) 01/13/2025 10:0 4 AM EDT Body Mass Index 35.67 01/13/2025 10:04 AM EDT documented in this encounter Progress Notes * Sonam Hensley MD - 01/13/2025 10:15 AM EDT SUBJECTIVE: Catina Becerra is a 54 y.o. year old female who presents for Chronic Disease Management . Acute Concerns: Patient reports after she was diagnosed with COVID she continued to have cough and congestion she went to the walk-in clinic cough syrup was prescribed after this she continued to have the cough and developed also chest pain for this reason she went to the emergency room because she was having chest pain and shortness of breath, she was also being evaluated by crisis in the emergency room and shehas been follow-up by them also. Patient tells me she is now feeling much better she is back to [facility] Patient also tells me she has been follow-up closely with cardiology regarding episodes of tachycardia and bradycardia and different blood pressure readings Social History Social History Narrative Not on file Problem List[1] IGLESIA (generalized anxiety disorder) Attention deficit hyperactivity disorder Calcaneal spur Carpal tunnel syndrome Essential hypertension Dry skin dermatitis Abnormal uterine bleeding Excessive sweating Flushing Gastroesophageal reflux disease Grieving Hypotonic bladder Impaired cognition Post traumatic stress disorder (PTSD) Knee pain Keratosis pilaris IBS (irritable bowel syndrome) Fibroid uterus Insomnia Primary Sjogren's syndrome (CMS/HCC) Primary osteoarthritis of right knee Plantar fasciitis Tear film insufficiency Seizure (CMS/HCC) Urinary retention Restless legs syndrome (RLS) Hypercholesteremia Varicose veins of both lower extremities with pain Allergies Neuropathy Mixed stress and urge urinary incontinence Tachycardia-bradycardia (CMS/HCC) Left foot pain Atypical chest pain Moderate major depression (CMS/HCC) Severe obesity (BMI 35.0-39.9) with comorbidity (CMS/HCC) Sicca syndrome (CMS/HCC) Headache Vertigo 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 HENT: Negative. Respiratory: Negative. Cardiovascular: Negative. OBJECTIVE: Vitals: 01/13/25 1004 BP: 130/82 BP Location: Left arm Patient Position: Sitting BP Cuff Size: Adult Pulse: 58 Resp: 24 Temp: 96.6 ??F (35.9 ??C) TempSrc: Temporal SpO2: 97% Weight: 207 lb 12.8 oz (94.3 kg) Height: 5' 4 (1.626 m) Physical Exam Follow Up: Follow up in about 3 months (around 04/14/2025) for chronic conditions . Medications Ordered Prior to Encounter[3] Problem List Items Addressed This Visit Essential hypertension - Primary I advised: - Aerobic exercise to reduce BP. Initial goal of 30 min walk 3-5x/week. Increase as tolerated. - low-sodium diet (goal: <2g/day) and heart healthy diet such as DASH to reduce BP and prevent ASCVD. - Home BP monitoring 1-2 x day with goal of <140/90. - Seek immediate medical attention for chest pain, palpitations, SOB, syncope, or sudden changes inmental status. - Do not change or discontinue current prescriptions without first consulting health care provider Tachycardia-bradycardia (CMS/HCC) Continue to follow-up with cardiology Moderate major depression (CMS/HCC) Continue to follow-up with therapist and psychiatrist Counseling done today Encounter for screening mammogram for malignant neoplasm of breast Referral for mammogram done today Relevant Orders BI Mammogram Screening Tomosynthesis Bilateral Severe obesity (BMI 35.0-39.9) with comorbidity (CMS/HCC) Extensive counseling about healthy diet and exercise done today patient referred to collar starcher Other Visit Diagnoses Class 2 severe obesity due to excess calories with serious comorbidity and body mass index (BMI) of35.0 to 35.9 in adult (CMS/HCC) Relevant Orders Referral to Nutrition Services, Internal Dietary counseling Exercise counseling [1] Patient Active Problem List Diagnosis IGLESIA (generalized anxiety disorder) Attention deficit hyperactivity disorder Calcaneal spur Carpal tunnel syndrome Essential hypertension Dry skin dermatitis Abnormal uterine bleeding Excessive sweating Flushing Gastroesophageal reflux disease Grieving Hypotonic bladder Impaired cognition Post traumatic stress disorder (PTSD) Knee pain Keratosis pilaris IBS (irritable bowel syndrome) Fibroid uterus Insomnia Primary Sjogren's syndrome (CMS/HCC) Primary osteoarthritis of right knee Plantar fasciitis Tear film insufficiency Seizure (CMS/HCC) Urinary retention Restless legs syndrome (RLS) Hypercholesteremia Varicose veins of both lower extremities with pain Allergies Neuropathy Mixed stress and urge urinary incontinence Tachycardia-bradycardia (CMS/HCC) Left foot pain Atypical chest pain Moderate major depression (CMS/HCC) Severe obesity (BMI 35.0-39.9) with comorbidity (CMS/HCC) Sicca syndrome (CMS/HCC) Headache Vertigo 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 [3] Current Outpatient Medications on File Prior to Visit Medication Sig Dispense Refill acetaminophen (Tylenol) 500 MG tablet Take 2 tablets (1,000 mg) by mouth every 6 (six) hours if needed for moderate pain or fever for up to 25 doses. 50 tablet 0 albuterol 108 (90 Base) MCG/ACT inhaler Inhale 2 puffs every 6 (six) hours if needed for wheezing. 18 g 11 Aspirin Low Dose 81 MG EC tablet TAKE 1 TABLET BY MOUTH EVERY MORNING 30 tablet 11 benzonatate (Tessalon Perles) 100 MG capsule Take 1 capsule (100 mg) by mouth every 6 (six) hours if needed for cough. Do not crush or chew. 20 capsule 0 Blood Pressure kit 1 each Once per day. 1 kit 0 Blood Pressure Monitor kit Use as directed 1 kit 0 busPIRone (Buspar) 10 MG tablet TAKE 1 TABLET BY MOUTH THREE TIMES DAILY IN THE MORNING, EVENING, AND BEDTIME 90 tablet 5 cetirizine (ZyrTEC) 10 MG tablet TAKE 1 TABLET BY MOUTH EVERY MORNING 90 tablet 3 cyanocobalamin (Vitamin B-12) 1000 MCG tablet TAKE 1 TABLET BY MOUTH TWICE DAILY IN THE MORNING ANDAT BEDTIME 180 tablet 3 cycloSPORINE (Restasis) 0.05 % ophthalmic emulsion Use 1 drop in each eye every 12 hours D3 Super Strength 50 MCG (2000 UT) capsule TAKE 1 CAPSULE BY MOUTH EVERY MORNING 30 capsule 5 Diclofenac Sodium 1 % gel Apply to affected area once or twice daily as needed 100 g 3 diphenhydrAMINE (BENADryl) 25 MG tablet Take 1 tablet by mouth every 4 (four) hours. docusate sodium (Colace) 100 MG capsule TAKE 1 CAPSULE BY MOUTH TWICE DAILY IN THE MORNING AND IN THE EVENING 180 capsule 1 DULoxetine (Cymbalta) [address] capsule Take 30 mg by mouth in the morning. EPINEPHrine (Epipen) 0.3 MG/0.3ML injection syringe Inject 0.3 mL into the shoulder, thigh, or buttocks. erythromycin (Romycin) 5 MG/GM ophthalmic ointment Apply Amount per Dose: 0.25 inch (~0.5 cm) per dose. TID for 1 week. 15 g 0 ezetimibe (Zetia) 10 MG tablet TAKE 1 TABLET BY MOUTH EVERY MORNING 30 tablet 11 famotidine (Pepcid) 20 MG tablet Take 1 tablet (20 mg) by mouth 2 times daily. 180 tablet 3 ferrous sulfate 325 (65 Fe) MG EC tablet TAKE 1 TABLET BY MOUTH EVERY MORNING WITH BREAKFAST DO NOTBREAK, CRUSH, DISSOLVE OR CHEW 90 tablet 3 ibuprofen 400 MG tablet Take 1 tablet (400 mg) by mouth every 6 (six) hours if needed for moderate pain. 30 tablet 3 ketotifen (Zaditor) 0.025 % ophthalmic solution 1-2 drops per eye 1-2 times daily for 7 days 5 mL 0 lacosamide (Vimpat) 100 MG tablet TAKE 1 TABLET BY MOUTH TWICE DAILY IN THE MORNING AND AT BEDTIME 60 tablet 1 levETIRAcetam (Keppra) 500 MG tablet Take 1 tablet by mouth every 12 (twelve) hours. 60 tablet 5 LORazepam (Ativan) 1 MG tablet TAKE 1 TABLET BY MOUTH THREE TIMES DAILY IN THE MORNING, EVENING, AND BEDTIME AND TAKE 1/2 TO 1 ADDITIONAL TABLET DAILY NEEDED 105 tablet 0 MagDelay 64 MG EC tablet TAKE 1 TABLET BY MOUTH EVERY EVENING 60 tablet 5 metoprolol tartrate (Lopressor) 50 MG tablet TAKE 1 TABLET BY MOUTH TWICE DAILY IN THE MORNING AND AT BEDTIME WITH FOOD naproxen (Naprosyn) 250 MG tablet TAKE 1 TABLET BY MOUTH TWICE DAILY IN THE MORNING AND AT BEDTIME NEEDED FOR PAIN OR FEVER 20 tablet 0 omega-3 (Fish Oil) 500 MG capsule TAKE 1 CAPSULE BY MOUTH EVERY MORNING 90 capsule 3 permethrin (Nix) 1 % liquid Apply on scalp leave it for 10min and repeat process in 1 week 120 mL 1 Petrolatum ointment use 1x/day on affected skin pravastatin (Pravachol) 10 MG tablet TAKE 1 TABLET BY MOUTH AT BEDTIME 30 tablet 0 Salicylic Acid 2 % cream use cream at affected red raised areas on arms and legs as needed BID torsemide (Demadex) 20 MG tablet TAKE 1 TABLET BY MOUTH EVERY MORNING MAY INCREASE TO 2 TABLETS IF BLOOD PRESSURE > 140/90 60 tablet 5 zolpidem (Ambien) 5 MG tablet TAKE 1 TABLET BY MOUTH AT BEDTIME 30 tablet 0 No current facility-administered medications on file prior to visit. documented in this encounter Miscellaneous Notes * Assessment & Plan Note - Sonam Hensley MD - 01/13/2025 11:04 AM EDT Associated Problem(s): Severe obesity (BMI 35.0-39.9) with comorbidity (CMS/HCC) Extensive counseling about healthy diet and exercise done today patient referred to collar starcher * Assessment & Plan Note - Sonam Hensley MD - 01/13/2025 11:03 AM EDT Associated Problem(s): Moderate major depression (CMS/HCC) Continue to follow-up with therapist and psychiatrist Counseling done today * Assessment & Plan Note - Sonam Hensley MD - 01/13/2025 11:03 AM EDT Associated Problem(s): Encounter for screening mammogram for malignant neoplasm of breast Referral for mammogram done today * Assessment & Plan Note - Sonam Hensley MD - 01/13/2025 11:03 AM EDT Associated Problem(s): Tachycardia-bradycardia (CMS/HCC) Continue to follow-up with cardiology * Assessment & Plan Note - Sonam Hensley MD - 01/13/2025 11:03 AM EDT Associated Problem(s): Essential hypertension I advised: - Aerobic exercise to reduce BP. Initial goal of 30 min walk 3-5x/week. Increase as tolerated. - low-sodium diet (goal: <2g/day) and heart healthy diet such as DASH to reduce BP and prevent ASCVD. - Home BP monitoring 1-2 x day with goal of <140/90. - Seek immediate medical attention for chest pain, palpitations, SOB, syncope, or sudden changes inmental status. - Do not change or discontinue current prescriptions without first consulting health care provider documented in this encounter Plan of Treatment Scheduled Orders Name Type Priority Associated Diagnoses Orde r Schedule BI Mammogram Screening Tomosynthesis Bilateral Imaging Routine Encounter for screening mammogram for malignant neoplasm of breast Expected: 01/13/2025, Expires: 03/15/2026 Scheduled Referrals Name Type Priority Associated Diagnoses Orde r Schedule Referral to Nutrition Services, Internal Outpatient Referral Routine Class 2 severe obesity due to excess calories with serious comorbidity and body mass index (BMI) of 35.0 to 35.9 in adult (CMS/HCC) Expected: 01/13/2025 (Approximate), Expires: 01/13/2026 documented as of this encounter Visit Diagnoses Diagnosis Essential hypertension- Primary Unspecified essential hypertension Tachycardia-bradycardia (CMS/HCC) Sinoatrial node dysfunction Moderate major depression (CMS/[facility]) Major depressive disorder, single episode, moderate Class 2 severe obesity due to excess calories with serious comorbidity and body mass index (BMI) of 35.0 to 35.9 in adult ([facility]) Dietary counseling Dietary surveillance and counseling Exercise counseling Encounter for screening mammogram for malignant neoplasm of breast Severe obesity (BMI 35.0-39.9) with comorbidity (CMS/HCC) documented in this encounter Additional Health Concerns Assessment Noted Time PHQ-9 Depression Total Score: 19 024 1:58 PM EDT documented as of this encounter Care Teams Talent Consultant Relationship Specialty Start Date End Date Sonam Albarran MD [address] [place] [address] PCP - General Family Medicine 04/06/19 documented as of this encounter
--- NOTE | 2025-01-18 11:02 | MHC.OFFVIS ---
Vital Signs 01/18/25 11:12 Height 5 ft 4 in Weight 207 lb BMI 35.5 BP 114/56 L Blood Pressure Location Rt brachial Position Sitting Pulse 60 Pulse Source Pulse Oximeter Pulse Oximetry (%) 95 Oxygen Delivery Method Room Air Intake Visit Reasons: colo screening Intake Note: New pt for initial colo screening. Hx of IBS + GERD. CC: C.O. GERD persistence. Pt taking famotidine but not taking PPI at this time. Lapel Padder Required: No Accompanied by: Self / Same As Patient Allergies influenza virus vaccine, specific (FLU VACCINE) Allergy (Severe, Verified 01/18/25 11:02) Anaphylaxis Iodinated Contrast Media (Iodinated Contrast Media - IV Dye) Allergy (Severe, Verified 01/18/25 11:02) TURNS BLUE latex (Latex) Allergy (Severe, Verified 01/18/25 11:02) Anaphylaxis sulfamethoxazole (From Bactrim) Allergy (Mild, Verified 01/18/25 11:02) Rash trimethoprim (From Bactrim) Allergy (Mild, Verified 01/18/25 11:02) Rash amoxicillin (Prevpac) Allergy (Unknown, Verified 01/18/25 11:02) Nausea and Vomiting aspirin (From Percodan) Allergy (Unknown, Verified 01/18/25 11:02) Stomach Upset clarithromycin (Prevpac) Allergy (Unknown, Verified 01/18/25 11:02) Nausea and Vomiting codeine Allergy (Unknown, Verified 01/18/25 11:02) Unknown doxazosin Allergy (Unknown, Verified 01/18/25 11:02) Dizziness gabapentin Allergy (Unknown, Verified 01/18/25 11:02) Blurry Vision lansoprazole (Prevpac) Allergy (Unknown, Verified 01/18/25 11:02) Nausea and Vomiting metronidazole (From FLAGYL) Allergy (Unknown, Verified 01/18/25 11:02) Unknown rifaximin (Xifaxan) Allergy (Unknown, Verified 01/18/25 11:02) Unknown shellfish derived Allergy (Unknown, Verified 01/18/25 11:02) Anaphylaxis, difficulty breathing, Rash Sulfa (Sulfonamide Antibiotics) Allergy (Unknown, Verified 01/18/25 11:02) stomach upset Opioids - Morphine Analogues (OPIOIDS - MORPHINE ANALOGUES) Adverse Reaction (Intermediate, Verified 01/18/25 11:02) NAUSEA & VOMITING + RASH clonazepam (From Klonopin) Adverse Reaction (Mild, Verified 01/18/25 11:02) HEADACHE oxycodone (From Percodan) Adverse Reaction (Mild, Verified 01/18/25 11:02) Headache, Dizziness, Nausea and Vomiting ezetimibe (From Zetia) Adverse Reaction (Verified 01/18/25 11:02) Unknown HPI HPI colo screening: Details: 54 year old? female with past medical history of depression, anxiety, ADD, cognitive impairment, GERD, seizure disorder is here today for pre colonoscopy screening.? Patient was sent to us by her PCP.? This is her first colonoscopy screening.? Patient currently is on Keppra and her last seizure was about 10 years ago. Patient reports occasional acid reflux, symptoms related to different food. Patient is trying to avoid dietary triggers. Denies any personal or family history of gastrointestinal disease, colon polyps, or CRC.? Denies history of difficulty with sedation or anesthesia in the past.? Negative for history of sleep apnea.? Denies any history of cardiac, renal, pulmonary, or hepatic disease.?? No history of infectious? diseases like hepatitis A, B, C, HIV or tuberculosis.? Patient is on low-dose aspirin PFSH Medical History Plantar fasciitis Depression with anxiety Sjogrens syndrome Cognitive impairment Insomnia Hypercholesteremia Keratosis pilaris History of cervical dysplasia GERD (gastroesophageal reflux disease) Disturbance of salivary secretion PTSD (post-traumatic stress disorder) ADD (attention deficit disorder) Tear film insufficiency IBS (irritable bowel syndrome) Hammer toe HTN (hypertension) Restless leg syndrome Anxiety about blushing Seizure Surgical History H/O hand surgery Hx of section Family History Maternal Aunt Colon cancer Maternal Grandmother History of breast cancer Social History Alcohol intake: former Patient Tobacco Use Status: Never used Tobacco Review of Systems Const Denies weight gain and Denies weight loss ENT Reports no additional complaints, Denies dysphagia and Denies odynophagia Card Reports no additional complaints Resp Reports no additional complaints GI Denies abdominal pain, Denies belching, Denies melena, Denies bloating, Denies change in bowel habits, Denies dysphagia, Denies excessive flatus, Denies dyspepsia, Reports heartburn, Denies diarrhea, Denies loose stools, Denies nausea, Denies odynophagia and Denies vomiting Reports no additional complaints Musc Reports no additional complaints Neuro Reports no additional complaints Psych Reports no additional complaints Endo Reports no additional complaints Physical Exam Vital Signs: Last Vital Signs Pulse 60 01/18/25 11:12 BP 114/56 L 01/18/25 11:12 Pulse Ox 95 01/18/25 11:12 Oxygen Delivery Method Room Air 01/18/25 11:12 BMI result Body Mass Index 35.5 Const General: healthy appearing, no acute distress and well developed Nutritional Appearance: well nourished and obese Orientation/consciousness: patient oriented x3 Resp Effort & Inspection: normal respiratory effort, able to speak in complete sentences, no tracheal deviation and symmetric chest movement Auscultation: clear to auscultation bilaterally Cardio Rate: regular rate GI Inspection: Yes normal to inspection, No distended and Yes obesity Palpation (GI): Soft to palpation, not firm, nontender and No hepatosplenomegaly present Auscultation: normal bowel sounds General: Yes no CVA tenderness Back/Spine/Pelvis Back: no CVA tenderness Skin General skin exam: elasticity normal, turgor normal and dry skin Neuro General: patient oriented x3 Psych Appearance: grossly normal Mental Status: mental status grossly normal Assessment & Plan Assessment & Plan (1) Screen for colon cancer: Code(s): Z12.11 - Encounter for screening for malignant neoplasm of colon Plan Patient denies any GI, cardiac or respiratory symptoms.? Denies any issues with anesthesia in the past.? Denies any history of sleep apnea.? No history infectious diseases in the past or present.? Patient is on low-dose aspirin.? No family or personal history of colon cancer or polyps.? Patient denies melena, hematochezia, unintentional weight loss or ribbon like stools.? Discussed at length the pre-procedure,? prep, diet & medications as well as what to expect prior, during and after the procedure.?? Stressed the importance of good bowel prep.? Recommended the use of Vaseline or Calmoseptine OTC & baby wipes with bowel movements to promote comfort.? ?Patient verbalizes understanding and agrees to plan of care.? She was given the opportunity to ask questions and all questions answered.? We will see her after the procedure.? Medications: New polyethylene glycol 3350 (Miralax) As directed by gastroenterology department at [facility] 238 grams PO ONCE 238 grams 0RF Z12.11 - Encounter for screening for malignant neoplasm of colon bisacodyl (Dulcolax (bisacodyl)) take 4 tabs at noon the day before your colonoscopy 20 mg (4 x 5 mg) PO ONCE 4 tabs 0RF constipation 1 day Z12.11 - Encounter for screening for malignant neoplasm of colon Coding Level of Care Code New Pt Level 3 (13244) Diagnoses Screen for colon cancer Z12.11 Time Spent (min) 40 Comment 30 minutes spent with patient and additional 10 minutes spent reviewing her records
[2025-01-18 11:12] VITALS: BP 114/56; PULSE 60; O2SAT 95; BMI 35.5
--- OUTSIDE RECORDS SUMMARY | 2025-01-18 14:23 | XMS_ITS | Encounter Summary ---
Author Organization [employer] Address [address]t h Floor [place] [id number] Care Team Providers Care Tray Service Worker Name Role Phone Sonam Albarran MD Primary Care Provide r Reason for Visit * Reason Comments Med Refill Encounter Details Date Type Department Care Team ([facility] st Contact Info) Description 04/16/2023 Refill [facility] MEDICINE [address] [place], [place] [phone] Nevaeh Pope MD [address] [place] [address] Allergy, initial encounter Social History Tobacco Use [...] as of this encounter Plan of Treatment Not on file documented as of this encounter Visit Diagnoses Diagnosis Allergy, initial encounter documented in this encounter Care Teams Tray Service Worker Relationship Specialty Start Date End Date Sonam Albarran MD [address] [place] [id number] PCP - General Family Medicine 04/06/19 documented as of this encounter
--- OUTSIDE RECORDS SUMMARY | 2025-01-18 14:23 | XMS_ITS | Encounter Summary ---
Author Organization [employer] Address [address] [place] [address] [address]t h Floor [place] [id number] Care Team Providers Care Sap Bpc Architect Name Role Phone Sonam Albarran MD Primary Care Provide r Encounter Details Date Type Department Care Team (Late st Contact Info) Description 12/28/2022 Orders Only [facility] MEDICINE [address] [place] [address] Nevaeh Pope MD [address] [place] [address] Calcaneal spur of left foot (Primary Dx); Left foot pain Social History Tobacco Use Types Packs/Day Years Used Date Smoking Tobacco: Never Passive Smoke Exposure: Never Smokeless Tobacco: Never Alcohol Use Standard Drinks/Week Comments Never 0 (1 standard drink = 0.6 oz pur e alcohol) Depression Answer Date Recorded Patient Health Questionnaire-2 [...] as of this encounter Visit Diagnoses Diagnosis Calcaneal spur of left foot- Primary Left foot pain Pain in soft tissues of limb documented in this encounter Care Teams Sap Bpc Architect Relationship Specialty Start Date End Date Sonam Albarran MD [address] [place], [place] [phone] PCP - General Family Medicine 04/06/19 documented as of this encounter
--- OUTSIDE RECORDS SUMMARY | 2025-01-18 14:24 | XMS_ITS | Patient Health Record ---
Author Organization [facility] [facility] Address [address] [place] [address] Care Team Providers Care Brass Molder Name Role Phone Rodrigo Pedersen Primary Care Provider Froylan Gonzáles [phone] Reason For Referral No Information Plan Of Treatment No Information Insurance Providers Payer Name Payer Address Payer Phone Subscriber Number Group Number Insured Name Patient Relationship to Insured Coverage Start Date Coverage End Date [facility] [address] [place] [address] [id number] DUTCH MALONE Self - patient is the insured
--- OUTSIDE RECORDS SUMMARY | 2025-01-18 14:24 | XMS_ITS | Encounter Summary ---
Author Organization [employer] Address [address] [place] [address] [address]t [place] [address] Care Team Providers Care Cigarette Roller Name Role Phone Sonam Albarran MD Primary Care Provide r Encounter Details Date Type Department Care Team ([facility] st Contact Info) Description 06/06/2022 Telephone [facility] MEDICINE [address] [place] [address] Sonam Albarran MD [address] [place] [address] Social History Tobacco Use Types Packs/Day Years [...] not to disclose 2021 10:17 AM EDT COVID-19 Exposure Response Date Recorded In the last 10 days, have yo u been in contact with someone who was confirmed or suspected to have Coronavirus/COVID-19? No / Unsure 06/04/2022 3:14 PM EST documented as of this encounter Plan of Treatment Not on file documented as of this encounter Visit Diagnoses Not on filedocumented in this encounter Care Teams Cigarette Roller Relationship Specialty Start Date End Date Sonam Albarran MD [address] [place] [address] PCP - General Family Medicine 04/06/19 documented as of this encounter
--- OUTSIDE RECORDS SUMMARY | 2025-01-18 14:24 | XMS_ITS | Encounter Summary ---
Author Organization [employer] Address [address] [place] [address] [address]t h Floor [place] [phone] Care Team Providers Care Lay Out Inspector Name Role Phone Sonam Albarran MD Primary Care Provide r Reason for Visit * Reason Comments Med Refill Encounter Details Date Type Department Care Team ([facility] st Contact Info) Description 08/23/2022 Refill [facility] MEDICINE [address] [place], [place] [phone] [facility] [address] [place] [address] Anxiety Social History Tobacco Use Types Packs/Day Years [...] was confirmed or suspected to have Coronavirus/COVID-19? Yes 08/09/2022 11:21 AM EDT documented as of this encounter Plan of Treatment Not on file documented as of this encounter Visit Diagnoses Diagnosis Anxiety Anxiety state, unspecified documented in this encounter Care Teams Lay Out Inspector Relationship Specialty Start Date End Date Sonam Albarran MD [address] [place] [address] PCP - General Family Medicine 04/06/19 documented as of this encounter
--- OUTSIDE RECORDS SUMMARY | 2025-01-18 14:24 | XMS_ITS | Clinical Summary ---
Author Organization [facility] Address [address] [place] [address] Care Team Providers Care Supervisor Contingents Name Role Phone Stu Vargas DO Primary Care Provider [phone] Social History Tobacco Use Types Packs/Day Years [...] 022 Influenza Vaccine (#1) 2025 Care Teams Supervisor Contingents Relationship Specialty Start Date End Date Stu Vargas DO [address] [place] [id number] PCP - General Cardiology 08/21/21
--- OUTSIDE RECORDS SUMMARY | 2025-01-18 14:24 | XMS_ITS | Encounter Summary ---
Author Organization [employer] Address [address] [facility] [address]t h Floor [place] [phone] Care Team Providers Care Freight Dispatcher Name Role Phone Sonma Albarran MD Primary Care Provide r Reason for Visit * Reason Comments Med Refill Encounter Details Date Type Department Care Team ([facility] st Contact Info) Description 08/31/2024 Refill [facility] MEDICINE [address] [place], [place] [phone] Sonam Albarran MD [address] [place] [address] Primary hypertension; Hypercholesterolemia Social History Tobacco Use Types Packs/Day Years Used Date Smoking Tobacco: Never Passive Smoke Exposure: Never Smokeless Tobacco: Never Alcohol Use Standard Drinks/Week Comments Never 0 (1 standard drink = 0.6 oz pur e alcohol) Depression Answer Date Recorded Patient Health Questionnaire-9 Score 02/03/2024 Patient Health Questionnaire-9 Score 19 02/03/2024 [...] as of this encounter Visit Diagnoses Diagnosis Primary hypertension Unspecified essential hypertension Hypercholesterolemia Pure hypercholesterolemia documented in this encounter Additional Health Concerns Assessment Noted Time PHQ-9 Depression Total Score: 19 024 1:58 PM EDT documented as of this encounter Care Teams Freight Dispatcher Relationship Specialty Start Date End Date Sonam Albarran MD [address] [place] [id number] PCP - General Family Medicine 04/06/19 documented as of this encounter
--- OUTSIDE RECORDS SUMMARY | 2025-01-18 14:24 | XMS_ITS | Clinical Summary ---
Author Organization [employer] Address [address] [place] [id number] Care Team Providers Care Assembler Cards And Announcements Name Role Phone Sonam Albarran MD Primary Care Provide r Allergies Active Allergy Reactions Criticality Noted Date Comments Amlodipine 06/25/2022 Amoxicillin Nausea And Vomiting 04/18/2022 Capsaicin Dermatitis,Rash Low 05/02/2022 Reaction to capsaicin cream Clarithromycin Nausea And Vomiting 04/18/2022 Clonazepam Headache Low 07/09/2016 Codeine 02/20/2022 Other reaction(s): Unknown Doxazosin Dizziness 12/04/2013 Other reaction(s): Dizziness Egg Shells 03/01/2020 Gabapentin 02/20/2022 Other reaction(s): Blurred VIsion Other reaction(s): Blurry Vision Influenza Vaccines 04/18/2022 Influenza Virus Vaccine Anaphylaxis High 03/19/2018 Other reaction(s): Trouble Breathing Iodinated Contrast Media High 02/20/2022 Other reaction(s): TURNS BLUE anaphylaxis symptoms Lamotrigine 04/18/2022 Rash Rash Lansoprazole Nausea And Vomiting 06/06/2022 Latex Anaphylaxis High 02/20/2012 anaphylaxis symptoms anaphylaxis symptoms Metronidazole 02/07/2017 Other reaction(s): Unknown Morphine And Codeine High 02/20/2022 Other reaction(s): NAUSEA & VOMITING + RASH Oxycodone Low 07/09/2016 Other reaction(s): Headache, Dizziness, Nausea and Vomiting Oxycodone-Acetaminophen 04/18/2022 Nirmatrelvir-Ritonavir Other High 08/22/2022 Nausea, vomiting, chest pain Rifaximin Unknown 02/20/2022 Sertraline 12/05/2011 Other reaction(s): Hives / Skin Rash Shellfish Allergy 04/18/2022 Shellfish-Derived Products 06/06/2022 Other reaction(s): Anaphylaxis, difficulty breathing, Rash Sulfa Antibiotics Rash Low 02/20/2022 Other reaction(s): stomach upset Sulfamethoxazole 12/16/2019 Other reaction(s): Unknown Tamsulosin 12/04/2013 Terazosin 12/04/2013 Trimethoprim Rash Low 12/16/2019 Other reaction(s): Unknown Medications * This document contains information received from the source organization and may not represent a complete record from that organization. cycloSPORINE (Restasis) 0.05 % ophthalmic emulsion Use 1 drop in each eye every 12 hours Active diphenhydrAMINE (BENADryl) 25 MG tablet Take 1 tablet by mouth every 4 (four) hours. 2 Active EPINEPHrine (Epipen) 0.3 MG/0.3ML injection syringe Inject 0.3 mL into the shoulder, thigh, or buttocks. 2 Active Salicylic Acid 2 % cream use cream at affected red raised areas on arms and legs as needed BID 2 Active Petrolatum ointment use 1x/day on affected skin 2 Active ibuprofen 400 MG tabletIndication s:Pain Take 1 tablet (400 mg) by mouth every 6 (six) hours if needed for moderate pain. 30 tablet 3 3 Active Blood Pressure Monitor kitIndications:P rimary hypertension Use as directed 1 kit 3 Active LORazepam (Ativan) 1 MG tabletIndication s:Anxiety TAKE 1 TABLET BY MOUTH THREE TIMES DAILY IN THE MORNING, EVENING, AND BEDTIME AND TAKE 1/2 TO 1 ADDITIONAL TABLET DAILY NEEDED 105 tablet 3 Active zolpidem (Ambien) 5 MG tabletIndication s:Insomnia, unspecified type TAKE 1 TABLET BY MOUTH AT BEDTIME 30 tablet 3 Active metoprolol tartrate (Lopressor) 50 MG tablet TAKE 1 TABLET BY MOUTH TWICE DAILY IN THE MORNING AND AT BEDTIME WITH FOOD 3 Active ketotifen (Zaditor) 0.025 % ophthalmic solutionIndicati ons:Swelling of upper eyelid 1-2 drops per eye 1-2 times daily for 7 days 5 mL 4 Active Diclofenac Sodium 1 % gelIndications:P ain Apply to affected area once or twice daily as needed 100 g 3 4 Active levETIRAcetam (Keppra) 500 MG tabletIndication s:Seizure (CMS/HCC) Take 1 tablet by mouth every 12 (twelve) hours. 60 tablet 5 4 Active DULoxetine (Cymbalta) [address] capsule Take 30 mg by mouth in the morning. 4 Active Blood Pressure kitIndications:E ssential hypertension 1 each Once per day. 1 kit 4 Active pravastatin (Pravachol) 10 MG tabletIndication s:Essential hypertension TAKE 1 TABLET BY MOUTH AT BEDTIME 30 tablet 4 Active cetirizine (ZyrTEC) 10 MG tabletIndication s:Allergy, initial encounter TAKE 1 TABLET BY MOUTH EVERY MORNING 90 tablet 3 4 Active albuterol 108 (90 Base) MCG/ACT inhalerIndicatio ns:Acute cough Inhale 2 puffs every 6 (six) hours if needed for wheezing. 18 g 11 4 03/05/20 25 Active cyanocobalamin (Vitamin B-12) 1000 MCG tabletIndication s:Neuropathic pain, leg, left TAKE 1 TABLET BY MOUTH TWICE DAILY IN THE MORNING AND AT BEDTIME 180 tablet 3 4 Active omega-3 (Fish Oil) 500 MG capsuleIndicatio ns:Hypercholeste rolemia,Primary hypertension TAKE 1 CAPSULE BY MOUTH EVERY MORNING 90 capsule 3 4 Active permethrin (Nix) 1 % liquidIndication s:Lice infested hair Apply on scalp leave it for 10min and repeat process in 1 week 120 mL 1 4 Active lacosamide (Vimpat) 100 MG tabletIndication s:Seizure (CMS/HCC) TAKE 1 TABLET BY MOUTH TWICE DAILY IN THE MORNING AND AT BEDTIME 60 tablet 1 4 Active ezetimibe (Zetia) 10 MG tabletIndication s:Hypercholester olemia TAKE 1 TABLET BY MOUTH EVERY MORNING 30 tablet 11 5 Active famotidine (Pepcid) 20 MG tabletIndication s:Gastroesophage al reflux disease, unspecified whether esophagitis present Take 1 tablet (20 mg) by mouth 2 times daily. 180 tablet 3 5 Active Aspirin Low Dose 81 MG EC tablet TAKE 1 TABLET BY MOUTH EVERY MORNING 30 tablet 11 5 Active ferrous sulfate 325 (65 Fe) MG EC tablet TAKE 1 TABLET BY MOUTH EVERY MORNING WITH BREAKFAST DO NOT BREAK, CRUSH, DISSOLVE OR CHEW 90 tablet 3 5 Active D3 Super Strength 50 MCG (2000 UT) capsuleIndicatio ns:Neuropathic pain, leg, left TAKE 1 CAPSULE BY MOUTH EVERY MORNING 30 capsule 5 5 Active torsemide (Demadex) 20 MG tabletIndication s:Primary hypertension TAKE 1 TABLET BY MOUTH EVERY MORNING MAY INCREASE TO 2 TABLETS IF BLOOD PRESSURE > 140/90 60 tablet 5 5 Active MagDelay 64 MG EC tabletIndication s:Restless leg syndrome TAKE 1 TABLET BY MOUTH EVERY EVENING 60 tablet 5 5 Active busPIRone (Buspar) 10 MG tabletIndication s:Anxiety TAKE 1 TABLET BY MOUTH THREE TIMES DAILY IN THE MORNING, EVENING, AND BEDTIME 90 tablet 5 5 Active docusate sodium (Colace) 100 MG capsuleIndicatio ns:Irritable bowel syndrome, unspecified type TAKE 1 CAPSULE BY MOUTH TWICE DAILY IN THE MORNING AND IN THE EVENING 180 capsule 1 5 Active acetaminophen (Tylenol) 500 MG tablet Take 2 tablets (1,000 mg) by mouth every 6 (six) hours if needed for moderate pain or fever for up to 25 doses. 50 tablet 5 Active erythromycin (Romycin) 5 MG/GM ophthalmic ointmentIndicati ons:Conjunctival Infection Apply Amount per Dose: 0.25 inch (~0.5 cm) per dose. TID for 1 week. 15 g 5 Active benzonatate (Tessalon Perles) 100 MG capsuleIndicatio ns:COVID-19 Take 1 capsule (100 mg) by mouth every 6 (six) hours if needed for cough. Do not crush or chew. 20 capsule 5 12/09/19 26 Active naproxen (Naprosyn) 250 MG tablet TAKE 1 TABLET BY MOUTH TWICE DAILY IN THE MORNING AND AT BEDTIME NEEDED FOR PAIN OR FEVER 20 tablet Active neomycin-polymyx in-hydrocortison e (Cortisporin) 3.5-07890-8 otic suspensionIndica tions:Acute otitis externa, unspecified laterality, unspecified type Administer 3-4 drops into affected ear(s) 4 times daily for 10 days. 10 mL 5 12/29/19 25 brompheniramine- pseudoephedrine- DM 30-2-10 MG/5ML syrupIndications :Cough in adult patient Take 5 mL by mouth if needed in the morning, at noon, in the evening, and at bedtime for cough for up to 10 days. 120 mL 5 12/29/19 25 Active Problems Problem Noted Date Diagnosed Date Encounter for screening mamm ogram for malignant neoplasm of breast 01/13/2025 Assessment & Plan (01/13/2025 11:03 AM EDT): Referral for mammogram done today Acute otitis externa 12/18/2024 Colon cancer screening 08/07/2024 Lipoma of right lower extremity 07/20/2024 Assessment & Plan (07/20/2024 2:53 PM EDT): Clinically suggestive of lipoma, reviewed s/s to report Should it grow or change will Return to clinic otherwise reasonable to monitor at this time Benign paroxysmal vertigo 10/03/2023 Blepharospasm of left eye 09/17/2023 Assessment & Plan (09/17/2023 3:29 PM EDT): - no evidence of blepharospasm at this time, must be trigged by anxiety - continue Lorazepam + Ambian + Guanfacine + Buspar + Duloxetine - f/u with MH provider - re consult PRN Spondylosis of lumbar region without myelopathy or radiculopathy 09/04/2023 Assessment & Plan (09/04/2023 12:41 PM EDT): - refer to PT Vertigo 05/14/2023 Assessment & Plan (09/17/2023 3:30 PM EDT): - recurrent, must be related to some medication - recommended increased hydration and refer to vestibular therapy Assessment & Plan (05/14/2023 12:36 PM EST): Likely this is trigger by her anxiety, her anxiety has being out of control because therapist has not being following her and recent holidays I will ordered labs to r/o other cause Headache 04/22/2023 04/26/2023 Atypical chest pain 02/28/2023 02/28/2023 Moderate major depression 02/28/20232022 Assessment & Plan (01/13/2025 11:03 AM EDT): Continue to follow-up with therapist and psychiatrist Counseling done today Severe obesity (BMI 35.0-39.9) with comorbidity 02/28/2023 02/28/2023 Assessment & Plan (01/13/2025 11:04 AM EDT): Extensive counseling about healthy diet and exercise done today patient referred to commissions manager Sicca syndrome 02/28/2023 02/28/2023 Left foot pain 12/25/2022 Mixed stress and urge urinary incontinence 08/30 Assessment & Plan (08/30/2022 10:45 AM EDT): Pads prescription to be generated Tachycardia-bradycardia 08/30/2022 Assessment & Plan (01/13/2025 11:03 AM EDT): Continue to follow-up with cardiology Assessment & Plan (08/30/2022 10:44 AM EDT): Cardiology referral to new office done today Allergies 05/22/2022 Assessment & Plan (05/22/2022 3:42 PM EST): Most likely to Guinea pig dander. -counseled to keep the pet in a different room -wash hands after petting -use zyrtec qhs Neuropathy 05/22/2022 Assessment & Plan (05/22/2022 5:40 PM EST): Of lower extremities. Nerve conduction study pending for 06/14. -continue duloxetine and FU with me after nerve conduction study. Calcaneal spur 04/03/2022 Carpal tunnel syndrome 04/03/2022 Dry skin dermatitis 04/03/2022 Flushing 04/03/2022 Grieving 04/03/2022 Plantar fasciitis 04/03/2022 Essential hypertension 12/19/2017 Assessment & Plan (01/13/2025 11:03 AM EDT): I advised: - Aerobic exercise to reduce BP. Initial goal of 30 min walk 3-5x/week. Increase as tolerated. - low-sodium diet (goal: <2g/day) and heart healthy diet such as DASH to reduce BP and prevent ASCVD. - Home BP monitoring 1-2 x day with goal of <140/90. - Seek immediate medical attention for chest pain, palpitations, SOB, syncope, or sudden changes in mental status. - Do not change or discontinue current prescriptions without first consulting health care provider Assessment & Plan (08/07/2024 4:43 PM EDT): Blood pressure today seems to be under control advised low-sodium diet, weight reduction and continue with same medication regimen Assessment & Plan (02/03/2024 5:04 PM EDT): C/w current medications Patient did not tolerate atorvastatin I decided to try with pravastatin prescription Log BP at home and bring report for next appointment Assessment & Plan (02/22/2023 10:19 AM EDT): - Aerobic exercise to reduce BP. Initial goal of 30 min walk 3-5x/week. Increase as tolerated. - low-sodium diet (goal: <2g/day) and heart healthy diet such as DASH to reduce BP and prevent ASCVD. - Home BP monitoring 1-2 x day with goal of <140/90. - Seek immediate medical attention for chest pain, palpitations, SOB, syncope, or sudden changes in mental status. - Do not change or discontinue current prescriptions without first consulting health care provider Assessment & Plan (11/09/2022 2:05 PM EDT): - Aerobic exercise to reduce BP. Initial goal of 30 min walk 3-5x/week. Increase as tolerated. - low-sodium diet (goal: <2g/day) and heart healthy diet such as DASH to reduce BP and prevent ASCVD. - Home BP monitoring 1-2 x day with goal of <140/90. - Seek immediate medical attention for chest pain, palpitations, SOB, syncope, or sudden changes in mental status. - Do not change or discontinue current prescriptions without first consulting health care provider -follow up with cardiology Knee pain 12/19/2017 Urinary retention 12/19/2017 IGLESIA (generalized anxiety disorder) 12/04/2017 Assessment & Plan (08/07/2024 4:44 PM EDT): Counseling done today I will refer patient to psych provider Assessment & Plan (11/09/2022 2:06 PM EDT): Patient has a new psych prescriber medications are being adjusted Assessment & Plan (08/30/2022 10:45 AM EDT): Do not miss appointment with psychiatrist Excessive sweating 12/04/2017 Primary osteoarthritis of right knee 12/04/2017 Assessment & Plan (09/04/2023 1:04 PM EDT): - will need to start PT, I also recommended her to come to acupuncture clinic - Use diclofenac gel BID PRN, pt currently taking Aspirin 81 mg and she tolerates it well, it seems like she is no longer allergic to Aspirin. - Tylenol BID x 1 week then PRN - order X-rays and f/u with PCP Abnormal uterine bleeding 11/18/2017 Assessment & Plan (11/09/2022 2:06 PM EDT): Patient has an appointment with CA[facility] DRESSER on 12/14/2022 Fibroid uterus 11/18/2017 Primary Sjogren's syndrome 01/15/2017 Seizure 01/15/2017 Varicose veins of both lower extremities with pa in 01/15/2017 Assessment & Plan (08/30/2022 10:44 AM EDT): New compression stockings prescription to be generated Gastroesophageal reflux disease 12/17/2012 Keratosis pilaris 12/17/2012 IBS (irritable bowel syndrome) 12/17/2012 Hypotonic bladder 12/27/2011 Impaired cognition 12/27/2011 Post traumatic stress disorder (PTSD) 12/27/2011 Restless legs syndrome (RLS) 11/19/2011 Assessment & Plan (09/04/2023 3:58 PM EDT): Add Ferrous sulfate at bedtime as it si documented to help in some patient with RLS Continue Requip and fu with PCP Assessment & Plan (05/22/2022 3:41 PM EST): Doing better on Requip for now and is improving. -Keep same dose and FU in 1 month with results of nerve conduction study. -Labs are wnl Assessment & Plan (05/08/2022 1:31 PM EST): Uncontrolled. Pain from neuropathy is controlled with Cymbalta. Continue Requip for now, order Ferritin, b12, Mg, BS and A1c to or secondary conditions. Fu in 1-2w Attention deficit hyperactivity disorder 012 Insomnia 10/18/2011 Tear film insufficiency 10/18/2011 Hypercholesteremia 10/18/2011 Assessment & Plan (08/30/2022 10:46 AM EDT): Patient tolerating well zetia continue with medications Lipid panel will be check in 6 months Resolved Problems Problem Noted Date Diagnosed Date Resolved Date Bacterial vaginosis 02/28/2023 02/28/2023 02/29/20 23 Palpitation 02/28/2023 02/28/2023 02/28/2023 Encounter to discuss test results 11/09/2022 02/28/2023 Abnormal cardiotocography tracing 08/30/2022 08/30/2022 Neuropathic pain, leg, left 04/18/2022 02/28/2023 Assessment & Plan (04/18/2022 3:13 PM EST): Undergoing workup with podiatry and neurology [place] [facility] when possible Trial Capsacin I think it would be reasonable to re-challenge with the Duloxetine given how much relief it gave her F/u in one month Contusion 04/03/2022 02/28/2023 Prominent vein 04/03/2022 02/28/2023 Petechial rash 04/03/2022 02/28/2023 Elevated blood pressure reading 01/21/2018 02/28/2023 Class 1 obesity 07/20/2015 02/28/2023 Disturbance of salivary secretion 10/18/2011 02/28/2023 Encounters * This document contains information received from the source organization and may not represent a complete record from that organization. Date Type Department Care Team Description 01/13/2025 10:15 AM EDT Office Visit [facility] [address] [place] [id number] Sonam Albarran MD Essential hypertension (Primary Dx); Tachycardia-bradycardia (CMS/HCC); Moderate major depression (CMS/HCC); Class 2 severe obesity due to excess calories with serious comorbidity and body mass index (BMI) of 35.0 to 35.9 in adult (CMS/HCC); Dietary counseling; Exercise counseling; Encounter for screening mammogram for malignant neoplasm of breast; Severe obesity (BMI 35.0-39.9) with comorbidity (CMS/HCC) 01/13/2025 Travel 12/24/2024 Orders Only [facility] External Provider, [facility] 12/18/2024 2:00 PM EDT Office Visit [facility] [address] [place] [phone] Sonam Albarran MD Cough in adult patient; Acute otitis externa, unspecified laterality, unspecified type 12/18/2024 Travel 12/17/2024 Refill [facility] [address] [address] Fito Priest MD 12/09/2024 6:20 PM EDT [facility] Visit [facility] [address] [phone] Roxy Jiménez NP Blurred vision, left eye (Primary Dx); Elevated blood pressure reading; Conjunctival hemorrhage of left eye; Concern about drug reaction without diagnosis 12/09/2024 Travel 12/08/2024 2:20 PM EDT Office Visit [facility] [address] [phone] Dolores Gómez MD COVID-19 (Primary Dx); Cough in adult patient; Acute bacterial conjunctivitis of left eye 12/08/2024 Travel 12/02/2024 10:40 AM EDT [facility] [address] [address] Fito Priest MD Right foot pain (Primary Dx) 12/02/2024 Travel 11/17/2024 Refill [facility] [address] [place] [phone] Sonam Albarran MD Irritable bowel syndrome, unspecified type 10/30/2024 Orders Only [facility]TERNAL DATA DEPARTMENT Provider, Generic External Data 10/29/2024 Orders Only [facility] External Provider, [facility] 10/21/2024 Telephone [facility] [address] [place] [phone] Sonam Albarran MD telephone call from Last 3 Months Immunizations Immunization Administration Dates Next Due Hep A, Adult 12/03/2019,07/03/2006 Hep B, adult 12/03/2019, 7,08/09/2006,2006 Influenza injectable quadriv alent preservative free 04/26/2023,12/23/2021,01/07/2018,2016 Influenza, IIV3, injectable 01/12/2014, 3,02/07/2009 Influenza, seasonal, intrade rmal, preservative free 02/23/2012 Influenza, trivalent, adjuvanted 01/12/2014,03/07 TD (adult), 2 Lf tetanus tox oid, preservative free, adsorbed 08/09/2006 Tdap 01/15/2017 Social History Tobacco Use Types Packs/Day Years Used Date Smoking Tobacco: Never Passive Smoke Exposure: Never Smokeless Tobacco: Never Tobacco Cessation:Counseling Given: Not Answered Alcohol Use Standard Drinks/Week Comments Never 0 (1 standard drink = 0.6 oz pur e alcohol) Depression Answer Date Recorded Patient Health Questionnaire-9 Score 19 02/03/2024 Patient Health Questionnaire-9 Score 19 02/03/2024 Last PHQ-9: Questionnaire Data Not on file 0 02/03/2024 Housing Stability Answer Date Recorded What is your housing situation today? I have dre smith 02/03/[address] you [...] not to disclose 2021 10:17 AM EDT Last Filed Vital Signs Vital Sign Reading [...] Mass Index 35.67 01/13/2025 10:04 AM EDT Plan of Treatment Health Maintenance Due Date Last Done Comments CT Colonography 1971 Colonoscopy 1971 Colorectal Cancer Screening 1971 FIT DNA/Cologuard 1971 FIT 1971 FOBT 1971 HIV Screening 1971 Sigmoidoscopy 1971 Disability Screening 1971 Alcohol/Substance Use Screening 1983 Hepatitis C Screening 09/13/1989 Mammogram 12/24/2019 12/23/2017, 06/19/2017 Pneumococcal Vaccine: 50+ Years (1 of 1 - PCV) 09/13/2021 Zoster Vaccines (1 of 2) 09/13/2021 Depression Monitoring 08/02/2024 02/03/2024, 024 COVID-19 Vaccine ( - season) 2025 Influenza Vaccine (#1) 2025 , 12/23/2021, 01/07/2018, Additional history exists SDOH Screening 02/02/2025 02/03/2024 Tobacco Screening 01/13/2026 01/13/2025 Cervical Cancer Screening 08/10/2026 HPV/Cotest 08/10/2026 08/10/2021, 01/17/2017 Pap Smear 08/10/2026 08/10/2021 DTaP/Tdap/Td Vaccines (2 - Td or Tdap) 01/15/2027 01/15/2017, 08/09/2006 Lipid Panel 03/01/2028 03/01/2023, 01/04, 04/25/2021, Additional history exists RSV Patients and Patients Aged 60 years or older (1 - 1-dose 75+ series) 09/13/2046 Hepatitis A Vaccines Aged Out 12/03/2019, 07/03/19 [...] patient's age to complete this topic Meningococcal Vaccine Aged Out No desmond denny eligible based on patient's age to complete this topic RSV under 20 months Aged Out No longe r eligible based on patient's age to complete this topic Rotavirus Vaccines Aged Out No longer eligible based on patient's age to complete this topic Procedures Procedure Name Priority Date/Time Associated Diagnosis Comments HIGH SENSITIVITY TROPONIN I Routine 12/24/2024 11:34 AM EDT BASIC METABOLIC PANEL Routine 12/24/2024 11:34 AM EDT CBC WITH AUTO DIFFERENTIAL Routine 12/24/2024 11:34 AM EDT XR CHEST 2 VIEWS Routine 12/24/2024 10:1 8 AM EDT POCT RAPID COVID ANTIGEN Routine 12/18/2024 2:11 PM EDT Cough in adult patient POCT INFLUENZA B (ID NOW RAPID MOLECULAR) Routine 12/18/2024 2:11 PM EDT Cough in adult patient POCT INFLUENZA A (ID NOW RAPID MOLECULAR) Routine 12/18/2024 2:11 PM EDT Cough in adult patient POCT RAPID STREP A Routine 12/08/2024 2: 17 PM EDT Cough in adult patient POCT RAPID COVID ANTIGEN Routine 12/08/2024 2:17 PM EDT Cough in adult patient POCT INFLUENZA B (ID NOW RAPID MOLECULAR) Routine 12/08/2024 2:17 PM EDT Cough in adult patient POCT INFLUENZA A (ID NOW RAPID MOLECULAR) Routine 12/08/2024 2:17 PM EDT Cough in adult patient HIGH SENSITIVITY TROPONIN I Routine 10/30/2024 12:40 AM EDT XR CHEST 2 VIEWS Routine 10/29/2024 10:1 8 PM EDT HIGH SENSITIVITY TROPONIN I Routine 10/29/2024 9:34 PM EDT Lice infested hair MAGNESIUM Routine 10/29/2024 9:34 PM EDT Lice infested hair BASIC METABOLIC PANEL Routine 10/29/2024 9:34 PM EDT Lice infested hair HEPATIC FUNCTION PANEL Routine 10/29/2024 9:34 PM EDT Lice infested hair CBC WITH AUTO DIFFERENTIAL Routine 10/29/2024 9:34 PM EDT Lice infested hair LIPID PANEL, STANDARD Routine 03/01/2023 9:49 AM EDT Weight gain THINPREP IMAGING PAP AND HPV MRNA E6/E7, WITH CT/NG, TRICHOMONAS Routine 08/10/2021 11:39 AM EDT BI MAMMOGRAM DIAGNOSTIC BILATERAL Routine 12/23/2017 12:58 PM EDT from Last 3 Months or Most Recently Relevant to Health Maintenance Results * High Sensitivity Troponin I (12/24/2024 11:34 AM EDT) Only the most recent of3 resultswithin the time period is included. TROPONIN I HIGH SENSITIVITY <2.7 <3.5 - 17.0 ng/L [facility] Comment:The [place] high sens itivity Troponin-I results should beused in conjunction with other diagnostic information suchas ECG, clinical observations and information, and patientsymptoms to aid in the diagnosis of PA. 12/24/2024 11:3 4 AM EDT 12/24/2024 11:37 AM EDT us Generic External Data Provider LAB BLOOD ORDERAB LES Final Result [facility] [address], [place] [id number] [phone] * (ABNORMAL) CBC auto differential (12/24/2024 11:34 AM EDT) Only the most recent of2 resultswithin the time period is included. White Blood Count 4.7(L) 4.8 - 10.8 X10*3/uL [facility] Red Blood Count 4.21 4.20 - 5.50 X10*6/uL [facility] Hemoglobin 12.8 12.0 - 16.0 g/dl [facility] Hematocrit 37.0 37.0 - 47.0 % [facility] Mean Corpuscular Volume 87.9 80.0 - 98.0 fL [facility] Mean Corpuscular Hemoglobin 30.4 27.0 - 33.0 pg [facility] Mean Corpuscular HGB Conc 34.6 31.0 - 35.0 g/dl [facility] Red Cell Distribution Width 11.9 11.0 - 16.0 % [facility] Platelet Count 318 160 - 400 X10*3/uL [facility] Mean Platelet Volume 8.5(L) 9.4 - 12.3 fL [facility] Neutrophils Percent Auto 49.9 45 - 73 % [facility] Imm Gran Pct Auto 0.2 0.0 - 0.4 % [facility] Lymphocytes Percent Auto 33.7 20 - 40 % [facility] Monocytes Percent Auto 10.9 2 - 11 % [facility] Eosinophils Percent Auto 4.7(H) 0 - 4 % [facility] Basophils Percent Auto 0.6 0 - 2 % [facility] NRBC Pct Auto 0.0 0.0 - 0.2 /100WBC [facility] Neutrophils Absolute Auto 2.3 2.0 - 8.3 x10*3/uL [facility] Imm Gran Abs Auto 0.01 0.00 - 0.03 X10*3/uL [facility] Lymphocytes Absolute Auto 1.6 1.2 - 4.9 X10*3/uL [facility] Monocytes Absolute Auto 0.5 0.1 - 1.2 X10*3/uL [facility] Eosinophils Absolute Auto 0.2 0.0 - 0.4 X10*3/uL [facility] [facility] Basophils Absolute Auto 0.0 0.0 - 0.2 X10*3/uL [facility] NRBC Abs Auto 0.000 0.0 - 0.012 X10*3/uL [facility] 12/24/2024 11:3 4 AM EDT 12/24/2024 11:37 AM EDT us Generic External Data Provider LAB BLOOD ORDERAB LES Final Result [facility] [address] [place] [address] [phone] * (ABNORMAL) Basic Metabolic Panel (12/24/2024 11:34 AM EDT) Only the most recent of2 resultswithin the time period is included. Sodium 142 135 - 145 mmol/L [facility] Potassium 3.9 3.3 - 5.1 mmol/L [facility] Chloride 107 96 - 108 mmol/L [facility] Carbon Dioxide 27 22 - 29 mmol/L [facility] Anion Gap 12 12 - 20 [facility] Urea Nitrogen (BUN) 10 9 - 16 mg/dL [facility] Creatinine, Serum 0.93 0.5 - 1.4 mg/dL [facility] Creatinine Clr Calc Pharmacy 78.5 [facility] Comment:Provided height and weight: 162.56 cm,95.9 kg.eGFR (calculated from the MDRD study equation) and eCrCl(calculated from the Cockcroft-Gault equation) are based ondifferent parameters and may not yield comparable results.If eCrCl result is absurd, please check patient'sheight/weight. Estimated Glomerular Filt Rate >60 [facility] Comment:Chronic Kidney Disea se: Estimated GFR < 60 mL/min/1.61b8Nyyeaj Kidney Disease: Estimated GFR < 15 mL/min/1.73m2 Glucose 118(H) 60 - 115 mg/dL [facility] Calcium 9.1 8.4 - 10.2 mg/dL [facility] 12/24/2024 11:3 4 AM EDT 12/24/2024 11:37 AM EDT us Generic External Data Provider LAB BLOOD ORDERAB LES Final Result [facility] [address] [place] [phone] * XR Chest 2 Views (12/24/2024 10:18 AM EDT) Only the most recent of2 resultswithin the time period is included. Anatomical Region Laterality Modality Chest Radiographic Gudelia ging 12/24/2024 10:1 8 AM EDT Narrative 12/24/2024 11:25 AM EDT [address] [address] XRay Report Signed Patient: Catina Becerra MR#: [id number] : 1970 Acct:[id number] Age/Sex: 54 / F ADM Date: 12/24/24 Loc: .ED Attending Dr: Ordering Physician: Mallika Walter DO Date of Service: 12/24/24 Procedure(s): XR chest 2V Accession Number(s): [id number] cc: Sonam Albarran MD; Mallika Walter DO EXAMINATION: XR CHEST CLINICAL INFORMATION: chest pain COMPARISON: October 29, 2024 TECHNIQUE: 2 views of the chest were obtained. FINDINGS: No consolidation, pleural fissure pneumothorax. No gross hyperinflation. Cardiomediastinal silhouette size is normal. Multilevel thoracic spondylosis, moderate. Patient's large body habitus/obesity. XR/XR chest 2V IMPRESSION: No acute airspace disease. Spondylosis, thoracic spine. Stable chest. Electronically signed by: Venkata Stiles MD 12/24/2024 11:22 AM EDT RP Dictated By: Venkata Gold MD Signed By: <Electronically signed by Venkata Churchill MD in OV> 12/24/24 1122 DD/ 1018 TD/TT: 12/24/24 1118 Resistor Tester: Procedure Note Donotuseinterpreter, Image - 12/24/[address] [address] XRay Report Signed Patient: Catina Becerra EMR#: [id number] : 1970Acct:[id number] Age/Sex: 54 / FADM Date: 12/24/24 Loc: .ED Attending Dr: Ordering Physician: Mallika Walter DO Date of Service: 12/24/24 Procedure(s): XR chest 2V Accession Number(s): [id number] cc: Sonam Albarran MD; Mallika Walter DO EXAMINATION: XR CHEST CLINICAL INFORMATION: chest pain COMPARISON: October 29, 2024 TECHNIQUE: 2 views of the chest were obtained. FINDINGS: No consolidation, pleural fissure pneumothorax. No gross hyperinflation. Cardiomediastinal silhouette size is normal. Multilevel thoracic spondylosis, moderate. Patient's large body habitus/obesity. XR/XR chest 2V IMPRESSION: No acute airspace disease. Spondylosis, thoracic spine. Stable chest. Electronically signed by: Venkata Stiles MD 12/24/2024 11:22 AM EDT RP Dictated By: Venkata Gold MD Signed By: <Electronically signed by Venkata Churchill MDin OV> 12/24/24 1122 DD/ 1018 TD/TT: 12/24/24 1118 Resistor Tester: [facility] External Provider IMG XR PROCEDURES Final Result * Influenza B (ID NOW Rapid Molecular) (12/18/2024 2:11 PM EDT) Only the most recent of2 resultswithin the time period is included. Pathologist [facility] Influenza B Negative Negative, Indeterminate [facility] Swab 12/18/2024 2:11 PM EDT Sonam Hensley MD POINT OF CARE TEST EN TER/EDIT ORDERABLES Final Result Performing Organization Address [facility]/ZIP Co de Phone Number [facility] [address] [place] [phone] * Influenza A (ID NOW Rapid Molecular) (12/18/2024 2:11 PM EDT) Only the most recent of2 resultswithin the time period is included. [facility] Influenza A Negative Negative, Indeterminate [facility] Swab 12/18/2024 2:11 PM EDT Sonam Hensley MD POINT OF CARE TEST EN TER/EDIT ORDERABLES Final Result Performing Organization Address [facility] Co de Phone Number [facility] [address] [place] [phone] * POCT Rapid COVID Ag (12/18/2024 2:11 PM EDT) Only the most recent of2 resultswithin the time period is included. [facility] Rapid COVID Ag Negative Swab 12/18/2024 2:11 PM EDT Result [facility] Sonam Hensley MD POINT OF CARE TEST EN TER/EDIT ORDERABLES Final Result * POCT rapid strep A manually resulted (12/08/2024 2:17 PM EDT) [facility] Rapid Strep A Screen Negative Negative, None Detected Swab 12/08/2024 2:17 PM EDT Dolores Gómez MD POINT OF CARE TEST ENTER/E DIT ORDERABLES Final Result * Magnesium (10/29/2024 9:34 PM EDT) Pathologist [facility] Magnesium 2.2 1.6 - 2.6 mg/dL [facility] 10/29/2024 9:34 PM EDT 10/29/2024 9:36 PM EDT Generic External Data Provider LAB BLOOD ORDERAB LES Final Result Performing Organization Address [facility] de Phone Number [facility] [address] [place] [phone] * Hepatic Function Panel (10/29/2024 9:34 PM EDT) Pathologist [facility] Bilirubin, Total 0.3 0.0 - 1.0 mg/dL [facility] Bilirubin, Direct 0.1 0.0 - 0.5 mg/dL [facility] Aspartate Amino Transferase 26 5 - 31 U/L [facility] Alanine Aminotransferase 23 0 - 31 U/L [facility] Total Protein 7.5 6.5 - 8.0 g/dL [facility] Albumin Level 4.5 3.5 - 5.0 g/dL [facility] Alkaline Phosphatase 74 39 - 117 U/L [facility] 10/29/2024 9:34 PM EDT 10/29/2024 9:36 PM EDT [employer] External Data Provider LAB BLOOD ORDERAB LES Final Result Performing Organization Address [facility] Co de Phone Number [facility] [address] [place] [phone] * (ABNORMAL) Lipid Panel, Standard (03/01/2023 9:49 AM EDT) Pathologist [facility] Triglycerides 173(H) <150 mg/dL [facility] Comment:Desirable Triglyceri de: less than 150 mg/dLBorderline High Triglyceride 150-199 mg/dLHigh Triglyceride: 200-499 mg/dLVery High Triglyceride: greater than or equal to 5OO mg/dL Cholesterol 239(H) <200 mg/dL [facility] Comment:Desirable Cholestero l: less than 200 mg/dLBorderline High Cholesterol: 200-239 mg/dLHigh Cholesterol: greater than 239 mg/dL LDL Cholesterol Calculated 165(H) <100 mg/dL [facility] Comment:Desirable LDL: less than 100 mg/dLNear Optimal/Above Optimal LDL: 110- 129 mg/dLBorderline High LDL: 130-159 mg/dLHigh LDL: 160-189 mg/dLVery High LDL: greater than or equal to 190 mg/dL HDL Cholesterol 40(L) >40 mg/dL [facility] Comment:Desirable HDL: great er than 40 mg/dL Note: This HDL assay may give artificially low results in patients with liver disease. Blood Venous blood specimen / Unknown 03/01/2023 9:49 AM EDT 03/01/2023 9:49 AM EDT Dory Villanueva DO LAB BLOOD ORDERABLES Final R esult [facility] [address] [place] [phone] * THINPREP TIS PAP AND HPV mRNA E6/E7, CT/NG, TRICH (08/10/2021 11:39 AM EDT) Chlamydia trachomatis RNA, TMA, Urogenital NOT DETECTED NOT DETECTED [facility] Clinical Information: ASCUS HPV NEG 2017 [facility] COMMENT SEE COMMENT [facility] Comment: The analytical performance characteristics of this assay, when used to test SurePath(TM) specimens have been determined by [employer]. The modifications have not been cleared or approved by the FDA. This assay has been validated pursuant to the CLIA regulations and is used for clinical purposes. For additional information, please refer to https://education.[employer]/faq/OMB446 (This link is being provided for information/ educational purposes only.) COMMENT SEE COMMENT [facility] Comment: EXPLANATORY NOTE: The Pap is a screening test for cervical cancer. It is not a diagnostic test and is subject to false negative and false positive results. It is most reliable when a satisfactory sample, regularly obtained, is submitted with relevant clinical findings and history, and when the Pap result is evaluated along with historic and current clinical information. COMMENT: This Pap test has been evaluated with computer assisted technology. [facility] Tip Bander: SEE COMMENT [facility] Comment: GSG, CT(ASCP) CT screening location: [place] [address] HPV nRNA E6/E7 Not Detected Not Detected [facility] Comment: Methodology: Logistics Operations Director-Mediated Amplification This assay detects E6/E7 viral messenger RNA (mRNA) from 14 high-risk HPV types (16,18,31,33,35,39,45,51,52,56,58,59,66,68). The analytical performance characteristics of this assay have been determined by [employer]. The modifications have not been cleared or approved by the FDA. This assay has been validated pursuant to the CLIA regulations and is used for clinical purposes. For additional information, please refer to http://[email or web address]/faq/NRP504s9 (This link if provided for information/ educational purposes only.) Interpretation/Re sult: Negative for intraepithelial lesion or malignancy. [facility] LMP: 07/18/21 [facility] Neisseria gonorrhoeae RNA, TMA, Urogenital NOT DETECTED NOT DETECTED [facility] Prev. BX: NONE GIVEN [facility] Prev. PAP: NONE GIVEN [facility] SOURCE: None given [facility] Statement Of Adequacy: SEE COMMENT [facility] Comment: Satisfactory for evaluation. Endocervical/transformation zone component absent. Trichomonas vaginalis, QL, TMA, PAP Vial NOT DETECTED NOT DETECTED [facility] Comment: The analytical performance characteristics of this assay have been determined by [employer]. The modifications have not been cleared or approved by the FDA. This assay has been validated pursuant to the CLIA regulations and is used for clinical purposes. For additional information, please refer to [email or web address]/ faq/Trichomonastma (This link is being provided for information/ educational purposes only.) 08/10/2021 11:3 9 AM EDT Alda Tabares CN LAB PATHOLOGY ORDERABLES Final Result [facility] [address] * 3D BILATERAL DIAGN MAMMO 1 (12/23/2017 12:58 PM EDT) Anatomical Region Laterality Modality Breast Bilateral Mammography 12/23/2017 12:5 8 PM EDT Narrative 12/23/2017 12:59 PM EDT Refer to the Notes tab for result details [facility] Procedure: 3D BILATERAL DIAGN MAMMO 1 Procedure Note Provider, MD Adal - 07/28/2022 Refer to the Notes tab for result details [facility] Procedure: 3D BILATERAL DIAGN MAMMO 1 William Mayer MD IMG BI PROCEDURES Final Resul t from Last 3 Months or Most Recently Relevant to Health Maintenance Insurance [facility]ARE < [address] [place] [phone] Care Teams Assembler Cards And Announcements Relationship Specialty Start Date End Date Sonam Albarran MD [address] [place] [phone] PCP - General Family Medicine 04/06/19
--- OUTSIDE RECORDS SUMMARY | 2025-01-18 14:24 | XMS_ITS | Encounter Summary ---
Author Organization [email or web address] Address [address] [place] [address] Care Team Providers Care Web Support Engineer Name Role Phone Sonam Albarran MD Primary Care Provide r Encounter Details Date Type Department Care Team (Latest Contact Info) Description 01/13/2025 Travel Social History Tobacco Use Types Packs/Day Years [...] Diagnoses Not on filedocumented in this encounter Additional Health Concerns Assessment Noted Time PHQ-9 Depression Total Score: 19 024 1:58 PM EDT documented as of this encounter Care Teams Web Support Engineer Relationship Specialty Start Date End Date Sonam Albarran MD [address] [place] [address] PCP - General Family Medicine 04/06/19 documented as of this encounter
--- OUTSIDE RECORDS SUMMARY | 2025-01-18 14:24 | XMS_ITS | Encounter Summary ---
Author Organization [employer] Address [address] [place] [address] Care Team Providers Care Plate Glass Polisher Name Role Phone Sonam Albarran MD Primary Care Provide r Reason for Visit * Reason Comments Med Refill Encounter Details Date Type Department Care Team ([facility] st Contact Info) Description 01/08/2024 Refill [facility] [address] [place], [place] [phone] Sonam Albarran MD [address] [place] [address] Social History Tobacco Use Types Packs/Day Years Used Date Smoking Tobacco: Never Passive Smoke Exposure: Never Smokeless Tobacco: Never Alcohol Use Standard Drinks/Week Comments Never 0 (1 standard drink = 0.6 oz pur e alcohol) Depression Answer Date Recorded Patient Health Questionnaire-9 Score 13 07/19/2023 Patient Health Questionnaire-9 Score 13 07/19/2023 Last PHQ-9: Questionnaire Data Not on file 0 07/19/2023 Housing Stability Answer Date Recorded What is your housing situation today? I have dre smith 02/21/[address] you [...] Answer Date Recorded Patient Health Questionnaire-2 Score 5 07/19/2023 Comments Unknown Sex and Gender Information Value [...] Assessment Noted Time PHQ-9 Depression Total Score: 13 024 10:11 AM EDT documented as of this encounter Care Teams Plate Glass Polisher Relationship Specialty Start Date End Date Sonam Albarran MD [address] [place] [phone] PCP - General Family Medicine 04/06/19 documented as of this encounter
--- OUTSIDE RECORDS SUMMARY | 2025-01-18 14:24 | XMS_ITS | Encounter Summary ---
Author Organization [facility] Address [address] [place] [address] Care Team Providers Care Forest Management Professor Name Role Phone Sonam Albarran MD Primary Care Provide r Encounter Details Date Type Department Care Team (Late st Contact Info) Description 10/06/2024 Lab Requisition [facility] [address] [facility] [place] [phone] Leonardo Turner PA [address] [place] [address] Pyuria Social History Tobacco Use Types Packs/Day Years Used Date Smoking Tobacco: Never Assessed Comments Unknown Sex and Gender Information Value Date Recorded Sex Assigned at Not on file Legal Sex Female 12:54 AM EST Gender Identity Not on file Sexual Orientation Not on file documented as of this encounter Plan of Treatment Upcoming Encounters Date Type Department Care Team (Late st Contact Info) Description 06/17/2025 8:30 AM EST Office Visit [facility] [address] [facility] [address] [facility] [address] [place] [address] Joseph Fuller MD [address] [place] [address] documented as of this encounter Procedures Procedure Name Priority Date/Time Associated Diagnosis Comments BACTERIAL IDENTIFICATION AND SUSCEPTIBILITY, AEROBIC Routine 10/05/2024 3:06 PM EDT Pyuria documented in this encounter Results * Bacterial identification and susceptibility, aerobic (10/05/2024 3:06 PM EDT) Culture, Bacterial ID and Sensitivity Multiple bacterial morphotypes present consistent with either contamination or urogenital lakeshia. Suggest repeat specimen, if clinically indicated. 10/07/2024 8:20 AM EDT [facility] Other Topography unknown / Unknown 10/05/2024 3:06 PM EDT 10/06/2024 7:10 PM EDT us Leonardo ELLIOTT LAB MICROBIOLOGY - GENERAL ORDER TUCKER Final Result [facility] [address] [place] [address], documented in this encounter Visit Diagnoses Diagnosis Pyuria Other nonspecific finding on examination of urine documented in this encounter Care Teams Forest Management Professor Relationship Specialty Start Date End Date Sonam Albarran MD [address] [place] [phone] PCP - General Internal Medicine 02/21/22 documented as of this encounter
--- OUTSIDE RECORDS SUMMARY | 2025-01-18 14:24 | XMS_ITS | Encounter Summary ---
Author Organization [employer] Address [address] [place] [address] [address] [place] [phone] Care Team Providers Care Hyperion Administrator Name Role Phone Sonam Albarran MD Primary Care Provide r Encounter Details Date Type Department Care Team (Late st Contact Info) Description 04/17/2022 Abstract [facility] [address] [place] [address] Sonam Albarran MD [address] [place], [place] [phone] Social History Tobacco Use Types Packs/Day Years Used Date Smoking Tobacco: Never Passive Smoke Exposure: Never Smokeless Tobacco: Never Comments Unknown Sex and Gender Information Value [...] suspected to have Coronavirus/COVID-19? No / Unsure 04/18/2022 2:20 PM EST documented as of this encounter Plan of Treatment Not on file documented as of this encounter Visit Diagnoses Not on filedocumented in this encounter Care Teams Hyperion Administrator Relationship Specialty Start Date End Date Sonam Albarran MD [address] [place], [place] [phone] PCP - General Family Medicine 04/06/19 documented as of this encounter
--- OUTSIDE RECORDS SUMMARY | 2025-01-18 14:24 | XMS_ITS | Continuity of Care Document ---
Author Name [facility], Medical Address [address] [place] [id number] Organization Unknown Address [address] [place] [address] Medications No known medications Problems No known problems
--- OUTSIDE RECORDS SUMMARY | 2025-01-18 14:24 | XMS_ITS | Clinical Summary ---
Author Organization [facility] Address [address] [place] [address] Care Team Providers Care Underwriting Specialist Name Role Phone Sonam Albarran MD Primary [...] / Skin Rash Shellfish Containing Products 12/15/2024 Uxyxzlt-Fcl-Dwz Reductase Inhibitors 12/15/2024 Sulfamethoxazole 12/16/2019 Other reaction(s): [...] time each day in the morning. Active busPIRone (BUSPAR) 10 mg tablet TAKE [...] in each eye every 12 hours Active docusate sodium (COLACE) 100 mg capsule [...] 200 mg 60 tablet 3 5 Active Encounters Date Type Department Care Team Description 12/15/2024 9:00 AM EDT Telemedicine [address] [place] [address] Casi Sánchez PA Seizure ([facility] V24, [facility] V28) (Primary Dx) from Last 3 Months Medical History Medical History Date Comments Hyperlipidemia Hypertension Seizures (CMS/HCC V24, CMS/[facility] V28) Arthritis 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 (CMS/HCC V24, CMS/[facility] V28) Heart disease Social History Tobacco Use [...] 06/17/2025 8:30 AM EST Office Visit [facility] [address] [facility] [address] [place] [address] Joseph Fuller MD [facility] [place] [address] Health Maintenance Due Date Last Done Comments Cervical Cancer Screening: Pap Smear 09/13/1992 Breast Cancer Screening 12/24/2019 12/23/2017 Pneumococcal Vaccine: 50+ Years (1 of 1 - PCV) 09/13/2021 Zoster Vaccines (1 of 2) 09/13/2021 Colorectal Cancer Screening: Colonoscopy 04/08/2022 HIV Screening 04/08/2022 Hepatitis C Screening 04/08/2022 Medicare Annual Wellness Visit 04/08/2022 Social Influencers of Health Screening 04/08/2022 Depression Screening 05/06/2024 COVID-19 Vaccine ( - season) 2025 Influenza [...] Procedure Name Priority Date/Time Associated Diagnosis Comments CREATININE, SERUM Routine 03/17/2024 10: 41 AM EST Seizure (CMS/[facility] V24, CMS/[facility] V28) from Last 3 Months or Most Recently Relevant to Health Maintenance Results * Creatinine (03/17/2024 10:41 AM EST) Creatinine 0.90 0.50 - 1.10 mg/dL LAB CHEMISTRY METHOD 03/17/2024 3:48 PM EST [facility] eGFR 77 >=60 mL/min/1. 73m2 LAB CHEMISTRY METHOD 03/17/2024 3:48 PM EST [facility] Comment:Calculation based on the Chronic Kidney Disease Epidemiology Collaboration (CKD-EPI) equation refit without adjustment for race. Blood Venous blood specimen / Unknown Venipuncture / Unknown 03/17/2024 10:41 AM EST 03/17/2024 10:42 AM EST Joseph Fuller MD LAB BLOOD ORDERABLES Fin al Result [facility] [address] [place] [address], from Last 3 Months or Most Recently Relevant to Health Maintenance Insurance [employer] MEDICARE Member Subscriber Plan / Payer (Ef fective 2013-Present) Name:CATINA BECERRA Relation to Subscriber:Self Name:Catina Becerra Payer ID:[id number] Group ID:[id number] Type:Not on file Address: [place] [address] [place] [phone] Care Teams Underwriting Specialist Relationship Specialty Start Date End Date Sonam Albarran MD [address] [place] [address] GITA Chapman [phone] PCP - General Internal Medicine 02/21/22
--- OUTSIDE RECORDS SUMMARY | 2025-01-18 14:24 | XMS_ITS | Encounter Summary ---
Author Organization [employer] Address [address] [place] [address] [address] [place] [address] Care Team Providers Care Windows Server Support Technician Name Role Phone Sonam Albarran MD Primary Care Provide r Encounter Details Date Type Department Care Team ([facility] st Contact Info) Description 04/16/2022 Orders Only [facility] [address] [place] [address] Dory Abebe, JYOTI [address] [place] [address] Social History Tobacco Use Types Packs/Day Years [...] on filedocumented in this encounter Care Teams Windows Server Support Technician Relationship Specialty Start Date End Date Sonam Albarran MD [address] [place] [address] PCP - General Family Medicine 04/06/19 documented as of this encounter
--- OUTSIDE RECORDS SUMMARY | 2025-01-18 14:24 | XMS_ITS | Encounter Summary ---
Author Organization [employer] Address [address] [place] [address] 7 [place] [address] Care Team Providers Care Application Development Director Name Role Phone Sonam Albarran MD Primary Care Provide r Reason for Visit * Reason Onset Date Comments Medication Concern 06/06/2022 Encounter Details Date Type Department Care Team ([facility] st Contact Info) Description 06/06/2022 Telephone [facility] MEDICINE [address] [place] [address] Sonam Albarran MD [address] [place], [place] [phone] Medication Concern Social History Tobacco Use Types Packs/Day Years [...] PM EST documented as of this encounter Miscellaneous Notes * Telephone Encounter - Rema Singh RN - 06/07/2022 11:47 AM EST Call to pt. She reports that she has blurred vision and loss of hair with pregabalin like she does with gabapentin. She reports she has tried them both and both cause trouble. Message sent to Provider who last saw patient * Telephone Encounter - Pk Staples - 06/07/2022 11:03 AM EST Tc from pt returning call regarding message below. Please contact pt at [phone] * Telephone Encounter - Rema Singh RN - 06/07/2022 10:42 AM EST Call to pt with no answer. Advised to call back so we could discuss prior effects of the pregablin.Note sent to Dr. Gray, who last saw pt for office visit and rxed the lyrica. * Telephone Encounter - Nissa Franz - 06/06/2022 12:28 PM EST Tc from pt regarding to a medication Concern she's having of pregabalin (Lyrica) 25 MG capsule pt claims that she has have this medication in the pass and has had a reaction to it. Pt does not know what to do and would like to speak with the Provider. Please contact pt at [phone] documented in this encounter Plan of Treatment Not on file documented as of this encounter Visit Diagnoses Not on filedocumented in this encounter Care Teams Application Development Director Relationship Specialty Start Date End Date Sonam Albarran MD [address] [place] [phone] PCP - General Family Medicine 04/06/19 documented as of this encounter
--- OUTSIDE RECORDS SUMMARY | 2025-01-18 14:24 | XMS_ITS | Patient Health Record ---
Author Organization [facility] Address [address] [place] [id number] Care Team Providers Care Executive Sous Chef Name Role Phone JADEN HAGER Unavailable [phone] Allergies Allergen (clinical drug ingredient) Drug/Non Drug [...] Results Component Value Reference Range Notes HBsAg Screen-[id number] Reviewed date:09/18/2024 02:32:44 PM Interpretation:Negative Performing Lab:[facility], [address], [place], Phone - [phone], [facility] Notes/Report: HBsAg Screen Negative Negative Hepatitis B Surf Ab Quant-00 6530 Reviewed date:09/18/2024 02:33:05 PM Interpretation:Immune Performing Lab:[facility], [address], [address], [place], Phone - [phone], [facility] Notes/Report: Hepatitis B Surf Ab Quant 528.0 Immunity>10 mIU/mL Status of Immunity Anti-HBs Level Inconsistent with Immunity 0.0 - 10.0 Consistent with Immunity >10.0 T pallidum Screening [place] -[id number] Reviewed date:09/18/2024 02:33:22 PM Interpretation:Negative Performing Lab:[facility] [place], [address], [address], [place], Phone - [phone], [facility] Notes/Report: T pallidum Antibodies Non Reactive Non Reactive HIV Ab/p24 Ag with Reflex-08 3935 Reviewed date:09/18/2024 02:33:14 PM Interpretation:Negative Performing Lab:[facility] [place], [address], [address], [place], Phone - [phone], [facility] Notes/Report: HIV Ab/p24 Ag Screen Non Reactive Non Reactive HIV-1/HIV-2 antibodies and HIV-1 p24 antigen were NOT detected. There is no laboratory evidence of HIV infection. HIV Negative HCV Antibody RFX to Quant PC [id number] Reviewed date:09/18/2024 02:32:35 PM Interpretation:Negative Performing Lab:[facility] [place], [address], [address], [place], Phone - [phone], [facility] Notes/Report: HCV Ab Non Reactive Non Reactive Interpretation: Not infected with HCV unless early or acute infection is suspected (which may be delayed in an immunocompromised individual), or other evidence exists to indicate HCV infection. Ct, Ng, Trich vag by JORDANA-[id number] Reviewed date:09/18/2024 02:33:32 PM Interpretation:Negative Performing Lab:[facility] [place], [address], [address], [place], Phone - [phone], [facility] Notes/Report: Chlamydia by JORDANA Negative Negative Gonococcus by JORDANA Negative Negative Trich vag by JORDANA Negative Negative IGP, Apt HPV,rfx 16/18,45-19 9344 Reviewed date:09/18/2024 02:37:27 PM Interpretation:Normal, HPV negative Performing Lab:[facility] [place], [address], [address], [place], Phone - [phone], Director - [facility] Notes/Report: No. of containers..01 ThinPrep Vial LMP / Prev Treat...CMY=[id number] Clinical Information:[id number] DIAGNOSIS: NEGATIVE FOR IN TRAEPITHELIAL LESION OR MALIGNANCY. Specimen adequacy: Satisfactory for evaluation. Endocervical and/or squamous metaplastic cells (endocervical component) are present. Clinician provided ICD10: Z01.419 Z11.51 Performed by: Blanco madrigal, Piano Player (ASCP) . . Note: The Pap smear [...] Lab:[facility] [place], [address], [address], [place], Phone - [phone], Director - [facility] Notes/Report: Clinical Information:[id number] LMP / Prev Treat...[id number] No. of containers..01 ThinPrep Vial Reason For Referral Reason 53 yr old with bruna rns for incontinence. Clt reports prior urology workup and dx of hypertonic bladder syndrome. Please further evaluate and manage. Referral for pelvic floor PT sent. Diagnosis 1 Stress incontinence (female) (male) (N39.3) Referral Organization [place] [facility] Referring Provider First Name JADEN Referring Provider Last Name ALLEY Referring Provider Speciality Certified Nurse Communication Spec Referred Provider Sandra Vasques Referred Provider Specialty [...] Active Vitamin D3 Active rOPINIRole HCl Not-T aking/PRN Lopressor Active Zantac Not-Taking /PRN Doxycycline Not-Taki ng/PRN Mandelay Active levETIRAcetam Not-Ta jassi/PRN Cetirizine HCl Not-T aking/PRN Omeprazole Not-Takin g/PRN BuSpar Active Lorazepam Not-Taking /PRN Vitamin B12 Active Bethanechol Chloride Not-Taking/PRN Ambien Active Sertraline HCl Not-T aking/PRN Demadex Active Vimpat Not-Taking /PRN Requip Not-Taking /PRN Restasis Not-Taking /PRN Ortho Micronor 0.35 MG Tablet 1 tablet Orally Once a day; Duration: 28 days Not-Taking/PRN Colace Active Prazosin HCl Active Immunizations Vaccine Route Administration Date Status Comme nts Hep A, adult IM Intramuscular 12/03/2019 Administered Hep B, adult dosage, for intramuscular use IM Intramuscular 12/03/2019 Administered Social History Sex Assigned At : Social History Observation Description Sex Assigned At Female Social History HIV Risk Assessment Social Info Question Answer Notes Additional Questions Is an HIV Risk Asse ssment being conducted? Yes Reproductive Life Plan: Social Info Question Answer Notes Reproductive Life Plan: Do you want to have chil dren? No, I don't want to have children Human Trafficking: Social Info Question Answer Notes Human Trafficking Experienced: No PrEP for HIV: Social Info Question Answer Notes PrEP for HIV Is the client intere sted in beginning/continuing PrEP for HIV? No Sexual History: Social Info Question Answer Notes Sexual History: Sexual History Reviewed: Partner s, Practices, Protection/Past STIs Currently sexually active? No When was the last time you were sexually active? 03/06/2024 When you are sexually active, who are your partners? Men Your sexual activities include: vaginal intercourse Do you use condoms? Yes Condoms are used: regularly Date of last unprotected intercourse: 03/06/2024 Number of partners in past 3 months: 0 Number of partners in past year: 1 Does your partner(s) currently have any STIs? No Counseling Provided: Social Info Question Answer Notes Counseling Provided Please indicate the length of time, in minutes, that counseling was provided. 12 Counseling Was Provided By: steven Drugs/Alcohol: Social Info Question Answer Notes Drug/Alcohol Use Do you or have you used drugs? No Do you or have you used alcohol? No Relationships: Social Info Question Answer Notes Relationships Has the client experienced any of the following: Client has never experienced harmful relationships DO NOT USE - Travel Plans: Social Info Question Answer Notes Travel Plans DO NOT USE - Has client traveled to any Z[place] affected areas? no traveling plans Housing Social Info Question Answer Notes Housing The client's current living situation is: stable housing Tobacco Use: Social Info Question Answer Notes Tobacco Use: Do you/have you used tobacco? No Section Notes: Aptima./ bw Problems Problem Type SNOMED Code ICD Code Onset Dates Problem Status W/U Status Risk Notes Problem SI - Stress incontinence (23279269) Stress incontinence (female) (male) (N39.3) Active confirmed Problem Dysfunctional uterine bleeding (12994815566379) Dysfunctional uterine bleeding (N93.8) Active confirmed Vital [...] medication Encounters Encounter Location Date Provider Diagnosis [facility] [address] [place], [place] [phone] 09/09/2024 JADEN HAGER Encounter for gynecological examination (general) (routine) without abnormal findings Z01.419 ; HPV Pap Screening Z11.51 ; Encounter for screening for infections with a predominantly sexual mode of transmission Z11.3 ; HIV Screening Z11.4 ; Encounter for screening for other viral diseases Z11.59 and Stress incontinence (female) (male) N39.3 [facility] [address] [facility] [address] [place], [place] [phone] 09/11/2024 JADEN HAGER Assessments Encounter Date Diagnosis [...] Date MEDICARE PART B [address] [place] [id number] Catina Becerra Self - patient is the insured [place] MEDICAID ATT CLAIMS [address] [place] [address] [id number] Catina Becerra Self - patient is the insured Medical (General) History Medical History History ICD Code seizure disorder anxiety history abnormal pap test overactive bladder heart disease high blood pressure seizure Hospitalization History Reason Date(Month/Year) Vaginal bleeding 2021
--- OUTSIDE RECORDS SUMMARY | 2025-01-18 14:24 | XMS_ITS | Encounter Summary ---
Author Organization [employer] Address [address] [place] [address] 7 [place] [address] Care Team Providers Care Cut And Cover Line Worker Name Role Phone Sonam Albarran MD Primary Care Provide r Reason for Visit * Reason Onset Date Comments Referral 09/06/2023 Encounter Details Date Type Department Care Team ([facility] st Contact Info) Description 09/06/2023 Telephone [facility] MEDICINE [address] [place], [place] [phone] Sonam Albarran MD [address] [place], [place] [phone] Referral Social History Tobacco Use Types Packs/Day Years [...] AM EDT documented as of this encounter Miscellaneous Notes * Telephone Encounter - Mary Lou Levine - 09/06/2023 12:48 PM EDT Tc from pt requesting an alternative location for physical therapy. States has been to [facility] for PT before and did not help. documented in this encounter Plan of Treatment Not on file documented as of this encounter Visit Diagnoses Not on filedocumented in this encounter Additional Health Concerns Assessment Noted Time PHQ-9 Depression Total Score: 13 024 10:11 AM EDT documented as of this encounter Care Teams Cut And Cover Line Worker Relationship Specialty Start Date End Date Sonam Albarran MD [address] [place] [address] PCP - General Family Medicine 04/06/19 documented as of this encounter
== END 2025-01-18 11:34 | disposition home or self-care (01) ==
LOC: HO.HGI 10:50
PROVIDERS: PCP Internal Medicine; Visit Provider Nurse Practitioner Family
DX: Z01.818 Encounter for other preprocedural examination (principal); Z12.11 Encounter for screening for malignant neoplasm of colon
CPT/HCPCS: 99024

== ENCOUNTER → 2025-01-18 10:50 | Outpatient (BNVA) | payer OTHER, SELFPAY | PROVIDERS: PCP Internal Medicine; Visit Provider Nurse Practitioner Family | DX: Z01.818 Encounter for other preprocedural examination (principal) | CPT/HCPCS: 99212 ==

== ENCOUNTER 2025-03-08 11:54 | Outpatient (REF) | payer OTHER, SELFPAY ==
[2025-03-08 13:28] LABS: MANUAL DIFF FLAG NO
[2025-03-08 13:37] LABS: Hematocrit 40.2 % (37.0-47.0); Hemoglobin 13.4 g/dl (12.0-16.0); Imm Gran Abs Auto 0.01 X10*3/uL (0.00-0.03); Imm Gran Pct Auto 0.2 % (0.0-0.4); Lymphocytes Absolute Auto 2.0 X10*3/uL (1.2-4.9); Mean Corpuscular HGB Conc 33.3 g/dl (31.0-35.0); Mean Corpuscular Hemoglobin 29.8 pg (27.0-33.0); Mean Corpuscular Volume 89.5 fL (80.0-98.0); NRBC Abs Auto 0.000 X10*3/uL (0.0-0.012); NRBC Pct Auto 0.0 /100WBC (0.0-0.2); Platelet Count 283 X10*3/uL (160-400); Red Blood Count 4.49 X10*6/uL (4.20-5.50); White Blood Count 5.0 X10*3/uL (4.8-10.8)
[2025-03-08 14:16] LABS: Alanine Aminotransferase 25 U/L (0-31); Albumin Level 4.6 g/dL (3.5-5.0); Alkaline Phosphatase 77 U/L (39-117); Anion Gap 8 (12-20); Aspartate Amino Transferase 29 U/L (5-31); Blood Urea Nitrogen 15 mg/dL (9-16); Calcium 9.3 mg/dL (8.4-10.2); Carbon Dioxide 30 mmol/L (22-29); Chloride 106 mmol/L (96-108); Cholesterol 222 mg/dL (<200); Estimated Glomerular Filt Rate > 60; HDL Cholesterol 40 mg/dL (>40); Potassium 3.8 mmol/L (3.3-5.1); Sodium 140 mmol/L (135-145); Total Protein 7.5 g/dL (6.5-8.0); Triglycerides 241 mg/dL (<150)
--- OUTSIDE RECORDS SUMMARY | 2025-03-08 15:08 | XMS_ITS | Patient Health Record ---
Author Organization [facility] Address [address] [place] [address] Care Team Providers Care House Sitter Name Role Phone Rodrigo Pedersen Primary Care Provider Froylan Gonzáles [phone] Reason For Referral No Information Plan Of Treatment No Information Insurance Providers Payer Name Payer Address Payer Phone Subscriber Number Group Number Insured Name Patient Relationship to Insured Coverage Start Date Coverage End Date [facility] [address] [place] [address] [id number] DUTCH MALONE Self - patient is the insured
--- OUTSIDE RECORDS SUMMARY | 2025-03-08 15:08 | XMS_ITS | Encounter Summary ---
Author Organization [employer] Address [address] [place] [address] 7t h Floor [place] [phone] Care Team Providers Care Stained Glass Joiner Name Role Phone Sonam Albarran MD Primary Care Provide r Encounter Details Date Type Department Care Team (Late Contact Info) Description 12/28/2022 Orders Only [facility] MEDICINE [address] [place], [place] [phone] Nevaeh Pope MD [address] [place], [place] [phone] Calcaneal spur of left foot (Primary Dx); [...] Care Team (Late st Contact Info) Description 03/23/2025 11:00 AM EST Nutrition [facility] DIABETES/NUTRITION [address] [place] [address] [place], [place] [phone] 05/13/2025 9:00 AM EST Office Visit [facility] MEDICINE [address] [place] [address] Sonam Albarran MD [address] [place] [address] documented as of this encounter Visit Diagnoses Diagnosis Calcaneal spur of left foot- Primary Left foot pain Pain in soft tissues of limb documented in this encounter Care Teams Stained Glass Joiner Relationship Specialty Start Date End Date Sonam Albarran MD [address] [place] [phone] PCP - General Family Medicine 04/06/19 documented as of this encounter
--- OUTSIDE RECORDS SUMMARY | 2025-03-08 15:08 | XMS_ITS | Clinical Summary ---
Author Organization [facility] Address [address] [place] [address] Care Team Providers Care Marble Setter Name Role Phone Sonam Albarran MD Primary [...] / Skin Rash Shellfish Containing Products 12/15/2024 Rotomei-Igp-Jsz Reductase Inhibitors 12/15/2024 Sulfamethoxazole 12/16/2019 Other reaction(s): Unknown Tamsulosin 12/04/2013 Terazosin 12/04/2013 Trimethoprim Rash Low 12/16/2019 Other reaction(s): Unknown Ezetimibe 12/15/2024 Medications albuterol HFA (PROAIR HFA ; PROVENTIL HFA ; VENTOLIN HFA) 90 mcg/actuation inhaler Inhale 2 puffs by mouth every 6 hours as needed. 4 Active aspirin 81 mg EC tablet Take [...] times a day. 60 each 3 5 03/11/20 25 Active lacosamide (VIMPAT) 100 mg tablet Take 1 tablet (100 mg total) by mouth 2 (two) times a day. Max Daily Amount: 200 mg 60 tablet 3 5 03/11/20 25 Active levETIRAcetam (KEPPRA) 500 mg tablet Take 1 tablet (500 mg total) by mouth 2 (two) times a day. 60 each 3 5 02/10/20 25 Discontinu ed(Reorder ) lacosamide (VIMPAT) 100 mg tablet Take 1 tablet (100 mg total) by mouth 2 (two) times a day. 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 (CMS/HCC V24, CMS/HCC V28) Heart disease Social History Tobacco Use [...] 06/17/2025 8:30 AM EST Office Visit [facility] [address] [facility] [address] [place] [phone] Joseph Fuller MD [address] [place] [address] Health Maintenance Due Date Last Done Comments Colorectal Cancer Screening: Colonoscopy 1971 Cervical Cancer Screening: Pap Smear 09/13/1992 Breast Cancer Screening 12/24/2019 12/23/2017 Pneumococcal Vaccine: 50+ Years (1 of 1 - PCV) 09/13/2021 Zoster Vaccines (1 of 2) 09/13/2021 HIV Screening 04/08/2022 Hepatitis C Screening 04/08/2022 Medicare Annual Wellness Visit 04/08/2022 Social Influencers of Health Screening 04/08/2022 Depression Screening 05/06/2024 COVID-19 Vaccine ( - season) 2025 Influenza Vaccine (#1) 2025 3, 12/23/2021, 01/07/2018, Additional history exists Hypertension/CHF/CAD Annual BMP Blood Test 10/29/2025 10/29/2024, 03/17/2024 DTaP,Tdap,and Td Vaccines (3 - Td or Tdap) 01/15/2027 01/15/2017, 08/09/2006 Cholesterol Screening (Lipid Panel) 03/01/2028 03/01/2023 RSV Immunization Adult Patients (1 - 1-dose 75+ series) 09/13/2046 Hepatitis [...] Routine 03/17/2024 10: 41 AM EST Seizure ([facility] V24, CMS/[facility] V28) from Last 3 Months or Most Recently Relevant to Health Maintenance Results * Creatinine (03/17/2024 10:41 AM EST) Creatinine 0.90 0.50 - 1.10 mg/dL LAB CHEMISTRY METHOD 03/17/2024 3:48 PM EST [facility] eGFR 77 >=60 mL/min/1. 73m2 LAB CHEMISTRY METHOD 03/17/2024 3:48 PM EST [facility] Comment:Calculation based on the Chronic Kidney Disease Epidemiology Collaboration (CKD-EPI) equation refit without adjustment for race. Blood Venous blood specimen / Unknown Venipuncture / Unknown 03/17/2024 10:41 AM EST 03/17/2024 10:42 AM EST Joseph Fuller MD LAB BLOOD ORDERABLES Fin al Result [facility] [place] ([facility]) [facility] [address] [place] [address], [place] [phone] from Last 3 Months or Most Recently Relevant to Health Maintenance Insurance [facility] MEDICARE Member Subscriber Plan / Payer (Ef fective 2013-Present) Name:CATINA BECERRA Relation to Subscriber:Self Name:Catina Becerra Payer ID:[id number] Group ID:[id number] Type:Not on file Address: [place] [address] [place] [address] Care Teams Marble Setter Relationship Specialty Start Date End Date Sonam Albarran MD [address] [place] [address] [place] [phone] PCP - General Internal Medicine 02/21/22
--- OUTSIDE RECORDS SUMMARY | 2025-03-08 15:08 | XMS_ITS | Data Portability ---
Author Organization [employer] [facility] [place] [facility] [facility] Address [address] [place] [phone] Care Team Providers Care Veneer Trimmer Name Role Phone HIM SUZANNE OTHER Assessment Encounter Date Assessment Date Assessment LastModified [...] most likely related to acute withdrawl of long term care social worker antiolytics low risk for respiratory complications return to primary team vkudesia Not available 08/18/2022 00:17:27 12/11/2024 12/11/2024 service called for cough for 54 franny with hx HTN GERD anxiety depression OA PTSD Sj gren's obesity c/o 3-4d productive yellow/green sputm barking in nature denies f/c 8/5 positive covid benzonatate no longer effective able conitnue regular activities and regular PO intake VSS reproted CTAB #Cough much improved following 1x duoneb likely underlying bronchospasm in post covid infection -short course albuterol inhaler notify service if worsening or no improvement otherwiser return to ptimary team vkudesia Not available 12/11/2024 20:24:13 Plan of Treatment Reminders Order Date Submit Date Provider Last Modified By Organization Details Last Modified Time Details Appointments None recorded. Lab None recorded. Referral None recorded. Procedures None recorded. Surgeries None recorded. Imaging None recorded. Medication Orders ipratropium 0.5 mg-albutero l 3 mg (2.5 mg base)/3 mL nebulizatio n soln 2024 025 [facility] #[id number], [address], [place], [address], 5 20:23:03 Ventolin HFA 90 mcg/actuati on aerosol inhaler 2024 025 [id number], [address] [place], [address], 5 05:01:13 Paxlovid 300 mg (150 mg x 2)-100 mg tablets in a dose pack 2022 023 [facility], [address], [place], [id number], 3 12:41:14 Patient TargetsNo targets recorded. Patient InstructionsNo instructions recorded. Reason for Referral None Reported. Problems Name Problem SNOMED Code Status Onset Date Resolution Date Notes Provider Name and Address Organization Details Recorded Time Severe obesity 8784783137656 4 Active Nancy Foley MD [address] [place] [address],[address], [place], [address], [place] 27 bards - [employer], [employer] 5 19:55:11 Post-trauma tic stress disorder 24523592 Active 2011 Nancy Foley MD [address] [place] [address],[address], [place], [address], [place] - [employer] 5 19:55:27 Gastroesoph ageal reflux disease 175339927 Active 2012 Nancy Foley MD [address] [place] [address],[address], [place], [address], [place] - [employer] 5 19:55:39 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 Nancy Foley MD [address] [place] [address],[address], [place], [address], [place] - [employer] 5 19:55:46 Generalized anxiety disorder 37223220 Active 2017 Nancy Foley MD [address] [place] [address],[address], [place], [address], [employer], [employer] 19:55:15 Osteoarthri tis of right knee joint 2907097832171 00 Active 2017 Nancy Foley MD [address] [place] [address],[address], [place], [address], [employer], [employer] 19:55:51 Essential hypertensio n 43988158 Active 2017 Nancy Foley MD [address] [place] [address],[address], [place], [address], [employer], [employer] 19:55:23 Moderate major depression 851325 Active 2022 Nancy Foley MD [address] [place] [address],[address], [place], [address], [employer], [employer] 19:55:17 Mucous membrane dryness 528756404 Active 2022 Nancy Foley MD [address] [place] [address],[address], [place], [address], [employer], [employer] 19:55:30 Lumbar spondylosis 062813267 Active 2023 Nancy Foley MD [address] [place] [address],[address], [place], [address], [employer], [employer] 19:55:19 Problem Notes None recorded. Medical Equipment None Reported. Allergies Allergen ID Allergen Name Allergen Category Reaction Reaction Severity Criticality Documentation Date Start Date Code Code System Note Provider Name and Address Organization Details Recorded Time 22176 oxycodone medicatio n Not available Not available Not available 12/11/2024 7804 RxNorm Not Available [facility] - production 17:50:13 69690 azithromy zenia medicatio n Not available Not available Not available 12/11/2024 78270 RxNorm Not Available [facility] - production 17:50:13 61043 Substance with sulfonami de structure and antibacte rial mechanism of action (substanc e) medicatio n Not available Not available Not available 12/11/2024 80001 8003 SN[facility]ED [facility] 17:50:13 30566 latex environme nt,medica tion Not available Not available Not available 12/11/2024 43979 91 RxNorm Not Available [facility] - production 17:50:13 72743 Product containin g 3-hydroxy -3-methyl glutaryl- coenzyme A reductase inhibitor (product) medicatio n Not available Not available Not available 12/11/2024 37235 009 SNOMED Not Available [facility] - production 17:50:13 Medications Name Sig Start Date Stop Date Status Note LastModified by Organization Details LastModified Time medbox status USE DIRECTED active Not Available Not Available No t Available furosemide 40 mg tablet TAKE 1 TABLET BY MOUTH EVERY MORNING active Not Available Not Available No t Available atorvastati n 40 mg tablet TAKE 1 TABLET BY MOUTH AT BEDTIME active Not Available Not Available No t Available atorvastati n 20 mg tablet TAKE 1 TABLET BY MOUTH AT BEDTIME active Not Available Not Available No t Available torsemide 20 mg tablet TAKE 1 TABLET BY MOUTH EVERY MORNING MAY INCREASE TO 2 TABLETS IF BLOOD PRESSURE > 140/90 active Not Available Not Available No t Available cetirizine 10 mg tablet TAKE 1 TABLET BY MOUTH EVERY MORNING active Not Available Not Available No t Available ibuprofen 800 mg tablet TAKE 1 TABLET BY MOUTH THREE TIMES DAILY active Not Available Not Available No t Available levetiracet am 500 mg tablet TAKE 1 TABLET BY MOUTH TWICE DAILY IN THE MORNING AND AT BEDTIME active Not Available Not Available No t Available prednisone 20 mg tablet TAKE 1 TABLET BY MOUTH EVERY DAY FOR 4 DAYS active Not Available Not Available No t Available naproxen 250 mg tablet TAKE 1 TABLET BY MOUTH TWICE DAILY IN THE MORNING AND AT BEDTIME NEEDED FOR PAIN OR FOR FEVER active Not Available Not Available No t Available cyanocobala min (vit B-12) 1,000 mcg tablet TAKE 1 TABLET BY MOUTH TWICE DAILY IN THE MORNING AND AT BEDTIME active Not Available Not Available No t Available fexofenadin e 180 mg tablet TAKE 1 TABLET BY MOUTH EVERY MORNING active Not Available Not Available No t Available aspirin 81 mg tablet,bailee yed release TAKE 1 TABLET BY MOUTH EVERY MORNING active Not Available Not Available No t Available acetaminoph en 500 mg tablet TAKE 2 TABLETS BY MOUTH EVERY 6 HOURS NEEDED FOR MODERATE PAIN OR FEVER active Not Available Not Available No t Available ketorolac 10 mg tablet TAKE 1 TABLET BY MOUTH EVERY 8 HOURS FOR 5 DAYS active Not Available Not Available No t Available famotidine 20 mg tablet TAKE 1 TABLET BY MOUTH TWICE DAILY IN THE MORNING AND AT BEDTIME active Not Available Not Available No t Available pravastatin 10 mg tablet TAKE 1 TABLET BY MOUTH AT BEDTIME active Not Available Not Available No t Available amitriptyli ne 10 mg tablet TAKE 1 TABLET BY MOUTH AT BEDTIME active Not Available Not Available No t Available benzonatate 100 mg capsule TAKE 1 CAPSULE BY MOUTH EVERY 6 HOURS NEEDED FOR COUGH. DO NOT BREAK, CRUSH, DISSOLVE OR CHEW. active Not Available Not Available No t Available ropinirole 2 mg tablet TAKE 1 TABLET BY MOUTH TWICE DAILY AT NOON AND IN THE EVENING and TAKE 2 TABLETS BY MOUTH EVERY DAY AT BEDTIME active Not Available Not Available No t Available erythromyci n 5 mg/gram (0.5 %) eye ointment APPLY 1/4 INCH RIBBON IN THE AFFECTED EYE THREE TIMES DAILY FOR ONE WEEK active Not Available Not Available No t Available buspirone 10 mg tablet TAKE 1 TABLET BY MOUTH THREE TIMES DAILY IN THE MORNING, EVENING, AND BEDTIME active Not Available Not Available No t Available Mag 64 64 mg tablet,bailee yed release TAKE 1 TABLET BY MOUTH EVERY EVENING active Not Available Not Available No t Available ibuprofen 400 mg tablet TAKE 1 [...] Not Available Not Available No t Available Nix Creme Rinse 1 % topical liquid APPLY TO SCALP AND LEAVE FOR 10 MINUTES AND REPEAT IN 1 WEEK active Not Available Not Available No t Available montelukast 10 mg tablet TAKE 1 TABLET BY MOUTH AT BEDTIME active Not Available Not Available No t Available capsaicin 0.025 % topical cream APPLY TO THE AFFECTED AREA(S) TWICE DAILY IN THE MORNING AND AT BEDTIME active Not Available Not Available No t Available zolpidem 5 mg tablet TAKE 1 TABLET BY MOUTH AT BEDTIME NEEDED active Not Available Not Available No t Available gabapentin 100 mg capsule TAKE 1 CAPSULE BY MOUTH THREE TIMES DAILY IN THE MORNING, EVENING, AND BEDTIME active Not Available Not Available No t Available lorazepam 1 mg tablet TAKE 1 TABLET BY MOUTH TWICE DAILY IN THE MORNING AND AT BEDTIME active Not Available Not Available No t Available ferrous sulfate 325 mg (65 mg iron) tablet,bailee yed release TAKE 1 TABLET BY MOUTH EVERY MORNING WITH BREAKFAST DO NOT BREAK, CRUSH, DISSOLVE OR CHEW active Not Available Not Available No t Available carbidopa 25 mg-levodopa 100 mg tablet TAKE 1 TABLET BY MOUTH THREE TIMES DAILY WITH MEALS active Not Available Not Available No t Available bromphenira mine-pseudo ephedrine-D M 2 mg-30 mg-10 mg/5 mL oral syrup TAKE 5 ML BY MOUTH 4 TIMES A DAY IN THE MORNING, AT NOON, IN THE EVENING, AND AT BEDTIME NEEDED FOR COUGH FOR UP TO 10 DAYS active Not Available Not Available No t Available piroxicam 20 mg capsule TAKE 1 CAPSULE BY MOUTH EVERY DAY AFTER MEALS active Not Available Not Available No t Available metoclopram bulmaro 10 mg tablet TAKE 1 TABLET BY MOUTH EVERY 6 HOURS NEEDED FOR NAUSEA AND VOMITING active Not Available Not Available No t Available Ventolin HFA 90 mcg/actuati on aerosol inhaler Inhale 2 puffs every 4 hours by inhalatio n route as needed. 12/25 completed Not Available Not Available Not Available ropinirole 4 mg tablet TAKE 1 TABLET BY MOUTH TWICE DAILY AT NOON AND IN THE EVENING and TAKE 2 TABLETS EVERY DAY AT BEDTIME active Not Available Not Available No t Available neomycin-po lymyxin-hyd rocort 3.5 mg-10,000 unit/mL-1 % ear drops,susp PLACE 3 TO 4 DROPS INTO THE AFFECTED EAR(S) FOUR TIMES DAILY FOR 10 DAYS active Not Available Not Available No t Available ezetimibe 10 mg tablet TAKE 1 TABLET BY MOUTH EVERY DAY active Not Available Not Available No t Available Restasis 0.05 % eye drops in a dropperette PLACE 1 DROP IN EACH EYE TWICE DAILY active Not Available Not Available No t Available alfuzosin ER 10 mg tablet,exte nded release 24 hr TAKE 1 TABLET BY MOUTH EVERY EVENING AFTER SUPPER active Not Available Not Available No t Available metoprolol tartrate 25 mg tablet TAKE 1 TABLET BY MOUTH TWICE DAILY IN THE MORNING AND AT BEDTIME active Not Available Not Available No t Available duloxetine 20 mg capsule,del ayed release TAKE 1 CAPSULE BY MOUTH EVERY MORNING active Not Available Not Available No t Available duloxetine 30 mg capsule,del ayed release TAKE 1 CAPSULE BY MOUTH EVERY [...] TO 2 CAPSULES TWICE DAILY IF NO IMPROVEME NT. active Not Available Not Available No t Available fenofibrate nanocrystal lized 48 mg tablet TAKE 1 TABLET BY MOUTH EVERY DAY active Not Available Not Available No t [...] Not Available Not Available No t Available omega 3-dha-epa-f cynthia oil 60 mg-90 mg-500 mg capsule TAKE 1 CAPSULE BY MOUTH EVERY MORNING active Not Available Not Available No t Available white petrolatum 42 % topical ointment APPLY TOPICALLY TO AFFECTED AREA(S) OF SKIN ONCE DAILY active Not Available Not Available No t Available Restasis MultiDose 0.05 % eye drops INSTILL 1 DROP IN EACH EYE TWICE DAILY active Not Available Not Available No t Available Lidocaine Pain Relief 4 % topical patch APPLY 1 PATCH TOPICALLY TO SKIN, LEAVE ON FOR 12 HOURS AND OFF FOR 12 HOURS DIRECTED NEEDED FOR PAIN active Not Available Not Available No t Available CeraVe Psoriasis 2 % topical cream APPLY TOPICALLY TO AFFECTED AREA(S) (RED RAISED AREAS ON ARMS AND LEGS) TWICE DAILY NEEDED active Not Available Not Available No t Available Paxlovid 300 mg (150 mg x 2)-100 mg tablets in a dose pack TAKE 2 TABLETS (300 MG) OF NIRMATREL VIR & 1 TABLET (100 MG) OF RITONAVIR BY MOUTH TWICE DAILY FOR 5 DAYS active Not Available Not Available No t Available [employer] Blood Pressure Monitor-3 Series kit USE DIRECTED active Not Available Not Available No t Available Vitals Date Recorded Body weight Oxygen saturation Oxygen saturation in Arterial blood by Pulse oximetry Respiratory rate Heart rate Body temperature Systolic And Diastolic Provider Name and Address Organization Details Last Updated DateTime 3 63329.6 24 g 95 % 95 % 14 /min 64 /min 97.3 [degF] 122/76 mm[Hg] Not Available [employer] - [employer] 3 12:22:07 Date Recorded Heart rate Oxygen [...] /min 125/75 mm[Hg] 125/75 mm[Hg] Not Available [employer] - production 3 20:28:24 Date Recorded Respiratory rate Heart rate Oxygen saturation Oxygen saturation in Arterial blood by Pulse oximetry Body temperature Systolic And Diastolic Provider Name and Address Organization Details Last Updated DateTime 5 16 /min 82 /min 98 % 98 % 99.2 [degF] 114/70 mm[Hg] Not Available [employer] 5 19:50:28 Social History None recorded. Functional Status None recorded. Mental Status None recorded. Family History Nothing Reported. Medical History No medical history recorded. Gynecological HistoryNo gynecological history recorded. Obstetrics History GPAL:G 0 P 0 0 0 0 Past Encounters Encounter ID Performer Location Encounter Start Date Encounter Closed Date Diagnosis/Indication Diagnosis SNOMED-CT Code Diagnosis ICD10 Code Diagnosis IMO Codes Diagnosis Note [id number] Yahir Villeda MD Main - [facility] [address] [place] [phone] 08/13/2022 12:21:55 08/15/2022 10:03:01 COVID-19 [id number] U07.1 This 51-year-ol d female was exposed to COVID-19 through her daughter. She has had URI symptoms since yesterday and her COVID-19 test X2 was positive. I called in a prescripti on for Paxlovid. She will follow-up with her PCP. The patient agreed with this plan. [id number] Nancy Foley MD Main - [facility] [address] [place] [phone] 08/17/2022 19:43:23 08/18/2022 00:17:45 [id number] Nancy Foley MD Main-[facility] [address] [place] [address] 12/11/2024 19:50:25 12/12/2024 08:56:23 Acute cough 8850482720 58220677 R05.4 [id number] Health Concerns Section Related Observation LastModified by Organization Detai ls LastModified Time None Recorded Concern Status LastModified by Organization Details LastModified Time None Recorded Advance Directives Directive None Recorded Payers Insurance Date Sequence Insurance Name Policy Number Policy Powell Covered Member ID Powell Member ID Guarantor Name 09/04/2024 1 [facility] - DOS PRIOR TO 2022 - DUAL ELIGIBLE (MEDICARE REPLACEMENT/ADV ANTAGE - HMO) Catina Mariam [id number] Catina Erik Becerra 12/11/2024 1 [facility] - DOS ON OR AFTER 2022 - DUAL ELIGIBLE - CUSTODIAL OPTIONS AND ONE CARE (MEDICARE REPLACEMENT/ADV ANTAGE - HMO) Catina Mariam [id number] Catina Valencia Mariam Notes Date Note Type Note Provider Name and Address Organization Details Recorded Time 08/13/2022 text/html ROS as noted in the HPI HPI: Member called in reporting + Covid-19 [...] diabetes. She is worried she may worsen. ...................... ...................... ...................... ...................... ...................... ...................... ......... CRC Nursing Assessment: Comments: CRC RN DID NOT NEED FURTHER INFO Yahir Villeda MD [address] [facility], [place], [address], [employer] 08/13/2022 12:34:54 08/17/2022 text/html CRC Nursing Assessment: [...] present. Memebr would like to be evaluated. ...................... ...................... ...................... ...................... ...................... ...................... ......... Proj Engineer Note From Roseann Selby: Sent to evaluate [...] lead EKG performed and image uploaded to [employer]. Consulted [facility] who ordered pt to cease paxlovid and resume taking her normal medications. Pt is to call back or call PCP if symptoms persist <36 hours. Stressed importance of red flags to patient and she verbalized understanding. No further questions or concerns at this time. ...................... ...................... ...................... ...................... ...................... ...................... ......... Disposition: Fulfilled Nancy Foley MD [address] [place] [address],[address], [place], [address], 27 [address] [employer] 08/18/2022 00:17:43 12/11/2024 text/html HPI: Seen in clinic 12/08 for cough and pink eye. Tested positive for covid. Since I had cough for 5 days wasnt given covid med. I never had a covid vaccine. Given benzonatate 100. Mg and eye ointment.. taken the medicine but the cough is getting worse. ...................... ...................... ...................... ...................... ...................... ...................... ......... CRC Nurse Triage Notes (Sylvia Harrison): Reason For Request: Patient has a cough that won't go away. Patient Reports: COVID Exposure; Cough; Shortness of breath with exertion Denies: Increased work of breathing/labored with or without fever Unable to speak in full sentences without distress Discoloration of skin -cyanosis Needs to sleep sitting up, can t catch breath Shortness of breath in setting of confusion Cough, fever greater than 2 days Lower extremity swelling History of asthma, increased use of inhaler COPD Sputum increase Pain with inspiration Chief Complaints: Cough, Sore Throat PMH: Hypertension, Coronary Artery Disease, Anxiety Disorder, Gastroesophageal Reflux Disease (GERD), Epilepsy/Seizure Disorder, Incontinence PMH Reviewed at 12/11/2024 - 17:50 Allergies Reviewed at 12/11/2024 17:50 Comments: 54 y.o female complains of Cough on 12/08 tested positive for covid coughing started over a week She states I sound like a barking dog productive cough and has to cough really hard to get anything up sputum green and yellow color and some shortness of breath. Using been Tessalon pearls was relieving it at first but not now and has used hot tea, hot shower, and mucinex with little relief. endorses sore throat from coughing. denies fever, chills , no body aches hoarse started to lose voice 4-5 days ago. denies any chest pain denies nausea, vomiting,able to tolerate PO denies any kidney disease requesting insted visit. I provided information on the mobile health provider response time and advised the patient and/or caregiver to monitor reported signs and symptoms. I discussed the warning signs of when to seek emergency care. ...................... ...................... ...................... ...................... ...................... ...................... ......... Proj Engineer Note From Mario Cruz: SC12 dispatched to the address listed above for the report of a female republican with cough. Patient found opening door for [facility] ambulating without assistance to a seated position, alert and oriented x4, patent airway, breathing non labored speaking in complete sentences, skin WPD in no obvious distress. +/= Chest rise. -SOB, -CP, -NVD, -Trauma, -Fever. GCS 15. Lung sounds clear in all sow. Patient reports that she tested positive for COVID a [...] COPD. Patient vital signs obtained as noted. [facility] consulted, provided orders for 1 DuoNeb treatment. 1 DuoNeb treatment with 3mg Albuterol and 0.5mg Atrovent administered via nebulizer mask at 8 Liter per minute, six patient rights verified prior. Patient reports improvement in breathing post treatment, patient reports that she was unable to take a deep breath without coughing before but can after nebulizer treatment. [facility] consulted again, advised he would sent prescription for Albuterol inhaler to patient preferred pharmacy. Red flags discussed with patient, advised to call 911 if her condition worsens. SC12 Clear. [facility] Medication Orders: ipratropium 0.5 mg-albuterol 3 mg (2.5 mg base)/3 mL nebulization soln: Administered ...................... ...................... ...................... ...................... ...................... ...................... ......... [facility] Consulted: Nancy Foley ...................... ...................... ...................... ...................... ...................... ...................... ......... Disposition: Fulfilled Nancy Foley MD [address] [facility],[address], [place], [phone], [facility] 12/11/2024 23:03:56 OBGyn Episode No OBEpisode recorded.
--- OUTSIDE RECORDS SUMMARY | 2025-03-08 15:08 | XMS_ITS | Encounter Summary ---
Author Organization [facility] Address [address] [place] [address] Care Team Providers Care Ticket Sales Agent Name Role Phone Sonam Albarran MD Primary Care Provide r Encounter Details Date Type Department Care Team (Late st Contact Info) Description 10/06/2024 Lab Requisition [facility] - Main Lab [address] [facility] [place] [phone] Leonardo Turner PA [address] [place] [address] Pyuria Social History Tobacco Use Types Packs/Day [...] Description 06/17/2025 8:30 AM EST Office Visit [facility] [address] [facility] [address] [place] [phone] Joseph Fuller MD [address] [place] [address] documented as of this encounter Procedures Procedure [...] if clinically indicated. 10/07/2024 8:20 AM EDT [facility] Other Topography unknown / Unknown 10/05/2024 3:06 PM EDT 10/06/2024 7:10 PM EDT us [facility] MICROBIOLOGY - GENERAL ORDER TUCKER Final Result [facility] [address] [place] [address], documented in this encounter Visit Diagnoses Diagnosis Pyuria Other nonspecific finding on examination of urine documented in this encounter Care Teams Ticket Sales Agent Relationship Specialty Start Date End Date Sonam Albarran MD [address] [place] [phone] PCP - General Internal Medicine 02/21/22 documented as of this encounter
--- OUTSIDE RECORDS SUMMARY | 2025-03-08 15:08 | XMS_ITS | Encounter Summary ---
Author Organization [employer] Address [address] [place] [address] 7 [place] [address] Care Team Providers Care Healthcare Liaison Name Role Phone Sonam Albarran MD Primary Care Provide r Reason for Visit * Reason Onset Date Comments Medication Concern 06/06/2022 Encounter Details Date Type Department Care Team ([facility] st Contact Info) Description 06/06/2022 Telephone [facility] MEDICINE [address] [place] [address] Sonam Albarran MD [address] [place], [place] [phone] Medication Concern Social History Tobacco Use Types [...] regarding message below. Please contact pt at [phone] * Telephone Encounter - Rema Singh RN [...] with the Provider. Please contact pt at [phone] documented in this encounter Plan of Treatment Upcoming Encounters Date Type Department Care Team (Late st Contact Info) Description 03/23/2025 11:00 AM EST Nutrition [facility] DIABETES/NUTRITION [address] [place] [address] [place] [address] 05/13/2025 9:00 AM EST Office Visit [facility] MEDICINE [address] [place] [address] Sonam Albarran MD [address] [place], [place] [phone] documented as of this encounter Visit Diagnoses Not on filedocumented in this encounter Care Teams Healthcare Liaison Relationship Specialty Start Date End Date Sonam Albarran MD 230 [place] [address] PCP - General Family Medicine 04/06/19 documented as of this encounter
--- OUTSIDE RECORDS SUMMARY | 2025-03-08 15:08 | XMS_ITS | Encounter Summary ---
Author Organization [email or web address] Address [address] 7t [place] [address] Care Team Providers Care Ux Lead Name Role Phone Sonam Albarran MD Primary Care Provide r Reason for Visit * Reason Comments Med Refill Encounter Details Date Type Department Care Team ([facility] st Contact Info) Description 04/16/2023 Refill [facility] MEDICINE 230 [place], [place] [phone] Nevaeh Pope MD 230 [place] [address] Allergy, initial encounter Social History Tobacco Use [...] Info) Description 03/23/2025 11:00 AM EST Nutrition [facility] DIABETES/NUTRITION 230 [place] [address] [place] [address] [place] [address] 05/13/2025 9:00 AM EST Office Visit [facility] MEDICINE [address] [place] [address] Sonam Albarran MD 230 [place] [address] documented as of this encounter Visit Diagnoses Diagnosis Allergy, initial encounter documented in this encounter Care Teams Ux Lead Relationship Specialty Start Date End Date Sonam Albarran MD [address] [place] [address] PCP - General Family Medicine 04/06/19 documented as of this encounter
--- OUTSIDE RECORDS SUMMARY | 2025-03-08 15:08 | XMS_ITS | Encounter Summary ---
Author Organization [employer] Address [address] [place] [address] 7t [place] [address] Care Team Providers Care Data Warehouse Developer Name Role Phone Sonam Albarran MD Primary Care Provide r Encounter Details Date Type Department Care Team ([facility] Contact Info) Description 06/06/2022 Telephone [facility] MEDICINE 230 [place] [address] Sonam Albarran MD 230 [place] [address] Social History Tobacco Use Types Packs/Day Years [...] Upcoming Encounters Date Type Department Care Team ([facility] Contact Info) Description 03/23/2025 11:00 AM EST Nutrition [facility] DIABETES/NUTRITION 230 [place] [address] Chrissie [place], TIFFANY 230 [place], [place] [phone] 05/13/2025 9:00 AM EST Office Visit [facility] MEDICINE 230 [place], [place] [phone] Sonam Albarran MD 230 [place], [place] [phone] documented as of this encounter Visit Diagnoses Not on filedocumented in this encounter Care Teams Data Warehouse Developer Relationship Specialty Start Date End Date Sonam Albarran MD [address] [place] [address] PCP - General Family Medicine 04/06/19 documented as of this encounter
--- OUTSIDE RECORDS SUMMARY | 2025-03-08 15:08 | XMS_ITS | Encounter Summary ---
Author Organization [employer] Address [address] 7t [place] [address] Care Team Providers Care Brusher Warp Name Role Phone Sonam Albarran MD Primary Care Provide r Reason for Visit * Reason Comments Med Refill Encounter Details Date Type Department Care Team ([facility] st Contact Info) Description 01/08/2024 Refill [facility] CHC MED & PEDS [address] [place], [place] [phone] Sonam Albarran MD 230 [place] [address] Social History Tobacco Use Types Packs/Day Years [...] Info) Description 03/23/2025 11:00 AM EST Nutrition [facility] DIABETES/NUTRITION [address] [place] [address] [place] [address] 05/13/2025 9:00 AM EST Office Visit [facility] MEDICINE [address] [place] [address] Sonam Albarran MD [address] [place] [address] documented as of this encounter Visit Diagnoses Not on filedocumented in this encounter Additional Health Concerns Assessment Noted Time PHQ-9 Depression Total Score: 13 024 10:11 AM EDT documented as of this encounter Care Teams Brusher Warp Relationship Specialty Start Date End Date Sonam Albarran MD [address] [place] [address] PCP - General Family Medicine 04/06/19 documented as of this encounter
--- OUTSIDE RECORDS SUMMARY | 2025-03-08 15:09 | XMS_ITS | Encounter Summary ---
Author Organization [employer] Address [address] [place] [address] 7t [place] [address] Care Team Providers Care Commissary Officer Name Role Phone Sonam Albarran MD Primary Care Provide r Reason for Visit * Reason Comments Med Refill Encounter Details Date Type Department Care Team (Late Contact Info) Description 08/23/2022 Refill [facility] MEDICINE 230 [place], [place] [phone] [facility] 230 [place] [address] Anxiety Social History Tobacco Use Types Packs/Day [...] Encounters Date Type Department Care Team (Late Contact Info) Description 03/23/2025 11:00 AM EST Nutrition [facility] DIABETES/NUTRITION 230 [place], [place] [phone] Chrissie [place], TIFFANY 230 [place], [place] [phone] 05/13/2025 9:00 AM EST Office Visit [facility] MEDICINE 230 [place], [place] [phone] Sonam Albarran MD 230 [place], [place] [phone] documented as of this encounter Visit Diagnoses Diagnosis Anxiety Anxiety state, unspecified documented in this encounter Care Teams Commissary Officer Relationship Specialty Start Date End Date Sonam Albarran MD 230 [place], [place] [phone] PCP - General Family Medicine 04/06/19 documented as of this encounter
--- OUTSIDE RECORDS SUMMARY | 2025-03-08 15:09 | XMS_ITS | Encounter Summary ---
Author Organization [employer] Address [address] [facility] 7t h Floor [place] [id number] Care Team Providers Care Cloth Roll Winder Name Role Phone Sonam Albarran MD Primary Care Provide r Reason for Visit * Reason Comments Med Refill Encounter Details Date Type Department Care Team ([facility] st Contact Info) Description 08/31/2024 Refill [facility] MEDICINE 230 [place], [place] [phone] Sonam Albarran MD 230 [place] [address] Primary hypertension; Hypercholesterolemia Social History Tobacco Use [...] Info) Description 03/23/2025 11:00 AM EST Nutrition [facility] DIABETES/NUTRITION [address] [place] [address] Chrissie [place], TIFFANY 230 [place] [address] 05/13/2025 9:00 AM EST Office Visit [facility] MEDICINE [address] [place] [address] Soanm Albarran MD [address] [place] [address] documented as of this encounter Visit Diagnoses Diagnosis Primary hypertension Unspecified essential hypertension Hypercholesterolemia Pure hypercholesterolemia documented in this encounter Additional Health Concerns Assessment Noted Time PHQ-9 Depression Total Score: 19 024 1:58 PM EDT documented as of this encounter Care Teams Cloth Roll Winder Relationship Specialty Start Date End Date Sonam Albarran MD [address] [place] [address] PCP - General Family Medicine 04/06/19 documented as of this encounter
--- OUTSIDE RECORDS SUMMARY | 2025-03-08 15:09 | XMS_ITS | Encounter Summary ---
Author Organization [employer] Address [address] [facility] 7t h Floor [place] [phone] Care Team Providers Care Body Piercer Name Role Phone Sonam Albarran MD Primary Care Provide r Reason for Visit * Reason Comments Med Refill Encounter Details Date Type Department Care Team ([facility] st Contact Info) Description 03/04/2025 Refill [facility] MEDICINE 230 [place], [place] [phone] Sonam Albarran MD [address] [place] [address] Hypercholesterolemia; Primary hypertension Social History Tobacco Use Types Packs/Day Years [...] Info) Description 03/23/2025 11:00 AM EST Nutrition [facility] DIABETES/NUTRITION [address] [place] [address] [address] [place], RD 230 [place] [address] 05/13/2025 9:00 AM EST Office Visit [facility] MEDICINE [address] [place] [address] Sonam Albarran MD [address] [place] [address] documented as of this encounter Visit Diagnoses Diagnosis Hypercholesterolemia Pure hypercholesterolemia Primary hypertension Unspecified essential hypertension documented in this encounter Additional Health Concerns Assessment Noted Time PHQ-9 Depression Total Score: 19 024 1:58 PM EDT documented as of this encounter Care Teams Body Piercer Relationship Specialty Start Date End Date Sonam Albarran MD [address] [place] [address] PCP - General Family Medicine 04/06/19 documented as of this encounter
--- OUTSIDE RECORDS SUMMARY | 2025-03-08 15:09 | XMS_ITS | Patient Health Record ---
Author Organization [employer] Address [address] [place] [address] Care Team Providers Care Regional Owner Operator Truck Driver Name Role Phone JADEN HAGER Unavailable [phone] Allergies Allergen (clinical drug ingredient) Drug/Non Drug [...] Active trimethoprim Trimethoprim Unknown Drug Allergy Active ritonavir Paxlovid Unknown Drug Allergy Active nirmatrelvir Paxlovid Unknown Drug Allergy Active Results Component Value Reference Range Notes PDF Report Reviewed date:09/18/2024 02:37:45 PM Interpretation: Performing Lab:[address]bec[address], [address], [place], Phone - [phone], Director - [facility] Notes/Report: No. of containers..01 ThinPrep Vial LMP / Prev Treat...ACG=[id number] Clinical Information:[id number] IGP, Apt HPV,rfx 16/18,45-19 9344 Reviewed date:09/18/2024 02:37:27 PM Interpretation:Normal, HPV negative Performing Lab:[facility] [place], [address], [address], [place], Phone - [phone], Director - [facility] Notes/Report: Clinical Information:[id number] LMP / Prev Treat...FUE=[id number] No. of containers..01 ThinPrep Vial DIAGNOSIS: NEGATIVE FOR IN TRAEPITHELIAL LESION OR MALIGNANCY. Specimen adequacy: Satisfactory for evaluation. Endocervical and/or squamous metaplastic cells (endocervical component) are present. Clinician provided ICD10: Z01.419 Z11.51 Performed by: Blanco madrigal, Mechanical Engineering Draftsperson (ASCP) . . Note: The Pap smear [...] high-risk HPV types (16,18,31,33,35,39,45,51,52,5 6,58,59,66,68) without differentiation. Ct, Ng, Trich vag by JORDANA-[id number] Reviewed date:09/18/2024 02:33:32 PM Interpretation:Negative Performing Lab:[facility] [place], [address], [address], [place], Phone - [phone], Director - [facility] Notes/Report: Chlamydia by JORDANA Negative Negative Gonococcus by JORDANA Negative Negative Trich vag by JORDANA Negative Negative HCV Antibody RFX to Quant PC [id number] Reviewed date:09/18/2024 02:32:35 PM Interpretation:Negative Performing Lab:[facility] [place], [address], [address], [place], Phone - [phone], Director - [facility] Notes/Report: HCV Ab Non Reactive Non Reactive Interpretation: Not infected with HCV unless early or acute infection is suspected (which may be delayed in an immunocompromised individual), or other evidence exists to indicate HCV infection. HIV Ab/p24 Ag with Reflex-08 [id number] Reviewed date:09/18/2024 02:33:14 PM Interpretation:Negative Performing Lab:[facility] [place], [address], [address], [facility], Phone - [phone], Director - [facility] Notes/Report: HIV Ab/p24 Ag Screen Non Reactive Non Reactive HIV-1/HIV-2 antibodies and HIV-1 p24 antigen were NOT detected. There is no laboratory evidence of HIV infection. HIV Negative T pallidum Screening [place] -[id number] Reviewed date:09/18/2024 02:33:22 PM Interpretation:Negative Performing Lab:[facility] [place], [address], [address], [facility], Phone - [phone], [facility] - [facility] Notes/Report: T pallidum Antibodies Non Reactive Non Reactive Hepatitis B Surf Ab Quant-00 [id number] Reviewed date:09/18/2024 02:33:05 PM Interpretation:Immune Performing Lab:[facility] [place], [address], [address], [facility], Phone - [phone], [facility] - [facility] Notes/Report: Hepatitis B Surf Ab Quant 528.0 Immunity>10 mIU/mL Status of Immunity Anti-HBs Level Inconsistent with Immunity 0.0 - 10.0 Consistent with Immunity >10.0 HBsAg Screen-[id number] Reviewed date:09/18/2024 02:32:44 PM Interpretation:Negative Performing Lab:[facility] [place], [address], [address], [facility], Phone - [phone], Director - [facility] Notes/Report: HBsAg Screen Negative Negative Reason For Referral Reason 53 yr old with bruna rns for incontinence. Clt reports prior urology workup and dx of hypertonic bladder syndrome. Please further evaluate and manage. Referral for pelvic floor PT sent. Diagnosis 1 Stress incontinence (female) (male) (N39.3) Referral Organization [place] Referring Provider First Name JADEN Referring Provider Last Name ALLEY Referring Provider Speciality Certified Nurse Hoe Worker Referred Provider Sandra Vasques Referred Provider Specialty [...] Risk Notes Problem SI - Stress incontinence (25273467) Stress incontinence (female) (male) (N39.3) Active confirmed Problem Dysfunctional uterine bleeding ([id number]) Dysfunctional uterine bleeding (N93.8) Active confirmed Vital [...] medication Encounters Encounter Location Date Provider Diagnosis [facility] [address] [place], [place] [phone] 09/09/2024 JADEN HAGER Encounter for gynecological examination (general) (routine) without abnormal findings Z01.419 ; HPV Pap Screening Z11.51 ; Encounter for screening for infections with a predominantly sexual mode of transmission Z11.3 ; HIV Screening Z11.4 ; Encounter for screening for other viral diseases Z11.59 and Stress incontinence (female) (male) N39.[address] [facility] [address] [facility] [place], [place] [phone] 09/11/2024 JADEN ALLEY Assessments Encounter Date Diagnosis (ICD Code) Assessment [...] PART B [address] [place] [phone] [id number] Catina Becerra Self - patient is the insured [place] MEDICA[place] ATT CLAIMS [address] [place] [address] [id number] Catina Becerra Self - patient is the insured Medical (General) History Medical History History ICD Code seizure disorder anxiety history abnormal pap test overactive bladder heart disease high blood pressure seizure Hospitalization History Reason Date(Month/Year) Vaginal bleeding 2021
--- OUTSIDE RECORDS SUMMARY | 2025-03-08 15:09 | XMS_ITS | Clinical Summary ---
Author Organization [facility] Address [address] [place] [address] Care Team Providers Care Clinical Director Name Role Phone Stu Vargas DO Primary Care Provider [phone] Social History Tobacco Use Types Packs/Day Years [...] 022 Influenza Vaccine (#1) 2025 Care Teams Clinical Director Relationship Specialty Start Date End Date Stu Vargas DO [address] [place] [address] PCP - General Cardiology 08/21/21
--- OUTSIDE RECORDS SUMMARY | 2025-03-08 15:09 | XMS_ITS | Encounter Summary ---
Author Organization [employer] Address [address] [place] [address] 7t [place] [address] Care Team Providers Care Family Member Caretaker Name Role Phone Sonam Albarran MD Primary Care Provide r Encounter Details Date Type Department Care Team (Late Contact Info) Description 04/17/2022 Abstract [facility] MEDICINE 230 [place] [address] Sonam Albarran MD 230 [place], [place] [phone] Social History Tobacco Use Types Packs/Day Years [...] Info) Description 03/23/2025 11:00 AM EST Nutrition [facility] DIABETES/NUTRITION 230 [place] [address] [place], [place] [phone] 05/13/2025 9:00 AM EST Office Visit [facility] MEDICINE 230 [place] [address] Sonam Albarran MD 230 [place] [address] documented as of this encounter Visit Diagnoses Not on filedocumented in this encounter Care Teams Family Member Caretaker Relationship Specialty Start Date End Date Sonam Albarran MD [address] [place] [address] PCP - General Family Medicine 04/06/19 documented as of this encounter
--- OUTSIDE RECORDS SUMMARY | 2025-03-08 15:09 | XMS_ITS | Encounter Summary ---
Author Organization [employer] Address [address] [place] [address] 7 [place] [address] Care Team Providers Care Animal Park Code Enforcement Officer Name Role Phone Sonam Albarran MD Primary Care Provide r Encounter Details Date Type Department Care Team (Late Contact Info) Description 04/16/2022 [facility] Management 230 [place], [place] [phone] Dory Abebe RN Social History Tobacco Use Types Packs/Day Years [...] AM EST Nutrition [facility] DIABETES/NUTRITION 230 [place], [place] [phone] [address] [place], [place] [phone] 05/13/2025 9:00 AM EST Office Visit [facility] MEDICINE [address] [place] [phone] Sonam Albarran MD 230 [place] [address] documented as of this encounter Visit Diagnoses Not on filedocumented in this encounter Care Teams Animal Park Code Enforcement Officer Relationship Specialty Start Date End Date Sonam Albarran MD 230 [place], [place] [phone] PCP - General Family Medicine 04/06/19 documented as of this encounter
--- OUTSIDE RECORDS SUMMARY | 2025-03-08 15:09 | XMS_ITS | Encounter Summary ---
Author Organization [employer] Address [address] [place] [address] 7 [place] [address] Care Team Providers Care Animal Caretaker Name Role Phone Sonam Albarran MD Primary Care Provide r Reason for Visit * Reason Onset Date Comments Referral 09/06/2023 Encounter Details Date Type Department Care Team ([facility] st Contact Info) Description 09/06/2023 Telephone [facility] MEDICINE 230 [place], [place] [phone] Sonam Albarran MD 230 [place], [place] [phone] Referral Social History Tobacco Use Types Packs/Day [...] for physical therapy. States has been to [facility] for PT before and did not help. documented in this encounter Plan of Treatment Upcoming Encounters Date Type Department Care Team (Late st Contact Info) Description 03/23/2025 11:00 AM EST Nutrition [facility] DIABETES/NUTRITION 230 [place] [address] Chrissie [place], TIFFANY [address] [place] [address] 05/13/2025 9:00 AM EST Office Visit [facility] MEDICINE 230 [place] [address] Sonam Albarran MD 230 [place] [address] documented as of this encounter Visit Diagnoses Not on filedocumented in this encounter Additional Health Concerns Assessment Noted Time PHQ-9 Depression Total Score: 13 07/18/ 024 10:11 AM EDT documented as of this encounter Care Teams Animal Caretaker Relationship Specialty Start Date End Date Sonam Albarran MD [address] [place] [address] PCP - General Family Medicine 04/06/19 documented as of this encounter
--- OUTSIDE RECORDS SUMMARY | 2025-03-08 15:09 | XMS_ITS | Clinical Summary ---
Author Organization [employer] Address [address] [facility] [address] [place] [id number] Care Team Providers Care Funding Coordinator Name Role Phone Sonam Albarran MD Primary [...] Hives / Skin Rash Shellfish Allergy 04/18/2022 Shellfish Protein-Containing Drug Products 06/06/2022 Other reaction(s): Anaphylaxis, difficulty breathing, [...] tablet by mouth every 4 (four) hours. 06/28/19 22 Active EPINEPHrine (Epipen) 0.3 MG/0.3ML injection syringe Inject 0.3 mL into the shoulder, thigh, or buttocks. 06/28/19 22 Active Salicylic Acid 2 % cream use cream at affected red raised areas on arms and legs as needed BID 10/25/19 22 Active Petrolatum ointment use 1x/day on affected skin 09/01/19 22 Active ibuprofen 400 MG tabletIndication s:Pain Take 1 tablet (400 mg) by mouth every 6 (six) hours if needed for moderate pain. 30 tablet 3 05/17/19 23 Active Blood Pressure Monitor kitIndications:P rimary hypertension Use as directed 1 kit 06/19/19 23 Active LORazepam (Ativan) 1 MG tabletIndication s:Anxiety TAKE 1 TABLET BY MOUTH THREE TIMES DAILY IN THE MORNING, EVENING, AND BEDTIME AND TAKE 1/2 TO 1 ADDITIONAL TABLET DAILY NEEDED 105 tablet 08/10/19 23 Active zolpidem (Ambien) 5 MG tabletIndication s:Insomnia, unspecified type TAKE 1 TABLET BY MOUTH AT BEDTIME 30 tablet 10/25/19 23 Active metoprolol tartrate (Lopressor) 50 MG tablet TAKE 1 TABLET BY MOUTH TWICE DAILY IN THE MORNING AND AT BEDTIME WITH FOOD 02/20/20 23 Active ketotifen (Zaditor) 0.025 % ophthalmic solutionIndicati ons:Swelling of upper eyelid 1-2 drops per eye 1-2 times daily for 7 days 5 mL 08/05/19 24 Active Diclofenac Sodium 1 % gelIndications:P ain Apply to affected area once or twice daily as needed 100 g 3 09/04/19 24 Active levETIRAcetam (Keppra) 500 MG tabletIndication s:Seizure (CMS/HCC) (HCC) Take 1 tablet by mouth every 12 (twelve) hours. 60 tablet 5 01/17/20 24 Active DULoxetine (Cymbalta) [address] capsule Take 30 mg by mouth in the morning. 08/26/19 24 Active Blood Pressure kitIndications:E ssential hypertension 1 each Once per day. 1 kit 02/03/20 24 Active pravastatin (Pravachol) 10 MG tabletIndication s:Essential hypertension TAKE 1 TABLET BY MOUTH AT BEDTIME 30 tablet 02/26/20 24 Active albuterol 108 (90 Base) MCG/ACT inhalerIndicatio ns:Acute cough Inhale 2 puffs every 6 (six) hours if needed for wheezing. 18 g 11 03/05/20 24 Active permethrin (Nix) 1 % liquidIndication s:Lice infested hair Apply on scalp leave it for 10min and repeat process in 1 week 120 mL 1 04/17/20 24 Active lacosamide (Vimpat) 100 MG tabletIndication s:Seizure (CMS/HCC) (HCC) TAKE 1 TABLET BY MOUTH TWICE DAILY IN THE MORNING AND AT BEDTIME 60 tablet 1 04/30/20 24 Active ezetimibe (Zetia) 10 MG tabletIndication s:Hypercholester olemia TAKE 1 TABLET BY MOUTH EVERY MORNING 30 tablet 11 05/26/19 25 Active famotidine (Pepcid) 20 MG tabletIndication s:Gastroesophage al reflux disease, unspecified whether esophagitis present Take 1 tablet (20 mg) by mouth 2 times daily. 180 tablet 3 05/28/19 25 Active Aspirin Low Dose 81 MG EC tablet TAKE 1 TABLET BY MOUTH EVERY MORNING 30 tablet 11 06/19/19 25 Active ferrous sulfate 325 (65 Fe) MG EC tablet TAKE 1 TABLET BY MOUTH EVERY MORNING WITH BREAKFAST DO NOT BREAK, CRUSH, DISSOLVE OR CHEW 90 tablet 3 07/23/19 25 Active D3 Super Strength 50 MCG (2000 UT) capsuleIndicatio ns:Neuropathic pain, leg, left TAKE 1 CAPSULE BY MOUTH EVERY MORNING 30 capsule 5 10/17/19 25 Active torsemide (Demadex) 20 MG tabletIndication s:Primary hypertension TAKE 1 TABLET BY MOUTH EVERY MORNING MAY INCREASE TO 2 TABLETS IF BLOOD PRESSURE > 140/90 60 tablet 5 10/17/19 25 Active MagDelay 64 MG EC tabletIndication s:Restless leg syndrome TAKE 1 TABLET BY MOUTH EVERY EVENING 60 tablet 5 10/17/19 25 Active busPIRone (Buspar) 10 MG tabletIndication s:Anxiety TAKE 1 TABLET BY MOUTH THREE TIMES DAILY IN THE MORNING, EVENING, AND BEDTIME 90 tablet 5 10/17/19 25 Active docusate sodium (Colace) 100 MG capsuleIndicatio ns:Irritable bowel syndrome, unspecified type TAKE 1 CAPSULE BY MOUTH TWICE DAILY IN THE MORNING AND IN THE EVENING 180 capsule 1 11/18/19 25 Active acetaminophen (Tylenol) 500 MG tablet Take 2 tablets (1,000 mg) by mouth every 6 (six) hours if needed for moderate pain or fever for up to 25 doses. 50 tablet 12/03/19 25 Active erythromycin (Romycin) 5 MG/GM ophthalmic ointmentIndicati ons:Conjunctival Infection Apply Amount per Dose: 0.25 inch (~0.5 cm) per dose. TID for 1 week. 15 g 12/09/19 25 Active benzonatate (Tessalon Perles) 100 MG capsuleIndicatio ns:COVID-19 Take 1 capsule (100 mg) by mouth every 6 (six) hours if needed for cough. Do not crush or chew. 20 capsule 12/09/19 25 026 Active naproxen (Naprosyn) 250 MG tablet TAKE 1 TABLET BY MOUTH TWICE DAILY IN THE MORNING AND AT BEDTIME NEEDED FOR PAIN OR FEVER 20 tablet 12/19/19 25 Active cyanocobalamin (Vitamin B-12) 1000 MCG tabletIndication s:Neuropathic pain, leg, left TAKE 1 TABLET BY MOUTH TWICE DAILY IN THE MORNING AND AT BEDTIME 180 tablet 3 02/04/20 25 Active cetirizine (ZyrTEC) 10 MG tabletIndication s:Allergy, initial encounter TAKE 1 TABLET BY MOUTH EVERY MORNING 90 tablet 3 02/05/20 25 Active azithromycin (Zithromax) 250 MG tabletIndication s:Acute otitis externa of both ears, unspecified type Take 2 tabs PO daily x 1d then 1 tab PO daily on D2 to D5 6 tablet 02/23/20 25 Active omega-3 (Fish Oil) 500 MG capsuleIndicatio ns:Hypercholeste rolemia,Primary hypertension TAKE 1 CAPSULE BY MOUTH EVERY MORNING 90 capsule 3 03/04/20 25 Active omega-3 (Fish Oil) 500 MG capsuleIndicatio ns:Hypercholeste rolemia,Primary hypertension TAKE 1 CAPSULE BY MOUTH EVERY MORNING 90 capsule 3 03/09/20 24 025 Discontinued neomycin-polymyx in-hydrocortison e (Cortisporin) 3.5-13936-6 otic suspensionIndica tions:Acute otitis externa of both ears, unspecified type Administer 3-4 drops into affected ear(s) 4 times daily for 10 days. 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 OFFICER on 12/14/2022 Fibroid uterus 11/18/2017 Primary Sjogren's syndrome 01/15/2017 Seizure (CMS/HCC) 01/15/2017 Varicose veins of both lower extremities [...] Resolved Date Bacterial vaginosis 02/28/2023 02/28/2023 02/29/20 Palpitation 02/28/2023 02/28/2023 02/28/2023 Encounter to discuss test results 11/09/2022 02/28/2023 Abnormal cardiotocography tracing 08/30/2022 08/30/2022 Neuropathic pain, leg, left 04/18/2022 02/28/2023 Assessment & Plan (04/18/2022 3:13 PM EST): Undergoing workup with podiatry and neurology EMG of lower extremity ordered at [facility], schedule when possible Trial Capsacin I think [...] organization. Date Type Department Care Team Description 03/04/[address] [facility] [address] [place] [phone] Sonam Albarran MD Hypercholesterolemia; Primary hypertension 02/22/2025 2:20 PM EDT Office Visit [facility] [address] [place] [phone] Sonam Albarran MD Acute otitis externa of both ears, unspecified type 02/22/2025 Travel 02/15/[address] [facility] [address] [place] [address] Sonam Albarran MD dec recall 02/04/[address] [facility] [address] [place] [address] Sonam Albarran MD Allergy, initial encounter 02/03/[address] [facility] [address] [place], [place] [phone] Sonam Albarran MD Neuropathic pain, leg, left 01/22/[address] [facility] [address] [place] [address] Sonam Albarran MD telephone call 01/13/2025 10:15 AM EDT Office Visit [facility] [address] [place] [phone] Sonam Albarran MD Essential hypertension (Primary Dx); Tachycardia-bradycardia (CMS/HCC); Moderate major depression (CMS/HCC); Class 2 severe obesity due to excess calories with serious comorbidity and body mass index (BMI) of 35.0 to 35.9 in adult (CMS/HCC); Dietary counseling; Exercise counseling; Encounter for screening mammogram for malignant neoplasm of breast; Severe obesity (BMI 35.0-39.9) with comorbidity (CMS/HCC) 01/13/2025 Travel 12/24/2024 Orders Only [facility] External Provider, [facility] 12/18/2024 2:00 PM EDT [facility] [address] [address] Sonam Albarran MD Cough in adult patient; Acute otitis externa, unspecified laterality, unspecified type 12/18/2024 Travel 12/17/2024 [facility]ill [facility] [address] [address] Fito Priest MD 12/09/2024 6:20 PM EDT [facility] [address] [address] Roxy Jiménez NP Blurred vision, left eye (Primary Dx); Elevated blood pressure reading; Conjunctival hemorrhage of left eye; Concern about drug reaction without diagnosis 12/09/2024 Travel 12/08/2024 2:20 PM EDT [facility] [address] [address] Dolores Gómez MD COVID-19 (Primary Dx); Cough in adult patient; Acute bacterial conjunctivitis of left eye 12/08/2024 Travel from Last 3 Months Immunizations Immunization Administration [...] t he electric, gas, oil or water [employer] threatened to shut off services in your [...] Sign Reading Time Taken Comments Blood Pressure 140/79 02/22/2025 1:56 PM EDT Pulse 78 02/22/2025 1:56 PM EDT Temperature 36.9 C (98.5 F) 02/22/2025 1:56 PM EDT Respiratory Rate 16 02/22/2025 1:56 PM EDT Oxygen Saturation 96% 02/22/2025 1:56 PM EDT Inhaled Oxygen Concentration - - Weight 93.6 kg (206 lb 6.4 oz) 02/22/2025 1:56 P M EDT Height 162.6 cm (5' 4 ) 02/22/2025 1:56 PM EDT Body Mass Index 35.43 02/22/2025 1:56 PM EDT Plan of Treatment Upcoming Encounters Date Type Department Care Team (Late st Contact Info) Description 03/23/2025 11:[address] [facility] [address] [place] [address] Chrissie Hunter, TIFFANY [address] [place] [address] 05/13/2025 9:00 AM EST Office Visit [facility] [address] [place] [address] Sonam Albarran MD [address] [place] [address] Health Maintenance Due Date Last Done Comments [...] Monitoring 08/02/2024 02/03/2024, 024 COVID-19 Vaccine ( season) 2025 Influenza Vaccine (#1) 2025 , 12/23/2021, 01/07/2018, Additional history exists SDOH Screening 02/02/2025 02/03/2024 Tobacco Screening 02/22/2026 02/22/2025 Cervical Cancer Screening 08/10/2026 HPV/Cotest 08/10/2026 08/10/2021, [...] 2:17 PM EDT Cough in adult patient LIPID PANEL, STANDARD Routine 03/01/2023 9:49 AM EDT Weight gain THINPREP IMAGING PAP AND HPV MRNA E6/E7, WITH CT/NG, TRICHOMONAS Routine 08/10/2021 11:39 AM EDT BI MAMMOGRAM DIAGNOSTIC BILATERAL Routine 12/23/2017 12:58 PM EDT from Last 3 Months or Most Recently Relevant to Health Maintenance Results * High Sensitivity Troponin I (12/24/2024 11:34 AM EDT) Pathologist [facility] TROPONIN I HIGH SENSITIVITY <2.7 <3.5 - 17.0 ng/L [facility] Comment:The [place] high sens itivity Troponin-I results should beused in conjunction with other diagnostic information suchas ECG, clinical observations and information, and patientsymptoms to aid in the diagnosis of [place]. 12/24/2024 11:3 4 AM EDT 12/24/2024 11:37 AM EDT us Generic External Data Provider LAB BLOOD ORDERAB LES Final Result [facility] [address] [place] [address] [phone] * (ABNORMAL) CBC auto differential (12/24/2024 11:34 AM EDT) White Blood Count 4.7(L) 4.8 - 10.8 X10*3/uL [facility] Red Blood Count 4.21 4.20 - 5.50 X10*6/uL [facility] Hemoglobin 12.8 12.0 - 16.0 g/dl [facility] Hematocrit 37.0 37.0 - 47.0 % [facility] Mean Corpuscular Volume 87.9 80.0 - 98.0 fL [facility] Mean Corpuscular Hemoglobin 30.4 27.0 - 33.0 pg [facility] Mean Corpuscular HGB Conc 34.6 31.0 - 35.0 g/dl [facility] Red Cell Distribution Width 11.9 11.0 - 16.0 % [facility] Platelet Count 318 160 - 400 X10*3/uL [facility] Mean Platelet Volume 8.5(L) 9.4 - 12.3 fL [facility] Neutrophils Percent Auto 49.9 45 - 73 % [facility] Imm Gran Pct Auto 0.2 0.0 - 0.4 % [facility] Lymphocytes Percent Auto 33.7 20 - 40 % [facility] Monocytes Percent Auto 10.9 2 - 11 % [facility] Eosinophils Percent Auto 4.7(H) 0 - 4 % [facility] Basophils Percent Auto 0.6 0 - 2 % [facility] NRBC Pct Auto 0.0 0.0 - 0.2 /100WBC [facility] Neutrophils Absolute Auto 2.3 2.0 - 8.3 x10*3/uL [facility] Imm Gran Abs Auto 0.01 0.00 - 0.03 X10*3/uL [facility] Lymphocytes Absolute Auto 1.6 1.2 - 4.9 X10*3/uL [facility] Monocytes Absolute Auto 0.5 0.1 - 1.2 X10*3/uL [facility] Eosinophils Absolute Auto 0.2 0.0 - 0.4 X10*3/uL [facility] Basophils Absolute Auto 0.0 0.0 - 0.2 X10*3/uL [facility] NRBC Abs Auto 0.000 0.0 - 0.012 X10*3/uL [facility] 12/24/2024 11:3 4 AM EDT 12/24/2024 11:37 AM EDT us Generic External Data Provider LAB BLOOD ORDERAB LES Final Result [facility] [address] [place] [address] [phone] * (ABNORMAL) Basic Metabolic Panel (12/24/2024 11:34 AM EDT) Sodium 142 135 - 145 mmol/L [facility] Potassium 3.9 3.3 - 5.1 mmol/L [facility] Chloride 107 96 - 108 mmol/L [facility] Carbon Dioxide 27 22 - 29 mmol/L [facility] Anion Gap 12 12 - 20 [facility] Urea Nitrogen (BUN) 10 9 - 16 mg/dL [facility] Creatinine, Serum 0.93 0.5 - 1.4 mg/dL [facility] Creatinine Clr Calc Pharmacy 78.5 [facility] Comment:Provided height and weight: 162.56 cm,95.9 kg.eGFR (calculated from the MDRD study equation) and eCrCl(calculated from the Cockcroft-Gault equation) are based ondifferent parameters and may not yield comparable results.If eCrCl result is absurd, please check patient'sheight/weight. Estimated Glomerular Filt Rate >60 [facility] Comment:Chronic Kidney Disea se: Estimated GFR < 60 mL/min/1.72g9Rhckku Kidney Disease: Estimated GFR < 15 mL/min/1.73m2 Glucose 118(H) 60 - 115 mg/dL [facility] Calcium 9.1 8.4 - 10.2 mg/dL [facility] 12/24/2024 11:3 4 AM EDT 12/24/2024 11:37 AM EDT us Generic External Data Provider LAB BLOOD ORDERAB LES Final Result Performing Organization Address City/State/[facility] Co de Phone Number [facility] [address] [place] [address] [phone] * XR Chest 2 Views (12/24/2024 10:18 AM EDT) Anatomical Region Laterality Modality Chest Radiographic Gudelia ging 12/24/2024 10:1 8 AM EDT Narrative 12/24/2024 11:25 AM EDT [place] [address] XRay Report Signed Patient: Catina Becerra MR#: [id number] : 1970 Acct:[id number] Age/Sex: 54 / F ADM Date: 12/24/24 Loc: .ED Attending Dr: Ordering Physician: Mallika Walter DO Date of Service: 12/24/24 Procedure(s): XR chest 2V Accession Number(s): [id number] cc: Sonam Albarran MD; Mallika Walter DO [...] 12/24/24 1122 DD/ 1018 TD/TT: 12/24/24 1118 Caretaker: Procedure Note Donotuseinterpreter, Image - 12/24/[address] [address] XRay Report Signed Patient: Catina Becerra EMR#: [id number] : 1970Acct:[id number] Age/Sex: 54 / FADM Date: 12/24/24 Loc: .ED Attending Dr: Ordering Physician: Mallika Walter DO Date of Service: 12/24/24 Procedure(s): XR chest 2V Accession Number(s): [id number] cc: Sonam Albarran MD; Mallika Walter DO [...] 12/24/24 1122 DD/ 1018 TD/TT: 12/24/24 1118 Caretaker: [facility] External Provider IMG XR PROCEDURES Final Result * Influenza B (ID NOW Rapid Molecular) (12/18/2024 2:11 PM EDT) Only the most recent of2 resultswithin the time period is included. Pathologist [facility] Influenza B Negative Negative, Indeterminate [facility] Swab 12/18/2024 2:11 PM EDT Sonam Hensley MD POINT OF CARE TEST EN TER/EDIT ORDERABLES Final Result Performing Organization Address [facility] de Phone Number [facility] [address] [place] [phone] * Influenza A (ID NOW Rapid Molecular) (12/18/2024 2:11 PM EDT) Only the most recent of2 resultswithin the time period is included. Pathologist [facility] Influenza A Negative Negative, Indeterminate [facility] Swab 12/18/2024 2:11 PM EDT us Sonam Hensley MD POINT OF CARE TEST EN TER/EDIT ORDERABLES Final Result Performing Organization Address [facility] de Phone Number [facility] [address] [place] [phone] * POCT Rapid COVID Ag (12/18/2024 2:11 PM EDT) Only the most recent of2 resultswithin the time period is included. [facility] Rapid COVID Ag Negative Swab 12/18/2024 2:11 PM EDT Sonam Hensley MD POINT OF CARE TEST EN TER/EDIT ORDERABLES Final Result * POCT rapid strep A manually resulted (12/08/2024 2:17 PM EDT) [facility] Rapid Strep A Screen Negative Negative, None Detected Swab 12/08/2024 2:17 PM EDT Dolores Gómez MD POINT OF CARE TEST ENTER/E DIT ORDERABLES Final Result * (ABNORMAL) Lipid Panel, Standard (03/01/2023 9:49 AM EDT) Triglycerides 173(H) <150 mg/dL [facility] Comment:Desirable Triglyceri de: less than 150 mg/dLBorderline High Triglyceride 150-199 mg/dLHigh Triglyceride: 200-499 mg/dLVery High Triglyceride: greater than or equal to 5OO mg/dL Cholesterol 239(H) <200 mg/dL [facility] Comment:Desirable Cholestero l: less than 200 mg/dLBorderline High Cholesterol: 200-239 mg/dLHigh Cholesterol: greater than 239 mg/dL LDL Cholesterol Calculated 165(H) <100 mg/dL [facility] Comment:Desirable LDL: less than 100 mg/dLNear Optimal/Above Optimal LDL: 110- 129 mg/dLBorderline High LDL: 130-159 mg/dLHigh LDL: 160-189 mg/dLVery High LDL: greater than or equal to 190 mg/dL HDL Cholesterol 40(L) >40 mg/dL [facility] Comment:Desirable HDL: great er than 40 mg/dL Note: This HDL assay may give artificially low results in patients with liver disease. Blood Venous blood specimen / Unknown 03/01/2023 9:49 AM EDT 03/01/2023 9:49 AM EDT Dory Villanueva DO LAB BLOOD ORDERABLES Final R esult [facility] [address] [place] [phone] * THINPREP TIS PAP AND HPV mRNA E6/E7, CT/NG, TRICH (08/10/2021 11:39 AM EDT) Chlamydia trachomatis RNA, TMA, Urogenital NOT DETECTED NOT DETECTED [facility] Clinical Information: ASCUS HPV NEG 2017 [facility] COMMENT SEE COMMENT [facility] Comment: The analytical performance characteristics of this assay, when used to test SurePath(TM) specimens have been determined by [employer] ([employer]). The modifications have not been cleared or approved by the FDA. This assay has been validated pursuant to the CLIA regulations and is used for clinical purposes. For additional information, please refer to [email or web address].[email or web address]/faq/KOO286 (This link is being provided for information/ [...] has been evaluated with computer assisted technology. [facility] Frame Opener: SEE COMMENT [facility] Comment: GSG, CT(ASCP) CT screening location: [place] [address] HPV nRNA E6/E7 Not Detected Not Detected [facility] Comment: Methodology: Electric Range [employer]icer-Mediated Amplification This assay detects E6/E7 viral messenger RNA (mRNA) from 14 high-risk HPV types (16,18,31,33,35,39,45,51,52,56,58,59,66,68). The analytical performance characteristics of this assay have been determined by [employer] ([employer]). The modifications have not been cleared or approved by the FDA. This assay has been validated pursuant to the CLIA regulations and is used for clinical purposes. For additional information, please refer to http://[employer].[email or web address]/faq/GPV811t6 (This link if provided for information/ educational purposes only.) Interpretation/Re sult: Negative for intraepithelial lesion or malignancy. [facility] LMP: 07/18/21 [facility] Neisseria gonorrhoeae RNA, TMA, Urogenital NOT DETECTED NOT DETECTED [facility] Prev. BX: NONE GIVEN [facility] Prev. PAP: NONE GIVEN [facility] SOURCE: None given [facility] Statement Of Adequacy: SEE COMMENT [facility] Comment: Satisfactory for evaluation. Endocervical/transformation zone component absent. Trichomonas vaginalis, QL, TMA, PAP Vial NOT DETECTED NOT DETECTED [facility] Comment: The analytical performance characteristics of this assay have been determined by [employer] ([employer]). The modifications have not been cleared or approved by the FDA. This assay has been validated pursuant to the CLIA regulations and is used for clinical purposes. For additional information, please refer to http://[email or web address]/ faq/Trichomonastma (This link is being provided for information/ educational purposes only.) 08/10/2021 11:3 9 AM EDT us Alda Tabares [facility] LAB PATHOLOGY ORDERABLES Final Result [facility] [address] * 3D BILATERAL DIAGN MAMMO 1 [...] Most Recently Relevant to Health Maintenance Insurance [facility] ONE CARE < 65 [place] [id number] Care Teams Funding Coordinator Relationship Specialty Start Date End Date Sonam Albarran MD [address] [place] [phone] PCP - General Family Medicine 04/06/19
== END 2025-03-08 11:55 | disposition home or self-care (01) ==
LOC: HO.HHCL 11:54
PROVIDERS: PCP Internal Medicine; Visit Provider Registered Nurse Psychiatric/Mental Health
DX: Z79.899 Other long term (current) drug therapy (principal)
CPT/HCPCS: 36415; 80053; 80061; 82248; 84443; 85025

== ENCOUNTER 2025-03-30 08:30 | Day surgery (SDC) | payer OTHER, SELFPAY ==
--- NOTE | 2025-03-30 09:07 | MHC.SHP ---
Pre-Procedural Eval Section A - 24 Hr Update-Section A only Date of Service: 03/30/25 Section B - Complete if H&P > 30 days Chief Complaint: screening Relevant Family History (Specify if Yes): No Relevant Social History: None Present Medications: see Short Stay Collaborative assessment Medical History: Significant History (Plantar fasciitis Depression with anxiety Sjogrens syndrome Cognitive impairment Insomnia Hypercholesteremia Keratosis pilaris History of cervical dysplasia GERD (gastroesophageal reflux disease) Disturbance of salivary secretion PTSD (post-traumatic stress disorder) ADD (attention deficit disorder)) History of Previous Operations: Relevant previous surgery/procedure and date(s) ( H/O hand surgery Hx of section) Allergies: Allergies Allergy/AdvReac Type Severity Reaction Status Date / Time influenza virus vaccine, Allergy Severe Anaphylaxis Verified 01/18/25 11:02 specific (FLU VACCINE) Iodinated Contrast Media Allergy Severe TURNS Verified 01/18/25 11:02 (Iodinated Contrast Media - BLUE IV Dye) latex (Latex) Allergy Severe Anaphylaxis Verified 01/18/25 11:02 sulfamethoxazole (From Allergy Mild Rash Verified 01/18/25 11:02 Bactrim) trimethoprim (From Bactrim) Allergy Mild Rash Verified 01/18/25 11:02 amoxicillin (Prevpac) Allergy Unknown Nausea and Verified 01/18/25 11:02 Vomiting aspirin (From Percodan) Allergy Unknown Stomach Verified 01/18/25 11:02 Upset clarithromycin (Prevpac) Allergy Unknown Nausea and Verified 01/18/25 11:02 Vomiting codeine Allergy Unknown Unknown Verified 01/18/25 11:02 doxazosin Allergy Unknown Dizziness Verified 01/18/25 11:02 gabapentin Allergy Unknown Blurry Verified 01/18/25 11:02 Vision lansoprazole (Prevpac) Allergy Unknown Nausea and Verified 01/18/25 11:02 Vomiting metronidazole (From FLAGYL) Allergy Unknown Unknown Verified 01/18/25 11:02 rifaximin (Xifaxan) Allergy Unknown Unknown Verified 01/18/25 11:02 shellfish derived Allergy Unknown Anaphylaxis, Verified 01/18/25 11:02 difficulty breathing, Rash Sulfa (Sulfonamide Allergy Unknown stomach Verified 01/18/25 11:02 Antibiotics) upset Opioids - Morphine Analogues AdvReac Intermediate NAUSEA & Verified 01/18/25 11:02 (OPIOIDS - MORPHINE VOMITING + ANALOGUES) RASH clonazepam (From Klonopin) AdvReac Mild HEADACHE Verified 01/18/25 11:02 oxycodone (From Percodan) AdvReac Mild Headache, Verified 01/18/25 11:02 Dizziness, Nausea and Vomiting ezetimibe (From Zetia) AdvReac Unknown Verified 01/18/25 11:02 Review of Systems Sugical H&P ROS: Negative: Constitution, Cardiovascular, Respiratory, Neurological, Psychiatric, Hem-Onc, Allergic/Immunologic, Gastrointestinal, Genitourinary, Musculoskeletal, Integumentary, Endocrine and Eyes/Ears/Nose/Throat Exam Surgical H&P Exam: Normal: HEENT, Normal: Heart, Normal: Lungs, Normal: Extremities, Normal: Abdomen, Normal: Skin and Normal: Neurological Plan Diagnosis/Plan: Unchanged I have reviewed the history and physical and performed a pertinent physical examination on my patient. No changes have occurred unless specified. Time Spent With Patient Time: Total time managing care of this patient today ____ minutes.
[2025-03-30 09:32] VITALS: BP 115/71; PULSE 61; RESP 15; TEMP 36.4; O2SAT 95; BMI 31.8
[2025-03-30] MEDS: Lactated Ringers 1,000 ML 100 ML IVCONT (09:46)
--- NOTE | 2025-03-30 09:47 | HO.ANESPROP2 ---
Documented by User: Nargis Deutsch NP 03/29/25 14:09 HPI - Anesthesia Eval Consult details Narrative: 54 yr old female for colonoscopy Seizure disorder: on Keppra, last seizure >10 yrs ago per GI note PMFSH Active Problems Active Problems: All Active Problems (Updated 12/25/24 @ 00:00 by Background Daemon) Obesity (BMI 30-39.9) (Acute) Bacterial vaginosis (Acute) Encounter to discuss test results (Acute) Abnormal uterine bleeding (Acute) Past Medical History Medical History (Updated 03/30/25 @ 09:45 by Ev Hernandez, RN) Asthma Plantar fasciitis Depression with anxiety Sjogrens syndrome Cognitive impairment Insomnia Hypercholesteremia Keratosis pilaris History of cervical dysplasia GERD (gastroesophageal reflux disease) Disturbance of salivary secretion PTSD (post-traumatic stress disorder) ADD (attention deficit disorder) Tear film insufficiency IBS (irritable bowel syndrome) Hammer toe HTN (hypertension) Restless leg syndrome Anxiety about blushing Seizure Family History Family History Maternal Aunt Colon cancer Maternal Grandmother History of breast cancer Surgical History Surgical History H/O hand surgery Hx of section Social History Social History Alcohol intake: former Patient Tobacco Use Status: Never used Tobacco Use of substances other than those prescribed or required for medical reasons: No Are you DNR?: No Advance Directives: No Advance Directives Information Provided: Yes Meds Allergies Allergy/AdvReac Type Severity Reaction Status Date / Time influenza virus vaccine, Allergy Severe Anaphylaxis Verified 03/30/25 09:45 specific (FLU VACCINE) Iodinated Contrast Media Allergy Severe TURNS Verified 03/30/25 09:45 (Iodinated Contrast Media - BLUE IV Dye) latex (Latex) Allergy Severe Anaphylaxis Verified 03/30/25 09:45 sulfamethoxazole (From Allergy Mild Rash Verified 03/30/25 09:45 Bactrim) trimethoprim (From Bactrim) Allergy Mild Rash Verified 03/30/25 09:45 amoxicillin (Prevpac) Allergy Unknown Nausea and Verified 03/30/25 09:45 Vomiting aspirin (From Percodan) Allergy Unknown Stomach Verified 03/30/25 09:45 Upset clarithromycin (Prevpac) Allergy Unknown Nausea and Verified 03/30/25 09:45 Vomiting codeine Allergy Unknown Unknown Verified 03/30/25 09:45 doxazosin Allergy Unknown Dizziness Verified 03/30/25 09:45 gabapentin Allergy Unknown Blurry Verified 03/30/25 09:45 Vision lansoprazole (Prevpac) Allergy Unknown Nausea and Verified 03/30/25 09:45 Vomiting metronidazole (From FLAGYL) Allergy Unknown Unknown Verified 03/30/25 09:45 rifaximin (Xifaxan) Allergy Unknown Unknown Verified 03/30/25 09:45 shellfish derived Allergy Unknown Anaphylaxis, Verified 03/30/25 09:45 difficulty breathing, Rash Sulfa (Sulfonamide Allergy Unknown stomach Verified 03/30/25 09:45 Antibiotics) upset Opioids - Morphine Analogues AdvReac Intermediate NAUSEA & Verified 03/30/25 09:45 (OPIOIDS - MORPHINE VOMITING + ANALOGUES) RASH clonazepam (From Klonopin) AdvReac Mild HEADACHE Verified 03/30/25 09:45 oxycodone (From Percodan) AdvReac Mild Headache, Verified 03/30/25 09:45 Dizziness, Nausea and Vomiting ezetimibe (From Zetia) AdvReac Unknown Verified 03/30/25 09:45 Home Medications ?Medication ?Instructions ?Recorded ?Confirmed ?Last Taken ?Type aspirin 81 mg tablet,delayed 81 mg PO DAILY 01/31/22 03/30/25 Unknown History release cholecalciferol (vitamin D3) 50 50 mcg PO DAILY 01/31/22 03/30/25 Unknown History mcg (2,000 unit) capsule (Vitamin D3) cyanocobalamin (vitamin B-12) 1,000 mcg PO QAM 01/31/22 03/30/25 Unknown History 1,000 mcg tablet cyclosporine 0.05 % eye drops 1 drp ophthalmic (eye) BID 01/31/22 03/30/25 Unknown History (Restasis MultiDose) diclofenac sodium 1 % topical gel 2 g topical QID 01/31/22 03/30/25 Unknown History diphenhydramine HCl 25 mg tablet 0 mg PO BEDTIME PRN Insomnia 01/31/22 03/30/25 Unknown History docusate sodium 100 mg capsule 100 mg PO DAILY PRN Constipation 01/31/22 03/30/25 Unknown History epinephrine 0.3 mg/0.3 mL 0.3 mg IM DAILY PRN Anaphylaxis 01/31/22 03/30/25 Unknown History injection, auto-injector famotidine 20 mg tablet 20 mg PO BID 01/31/22 03/30/25 03/30/25 History lacosamide 100 mg tablet 100 mg PO BID 01/31/22 03/30/25 03/30/25 History levetiracetam 500 mg tablet 500 mg PO BID 01/31/22 03/30/25 03/30/25 History lorazepam 1 mg tablet 1 mg PO BID PRN Anxiety 01/31/22 03/30/25 Unknown History ropinirole 2 mg tablet 2 mg PO DAILY 01/31/22 03/30/25 03/30/25 History albuterol sulfate 90 mcg/actuation 2 puff inhalation Q4H PRN 01/18/25 03/30/25 Unknown History aerosol inhaler Shortness Of Breath Or Wheezing cetirizine 10 mg tablet 10 mg PO QAM 01/18/25 03/30/25 03/30/25 History duloxetine 30 mg capsule,delayed 30 mg PO BID 01/18/25 03/30/25 03/30/25 History release ferrous sulfate 325 mg (65 mg 325 mg PO QAM 01/18/25 03/30/25 03/30/25 History iron) tablet,delayed release magnesium chloride 64 mg 64 mg PO QPM 01/18/25 03/30/25 Unknown History (magnesium chloride) tablet,delayed release (Mag 64) metoprolol succinate 100 mg 100 mg PO DAILY 01/18/25 03/30/25 03/30/25 History tablet,extended release 24 hr omega 0-jox-ahm-fish oil 60 mg-90 1 cap PO QAM 01/18/25 03/30/25 03/29/25 History mg-500 mg capsule pravastatin 40 mg tablet 40 mg PO DAILY 01/18/25 03/30/25 03/30/25 History torsemide 20 mg tablet 20 mg PO DAILY 01/18/25 03/30/25 03/29/25 History Exam Pertinent Lab Results Pertinent Lab Results: Laboratory Tests 03/08/25 12:00 WBC 5.0 RBC 4.49 Hgb 13.4 Hct 40.2 Plt Count 283 Sodium 140 Potassium 3.8 BUN 15 Creatinine 0.87 Documented by User: Ev Blankenship DO 03/30/25 09:48 PMFSH Past Medical History Medical History (Updated 03/30/25 @ 09:45 by Ev Hernandez, RN) Asthma Plantar fasciitis Depression with anxiety Sjogrens syndrome Cognitive impairment Insomnia Hypercholesteremia Keratosis pilaris History of cervical dysplasia GERD (gastroesophageal reflux disease) Disturbance of salivary secretion PTSD (post-traumatic stress disorder) ADD (attention deficit disorder) Tear film insufficiency IBS (irritable bowel syndrome) Hammer toe HTN (hypertension) Restless leg syndrome Anxiety about blushing Seizure Family History Family History Maternal Aunt Colon cancer Maternal Grandmother History of breast cancer Family history of problems with anesthesia: No Surgical History Surgical History H/O hand surgery Hx of section History of Problems with Anesthesia: No Social History Social History Alcohol intake: former Patient Tobacco Use Status: Never used Tobacco Use of substances other than those prescribed or required for medical reasons: No Are you DNR?: No Advance Directives: No Advance Directives Information Provided: Yes Meds Allergies Allergy/AdvReac Type Severity Reaction Status Date / Time influenza virus vaccine, Allergy Severe Anaphylaxis Verified 03/30/25 09:45 specific (FLU VACCINE) Iodinated Contrast Media Allergy Severe TURNS Verified 03/30/25 09:45 (Iodinated Contrast Media - BLUE IV Dye) latex (Latex) Allergy Severe Anaphylaxis Verified 03/30/25 09:45 sulfamethoxazole (From Allergy Mild Rash Verified 03/30/25 09:45 Bactrim) trimethoprim (From Bactrim) Allergy Mild Rash Verified 03/30/25 09:45 amoxicillin (Prevpac) Allergy Unknown Nausea and Verified 03/30/25 09:45 Vomiting aspirin (From Percodan) Allergy Unknown Stomach Verified 03/30/25 09:45 Upset clarithromycin (Prevpac) Allergy Unknown Nausea and Verified 03/30/25 09:45 Vomiting codeine Allergy Unknown Unknown Verified 03/30/25 09:45 doxazosin Allergy Unknown Dizziness Verified 03/30/25 09:45 gabapentin Allergy Unknown Blurry Verified 03/30/25 09:45 Vision lansoprazole (Prevpac) Allergy Unknown Nausea and Verified 03/30/25 09:45 Vomiting metronidazole (From FLAGYL) Allergy Unknown Unknown Verified 03/30/25 09:45 rifaximin (Xifaxan) Allergy Unknown Unknown Verified 03/30/25 09:45 shellfish derived Allergy Unknown Anaphylaxis, Verified 03/30/25 09:45 difficulty breathing, Rash Sulfa (Sulfonamide Allergy Unknown stomach Verified 03/30/25 09:45 Antibiotics) upset Opioids - Morphine Analogues AdvReac Intermediate NAUSEA & Verified 03/30/25 09:45 (OPIOIDS - MORPHINE VOMITING + ANALOGUES) RASH clonazepam (From Klonopin) AdvReac Mild HEADACHE Verified 03/30/25 09:45 oxycodone (From Percodan) AdvReac Mild Headache, Verified 03/30/25 09:45 Dizziness, Nausea and Vomiting ezetimibe (From Zetia) AdvReac Unknown Verified 03/30/25 09:45 Home Medications ?Medication ?Instructions ?Recorded ?Confirmed ?Last Taken ?Type aspirin 81 mg tablet,delayed 81 mg PO DAILY 01/31/22 03/30/25 Unknown History release cholecalciferol (vitamin D3) 50 50 mcg PO DAILY 01/31/22 03/30/25 Unknown History mcg (2,000 unit) capsule (Vitamin D3) cyanocobalamin (vitamin B-12) 1,000 mcg PO QAM 01/31/22 03/30/25 Unknown History 1,000 mcg tablet cyclosporine 0.05 % eye drops 1 drp ophthalmic (eye) BID 01/31/22 03/30/25 Unknown History (Restasis MultiDose) diclofenac sodium 1 % topical gel 2 g topical QID 01/31/22 03/30/25 Unknown History diphenhydramine HCl 25 mg tablet 0 mg PO BEDTIME PRN Insomnia 01/31/22 03/30/25 Unknown History docusate sodium 100 mg capsule 100 mg PO DAILY PRN Constipation 01/31/22 03/30/25 Unknown History epinephrine 0.3 mg/0.3 mL 0.3 mg IM DAILY PRN Anaphylaxis 01/31/22 03/30/25 Unknown History injection, auto-injector famotidine 20 mg tablet 20 mg PO BID 01/31/22 03/30/25 03/30/25 History lacosamide 100 mg tablet 100 mg PO BID 01/31/22 03/30/25 03/30/25 History levetiracetam 500 mg tablet 500 mg PO BID 01/31/22 03/30/25 03/30/25 History lorazepam 1 mg tablet 1 mg PO BID PRN Anxiety 01/31/22 03/30/25 Unknown History ropinirole 2 mg tablet 2 mg PO DAILY 01/31/22 03/30/25 03/30/25 History albuterol sulfate 90 mcg/actuation 2 puff inhalation Q4H PRN 01/18/25 03/30/25 Unknown History aerosol inhaler Shortness Of Breath Or Wheezing cetirizine 10 mg tablet 10 mg PO QAM 01/18/25 03/30/25 03/30/25 History duloxetine 30 mg capsule,delayed 30 mg PO BID 01/18/25 03/30/25 03/30/25 History release ferrous sulfate 325 mg (65 mg 325 mg PO QAM 01/18/25 03/30/25 03/30/25 History iron) tablet,delayed release magnesium chloride 64 mg 64 mg PO QPM 01/18/25 03/30/25 Unknown History (magnesium chloride) tablet,delayed release (Mag 64) metoprolol succinate 100 mg 100 mg PO DAILY 01/18/25 03/30/25 03/30/25 History tablet,extended release 24 hr omega 0-evu-ncz-fish oil 60 mg-90 1 cap PO QAM 01/18/25 03/30/25 03/29/25 History mg-500 mg capsule pravastatin 40 mg tablet 40 mg PO DAILY 01/18/25 03/30/25 03/30/25 History torsemide 20 mg tablet 20 mg PO DAILY 01/18/25 03/30/25 03/29/25 History Exam Exam Date and Time: 03/30/25944 Height,Weight and Vital Signs: Height 5 ft 5 in Weight 86.636 kg Vital Signs Temperature 97.6 F 03/30/25 09:32 Pulse Rate 61 03/30/25 09:32 Respiratory Rate 15 03/30/25 09:32 Blood Pressure 115/71 03/30/25 09:32 Pulse Oximetry 95 03/30/25 09:32 Oxygen Delivery Method Room Air 03/30/25 09:32 Temperature 97.6 F 03/30/25 09:32 Pulse Rate 61 03/30/25 09:32 Respiratory Rate 15 03/30/25 09:32 Blood Pressure 115/71 03/30/25 09:32 Pulse Oximetry 95 03/30/25 09:32 Oxygen Delivery Method Room Air 03/30/25 09:32 Airway Mallampati Class: III (small oral aperture) TM Dist: >3cm Neck ROM: Full Loose/Missing/Broken Teeth: Yes (broken molar right lower jaw) Heart: S1S2 Lungs: CTAB Assessment and Plan Assessment Anesthesia Assessment: Anesthesia Plan Discussed and Chart Reviewed Final Anesthetic Review Family History of Problems with Anesthesia: No History of Problems with Anesthesia: No NPO: Yes ASA Class: III Final Preanesthetic Review: No Changes in Pt Med Stat, Meds/Allgs Chart Reviewed, Consent Obtained/Reviewed and Anes Risks/Benef Reviewed Patient Risk: Intermediate Procedure Risk: Low Anesthetic Plan Anesthetic Plan: MAC: and Agree w/ Assess. and Plan Disposition: Standard PACU
--- NOTE | 2025-03-30 10:12 | P.OPN-COLO_ITS ---
Colonoscopy Operative Note Operative Note Date of Service: 03/30/25 Narrative: Operative Information Procedure Description: Colonoscopy Indication: screening Anesthesia: MAC COLONOSCOPY Instrument: Olympus variable stiffness pediatric scope 190L Colonoscopy Monitoring: Vital signs and clinical assessment, continuous EKG monitoring, Pulse oximetry, Carbon Dioxide monitoring and blood pressure monitoring were done throughout the procedure. Colon withdrawal time was 7 minutes. Procedure: The patient was placed in the left lateral decubitis position and pre-procedure medications were administered. After a digital rectal examination of the ano-rectum, the video colonoscope was inserted into the rectum and advanced through the colon to the cecum/TI. The colonoscope was slowly withdrawn in a retrograde panoramic fashion and the colon mucosa was carefully examined including a retroflexed view of the rectum. Findings and interventions are described below. Procedure Difficulty: easy Findings: Terminal Ileum-normal Cecum:normal Ascending Colon: normal Transverse Colon -normal Descending Colon:normal Sigmoid Colon: 5-6 mm sessile polyp removed with cold forceps Rectum: Retroflexion with small internal hemorrhoids seen, grade I Anorectum - normal Intervention: cold forceps Colon preparation: [place] Bowel Preparation Scale Right colon; 1-2 Transverse colon: 2 Left colon; 2 (0 = Unprepared colon segment with mucosa not seen due to solid stool that cannot be cleared. 1 = Portion of mucosa of the colon segment seen, but other areas of the colon segment not well seen due to staining, residual stool and/or opaque liquid. 2 = Minor amount of residual staining, small fragments of stool and/or opaque liquid, but mucosa of colon segment seen well. 3 = Entire mucosa of colon segment seen well with no residual staining, small fragments of stool or opaque liquid) Impression and Post Procedure Diagnosis: colon polyp x 1 internal hemorrhoids Plan: High fiber diet leaflet Avoid straining at stool, epsom salts and sitz bath, anusol supps or cream Repeat Colonoscopy in 4-5 years due to some areas of fair prep or earlier if clinically indicated Above findings were reviewed with the patient and relevant handouts were provided if indicated.
[2025-03-30 10:16] VITALS: BP 98/53; PULSE 62; RESP 12; TEMP 37; O2SAT 96
[2025-03-30 10:20] VITALS: BP 97/84; PULSE 63; RESP 14; O2SAT 94
[2025-03-30 10:25] VITALS: BP 106/63; PULSE 58; RESP 15; O2SAT 96
[2025-03-30 10:30] VITALS: BP 106/67; PULSE 64; RESP 19; TEMP 36.5; O2SAT 98
[2025-03-30 10:35] VITALS: BP 112/69; PULSE 63; RESP 15; O2SAT 97
== END 2025-03-30 11:38 | disposition home or self-care (01) ==
PROVIDERS: PCP Internal Medicine; Visit Provider Internal Medicine Gastroenterology
PROC: 0DJD8ZZ Inspection of Lower Intestinal Tract, Via Natural or Artificial Opening Endoscopic (ICD-10-PCS; CPT 45378; principal; 2025-03-30 10:00)
DX: Z12.11 Encounter for screening for malignant neoplasm of colon (principal); K64.0 First degree hemorrhoids; K63.5 Polyp of colon
CPT/HCPCS: 45380; 88305; J2003; J2704

== ENCOUNTER → 2025-03-30 08:30 | Outpatient (BNV) | payer OTHER, SELFPAY | PROVIDERS: PCP Internal Medicine; Visit Provider Internal Medicine Gastroenterology | DX: Z12.11 Encounter for screening for malignant neoplasm of colon (principal); K63.5 Polyp of colon; K64.0 First degree hemorrhoids | CPT/HCPCS: 45380 ==